=== PATIENT | male | born 1965 | race American Indian/Alaskan Native ===

== ENCOUNTER 2018-11-09 23:18 | Inpatient (IN) | payer MEDICARE, OTHER ==
[2018-11-09] MEDS ORDERED: ASPIRIN PO ONE (23:45)
[2018-11-10 00:06] LABS: Basophils # (Auto) 0.1 K/mm3 (0.0-0.1); Basophils % (Auto) 0.9 % (0.0-1.8); Eosinophils # (Auto) 0.3 K/mm3 (0.0-0.4); Eosinophils % (Auto) 3.8 % (0.0-4.3); Hematocrit 48.6 % (35.5-45.6); Hemoglobin 15.8 gm/dl (11.8-15.2); Lymphocytes % (Auto) 21.1 % (13.4-35.0); Mean Corpuscular HGB Conc 32 % (32-34); Mean Corpuscular Volume 95 fl (84-94); Monocytes % (Auto) 10.6 % (0.0-7.3); Platelet Count 214 K/mm3 (140-440); Red Blood Count 5.14 M/mm3 (3.65-5.03); Red Cell Distribution Width 16.6 % (13.2-15.2)
[2018-11-10 00:23] LABS: Calcium 8.8 mg/dL (8.4-10.2)
--- NOTE | 2018-11-10 02:02 | XRay Report ---
FINAL REPORT PROCEDURE: XR CHEST ROUTINE 2V TECHNIQUE: A portable AP chest radiograph was obtained at 11/10/2018 01:25 (EST) . CPT 47428 HISTORY: chest pain, cough COMPARISON: No prior studies are available for comparison. FINDINGS: Heart: Heart is enlarged. Mediastinum/Vessels: Normal. Lungs/Pleural space: There is pulmonary vascular congestion and pulmonary edema. Lungs are well-expan ded. There are no effusions or pneumothoraces.. Bony thorax: No acute osseous abnormality. Life support devices: None. IMPRESSION: Heart is enlarged. There is pulmonary vascular congestion and pulmonary edema. Lungs are well-expanded. There are no eff usions or pneumothoraces.. .
[2018-11-10] MEDS ORDERED: SOLU-Medrol IV ONE (02:12)
[2018-11-10] MEDS ORDERED: DUONEB *Not for PRN Use IH ONE (02:12)
--- NOTE | 2018-11-10 02:47 | Emergency Department Report ---
HPI - General Chief Complaint: Chest Pain Time Seen by Provider: 11/10/18 01:38 - HPI HPI: 53-year-old -[place]aj[place] male presents to the emergency department from home with a complaint of some chest pain, shortness of breath and a mixed dry and productive cough that started about 3 PM this afternoon. The patient wears 2 L oxygen by nasal cannula at home but did not have any for travel and presented to triage with a room air oxygen of 84%. The patient has a past medical history of sarcoidosis and kidney stones. The patient was recently at [facility] for some type of respiratory distress/failure in which she was intubated, had a feeding tube, and says that he also had a heart cath at that time that did not show any need for a cardiac stent. His primary care is usually through the [facility]. He does not have a restorative aide. No recent travel or sick contacts at home. ED Past Medical Hx - Past Medical History Previous Medical History?: Yes Hx Congestive Heart Failure: Yes Hx Renal Disease: Yes (no dialysis) Additional medical history: sarcoidosis, kidney stones - Surgical History Past Surgical History?: No - Social History Smoking Status: Never Smoker Substance Use Type: None - Medications Home Medications: Home Medications Medication Instructions Recorded Confirmed Last Taken Type Docusate Sodium [Colace CAP] 100 mg PO BID #60 capsule 07/07/15 Unknown Rx oxyCODONE /ACETAMINOPHEN [Percocet 1 - 2 tab PO Q6H PRN #30 tablet 07/07/15 Unknown Rx 5/325 mg] predniSONE [Deltasone] 20 mg PO QDAY #50 tab 07/07/15 Unknown Rx ED Review of Systems ROS: Stated complaint: JOSUÉ/CHEST PAIN Other details as noted in HPI Comment: All other systems reviewed and negative Constitutional: denies: chills, fever Eyes: denies: eye pain, eye discharge ENT: denies: ear pain, throat pain Respiratory: cough, shortness of breath Cardiovascular: chest pain. denies: syncope Gastrointestinal: denies: abdominal pain, vomiting Genitourinary: denies: dysuria, discharge Musculoskeletal: denies: joint swelling, arthralgia Skin: denies: rash, lesions Neurological: denies: headache, weakness Physical Exam - Physical Exam Vital Signs: Vital Signs 11/09/18 11/10/18 23:28 01:46 Temperature 98.3 F Pulse Rate 84 Respiratory 30 H Rate O2 Sat by Pulse 92 94 Oximetry Physical Exam: GENERAL: The patient is well-developed well-nourished. HEENT: Normocephalic. Atraumatic. Patient has moist mucous membranes. EYES: Extraocular motions are intact. Pupils are equal and reactive to light bilaterally. NECK: Supple. Trachea is midline. CHEST/LUNGS: Coarse breath sound. Mild wheezing. There is tachypnea but no accessory muscle use. A dry cough heard during examination. There is no respiratory distress noted. HEART/CARDIOVASCULAR: Regular. There is no tachycardia. There is no obvious m urmur. ABDOMEN: Abdomen is soft, nontender. Patient has normal bowel sounds. There is no abdominal distention. SKIN: Skin is warm and dry. Mild pitting edema to the bilateral lower extremity. NEURO: The patient is awake, alert, and oriented. The patient is cooperative. The patient has no focal neurologic deficits. The patient has normal speech. MUSCULOSKELETAL: There is no tenderness or deformity. There is no limitation range of motion. There is no evidence of acute injury. ED Course Vital Signs 11/09/18 11/10/18 23:28 01:46 Temperature 98.3 F Pulse Rate 84 Respiratory 30 H Rate O2 Sat by Pulse 92 94 Oximetry ED Medical Decision Making - Lab Data Result diagrams: 11/09/18 23:58 11/09/18 23:58 - EKG Data -: EKG Interpreted by Me EKG shows normal: sinus rhythm, axis, intervals, QRS complexes (right bundle branch block and left anterior fascicular block, LVH), ST-T waves Rate: normal - EKG Data When compared to previous EKG there are: changes noted (previous EKG was normal and did not have the right bundle branch block or left anterior fascicular block) Interpretation: other (sinus rhythm, left axis deviation, right bundle branch block, left anterior fascicular block, LVH) - Radiology Data Radiology results: image reviewed interpreted by me: Chest x-ray shows some pulmonary vascular congestion and mild pulmonary edema. No obvious pneumonia. No pneumothorax. - Medical Decision Making Patient presents with some acute shortness of breath and chest pain. First troponin is slightly elevated at 0.031 and we will continue to trend this. D- dimer is negative. Patient appears to have some CHF with a BNP greater than 5000 and a chest x-ray that shows some pulmonary vascular congestion and pulmonary edema. The patient was given some Solu-Medrol and a breathing treatment for mild bronchospasm. He was given some Lasix to start diuresis. Patient will be admitted to the hospital for further evaluation and treatment and was accepted for admission by the hospitalist, Dr. Hoover. - Differential Diagnosis CHF, WI, PE, pneumonia Critical Care Time: No Critical care attestation.: If time is entered above; I have spent that time in minutes in the direct care of this critically ill patient, excluding procedure time. 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
[2018-11-10] MEDS ORDERED: LASIX IV ONE ×3 (03:13→05:00)
[2018-11-10 03:42] LABS: Chol/HDL Ratio 2.91 %
[2018-11-10] MEDS ORDERED: MORPHINE IV ONE (03:43)
[2018-11-10] MEDS ORDERED: ZOFRAN ONE (04:05)
[2018-11-10] MEDS ORDERED: MORPHINE IV PRN (04:17)
[2018-11-10] MEDS ORDERED: PERCOCET 5/325 PO PRN (04:17)
[2018-11-10] MEDS ORDERED: ZOFRAN IV PRN (04:17)
[2018-11-10] MEDS ORDERED: PROVENTIL IH PRN (04:17)
[2018-11-10] MEDS ORDERED: SODIUM CHLORIDE FLUSH SYRINGE 10 ML IV PRN (04:17)
--- NOTE | 2018-11-10 04:21 | History and Physical Report ---
<NATY MACKEY - Last Filed: 11/10/18 04:49> History of Present Illness Date of examination: 11/10/18 Date of admission: 11/10/2018 Chief complaint: chest pain, SOB History of present illness: Pt is a 53 y/o BM with PMHx of Sarcoidosis home O2 dependant, CHF, HTN, recent pneumonia who presents to the ER from home with c/o chest pain and SOB x 3 days. Pt states that for the past 3 days he had been having a non-productive cough, but today he had a sharp chest pain associated with SOB, which prompt him to come to the ER for evaluation. Pt states that the chest pain is mostly associated with cough and SOB, had a heart cath 3 months ago when he was admited at [place], Pt denies diaphroresis, reports some palpitation, denies radiation of the pain. Pt states that he was more concerns for the SOB because of his recent admission for pneumonia at [facility], he was intubated at that time, he denies h/o heart disease and chest pain, he denies family history. Pt' SOB got worse, his O2 sat decreased to 64 and remained at 71 only while he was talking and provided medical history, his blood pressure was stable 139/89, Solumedrol 125mg was already giving and will be continue q6hr, Lasix 40mg ordered, ABG and BiPAP was ordered to keep his O2 sat >92%, pt is admitted for further evaluation and treatment. Past History Past Medical History: heart failure, hypertension, sarcoidosis Past Surgical History: No surgical history Social history: Lives alone Family history: no significant family history Medications and Allergies Allergies Allergy/AdvReac Type Severity Reaction Status Date / Time No Known Allergies Allergy Unverified 07/05/15 10:00 Home Medications Medication Instructions Recorded Confirmed Last Taken Type RX: ALBUTEROL NEB's [Proventil 2.5 mg IH Q3HRT PRN #15 nebu 11/15/18 Unknown Rx 0.083% NEBS] RX: Acetaminophen [Acetaminophen 650 mg PO Q4H PRN #15 tablet 11/15/18 Unknown Rx TAB] RX: Aspirin [Aspirin BABY CHEW TAB] 81 mg PO QDAY #30 tab.chew 11/15/18 Unknown Rx RX: Ipratropium/Albuterol Sulfate 1 ampul IH TIDRT #30 ampul.neb 11/15/18 Unknown Rx [DUONEB *Not for PRN Use*] RX: oxyCODONE /ACETAMINOPHEN 1 tab PO Q6H PRN #15 tablet 11/15/18 Unknown Rx [Percocet 5/325 mg] RX: predniSONE [Deltasone] 20 mg PO QDAY #30 tab 11/28/18 Unknown Rx Review of Systems Cardiovascular: chest pain Respiratory: cough, sleep apnea Gastrointestinal: abdominal pain Exam - Constitutional Vitals: Temp Pulse Resp BP Pulse Ox 98.3 F 81 18 94 11/09/18 23:28 11/10/18 03:39 11/10/18 03:39 11/10/18 01:46 General appearance: Present: severe distress - EENT Eyes: Present: EOM intact ENT: hearing intact - Neck Neck: Present: supple - Respiratory Respiratory effort: normal Respiratory: bilateral: rales, rhonchi - Cardiovascular Rhythm: regular Heart Sounds: Present: S1 & S2 - Extremities Extremities: no ischemia, No edema Peripheral Pulses: within normal limits - Abdominal General gastrointestinal: Present: soft, non-tender Male genitourinary: Present: deferred - Rectal Rectal Exam: deferred - Integumentary Integumentary: Present: warm, dry - Musculoskeletal Musculoskeletal: strength equal bilaterally - Psychiatric Psychiatric: cooperative - Neurologic Neurologic: moves all extremities Results - Labs CBC & Chem 7: 11/09/18 23:58 11/09/18 23:58 Labs: Laboratory Last Values WBC 9.3 K/mm3 (4.5-11.0) 11/09/18 23:58 RBC 5.14 M/mm3 (3.65-5.03) H 11/09/18 23:58 Hgb 15.8 gm/dl (11.8-15.2) H 11/09/18 23:58 Hct 48.6 % (35.5-45.6) H 11/09/18 23:58 MCV 95 fl (84-94) H 11/09/18 23:58 MCH 31 pg (28-32) 11/09/18 23:58 MCHC 32 % (32-34) 11/09/18 23:58 RDW 16.6 % (13.2-15.2) H 11/09/18 23:58 Plt Count 214 K/mm3 (140-440) 11/09/18 23:58 Lymph % (Auto) 21.1 % (13.4-35.0) 11/09/18 23:58 [place] % (Auto) 10.6 % (0.0-7.3) H 11/09/18 23:58 Eos % (Auto) 3.8 % (0.0-4.3) 11/09/18 23:58 Baso % (Auto) 0.9 % (0.0-1.8) 11/09/18 23:58 Lymph # 2.0 K/mm3 (1.2-5.4) 11/09/18 23:58 [place] # 1.0 K/mm3 (0.0-0.8) H 11/09/18 23:58 Eos # 0.3 K/mm3 (0.0-0.4) 11/09/18 23:58 Baso # 0.1 K/mm3 (0.0-0.1) 11/09/18 23:58 Seg Neutrophils % 63.6 % (40.0-70.0) 11/09/18 23:58 Seg Neutrophils # 5.9 K/mm3 (1.8-7.7) 11/09/18 23:58 D-Dimer < 135.00 ng/mlDDU (0-234) 11/10/18 02:24 Sodium 145 mmol/L (137-145) 11/09/18 23:58 Potassium 4.2 mmol/L (3.6-5.0) 11/09/18 23:58 Chloride 104.9 mmol/L (98-107) 11/09/18 23:58 Carbon Dioxide 29 mmol/L (22-30) 11/09/18 23:58 Anion Gap 15 mmol/L 11/09/18 23:58 BUN 13 mg/dL (9-20) 11/09/18 23:58 Creatinine 1.6 mg/dL (0.8-1.5) H 11/09/18 23:58 Estimated GFR 55 ml/min 11/09/18 23:58 BUN/Creatinine Ratio 8 % 11/09/18 23:58 Glucose 103 mg/dL (75-100) H 11/09/18 23:58 Calcium 8.8 mg/dL (8.4-10.2) 11/09/18 23:58 Troponin T 0.031 ng/mL (0.00-0.029) H 11/09/18 23:58 NT-Pro-B Natriuret Pep 5420 pg/mL (0-900) H 11/10/18 02:24 Triglycerides 86 mg/dL (2-149) 11/09/18 23:58 Cholesterol 166 mg/dL (50-199) 11/09/18 23:58 LDL Cholesterol Direct 100 mg/dL (50-130) 11/09/18 23:58 HDL Cholesterol 57 mg/dL (40-59) 11/09/18 23:58 Cholesterol/HDL Ratio 2.91 % 11/09/18 23:58 Assessment and Plan Assessment and plan: 1. Restrictive long disease with acute exacerbation 2. Sarcoidosis (on home O2) 3. Hypoxia due to above #1 &2 4. Acute dyspnea 5. NOY (on CPAP at night) 6. Recent pneumonia 7. CAD/CHF (stable) 8. HTN (BP stable) 9. Obesity 10. Immunocompromised (on daily steroid) Plan: Admit to [facility] for hypoxia/dyspnea Continue nebulizer treatment PRN for SOB Pulmocort daily O2 to keep sat > 92% Start BiPAP for hypoxia Solumedrol 60mg Q6hr Cough suppressant with Tessalon perle Resume home meds VTE prophylaxis with heparin SubQ q8hr Further plan per hospital course Plan of care was d/w pt, voiced understanding Pt's condition and plan of care was d/w Dr Hoover Advance Directives: Yes VTE prophylaxis?: Chemical Plan of care discussed with patient/family: Yes <HUGO HOOVER - Last Filed: 11/29/18 01:23> History of Present Illness Date of admission: 11/10/18 04:17 Medications and Allergies Active Meds: Active Medications Acetaminophen (Tylenol) 650 mg PO Q4H PRN PRN Reason: Pain MILD(1-3)/Fever >100.5/BURNS Albuterol (Proventil) 2.5 mg IH Q3HRT PRN PRN Reason: Shortness Of Breath Albuterol/Ipratropium (Duoneb *Not For Prn Use*) 1 ampul IH Q6HRT [facility]BDIAS Aspirin (Baby Aspirin) 81 mg PO QDAY ABDI[facility] Benzonatate (Tessalon Perles) 200 mg PO Q8HR [facility]BDI[facility] Famotidine (Pepcid) 20 mg PO BID ABDI[facility] Furosemide (Lasix) 40 mg IV 0600,1800 [facility] Heparin Sodium (Porcine) (Heparin) 5,000 unit SUB-Q Q8HR [facility] Hydrophilic Ointment (Vaseline Lip Therapy) 1 applic TP Q2HR PRN PRN Reason: Dry Lips Sodium Chloride (Nacl 0.9% 1000 Ml) 1,000 mls @ 75 mls/hr IV DIRECT ABDIAS Midazolam HCl 100 mg/ Sodium (Chloride) 100 mls @ 2 mls/hr IV TITR ABDIAS; Protocol Methylprednisolone Sodium Succinate (Solu-Medrol) 125 mg IV Q6HR ABDIAS Midazolam HCl (Versed) 2 mg IV Q10MIN PRN PRN Reason: Sedation Morphine Sulfate (Morphine) 2 mg IV Q4H PRN PRN Reason: Pain, Moderate (4-6) Multi-Ingred Cream/Lotion/Oil/Oint (Artificial Tears Ophth Oint) 1 applic OU Q4HR PRN PRN Reason: Dry Eye(s) Ondansetron HCl (Zofran) 4 mg IV Q8H PRN PRN Reason: Nausea And Vomiting Oxycodone/Acetaminophen (Percocet 5/325) 1 tab PO Q6H PRN PRN Reason: Pain, Moderate (4-6) Sodium Chloride (Sodium Chloride Flush Syringe 10 Ml) 10 ml IV BID ABDIAS Sodium Chloride (Sodium Chloride Flush Syringe 10 Ml) 10 ml IV PRN PRN PRN Reason: LINE FLUSH Exam - Constitutional Vitals: Temp Pulse Resp BP Pulse Ox 98.3 F 89 18 139/89 95 11/09/18 23:28 11/10/18 04:42 11/10/18 04:42 11/10/18 04:42 11/10/18 04:42 Results - Labs CBC & Chem 7: 11/28/18 05:25 11/28/18 05:25 Labs: Laboratory Last Values WBC 9.3 K/mm3 (4.5-11.0) 11/09/18 23:58 RBC 5.14 M/mm3 (3.65-5.03) H 11/09/18 23:58 Hgb 15.8 gm/dl (11.8-15.2) H 11/09/18 23:58 Hct 48.6 % (35.5-45.6) H 11/09/18 23:58 MCV 95 fl (84-94) H 11/09/18 23:58 MCH 31 pg (28-32) 11/09/18 23:58 MCHC 32 % (32-34) 11/09/18 23:58 RDW 16.6 % (13.2-15.2) H 11/09/18 23:58 Plt Count 214 K/mm3 (140-440) 11/09/18 23:58 Lymph % (Auto) 21.1 % (13.4-35.0) 11/09/18 23:58 [place] % (Auto) 10.6 % (0.0-7.3) H 11/09/18 23:58 Eos % (Auto) 3.8 % (0.0-4.3) 11/09/18 23:58 Baso % (Auto) 0.9 % (0.0-1.8) 11/09/18 23:58 Lymph # 2.0 K/mm3 (1.2-5.4) 11/09/18 23:58 [place] # 1.0 K/mm3 (0.0-0.8) H 11/09/18 23:58 Eos # 0.3 K/mm3 (0.0-0.4) 11/09/18 23:58 Baso # 0.1 K/mm3 (0.0-0.1) 11/09/18 23:58 Seg Neutrophils % 63.6 % (40.0-70.0) 11/09/18 23:58 Seg Neutrophils # 5.9 K/mm3 (1.8-7.7) 11/09/18 23:58 D-Dimer < 135.00 ng/mlDDU (0-234) 11/10/18 02:24 Sodium 145 mmol/L (137-145) 11/09/18 23:58 Potassium 4.2 mmol/L (3.6-5.0) 11/09/18 23:58 Chloride 104.9 mmol/L (98-107) 11/09/18 23:58 Carbon Dioxide 29 mmol/L (22-30) 11/09/18 23:58 Anion Gap 15 mmol/L 11/09/18 23:58 BUN 13 mg/dL (9-20) 11/09/18 23:58 Creatinine 1.6 mg/dL (0.8-1.5) H 11/09/18 23:58 Estimated GFR 55 ml/min 11/09/18 23:58 BUN/Creatinine Ratio 8 % 11/09/18 23:58 Glucose 103 mg/dL (75-100) H 11/09/18 23:58 Calcium 8.8 mg/dL (8.4-10.2) 11/09/18 23:58 Troponin T 0.031 ng/mL (0.00-0.029) H 11/09/18 23:58 NT-Pro-B Natriuret Pep 5420 pg/mL (0-900) H 11/10/18 02:24 Triglycerides 86 mg/dL (2-149) 11/09/18 23:58 Cholesterol 166 mg/dL (50-199) 11/09/18 23:58 LDL Cholesterol Direct 100 mg/dL (50-130) 11/09/18 23:58 HDL Cholesterol 57 mg/dL (40-59) 11/09/18 23:58 Cholesterol/HDL Ratio 2.91 % 11/09/18 23:58 Assessment and Plan Assessment and plan: 53-year-old male with a history of sarcoidosis on 2 L oxygen at home, sleep apnea, see emergency room with complaints of shortness of breath and a nonproductive cough. Also admits to PND, orthopnea, no lower extremity edema. He also complained of chest pain, he had a recent cath at [facility] which was showed no blockage. His physical exam is significant for decreased heart sound, crackles. Agree with the plan as discussed above. In addition, discontinue IV fluids, start Solu-Medrol at 125 for sarcoidosis exacerbation. New-onset CHF, start IV Lasix, first dose now, aspirin, hold beta sarah secondary to acute exacerbation of sarcoidosis, no MERCEDES inhibitor secondary to renal insufficiency, unclear if this is new. Check cardiac enzymes, echo, consult cardiology. Review of systems Constitutional: no weight loss, chills, fever Ears, eyes, nose, mouth and throat: no nasal congestion, no nasal discharge, no sinus pressure, no vision change, no red eye. Neck: No neck pain or rigidity. Cardiovascular: no palpitations, +chest pain Respiratory: + cough, shortness of breath Gastrointestinal: no hematochezia, abdominal pain Genitourinary : no frequency , no hematuria Musculoskeletal: no joint swelling or muscle ache Integumentary: no rash, no pruritis Neurological: no parathesias, no focal weakness Endocrine: no cold or heat intolerance, no polyuria or polydipsia Hematologic/Lymphatic: no easy bruising, no easy bleeding, no gland swelling Allergic/Immunologic: no urticaria, no angioedema. Addendum Patient had to be intubated, he had hypercapnia, became confused and oxygen level dropped. Upgrade to ICU, consult critical care, start Versed drip
[2018-11-10] MEDS ORDERED: LASIX 80 MG in NACL 0.9% 50 ML IV ONE (04:41)
[2018-11-10] MEDS ORDERED: NACL 0.9% 1000 ML 1,000 ML IV SCH (05:00)
[2018-11-10] MEDS ORDERED: ATIVAN ONE (05:22)
[2018-11-10] MEDS ORDERED: VASELINE LIP THERAPY TP PRN ×2 (05:52→16:02)
[2018-11-10] MEDS ORDERED: ARTIFICIAL TEARS OPHTH OINT OU PRN ×2 (05:52→16:02)
[2018-11-10] MEDS ORDERED: SOLU-Medrol IV SCH ×2 (06:00→06:04)
[2018-11-10] MEDS ORDERED: TESSALON PERLES PO SCH (06:00)
[2018-11-10] MEDS ORDERED: MIDAZOLAM 100 MG in NACL 0.9% 80 ML IV SCH (06:00)
[2018-11-10] MEDS ORDERED: VERSED IV ONE ×2 (06:05→07:10)
[2018-11-10] MEDS: VERSED IV PRN ×2 (06:10→06:25)
[2018-11-10] MEDS ORDERED: KETALAR IV ONE (06:52)
[2018-11-10] MEDS ORDERED: KETAMINE HCL IV ONE ×2 (06:55→08:00)
[2018-11-10] MEDS ORDERED: LEVOPHED DRIP 4 MG/NS 250 ML 4 MG/250 ML BAG IV ONE ×3 (07:00→16:24)
--- NOTE | 2018-11-10 07:02 | XRay Report ---
FINAL REPORT PROCEDURE: XR CHEST 1V AP TECHNIQUE: Chest radiograph anteroposterior view. CPT 68251 HISTORY: ETT placement COMPARISON: 11/10/2018 FINDINGS: Heart: The heart is enlarged Mediastinum/Vessels: Normal. Lungs/Pleural space: Lungs are clear. There are no infiltrates, effusions or pneumothoraces.. Bony thorax: No acute osseous abnormality. Life support devices: Endotracheal tube is in the distal trachea and should be pulled back 1-1.5 cent imeters.. IMPRESSION: The heart is enlarged Lungs are clear. There are no infiltrates, effusions or pneumothoraces.. Endotracheal tube is in the distal trachea and should be pulled back 1-1.5 centimeters. .
[2018-11-10] MEDS: LEVOPHED DRIP 4 MG/NS 250 ML 4 MG/250 ML BAG IV ONE ×2 (07:15→12:10)
[2018-11-10 07:20] LABS: Creatine Kinase MB 7.8 ng/mL (0.0-4.0)
[2018-11-10] MEDS ORDERED: HEPARIN ONE ×2 (07:42→16:42)
[2018-11-10] MEDS: HEPARIN SUB-Q SCH ×3 (07:52→22:26)
[2018-11-10] MEDS ORDERED: LEVOPHED DRIP 4 MG/NS 250 ML 4 MG/250 ML BAG IV SCH (08:00)
--- NOTE | 2018-11-10 08:49 | Consultation ---
History of Present Illness Consult date: 11/10/18 Consult reason: chest pain, shortness of breath History of present illness: Patient presented with chest pain and SOB,subsequently developed respiratory failure ,intubated,on Lvevophed.Presently patient is comfortable,sedated,on ventilator. Pt is a 53 y/o BM with PMHx of Sarcoidosis home O2 dependant, CHF, HTN, recent pneumonia who presents to the ER from home with c/o chest pain and SOB x 3 days. Pt states that for the past 3 days he had been having a non-productive cough, but today he had a sharp chest pain associated with SOB, which prompt him to come to the ER for evaluation. Pt states that the chest pain is mostly associated with cough and SOB, had a heart cath 3 months ago when he was admited at [place], Pt denies diaphroresis, reports some palpitation, denies radiation of the pain. Pt states that he was more concerns for the SOB because of his recent admission for pneumonia at [facility], he was intubated at that time, he denies h/o heart disease and chest pain, he denies family history. Pt' SOB got worse, his O2 sat decreased to 64 and remained at 71 only while he was talking and provided medical history,was subsequently intubated. Past History Past Medical History: heart failure, hypertension, sarcoidosis Past Surgical History: No surgical history Social history: Lives alone Family history: no significant family history Medications and Allergies Allergies Allergy/AdvReac Type Severity Reaction Status Date / Time No Known Allergies Allergy Unverified 07/05/15 10:00 Home Medications Medication Instructions Recorded Confirmed Last Taken Type Docusate Sodium [Colace CAP] 100 mg PO BID #60 capsule 07/07/15 Unknown Rx oxyCODONE /ACETAMINOPHEN [Percocet 1 - 2 tab PO Q6H PRN #30 tablet 07/07/15 Unknown Rx 5/325 mg] predniSONE [Deltasone] 20 mg PO QDAY #50 tab 07/07/15 Unknown Rx Active Meds: Active Medications Acetaminophen (Tylenol) 650 mg PO Q4H PRN PRN Reason: Pain MILD(1-3)/Fever >100.5/BURNS Albuterol (Proventil) 2.5 mg IH Q3HRT PRN PRN Reason: Shortness Of Breath Albuterol/Ipratropium (Duoneb *Not For Prn Use*) 1 ampul IH Q6HRT [facility] Aspirin (Baby Aspirin) 81 mg PO QDAY [facility] Benzonatate (Tessalon Perles) 200 mg PO Q8HR [facility] Last Admin: 11/10/18 07:37 Dose: Not Given Documented by: Famotidine (Pepcid) 20 mg PO BID [facility] Furosemide (Lasix) 40 mg IV 0600,1800 [facility] Heparin Sodium (Porcine) (Heparin) 5,000 unit SUB-Q Q8HR [facility] Last Admin: 11/10/18 07:52 Dose: 5,000 unit Documented by: Hydrophilic Ointment (Vaseline Lip Therapy) 1 applic TP Q2HR PRN PRN Reason: Dry Lips Midazolam HCl 100 mg/ Sodium (Chloride) 100 mls @ 2 mls/hr IV TITR ABDIAS; Protocol Last Titration: 11/10/18 08:03 Dose: 4 mg/hr, 4 mls/hr Documented by: Norepinephrine (Levophed Drip 4 Mg/Ns 250 Ml) 4 mg in 250 mls @ 7.5 mls/hr IV TITR ABDIAS; Protocol Norepinephrine (Levophed Drip 4 Mg/Ns 250 Ml) 4 mg in 250 mls @ 7.5 mls/hr IV TITR ONE; Protocol Stop: 11/11/18 16:43 Last Titration: 11/10/18 08:26 Dose: 17 mcg/min, 63.75 mls/hr Documented by: Methylprednisolone Sodium Succinate (Solu-Medrol) 125 mg IV Q6HR [facility] Midazolam HCl (Versed) 2 mg IV Q10MIN PRN PRN Reason: Sedation Last Admin: 11/10/18 06:25 Dose: 2 mg Documented by: Midazolam HCl (Versed) 5 mg IV ONCE NR Multi-Ingred Cream/Lotion/Oil/Oint (Artificial Tears Ophth Oint) 1 applic OU Q4HR PRN PRN Reason: Dry Eye(s) Ondansetron HCl (Zofran) 4 mg IV Q8H PRN PRN Reason: Nausea And Vomiting Sodium Chloride (Sodium Chloride Flush Syringe 10 Ml) 10 ml IV BID [facility] Sodium Chloride (Sodium Chloride Flush Syringe 10 Ml) 10 ml IV PRN PRN PRN Reason: LINE FLUSH Review of Systems ROS unobtainable: due to endotracheal tube Physical Examination Vital Signs Temp Pulse Pulse Ox 98.3 F 84 92 11/09/18 23:28 01/12/19 23:28 11/09/18 23:28 Narrative exam: Intubated,on ventilator in ER. General appearance: no acute distress HEENT: Positive: PERRL Neck: Positive: neck supple, trachea midline Cardiac: Positive: Reg Rate and Rhythm Lungs: Positive: Normal Breath Sounds (intubated,sedated.) Abdomen: Positive: Unremarkable Male genitourinary: Positive: deferred Skin: Positive: Clear Extremities: Present: edema, +1 Edema Results 11/09/18 23:58 11/09/18 23:58 Cardiac Enzymes 11/10/18 Range/Units 06:37 CK-MB (CK-2) 7.8 H (0.0-4.0) ng/mL Lipids 11/09/18 Range/Units 23:58 Triglycerides 86 (2-149) mg/dL Cholesterol 166 (50-199) mg/dL HDL Cholesterol 57 (40-59) mg/dL Cholesterol/HDL Ratio 2.91 % CBC 11/09/18 Range/Units 23:58 WBC 9.3 (4.5-11.0) K/mm3 RBC 5.14 H (3.65-5.03) M/mm3 Hgb 15.8 H (11.8-15.2) gm/dl Hct 48.6 H (35.5-45.6) % Plt Count 214 (140-440) K/mm3 Lymph # 2.0 (1.2-5.4) K/mm3 [place] # 1.0 H (0.0-0.8) K/mm3 Eos # 0.3 (0.0-0.4) K/mm3 Baso # 0.1 (0.0-0.1) K/mm3 Comprehensive Metabolic Panel 11/09/18 Range/Units 23:58 Sodium 145 (137-145) mmol/L Potassium 4.2 (3.6-5.0) mmol/L Chloride 104.9 (98-107) mmol/L Carbon Dioxide 29 (22-30) mmol/L BUN 13 (9-20) mg/dL Creatinine 1.6 H (0.8-1.5) mg/dL Glucose 103 H (75-100) mg/dL Calcium 8.8 (8.4-10.2) mg/dL EKG interpretations - Telemetry EKG Rhythm: Sinus Rhythm (90/mt(11/10/2018,05:53 AM).RBBB,LVH with repolarization abnormalities.) Assessment and Plan Acute respiratory failure,intubated sedated.Comfortable now. Had transient hypotension initially, started on Levophed,now B.P is normal,Levophed being weaned off. Cardiac aguilar stable. Continue supportive rx. serial enzymes. check echo when done. Will get records from [place].
[2018-11-10] MEDS: DUONEB *Not for PRN Use IH SCH ×4 (08:51→19:18)
[2018-11-10] MEDS ORDERED: AMIDATE IV ONE (10:10)
[2018-11-10] MEDS ORDERED: QUELICIN ONE (10:10)
[2018-11-10] MEDS: SODIUM CHLORIDE FLUSH SYRINGE 10 ML IV SCH ×2 (10:29→22:32)
[2018-11-10] MEDS: PEPCID PO SCH ×2 (10:30→22:32)
[2018-11-10] MEDS: BABY ASPIRIN PO SCH (10:30)
--- NOTE | 2018-11-10 11:43 | XRay Report ---
FINAL REPORT EXAM: XR CHEST 1V AP HISTORY: ET tube placement, TECHNIQUE: Chest, AP semi upright PRIORS: 11/10/2018 FINDINGS: The endotracheal tube tip is at the shyla and should be pulled back slightly. There is unchanged mild cardiomegaly. Pulmonary vasculature is not congested. There are no acute infiltrates. There are no pleural effusion seen. There is no evidence of pneumothorax. IMPRESSION: The endotracheal tube tip is at the shyla. Suggest pulling back about 2 cm. Unchanged mild cardiomegaly.
--- NOTE | 2018-11-10 12:46 | Event Note ---
Date: 11/10/18 Patient reassessed Acute respiratory failure Patient intubated Continue vent support Continue antibiotics ICU admission Patient in the emergency room waiting for ICU bed
[2018-11-10 12:59] LABS: Creatine Kinase MB 6.4 ng/mL (0.0-4.0)
[2018-11-10] MEDS ORDERED: SOLU-Medrol ONE (13:54)
--- NOTE | 2018-11-10 14:27 | Consultation ---
History of Present Illness Consult date: 11/10/18 Requesting physician: ZEYAD BARNETT History of present illness: HISTORY PER MEDICAL RECORDS AND DISCUSSION WITH ED STAFF. At the time of my evaluation in the ED, patient was orally intubated. Awake but unable to give me a history Pt is a 53 y/o BM with PMHx of Sarcoidosis home O2 dependant, CHF, HTN, recent pneumonia who presents to the ER from home with c/o chest pain and SOB x 3 days. Pt states that for the past 3 days he had been having a non-productive cough, but today he had a sharp chest pain associated with SOB, which prompt him to come to the ER for evaluation. Pt states that the chest pain is mostly assoc iated with cough and SOB, had a heart cath 3 months ago when he was admited at [place], Pt denies diaphroresis, reports some palpitation, denies radiation of the pain. Pt states that he was more concerns for the SOB because of his recent admission for pneumonia at [facility], he was intubated at that time, he denies h/o heart disease and chest pain, he denies family history. Pt' SOB got worse, his O2 sat decreased to 64 and remained at 71 only while he was talking and provided medical history, his blood pressure was stable 139/89, Solumedrol 125mg was already giving and will be continue q6hr, Lasix 40mg ordered, ABG and BiPAP was ordered to keep his O2 sat >92%, pt is admitted for further evaluation and treatment. While in the ED patient failed BIPAP and required endotracheal intubation and mechanical ventilatory support. I have been consulted for critical care management and ventilator care Past History Past Medical History: heart failure, hypertension, sarcoidosis Past Surgical History: No surgical history Social history: Lives alone, full code Family history: no significant family history Medications and Allergies Allergies Allergy/AdvReac Type Severity Reaction Status Date / Time No Known Allergies Allergy Unverified 07/05/15 10:00 Home Medications Medication Instructions Recorded Confirmed Last Taken Type Docusate Sodium [Colace CAP] 100 mg PO BID #60 capsule 07/07/15 Unknown Rx oxyCODONE /ACETAMINOPHEN [Percocet 1 - 2 tab PO Q6H PRN #30 tablet 07/07/15 Unknown Rx 5/325 mg] predniSONE [Deltasone] 20 mg PO QDAY #50 tab 07/07/15 Unknown Rx Active Meds: Active Medications Acetaminophen (Tylenol) 650 mg PO Q4H PRN PRN Reason: Pain MILD(1-3)/Fever >100.5/BURNS Albuterol (Proventil) 2.5 mg IH Q3HRT PRN PRN Reason: Shortness Of Breath Albuterol/Ipratropium (Duoneb *Not For Prn Use*) 1 ampul IH Q6HRT [facility] Last Admin: 11/10/18 08:51 Dose: Not Given Documented by: Aspirin (Baby Aspirin) 81 mg PO QDAY [facility] Last Admin: 11/10/18 10:30 Dose: Not Given Documented by: Benzonatate (Tessalon Perles) 200 mg PO Q8HR [facility] Last Admin: 11/10/18 07:37 Dose: Not Given Documented by: Famotidine (Pepcid) 20 mg PO BID [facility] Last Admin: 11/10/18 10:30 Dose: Not Given Documented by: Furosemide (Lasix) 40 mg IV 0600,1800 [facility] Heparin Sodium (Porcine) (Heparin) 5,000 unit SUB-Q Q8HR [facility] Last Admin: 11/10/18 07:52 Dose: 5,000 unit Documented by: Hydrophilic Ointment (Vaseline Lip Therapy) 1 applic TP Q2HR PRN PRN Reason: Dry Lips Midazolam HCl 100 mg/ Sodium (Chloride) 100 mls @ 2 mls/hr IV TITR ABDIAS; Protoc ol Last Titration: 11/10/18 11:09 Dose: 5 mg/hr, 5 mls/hr Documented by: Norepinephrine (Levophed Drip 4 Mg/Ns 250 Ml) 4 mg in 250 mls @ 7.5 mls/hr IV TITR ABDIAS; Protocol Norepinephrine (Levophed Drip 4 Mg/Ns 250 Ml) 4 mg in 250 mls @ 7.5 mls/hr IV TITR ONE; Protocol Stop: 11/11/18 16:43 Last Admin: 11/10/18 12:10 Dose: 13 mcg/min, 48.75 mls/hr Documented by: Methylprednisolone Sodium Succinate (Solu-Medrol) 125 mg IV Q6HR [facility] Last Admin: 11/10/18 13:55 Dose: 125 mg Documented by: Midazolam HCl (Versed) 2 mg IV Q10MIN PRN PRN Reason: Sedation Last Admin: 11/10/18 06:25 Dose: 2 mg Documented by: Multi-Ingred Cream/Lotion/Oil/Oint (Artificial Tears Ophth Oint) 1 applic OU Q4HR PRN PRN Reason: Dry Eye(s) Ondansetron HCl (Zofran) 4 mg IV Q8H PRN PRN Reason: Nausea And Vomiting Sodium Chloride (Sodium Chloride Flush Syringe 10 Ml) 10 ml IV BID ABDIAS Last Admin: 11/10/18 10:29 Dose: 10 ml Documented by: Sodium Chloride (Sodium Chloride Flush Syringe 10 Ml) 10 ml IV PRN PRN PRN Reason: LINE FLUSH Review of Systems ROS unobtainable: due to endotracheal tube, due to mental status Physical Examination Vital signs: Vital Signs Temp Pulse Pulse Ox 98.3 F 84 92 11/09/18 23:28 11/09/18 23:28 11/09/18 23:28 General appearance: agitated, appears uncomfortable, other (atraumatic, normocephalic, obese) Eyes: non-icteric ENT: oropharynx moist, other (ET at 23cm at the lip) Neck: supple, no lymphadenopathy, no JVD Effort: very labored Ascultation: Bilateral: diminished breath sounds, rhonchi Cardiovascular: regular rate and rhythm, other (S1,S2, no murmurs, galoops or rubs) Gastrointestinal: normoactive bowel sounds, soft, non-tender, non-distended, other (No hepato-splenomegaly) Extremities: no cyanosis, no edema, pulses normal, no ischemia or petechiae, cool pupils equal and round, unable to assess Results - Laboratory Findings CBC and BMP: 11/09/18 23:58 11/12/18 10:13 ABG POC ABG pH 7.318 (7.35-7.45) L 11/10/18 09:24 POC ABG pCO2 57.7 (35-45) H 11/10/18 09:24 POC ABG pO2 152 (80-105) H 11/10/18 09:24 POC ABG HCO3 29.6 11/10/18 09:24 POC ABG Total CO2 31 11/10/18 09:24 POC ABG O2 Sat 99 11/10/18 09:24 PT/INR, D-dimer D-Dimer < 135.00 ng/mlDDU (0-234) 11/10/18 02:24 Abnormal lab findings: Abnormal Labs 11/09/18 11/09/18 11/10/18 23:58 23:58 02:24 RBC 5.14 H Hgb 15.8 H Hct 48.6 H MCV 95 H RDW 16.6 H [place] % (Auto) 10.6 H [place] # 1.0 H POC ABG pH POC ABG pCO2 POC ABG pO2 Creatinine 1.6 H Glucose 103 H Total Creatine Kinase CK-MB (CK-2) CK-MB (CK-2) Rel Index Troponin T 0.031 H NT-Pro-B Natriuret Pep 5420 H 11/10/18 11/10/18 11/10/18 05:43 06:37 09:24 RBC Hgb Hct MCV RDW [place] % (Auto) [place] # POC ABG pH 7.168 L 7.318 L POC ABG pCO2 87.7 H 57.7 H POC ABG pO2 193 H 152 H Creatinine Glucose Total Creatine Kinase 8 L CK-MB (CK-2) 7.8 H CK-MB (CK-2) Rel Index 97.5 H Troponin T NT-Pro-B Natriuret Pep 11/10/18 12:15 RBC Hgb Hct MCV RDW [place] % (Auto) [place] # POC ABG pH POC ABG pCO2 POC ABG pO2 Creatinine Glucose Total Creatine Kinase 269 H CK-MB (CK-2) 6.4 H CK-MB (CK-2) Rel Index Troponin T NT-Pro-B Natriuret Pep - Diagnostic Findings Chest x-ray: image reviewed (Bilateral interstitial infiltrates, radiographic evidence for pulm HTN, ETT 1cm above shyla) Additional studies: -D Echocardiogram EF 40-45%, dilated right ventricle with essentially normal RVSP Assessment and Plan Acute on chronic hypoxemic respiratory failure requiring MVS Sarcoidosis with acute exacerbation Acute CHF exacerbation HFrEF ( BNP 5420, EF 40-45%) JESI NOY (on CPAP at night) Recent pneumonia, admitted at [place] CAD/CHF (stable) Morbid Obesity Chronic steroid therapy -Admit ICU -Wean vasopressor support for MAP>65 -VAP bundle addressed, lung protective strategies -discussed with RT to pull out ETT by 2cm -Bronchodilator therapy -Adjust minute ventilation for better gas exchange -Continue with PEEP at 8, wean FIO2 for O2 saturations >90% -Initiate daily SAT and SBT trials once FIO2 is 50% or less, PEEP is down to 6 and set RR is <18 -VTE prophylaxis, Stress ulcer prophylaxis -Continue with steroids and slow taper. Patient is on chronic steroids and is at risk for hypotension related to adrenal insufficiency -De-escalate antibiotic therapy based on MEGHAN and cultures reports -Rondon catheter for accurate intake and output monitoring in this critically ill patient on vasopressor support with acute kidney injury -PT/OT to evaluate -Nutritional consult for tube feeding -Aspiration precautions -Accuchecks with glycemic control. Target glucose 140-180 mg/dL -VTE prophylaxis -Heart failure measures -Gentle diuresis while monitoring hemodynamics, renal function and electrolyte profile -Mobility program for pressure ulcer prevention -NPO for now, if he is not liberated from mechanical ventilatory support in the next 48 hours, will place feeding tube for nutritional support - Get records from [place] FULL CODE CONDITION: CRITICAL PROGNOSIS: GUARDED The high probability of a clinically significant, sudden or life-threatening deterioration of the [respiratory, cardiovascular,] system(s) required my full and direct attention, intervention and personal management. The aggregate critical care time was [65] minutes without overlap. Time includes spent on; [x] Data Review and interpretation [x] Patient assessment and monitoring of vital signs [x] Documentation [x] Medication orders and management
--- NOTE | 2018-11-10 16:44 | XRay Report ---
FINAL REPORT EXAM: XR CHEST 1V AP HISTORY: ETT placement TECHNIQUE: Frontal chest radiograph. PRIORS: 11/10/2018. FINDINGS: The endotracheal tube tip projects in the lower thoracic trachea, 2.5 centimeters above the shyla. U nchanged cardiomegaly. The addie are enlarged. There is mild bilateral pulmonary edema. No focal consolidation. No pleural effusion. No pneumothorax. No acute osseous abnormality. IMPRESSION: 1. Endotracheal tube tip projecting in the lower thoracic trachea, 2.5 centimeters above the shyla. 2. Cardiomegaly with bilateral pulmonary edema. 3. Prominent addie may represent enlarged pulmonary arteries of pulmonary arterial hypertension. Hilar lymphadenopathy is not excluded.
[2018-11-10] MEDS ORDERED: fentaNYL DRIP Premix 2,000 MCG/100 ML BAG IV SCH (17:00)
[2018-11-10] MEDS ORDERED: DIPRIVAN 10 MG/ML 1,000 MG/100 ML BOTTLE IV SCH (17:00)
[2018-11-10] MEDS: LASIX IV SCH (18:46)
[2018-11-10] MEDS: SOLU-Medrol IV SCH (22:25)
[2018-11-11] MEDS: DUONEB *Not for PRN Use IH SCH ×4 (02:18→19:59)
--- NOTE | 2018-11-11 02:50 | XRay Report ---
FINAL REPORT PROCEDURE: XR CHEST 1V AP TECHNIQUE: Chest radiograph anteroposterior view. CPT 29475 HISTORY: follow up respiratory failure COMPARISON: 11/10/2018 FINDINGS: Heart: The heart is enlarged. Mediastinum/Vessels: Normal. Lungs/Pleural space: There is suboptimal inspiration. There right perihilar infiltrates. There is no pleural effusion or pneumothorax.. Bony thorax: No acute osseous abnormality. Life support devices: Endotracheal tube is in the mid trachea.. IMPRESSION: The heart is enlarged. There is suboptimal inspiration. There right perihilar infiltrates. There is no pleural effusion or p neumothorax.. Endotracheal tube is in the mid trachea.. .
[2018-11-11] MEDS: SUBLIMAZE IV PRN (05:43)
[2018-11-11] MEDS: SOLU-Medrol IV SCH ×3 (05:44→22:26)
[2018-11-11] MEDS: HEPARIN SUB-Q SCH ×3 (05:44→22:27)
[2018-11-11] MEDS: LASIX IV SCH ×2 (05:44→17:48)
[2018-11-11] MEDS: PEPCID IV SCH ×2 (09:46→22:26)
[2018-11-11] MEDS: BABY ASPIRIN PO SCH (09:46)
[2018-11-11] MEDS: SODIUM CHLORIDE FLUSH SYRINGE 10 ML IV SCH ×2 (09:47→22:26)
--- NOTE | 2018-11-11 10:09 | Progress Note ---
Addendum entered and electronically signed by DONALDO SPEAR MD 11/11/18 11:13: Hypoxic respiratory failure/sarcoidosis/recent PNA/NOY History of CHF ECHO pending Will obtain LHC from [place] Stable cardiac status Original Note: Assessment and Plan Acute on chronic respiratory failure Intubated. Vent weaning per pulmonary. Chest pain Pt reports that he underwent LHC 3 months ago at [place]. Attempt to obtain medical records from [place]. Troponins minimally elevated, negative for AMI, ECG with no acute ischemic changes. Await echo. Recent pneumonia Sarcoidosis RBBB NOY H/o HTN Pt presented with hypotension, currently weaned off vasopressors. Obesity The patient has been seen in conjunction with Dr. Spear who agrees with the assessment and plan of care. Subjective Date of service: 11/11/18 Principal diagnosis: chest pain; respiratory failure Interval history: pt remains intubated, off sedation, alert and following commands. in SR on telemetry. currently off levophed gtt. Objective Last Vital Signs Temp 100.3 F H 11/11/18 03:52 Pulse 64 11/11/18 09:18 Resp 20 11/11/18 09:18 BP 125/76 11/11/18 08:54 Pulse Ox 93 11/11/18 08:54 - Physical Examination General: No Apparent Distress HEENT: Positive: PERRL Neck: Positive: neck supple, trachea midline Cardiac: Positive: Reg Rate and Rhythm, S1/S2 Lungs: Positive: Decreased Breath Sounds, Ventilated Respirations Neuro: Positive: Grossly Intact Abdomen: Positive: Unremarkable Skin: Positive: Clear Extremities: Present: edema, +1 Edema - Labs and Meds Cardiac Enzymes 11/10/18 Range/Units 12:15 CK-MB (CK-2) 6.4 H (0.0-4.0) ng/mL - Imaging and Cardiology EKG: report reviewed, image reviewed Echo: pending - Telemetry EKG Rhythm: Sinus Rhythm
--- NOTE | 2018-11-11 11:34 | Progress Note ---
Assessment and Plan Acute on chronic hypoxemic respiratory failure requiring MVS Sarcoidosis with acute exacerbation Acute CHF exacerbation HFrEF (BNP 5420, EF 40-45%) JESI NOY (on CPAP at night) Recent pneumonia, admitted at [place] CAD/CHF (stable) Morbid Obesity Chronic steroid therapy -Continue ICU care -Continue to monitor hemodynamics off vasopressor support -VAP bundle addressed, lung protective strategies -Bronchodilators therapy -Decrease PEEP to 6, wean FIO2 for O2 saturations >90%, decrease set rate to 12. Get ABG 2 hours after the changes. If acceptable gas-exchange and oxygenation initiate SAT/SBT -VTE prophylaxis, Stress ulcer prophylaxis -Continue with steroids and slow taper. Patient is on chronic steroids and is at risk for hypotension related to adrenal insufficiency -De-escalate antibiotic therapy based on MEGHAN and cultures reports -Discontinue sharma catheter -PT/OT -Aspiration precautions -Accuchecks with glycemic control. Target glucose 140-180 mg/dL -Heart failure measures -Gentle diuresis while monitoring hemodynamics, renal function and electrolyte profile -Mobility program for pressure ulcer prevention -NPO for now, if he is not liberated from mechanical ventilatory support in the next 24 hours, will place feeding tube for nutritional support - Get records from [place] FULL CODE CONDITION: CRITICAL PROGNOSIS: GUARDED The high probability of a clinically significant, sudden or life-threatening deterioration of the [respiratory, cardiovascular,] system(s) required my full and direct attention, intervention and personal management. The aggregate critical care time was [35] minutes without overlap. Time includes spent on; [x] Data Review and interpretation [x] Patient assessment and monitoring of vital signs [x] Documentation [x] Medication orders and management Subjective Date of service: 11/11/18 Principal diagnosis: chest pain; respiratory failure Interval history: Follow up for: Acute on Chronic Hypoxemic Respiratory failure; Restrictive lung disease with acute exacerbation; Sarcoidosis (on home O2 and chronic steroids); Acute dyspnea; Decompensated HF, JESI Seen and examined at bedside; 24hour events reviewed; nursing and respiratory care staff consulted; no adverse overnight events reported to me; More awake and alert. Still on PEEP 8 and FIO2 60%, set RR at 20. Able to make needs known by writing on a notepad. Denies any chest pain. No documented fevers overnight, off vasopressor support. Objective - Exam Narrative Exam: General appearance: agitated, appears uncomfortable, other (atraumatic, normocephalic, obese) Eyes: non-icteric ENT: oropharynx moist, other (ET at 23cm at the lip) Neck: supple, no lymphadenopathy, no JVD Effort: not labored Ascultation: Bilateral: diminished breath sounds, rhonchi Cardiovascular: regular rate and rhythm, other (S1,S2, no murmurs, galoops or rubs) Gastrointestinal: normoactive bowel sounds, soft, non-tender, non-distended, other (No hepato-splenomegaly) Extremities: no cyanosis, no edema, pulses normal, no ischemia or petechiae, cool pupils equal and round, no focal neurology Vital Signs - 12hr 11/10/18 11/11/18 11/11/18 23:59 00:00 02:19 Temperature 100.6 F H Pulse Rate Pulse Rate [ 68 Anterior Bilateral Throughout] Respiratory 84 H Rate Respiratory 20 Rate [Anterior Bilateral Throughout] Blood Pressure O2 Sat by Pulse 93 Oximetry 11/11/18 11/11/18 11/11/18 02:34 03:23 03:52 Temperature 100.3 F H Pulse Rate 65 Pulse Rate [ 78 Anterior Bilateral Throughout] Respiratory Rate Respiratory 20 Rate [Anterior Bilateral Throughout] Blood Pressure O2 Sat by Pulse 94 Oximetry 11/11/18 11/11/18 11/11/18 04:00 08:00 08:54 Temperature Pulse Rate 54 L 77 Pulse Rate [ Anterior Bilateral Throughout] Respiratory 56 H 67 H Rate Respiratory Rate [Anterior Bilateral Throughout] Blood Pressure 125/76 O2 Sat by Pulse 93 93 93 Oximetry 11/11/18 11/11/18 08:58 09:18 Temperature Pulse Rate Pulse Rate [ 77 64 Anterior Bilateral Throughout] Respiratory Rate Respiratory 20 20 Rate [Anterior Bilateral Throughout] Blood Pressure O2 Sat by Pulse Oximetry CBC and BMP: 11/09/18 23:58 11/12/18 10:13 ABG, PT/INR, D-dimer: ABG POC ABG pH 7.518 (7.35-7.45) H 11/11/18 04:23 POC ABG pCO2 35.7 (35-45) 11/11/18 04:23 POC ABG pO2 122 (80-105) H 11/11/18 04:23 POC ABG HCO3 29.0 11/11/18 04:23 POC ABG Total CO2 30 11/11/18 04:23 POC ABG O2 Sat 99 11/11/18 04:23 PT/INR, D-dimer D-Dimer < 135.00 ng/mlDDU (0-234) 11/10/18 02:24 Abnormal lab findings: Abnormal Labs 11/09/18 11/09/18 11/10/18 23:58 23:58 02:24 RBC 5.14 H Hgb 15.8 H Hct 48.6 H MCV 95 H RDW 16.6 H [place] % (Auto) 10.6 H [place] # 1.0 H POC ABG pH POC ABG pCO2 POC ABG pO2 Creatinine 1.6 H Glucose 103 H POC Glucose Total Creatine Kinase CK-MB (CK-2) CK-MB (CK-2) Rel Index Troponin T 0.031 H NT-Pro-B Natriuret Pep 5420 H 11/10/18 11/10/18 11/10/18 05:43 06:37 09:24 RBC Hgb Hct MCV RDW [place] % (Auto) [place] # POC ABG pH 7.168 L 7.318 L POC ABG pCO2 87.7 H 57.7 H POC ABG pO2 193 H 152 H Creatinine Glucose POC Glucose Total Creatine Kinase 8 L CK-MB (CK-2) 7.8 H CK-MB (CK-2) Rel Index 97.5 H Troponin T NT-Pro-B Natriuret Pep 11/10/18 11/10/18 11/11/18 12:15 23:34 04:23 RBC Hgb Hct MCV RDW [place] % (Auto) [place] # POC ABG pH 7.518 H POC ABG pCO2 POC ABG pO2 122 H Creatinine Glucose POC Glucose 130 H Total Creatine Kinase 269 H CK-MB (CK-2) 6.4 H CK-MB (CK-2) Rel Index Troponin T NT-Pro-B Natriuret Pep 11/11/18 05:18 RBC Hgb Hct MCV RDW [place] % (Auto) [place] # POC ABG pH POC ABG pCO2 POC ABG pO2 Creatinine Glucose POC Glucose 129 H Total Creatine Kinase CK-MB (CK-2) CK-MB (CK-2) Rel Index Troponin T NT-Pro-B Natriuret Pep
--- NOTE | 2018-11-11 23:58 | Progress Note ---
Assessment and Plan - Patient Problems (1) Acute respiratory failure with hypoxia Current Visit: Yes Status: Acute Plan to address problem: Patient improved .Maybe possible to extubate tomorrow. IV diuretics Neb treatments (2) Acute exacerbation of CHF (congestive heart failure) Current Visit: Yes Status: Acute Qualifiers: Heart failure type: combined systolic and diastolic Qualified Code(s): I50.43 - Acute on chronic combined systolic (congestive) and diastolic (congestive) heart failure Plan to address problem: IV Lasix q12h Cardilology consult appreciated ECHO was Done--EF 40 to 45 percent (3) HTN (hypertension) Current Visit: Yes Status: Chronic Qualifiers: Hypertension type: essential hypertension Qualified Code(s): I10 - Essential (primary) hypertension Plan to address problem: Cont antihypertensives when as necessary Patient was Hypotensive yesterday (4) Sarcoidosis Current Visit: No Status: Chronic Plan to address problem: COnt Prednisone (5) COPD (chronic obstructive pulmonary disease) Current Visit: Yes Status: Chronic Qualifiers: COPD type: unspecified COPD Qualified Code(s): J44.9 - Chronic obstructive pulmonary disease, unspecified Plan to address problem: COnt Duoneb tx and IV solumedrol which to be tapered off (6) DVT prophylaxis Current Visit: No Status: Acute Plan to address problem: On Heparin and GI prophylaxis Subjective Date of service: 11/11/18 Principal diagnosis: chest pain; respiratory failure Interval history: Patient came in for severe SOB and was in resp failure--hence intubated in ED.On Vent but alert today and communicating by writing on a pad.No fever Objective - Constitutional Vitals: Vital Signs - 12hr 11/11/18 11/11/18 11/11/18 12:00 12:37 13:20 Temperature 99.7 F H Pulse Rate 60 63 Pulse Rate [ Anterior Bilateral Throughout] Respiratory 18 17 Rate Respiratory Rate [Anterior Bilateral Throughout] Blood Pressure 136/77 136/75 O2 Sat by Pulse 93 94 90 Oximetry 11/11/18 11/11/18 11/11/18 13:30 13:40 13:50 Temperature Pulse Rate 68 66 82 Pulse Rate [ Anterior Bilateral Throughout] Respiratory 18 16 20 Rate Respiratory Rate [Anterior Bilateral Throughout] Blood Pressure 137/79 137/79 137/79 O2 Sat by Pulse 90 91 91 Oximetry 11/11/18 11/11/18 11/11/18 14:00 14:10 14:20 Temperature Pulse Rate 77 60 68 Pulse Rate [ Anterior Bilateral Throughout] Respiratory 21 16 18 Rate Respiratory Rate [Anterior Bilateral Throughout] Blood Pressure 137/79 140/80 137/79 O2 Sat by Pulse 92 94 94 Oximetry 11/11/18 11/11/18 11/11/18 14:30 14:40 14:50 Temperature Pulse Rate 61 57 L 62 Pulse Rate [ Anterior Bilateral Throughout] Respiratory 16 18 17 Rate Respiratory Rate [Anterior Bilateral Throughout] Blood Pressure 137/79 140/72 140/72 O2 Sat by Pulse 92 94 94 Oximetry 11/11/18 11/11/18 11/11/18 14:51 14:54 15:00 Temperature Pulse Rate 68 69 Pulse Rate [ 80 Anterior Bilateral Throughout] Respiratory 13 Rate Respiratory 20 Rate [Anterior Bilateral Throughout] Blood Pressure 140/72 140/72 O2 Sat by Pulse 94 93 Oximetry 11/11/18 11/11/18 11/11/18 15:10 15:13 15:20 Temperature Pulse Rate 64 76 Pulse Rate [ 62 Anterior Bilateral Throughout] Respiratory 16 20 Rate Respiratory 18 Rate [Anterior Bilateral Throughout] Blood Pressure 149/81 149/81 O2 Sat by Pulse 94 89 Oximetry 11/11/18 11/11/18 11/11/18 15:30 15:40 15:50 Temperature Pulse Rate 61 68 64 Pulse Rate [ Anterior Bilateral Throughout] Respiratory 16 16 17 Rate Respiratory Rate [Anterior Bilateral Throughout] Blood Pressure 149/81 149/81 149/81 O2 Sat by Pulse 91 92 92 Oximetry 11/11/18 11/11/18 11/11/18 16:00 16:10 16:20 Temperature Pulse Rate 79 80 82 Pulse Rate [ Anterior Bilateral Throughout] Respiratory 17 10 L 18 Rate Respiratory Rate [Anterior Bilateral Throughout] Blood Pressure 149/81 154/81 154/81 O2 Sat by Pulse 91 88 94 Oximetry 11/11/18 11/11/18 11/11/18 16:21 16:30 16:40 Temperature Pulse Rate 87 80 75 Pulse Rate [ Anterior Bilateral Throughout] Respiratory 18 19 Rate Respiratory Rate [Anterior Bilateral Throughout] Blood Pressure 154/81 154/81 247/148 O2 Sat by Pulse 94 89 90 Oximetry 11/11/18 11/11/18 11/11/18 16:50 17:00 17:10 Temperature Pulse Rate 70 68 Pulse Rate [ Anterior Bilateral Throughout] Respiratory 16 17 Rate Respiratory Rate [Anterior Bilateral Throughout] Blood Pressure 118/71 130/73 130/73 O2 Sat by Pulse 90 90 92 Oximetry 11/11/18 11/11/18 11/11/18 17:20 17:30 17:40 Temperature Pulse Rate 80 79 78 Pulse Rate [ Anterior Bilateral Throughout] Respiratory 16 18 20 Rate Respiratory Rate [Anterior Bilateral Throughout] Blood Pressure 130/73 147/82 147/82 O2 Sat by Pulse 91 91 89 Oximetry 11/11/18 11/11/18 11/11/18 17:49 17:50 17:59 Temperature 100.0 F H Pulse Rate 73 57 L Pulse Rate [ Anterior Bilateral Throughout] Respiratory 21 Rate Respiratory Rate [Anterior Bilateral Throughout] Blood Pressure 147/82 147/82 O2 Sat by Pulse 91 92 Oximetry 11/11/18 11/11/18 11/11/18 18:00 18:10 18:20 Temperature Pulse Rate 56 L 71 66 Pulse Rate [ Anterior Bilateral Throughout] Respiratory 16 16 18 Rate Respiratory Rate [Anterior Bilateral Throughout] Blood Pressure 130/73 128/67 128/67 O2 Sat by Pulse 93 90 90 Oximetry 11/11/18 11/11/18 11/11/18 18:30 18:40 18:50 Temperature Pulse Rate 63 66 64 Pulse Rate [ Anterior Bilateral Throughout] Respiratory 17 17 17 Rate Respiratory Rate [Anterior Bilateral Throughout] Blood Pressure 134/73 134/73 134/73 O2 Sat by Pulse 88 90 90 Oximetry 11/11/18 11/11/18 11/11/18 19:00 19:10 19:20 Temperature Pulse Rate 62 68 66 Pulse Rate [ Anterior Bilateral Throughout] Respiratory 17 19 16 Rate Respiratory Rate [Anterior Bilateral Throughout] Blood Pressure 134/73 129/72 129/72 O2 Sat by Pulse 89 89 89 Oximetry 11/11/18 11/11/18 11/11/18 19:30 19:40 19:45 Temperature 99.8 F H Pulse Rate 64 65 Pulse Rate [ Anterior Bilateral Throughout] Respiratory 15 16 Rate Respiratory Rate [Anterior Bilateral Throughout] Blood Pressure 129/72 127/82 O2 Sat by Pulse 90 90 Oximetry 11/11/18 11/11/18 11/11/18 19:50 19:59 20:00 Temperature Pulse Rate 67 65 67 Pulse Rate [ 65 Anterior Bilateral Throughout] Respiratory 16 12 Rate Respiratory 18 Rate [Anterior Bilateral Throughout] Blood Pressure 127/82 139/83 139/83 O2 Sat by Pulse 90 90 89 Oximetry 11/11/18 11/11/18 11/11/18 20:10 20:20 20:30 Temperature Pulse Rate 70 90 88 Pulse Rate [ 68 Anterior Bilateral Throughout] Respiratory 13 15 14 Rate Respiratory 22 Rate [Anterior Bilateral Throughout] Blood Pressure 139/83 139/83 139/83 O2 Sat by Pulse 94 94 93 Oximetry 11/11/18 11/11/18 11/11/18 20:40 20:50 21:00 Temperature Pulse Rate 86 82 74 Pulse Rate [ Anterior Bilateral Throughout] Respiratory 15 14 18 Rate Respiratory Rate [Anterior Bilateral Throughout] Blood Pressure 149/82 149/82 149/82 O2 Sat by Pulse 93 91 89 Oximetry 11/11/18 11/11/18 11/11/18 21:10 21:20 21:30 Temperature Pulse Rate 65 86 83 Pulse Rate [ Anterior Bilateral Throughout] Respiratory 15 17 21 Rate Respiratory Rate [Anterior Bilateral Throughout] Blood Pressure 154/79 154/79 154/79 O2 Sat by Pulse 89 90 90 Oximetry 11/11/18 11/11/18 11/11/18 21:46 22:00 22:16 Temperature Pulse Rate 62 64 66 Pulse Rate [ Anterior Bilateral Throughout] Respiratory 15 16 16 Rate Respiratory Rate [Anterior Bilateral Throughout] Blood Pressure 136/76 136/76 136/76 O2 Sat by Pulse 89 89 89 Oximetry 11/11/18 11/11/18 22:30 23:05 Temperature 99.9 F H Pulse Rate 72 Pulse Rate [ Anterior Bilateral Throughout] Respiratory 19 Rate Respiratory Rate [Anterior Bilateral Throughout] Blood Pressure 136/76 O2 Sat by Pulse 89 Oximetry General appearance: Present: no acute distress, mild distress, well-nourished - EENT Eyes: PERRL, EOM intact ENT: hearing intact, clear oral mucosa Ears: bilateral: normal - Neck Neck: supple, normal ROM - Respiratory Respiratory effort: normal Respiratory: bilateral: CTA - Breasts Breasts: normal - Cardiovascular Heart rate: 88 Rhythm: regular Heart Sounds: Present: S1 & S2. Absent: gallop, rub Extremities: no ischemia, pulses intact, No edema, normal color, Full ROM - Gastrointestinal General gastrointestinal: Present: soft, non-tender, non-distended, normal bowel sounds - Genitourinary Male genitourinary: normal - Integumentary Integumentary: clear, warm, dry - Musculoskeletal Musculoskeletal: 1, strength equal bilaterally - Neurologic Neurologic: moves all extremities - Psychiatric Psychiatric: appropriate mood/affect, intact judgment & insight, memory intact, cooperative, other (Trying to talk with ET tube in place) - Labs CBC & Chem 7: 11/09/18 23:58 11/09/18 23:58 Labs: Abnormal lab results 11/10/18 11/11/18 11/11/18 Range/Units 23:34 04:23 05:18 POC ABG pH 7.518 H (7.35-7.45) POC ABG pCO2 (35-45) POC ABG pO2 122 H (80-105) POC Glucose 130 H 129 H (70-105) 11/11/18 Range/Units 16:21 POC ABG pH (7.35-7.45) POC ABG pCO2 49.5 H (35-45) POC ABG pO2 60 L (80-105) POC Glucose (70-105)
[2018-11-12] MEDS: SUBLIMAZE IV PRN ×2 (00:51→10:36)
[2018-11-12] MEDS: DUONEB *Not for PRN Use IH SCH ×4 (01:56→20:07)
--- NOTE | 2018-11-12 02:33 | XRay Report ---
FINAL REPORT PROCEDURE: XR CHEST 1V AP TECHNIQUE: Chest radiograph anteroposterior view. CPT 89123 HISTORY: follow up respiratory failure COMPARISON: 11/11/2018 FINDINGS: Heart: The heart is prominent. Mediastinum/Vessels: Normal. Lungs/Pleural space: There is suboptimal inspiration. There is mild pulmonary edema. There are no inf iltrates, effusions or pneumothoraces.. Bony thorax: No acute osseous abnormality. Life support devices: Endotracheal tube is in the mid trachea.. IMPRESSION: The heart is prominent. There is suboptimal inspiration. There is mild pulmonary edema. There are no infiltrates, effusions o r pneumothoraces.. Endotracheal tube is in the mid trachea.. .
[2018-11-12] MEDS: SOLU-Medrol IV SCH (06:24)
[2018-11-12] MEDS: HEPARIN SUB-Q SCH ×3 (06:24→22:11)
[2018-11-12] MEDS: LASIX IV SCH (06:29)
--- NOTE | 2018-11-12 09:14 | Progress Note ---
Addendum entered and electronically signed by DONALDO SPEAR MD 11/12/18 10:12: Fever 100.9 11/10 & 100.1 11/11 monitor closely on solumedrol 60 IV TID CXR: no infiltrates, no effusions, mild CHF Dilated Cardiomyopathy EF 40-45%/Acute on Chronic HFrEF - 3175cc fluid yesterday Strict I/O Continue IV lasix 40 BID obtain LHC result once clinically stable consider MERCEDES/Beta Mikayla Hypertension elevated this morning Original Note: Assessment and Plan Acute on chronic hypoxic respiratory failure/sarcoidosis/recent PNA/NOY Intubated. Vent weaning per pulmonary. Pt denies history of heart failure or cardiomyopathy. Chest pain Pt reports that he underwent LHC 3 months ago at [facility] - he was told he had N O BLOCKAGES, NO PCI was required. Attempt to obtain medical records from [facility]. Troponins minimally elevated, negative for AMI, ECG with no acute ischemic changes. Echo reviewed - TDS, EF 40-45%, mild to mod LVH, RV mildly dilated. RBBB H/o HTN Pt presented with hypotension, currently weaned off vasopressors. Obesity The patient has been seen in conjunction with Dr. Spear who agrees with the assessment and plan of care. Subjective Date of service: 11/12/18 Principal diagnosis: chest pain; respiratory failure Interval history: pt remains intubated, off sedation, alert and following commands. in SR on telemetry Objective Last Vital Signs Temp 98.8 F 11/12/18 03:34 Pulse 91 H 11/12/18 09:00 Resp 22 11/12/18 09:00 BP 158/89 11/12/18 09:00 Pulse Ox 91 11/12/18 09:00 - Physical Examination General: No Apparent Distress (intubated) HEENT: Positive: PERRL Neck: Positive: neck supple, trachea midline Cardiac: Positive: Reg Rate and Rhythm, S1/S2 Lungs: Positive: Decreased Breath Sounds, Ventilated Respirations Neuro: Positive: Grossly Intact Abdomen: Positive: Unremarkable Skin: Positive: Clear Extremities: Present: edema, +1 Edema - Imaging and Cardiology EKG: report reviewed, image reviewed Echo: report reviewed - Telemetry EKG Rhythm: Sinus Rhythm
[2018-11-12] MEDS ORDERED: DELTASONE PO SCH (10:00)
[2018-11-12] MEDS: PEPCID IV SCH ×2 (10:35→22:11)
[2018-11-12] MEDS: SODIUM CHLORIDE FLUSH SYRINGE 10 ML IV SCH ×2 (10:36→22:12)
[2018-11-12 11:03] LABS: Calcium 9.4 mg/dL (8.4-10.2)
--- NOTE | 2018-11-12 11:32 | Progress Note ---
Assessment and Plan Acute on Chronic Hypoxemic Respiratory failure Sarcoidosis with acute exacerbation Restrictive lung disease JESI NOY (on CPAP at night) Recent pneumonia CAD/CHF (stable) HTN (BP stable) Morbid Obesity Immunocompromised state (Chronic steroid therapy) - get ABG after 2 hour SBT - extubate if acceptable - hold diuretics re: worsening serum creatinine - nephrology consultation - continue vasopressor support for target MAP >/= 65 mmHg - VAP bundle addressed - continue lung protective strategies - ETT adjusted and well positioned now - continue Bronchodilator therapy with pulmonary hygiene per RT - continue daily SAT's - continue VTE prophylaxis & Stress ulcer prophylaxis - continue systemic steroids therapy with slow taper (Patient is on chronic steroids and is at risk for hypotension related to adrenal insufficiency) - De-escalate antibiotic therapy based on MEGHAN and culture reports - discontinue Rondon catheter - PT/OT to evaluate & treat post extubation - hold tube feeds for tentative extubation - Aspiration precautions - continue Accuchecks with glycemic control. Target glucose 140-180 mg/dL - Heart failure measures +/- cardiology consultations - Mobility program for pressure ulcer prevention - continue other care per attending / other consultants .... re-evaluate in am & prn FULL CODE CONDITION: CRITICAL PROGNOSIS: GUARDED The high probability of a clinically significant, sudden or life-threatening deterioration of the [respiratory, cardiovascular,] system(s) required my full and direct attention, intervention and personal management. The aggregate critical care time was [35] minutes without overlap. Time includes spent on; [x] Data Review and interpretation [x] Patient assessment and monitoring of vital signs [x] Documentation [x] Medication orders and management Subjective Date of service: 11/12/18 Principal diagnosis: Ac on Ch Hypoxemic Resp failure; Sarcoidosis with Acexacerbation;Chest Pain Interval history: Patient is seen today for: Acute on Chronic Hypoxemic Respiratory failure; Restrictive lung disease with acute exacerbation; Sarcoidosis (on home O2); Acute dyspnea; Chest pain Seen and examined at bedside; 24hour events reviewed; nursing and respiratory care staff consulted; no adverse overnight events reported to me; resting peacefully in bed; on SBT and tolerating well; feels better; good diuresis but serum creatinine creeping up; no N/V/F/C; denies acute chest pains or palpitations Objective Vital Signs - 12hr 11/11/18 11/12/18 11/12/18 23:46 00:00 00:16 Temperature Pulse Rate 59 L 60 59 L Pulse Rate [ Anterior Bilateral Throughout] Respiratory 15 15 15 Rate Respiratory Rate [Anterior Bilateral Throughout] Blood Pressure 135/77 135/77 129/74 O2 Sat by Pulse 89 88 90 Oximetry 11/12/18 11/12/18 11/12/18 00:30 00:45 00:46 Temperature Pulse Rate 68 79 81 Pulse Rate [ Anterior Bilateral Throughout] Respiratory 15 14 Rate Respiratory Rate [Anterior Bilateral Throughout] Blood Pressure 129/74 144/83 144/83 O2 Sat by Pulse 89 93 92 Oximetry 11/12/18 11/12/18 11/12/18 01:00 01:16 01:30 Temperature Pulse Rate 60 63 76 Pulse Rate [ Anterior Bilateral Throughout] Respiratory 12 16 14 Rate Respiratory Rate [Anterior Bilateral Throughout] Blood Pressure 144/83 142/74 142/74 O2 Sat by Pulse 89 90 90 Oximetry 11/12/18 11/12/18 11/12/18 01:46 01:56 02:00 Temperature Pulse Rate 94 H 91 H Pulse Rate [ 87 68 Anterior Bilateral Throughout] Respiratory 22 16 Rate Respiratory 17 22 Rate [Anterior Bilateral Throughout] Blood Pressure 142/74 130/80 O2 Sat by Pulse 91 92 Oximetry 11/12/18 11/12/18 11/12/18 02:16 02:30 02:46 Temperature Pulse Rate 90 80 74 Pulse Rate [ Anterior Bilateral Throughout] Respiratory 18 15 16 Rate Respiratory Rate [Anterior Bilateral Throughout] Blood Pressure 155/91 155/91 172/104 O2 Sat by Pulse 90 89 93 Oximetry 11/12/18 11/12/18 11/12/18 03:00 03:16 03:30 Temperature Pulse Rate 75 80 78 Pulse Rate [ Anterior Bilateral Throughout] Respiratory 15 17 15 Rate Respiratory Rate [Anterior Bilateral Throughout] Blood Pressure 172/104 153/78 153/78 O2 Sat by Pulse 90 89 90 Oximetry 11/12/18 11/12/18 11/12/18 03:34 03:46 04:00 Temperature 98.8 F Pulse Rate 58 L 61 Pulse Rate [ Anterior Bilateral Throughout] Respiratory 15 15 Rate Respiratory Rate [Anterior Bilateral Throughout] Blood Pressure 153/78 169/91 O2 Sat by Pulse 90 93 Oximetry 11/12/18 11/12/18 11/12/18 04:16 04:30 04:46 Temperature Pulse Rate 65 63 61 Pulse Rate [ Anterior Bilateral Throughout] Respiratory 16 17 15 Rate Respiratory Rate [Anterior Bilateral Throughout] Blood Pressure 169/91 169/91 158/90 O2 Sat by Pulse 91 90 92 Oximetry 11/12/18 11/12/18 11/12/18 05:00 05:08 05:16 Temperature Pulse Rate 61 64 59 L Pulse Rate [ Anterior Bilateral Throughout] Respiratory 14 15 Rate Respiratory Rate [Anterior Bilateral Throughout] Blood Pressure 161/87 161/87 145/83 O2 Sat by Pulse 92 92 93 Oximetry 11/12/18 11/12/18 11/12/18 05:30 05:46 06:00 Temperature Pulse Rate 76 73 81 Pulse Rate [ Anterior Bilateral Throughout] Respiratory 17 19 19 Rate Respiratory Rate [Anterior Bilateral Throughout] Blood Pressure 145/83 161/87 161/87 O2 Sat by Pulse 92 91 94 Oximetry 11/12/18 11/12/18 11/12/18 06:16 06:30 06:46 Temperature Pulse Rate 78 79 69 Pulse Rate [ Anterior Bilateral Throughout] Respiratory 19 17 14 Rate Respiratory Rate [Anterior Bilateral Throughout] Blood Pressure 167/93 162/88 167/93 O2 Sat by Pulse 90 89 90 Oximetry 11/12/18 11/12/18 11/12/18 07:00 07:16 07:30 Temperature Pulse Rate 79 70 99 H Pulse Rate [ Anterior Bilateral Throughout] Respiratory 18 17 21 Rate Respiratory Rate [Anterior Bilateral Throughout] Blood Pressure 157/87 157/87 172/120 O2 Sat by Pulse 90 91 92 Oximetry 11/12/18 11/12/18 11/12/18 07:33 07:36 07:40 Temperature Pulse Rate 86 85 Pulse Rate [ 88 Anterior Bilateral Throughout] Respiratory 22 Rate Respiratory 20 Rate [Anterior Bilateral Throughout] Blood Pressure 187/99 186/100 O2 Sat by Pulse 92 93 Oximetry 11/12/18 11/12/18 11/12/18 07:46 07:56 08:00 Temperature Pulse Rate 84 96 H Pulse Rate [ 83 Anterior Bilateral Throughout] Respiratory 21 22 Rate Respiratory 20 Rate [Anterior Bilateral Throughout] Blood Pressure 186/100 171/91 O2 Sat by Pulse 93 92 Oximetry 11/12/18 11/12/18 11/12/18 08:16 08:30 08:46 Temperature Pulse Rate 93 H 92 H 89 Pulse Rate [ Anterior Bilateral Throughout] Respiratory 24 21 21 Rate Respiratory Rate [Anterior Bilateral Throughout] Blood Pressure 158/89 158/89 151/87 O2 Sat by Pulse 91 90 90 Oximetry 11/12/18 11/12/18 11/12/18 09:00 09:16 09:30 Temperature Pulse Rate 91 H 92 H 103 H Pulse Rate [ Anterior Bilateral Throughout] Respiratory 22 26 H 22 Rate Respiratory Rate [Anterior Bilateral Throughout] Blood Pressure 158/89 139/85 156/93 O2 Sat by Pulse 91 90 89 Oximetry 11/12/18 11/12/18 09:46 10:00 Temperature Pulse Rate 95 H 94 H Pulse Rate [ Anterior Bilateral Throughout] Respiratory 24 22 Rate Respiratory Rate [Anterior Bilateral Throughout] Blood Pressure 156/93 156/93 O2 Sat by Pulse 90 89 Oximetry Constitutional: no acute distress, alert, other (Middle aged obeses AAM, normocephalic and atraumati) Eyes: non-icteric ENT: oropharynx moist, other (ETT 23 cm JESSICA) Neck: supple, no lymphadenopathy, no JVD, other (large neck circumference) Effort: mildly labored Ascultation: Bilateral: diminished breath sounds, rales (inspiratory in bases) Percussion: Bilateral: not dull Cardiovascular: regular rate and rhythm, other (No R/M) Gastrointestinal: normoactive bowel sounds, soft, non-tender, non-distended, other (No HSM) Integumentary: normal Extremities: no cyanosis, pulses normal, no ischemia or petechiae Neurologic: normal mental status, non-focal exam, pupils equal and round, motor strength normal and Psychiatric: mood appropriate, affect normal CBC and BMP: 11/09/18 23:58 11/13/18 10:08 ABG, PT/INR, D-dimer: ABG POC ABG pH 7.411 (7.35-7.45) 11/11/18 16:21 POC ABG pCO2 49.5 (35-45) H 11/11/18 16:21 POC ABG pO2 60 (80-105) L 11/11/18 16:21 POC ABG HCO3 31.4 11/11/18 16:21 POC ABG Total CO2 33 11/11/18 16:21 POC ABG O2 Sat 90 11/11/18 16:21 PT/INR, D-dimer D-Dimer < 135.00 ng/mlDDU (0-234) 11/10/18 02:24 Abnormal lab findings: Abnormal Labs 11/09/18 11/09/18 11/10/18 23:58 23:58 02:24 RBC 5.14 H Hgb 15.8 H Hct 48.6 H MCV 95 H RDW 16.6 H Crockett % (Auto) 10.6 H [place] # 1.0 H POC ABG pH POC ABG pCO2 POC ABG pO2 Sodium Carbon Dioxide BUN Creatinine 1.6 H Glucose 103 H POC Glucose Total Creatine Kinase CK-MB (CK-2) CK-MB (CK-2) Rel Index Troponin T 0.031 H NT-Pro-B Natriuret Pep 5420 H 11/10/18 11/10/18 11/10/18 05:43 06:37 09:24 RBC Hgb Hct MCV RDW [place] % (Auto) [place] # POC ABG pH 7.168 L 7.318 L POC ABG pCO2 87.7 H 57.7 H POC ABG pO2 193 H 152 H Sodium Carbon Dioxide BUN Creatinine Glucose POC Glucose Total Creatine Kinase 8 L CK-MB (CK-2) 7.8 H CK-MB (CK-2) Rel Index 97.5 H Troponin T NT-Pro-B Natriuret Pep 11/10/18 11/10/18 11/11/18 12:15 23:34 04:23 RBC Hgb Hct MCV RDW [place] % (Auto) [place] # POC ABG pH 7.518 H POC ABG pCO2 POC ABG pO2 122 H Sodium Carbon Dioxide BUN Creatinine Glucose POC Glucose 130 H Total Creatine Kinase 269 H CK-MB (CK-2) 6.4 H CK-MB (CK-2) Rel Index Troponin T NT-Pro-B Natriuret Pep 11/11/18 11/11/18 11/12/18 05:18 16:21 00:22 RBC Hgb Hct MCV RDW [place] % (Auto) [place] # POC ABG pH POC ABG pCO2 49.5 H POC ABG pO2 60 L Sodium Carbon Dioxide BUN Creatinine Glucose POC Glucose 129 H 122 H Total Creatine Kinase CK-MB (CK-2) CK-MB (CK-2) Rel Index Troponin T NT-Pro-B Natriuret Pep 11/12/18 11/12/18 05:43 10:13 RBC Hgb Hct MCV RDW [place] % (Auto) [place] # POC ABG pH POC ABG pCO2 POC ABG pO2 Sodium 153 H D Carbon Dioxide 34 H BUN 36 H Creatinine 2.2 H Glucose 142 H POC Glucose 130 H Total Creatine Kinase CK-MB (CK-2) CK-MB (CK-2) Rel Index Troponin T NT-Pro-B Natriuret Pep Chest x-ray: image reviewed (ETT in good position; hilar enlargement; cardiomegaly) Allied health notes reviewed: nursing
[2018-11-12] MEDS: BABY ASPIRIN PO SCH (12:27)
[2018-11-12] MEDS: LOPRESSOR PO SCH ×2 (13:59→22:12)
--- NOTE | 2018-11-12 14:40 | Progress Note ---
Assessment and Plan Assessment and plan: Patient is a 53 y/o BM with a history of Sarcoidosis, chronic hypoxic respiratory failure on 2 liters of O2 at home, CHF, HTN and recent pneumonia with Intubation at [facility] who presented to [facility] ED with cough, SOB and chest pains. He was found to have pulse ox of only 64%. He was placed on bipap, which he failed requiring intubation. Acute on Chronic hypoxic respiratory failure s/p Intubation: try to wean off MV today, Pulm/cCM is following Acute on Chronic exacerbation of systolic heart failure: iv lasix, Cardiology is following, ECHO reviewed AE COPD: COnt Duoneb tx and IV solumedrol which to be tapered off HTN (hypertension) with episode of hypotension: monitor bp closely, advance bp medications as tolerated Sarcoidosis: on steroids DVT prophylaxis: On Heparin full code CCT 34 minutes History Interval history: Patient was seen and examined. Follow-up on current diagnosis respiratory f ailure. Overnight uneventful. Imaging, nursing note, chart, labs and old chart reviewed. Discussed with patient. He is awake and talking on MV which he wants removed. Hospitalist Physical - Physical exam Narrative exam: Gen: WDWN, NAD, Awake, Alert, Orientated HEENT: NCAT, EOMI, PERRL, OP ETT/NGT Neck: supple, no adenopathy, no thyromegaly, no JVD CVS/Heart: RRR, normal S1S2, pulses present bilaterally Chest/Lungs: CTA B, Symmetrical chest expansion, good air entry bilaterally GI/Abdomen: soft, NTND, good bowel sounds, no guarding or rebound /Bladder: no suprapubic tenderness, no CVA or paraspinal tenderness Extermity/Skin: no c/c/e, no obvious rash MSK: FROM x 4 Neuro: CN 2-12 grossly intact, no new focal deficits Psych: calm - Constitutional Vitals: Temp Pulse Resp BP Pulse Ox 98.8 F 85 22 147/78 92 11/12/18 03:34 11/12/18 13:59 11/12/18 11:41 11/12/18 13:59 11/12/18 12:25 General appearance: Present: no acute distress, well-nourished Results - Labs CBC & Chem 7: 11/09/18 23:58 11/13/18 10:08 Labs: Laboratory Last Values WBC 9.3 K/mm3 (4.5-11.0) 11/09/18 23:58 RBC 5.14 M/mm3 (3.65-5.03) H 11/09/18 23:58 Hgb 15.8 gm/dl (11.8-15.2) H 11/09/18 23:58 Hct 48.6 % (35.5-45.6) H 11/09/18 23:58 MCV 95 fl (84-94) H 11/09/18 23:58 MCH 31 pg (28-32) 11/09/18 23:58 MCHC 32 % (32-34) 11/09/18 23:58 RDW 16.6 % (13.2-15.2) H 11/09/18 23:58 Plt Count 214 K/mm3 (140-440) 11/09/18 23:58 Lymph % (Auto) 21.1 % (13.4-35.0) 11/09/18 23:58 [place] % (Auto) 10.6 % (0.0-7.3) H 11/09/18 23:58 Eos % (Auto) 3.8 % (0.0-4.3) 11/09/18 23:58 Baso % (Auto) 0.9 % (0.0-1.8) 11/09/18 23:58 Lymph # 2.0 K/mm3 (1.2-5.4) 11/09/18 23:58 [place] # 1.0 K/mm3 (0.0-0.8) H 11/09/18 23:58 Eos # 0.3 K/mm3 (0.0-0.4) 11/09/18 23:58 Baso # 0.1 K/mm3 (0.0-0.1) 11/09/18 23:58 Seg Neutrophils % 63.6 % (40.0-70.0) 11/09/18 23:58 Seg Neutrophils # 5.9 K/mm3 (1.8-7.7) 11/09/18 23:58 D-Dimer < 135.00 ng/mlDDU (0-234) 11/10/18 02:24 POC ABG pH 7.437 (7.35-7.45) 11/12/18 11:42 POC ABG pCO2 53.8 (35-45) H 11/12/18 11:42 POC ABG pO2 72 (80-105) L 11/12/18 11:42 POC ABG HCO3 36.3 11/12/18 11:42 POC ABG Total CO2 38 11/12/18 11:42 POC ABG O2 Sat 94 11/12/18 11:42 POC ABG Base Excess 12 11/12/18 11:42 FiO2 45 % 11/12/18 11:42 Sodium 153 mmol/L (137-145) H D 11/12/18 10:13 Potassium 4.0 mmol/L (3.6-5.0) 11/12/18 10:13 Chloride 104.6 mmol/L (98-107) 11/12/18 10:13 Carbon Dioxide 34 mmol/L (22-30) H 11/12/18 10:13 Anion Gap 18 mmol/L 11/12/18 10:13 BUN 36 mg/dL (9-20) H 11/12/18 10:13 Creatinine 2.2 mg/dL (0.8-1.5) H 11/12/18 10:13 Estimated GFR 38 ml/min 11/12/18 10:13 BUN/Creatinine Ratio 16 % 11/12/18 10:13 Glucose 142 mg/dL (75-100) H 11/12/18 10:13 POC Glucose 121 (70-105) H 11/12/18 12:33 Calcium 9.4 mg/dL (8.4-10.2) 11/12/18 10:13 Total Creatine Kinase 269 units/L (55-170) H 11/10/18 12:15 CK-MB (CK-2) 6.4 ng/mL (0.0-4.0) H 11/10/18 12:15 CK-MB (CK-2) Rel Index 2.3 (0-4) 11/10/18 12:15 Troponin T 0.020 ng/mL (0.00-0.029) 11/10/18 12:15 NT-Pro-B Natriuret Pep 5420 pg/mL (0-900) H 11/10/18 02:24 Triglycerides 86 mg/dL (2-149) 11/09/18 23:58 Cholesterol 166 mg/dL (50-199) 11/09/18 23:58 LDL Cholesterol Direct 100 mg/dL (50-130) 11/09/18 23:58 HDL Cholesterol 57 mg/dL (40-59) 11/09/18 23:58 Cholesterol/HDL Ratio 2.91 % 11/09/18 23:58 Nutrition/Malnutrition Assess - Dietary Evaluation Nutrition/Malnutrition Findings: Nutrition Notes Start: 11/11/18 15:24 Freq: Status: Active Protocol: Document 11/11/18 15:24 SAADIA (Rec: 11/11/18 15:28 SAADIA [email or web address]) Nutrition Notes Need for Assessment generated from: MD Order Initial or Follow up Assessment Current Diagnosis Hypertension Heart Failure Other Pertinent Diagnosis Sarcoidosis Current Diet No diet ordered Labs/Tests Reviewed Pertinent Medications Lasix, Solumedrol, Levophed gtt Height 5 ft 7 in Weight 120.304 kg [place] Body Weight (lbs) 148.0 BMI 41.5 Weight Status Morbidly Obese Subjective/Other Information RD consulted to evaluate nutritional intake. Pt on vent support. No orders for TF received yet, however, pt may be extubated tomorrow. Burn Absent Trauma Absent #1 Nutrition Diagnosis Inadequate oral intake [facility] As Evidenced by Signs and Symptoms pt NPO Is patient on ventilator? Yes Is Patient Ambulatory and/or Out of Bed No REE-([place]-confined to bed) 6918.830 Calculation Used for Recommendations 65-70% energy needs Additional Notes Energy needs: 6276-3328 kcal/ day Pro needs 2.5g/kg IBW: 168g/ day Fluid needs per MD Nutrition Intervention Change Diet Order: Diet advancement when medically feasible Nutrition Support: Start EN support if unable to advance diet Goal #1 Either diet advancement or initiation of EN support to meet nutrient needs Anticipated Discharge Needs: Unable to identify at this time Follow-Up By: 11/12/18 Additional Comments F/U: extubation, need for TF
[2018-11-12] MEDS ORDERED: SOLU-Medrol IV SCH (22:00)
[2018-11-13] MEDS: DUONEB *Not for PRN Use IH SCH ×4 (02:57→20:59)
--- NOTE | 2018-11-13 04:22 | XRay Report ---
FINAL REPORT PROCEDURE: XR CHEST 1V AP TECHNIQUE: Chest radiograph anteroposterior view. CPT 90144 HISTORY: follow up respiratory failure COMPARISON: 11/12/2018 FINDINGS: Heart: Heart size enlarged stable. Mediastinum/Vessels: Normal. Lungs/Pleural space: Slight vascular congestion is developing. No effusion or pneumothorax. Bony thorax: No acute osseous abnormality. Life support devices: None. IMPRESSION: Mild vascular congestion is developing. No acute consolidation effusion. Mild stable cardiomegaly..
[2018-11-13] MEDS: HEPARIN SUB-Q SCH ×2 (05:24→22:02)
[2018-11-13] MEDS: TYLENOL PO PRN (07:39)
--- NOTE | 2018-11-13 09:23 | Progress Note ---
Addendum entered and electronically signed by DONALDO SPEAR MD 11/13/18 11:05: Hypoxemic Respiratory failure/Restrictive lung disease/Sarcoidosis (on home O2)/NOY (on CPAP at night) Dilated CM EF 40-45% strict I/O, continue diuresis consider PO lasix continue Lopressor (currently no signs of bronchospasm)/No MERCEDES/ARB given elevated Cr. Original Note: Assessment and Plan Acute on chronic hypoxic respiratory failure/sarcoidosis/recent PNA/NOY/? COPD Extubated Per pulmonary. Fever 100.9 11/10 & 100.1 11/11 no fever noted overnight. monitor closely on solumedrol 60 IV TID CXR: no infiltrates, no effusions, mild CHF Dilated Nonischemic Cardiomyopathy EF 40-45%/Acute on Chronic HFrEF [facility] records obtained - pt underwent LHC 05/2018 which showed nonobstructive CAD, 50% mid LAD lesion with FFR 0.89, left ventriculogram not performed. Strict I/O Continue IV lasix 40 BID Cont lopressor - pt with ? COPD and restrictive lung disease. Consider initiation of ACEI/ARB if renal indices permit. Nonobstructive CAD JESI on ? CKD F/u BMP. Chest pain Currently resolved. Pt underwent C 05/2018 which showed nonobstructive CAD, 50% mid LAD lesion with FFR 0.89 Troponins minimally elevated, negative for AMI, ECG with no acute ischemic changes. RBBB HTN Cont lopressor and titrate as tolerated. Obesity Encourage increased activity/ambulation - physical therapy is following. Pt may tx out of CCU to telemetry from cardiology standpoint. The patient has been seen in conjunction with Dr. Spear who agrees with the assessment and plan of care. Subjective Date of service: 11/13/18 Principal diagnosis: chest pain; respiratory failure Interval history: pt extubated, A&O, states SOB improving. has not been OOB yet. Objective Last Vital Signs Temp 98.8 F 11/13/18 08:00 Pulse 88 11/13/18 09:01 Resp 28 H 11/13/18 09:01 BP 143/81 11/13/18 09:01 Pulse Ox 86 11/13/18 09:01 - Physical Examination General: No Apparent Distress HEENT: Positive: PERRL Neck: Positive: neck supple, trachea midline Cardiac: Positive: Reg Rate and Rhythm, S1/S2 Lungs: Positive: Decreased Breath Sounds Neuro: Positive: Grossly Intact, Cranial Nerve 2-12 Intact Abdomen: Positive: Unremarkable Skin: Positive: Clear Extremities: Absent: edema - Labs and Meds Comprehensive Metabolic Panel 11/12/18 Range/Units 10:13 Sodium 153 H D (137-145) mmol/L Potassium 4.0 (3.6-5.0) mmol/L Chloride 104.6 (98-107) mmol/L Carbon Dioxide 34 H (22-30) mmol/L BUN 36 H (9-20) mg/dL Creatinine 2.2 H (0.8-1.5) mg/dL Glucose 142 H (75-100) mg/dL Calcium 9.4 (8.4-10.2) mg/dL - Imaging and Cardiology EKG: report reviewed, image reviewed Echo: report reviewed (TDS, EF 40-45%, mild to mod LVH, RV mildly dilated. ) Cardiac cath: report reviewed ([facility] records obtained - pt underwent LHC 05/2018 which showed nonobstructive CAD, 50% mid LAD lesion with FFR 0.89, left ventriculogram not ) - Telemetry EKG Rhythm: Sinus Rhythm
[2018-11-13] MEDS ORDERED: COREG PO SCH (10:00)
[2018-11-13 10:45] LABS: Calcium 8.6 mg/dL (8.4-10.2)
--- NOTE | 2018-11-13 11:14 | Progress Note ---
Assessment and Plan Assessment and plan: Patient is a 53 y/o BM with a history of Sarcoidosis, chronic hypoxic respiratory failure on 2 liters of O2 at home, CHF, HTN and recent pneumonia with Intubation at [facility] who presented to [facility] ED with cough, SOB and chest pains. He was found to have pulse ox of only 64%. He was placed on bipap, which he failed requiring intubation. Acute on Chronic hypoxic respiratory failure s/p Intubation and extubated 11/12/18: currently on 3 liters o2 trying to wean down Acute on Chronic exacerbation of systolic heart failure: iv lasix on hold due to worsening renal function, Cardiology is following, ECHO reviewed AE COPD: continue Duoneb tx and IV solumedrol weaned to oral steroids. ARF, vasomotor nephrology +ATN: Nephrology evaluation pending. I called Dr. Ann, Dr. Fitch is covering HTN (hypertension) with episode of hypotension: monitor bp closely, advance bp medications as tolerated Sarcoidosis: on steroids DVT prophylaxis: On Heparin full code Transfer to telemetry CCT 31 minutes History Interval history: Patient was seen and examined. Follow-up on current diagnosis respiratory failure. Overnight uneventful. Imaging, nursing note, chart, labs and old chart reviewed. Discussed with patient. s/p extubation 11/12/18. Doing well, no sob, no cp, no n/v Hospitalist Physical - Physical exam Narrative exam: Gen: WDWN, NAD, Awake, Alert, Orientated HEENT: NCAT, EOMI, PERRL, OP clear Neck: supple, no adenopathy, no thyromegaly, no JVD CVS/Heart: RRR, normal S1S2, pulses present bilaterally Chest/Lungs: CTA B, Symmetrical chest expansion, good air entry bilaterally GI/Abdomen: soft, NTND, good bowel sounds, no guarding or rebound /Bladder: no suprapubic tenderness, no CVA or paraspinal tenderness Extermity/Skin: no c/c/e, no obvious rash MSK: FROM x 4 Neuro: CN 2-12 grossly intact, no new focal deficits Psych: calm - Constitutional Vitals: Temp Pulse Resp BP Pulse Ox 98.8 F 77 16 135/68 87 11/13/18 08:00 11/13/18 10:00 11/13/18 10:00 11/13/18 10:00 11/13/18 10:00 General appearance: Present: no acute distress, well-nourished Results - Labs CBC & Chem 7: 11/09/18 23:58 11/13/18 10:08 Labs: Laboratory Last Values WBC 9.3 K/mm3 (4.5-11.0) 11/09/18 23:58 RBC 5.14 M/mm3 (3.65-5.03) H 11/09/18 23:58 Hgb 15.8 gm/dl (11.8-15.2) H 11/09/18 23:58 Hct 48.6 % (35.5-45.6) H 11/09/18 23:58 MCV 95 fl (84-94) H 11/09/18 23:58 MCH 31 pg (28-32) 11/09/18 23:58 MCHC 32 % (32-34) 11/09/18 23:58 RDW 16.6 % (13.2-15.2) H 11/09/18 23:58 Plt Count 214 K/mm3 (140-440) 11/09/18 23:58 Lymph % (Auto) 21.1 % (13.4-35.0) 11/09/18 23:58 [place] % (Auto) 10.6 % (0.0-7.3) H 11/09/18 23:58 Eos % (Auto) 3.8 % (0.0-4.3) 11/09/18 23:58 Baso % (Auto) 0.9 % (0.0-1.8) 11/09/18 23:58 Lymph # 2.0 K/mm3 (1.2-5.4) 11/09/18 23:58 [place] # 1.0 K/mm3 (0.0-0.8) H 11/09/18 23:58 Eos # 0.3 K/mm3 (0.0-0.4) 11/09/18 23:58 Baso # 0.1 K/mm3 (0.0-0.1) 11/09/18 23:58 Seg Neutrophils % 63.6 % (40.0-70.0) 11/09/18 23:58 Seg Neutrophils # 5.9 K/mm3 (1.8-7.7) 11/09/18 23:58 D-Dimer < 135.00 ng/mlDDU (0-234) 11/10/18 02:24 POC ABG pH 7.437 (7.35-7.45) 11/12/18 11:42 POC ABG pCO2 53.8 (35-45) H 11/12/18 11:42 POC ABG pO2 72 (80-105) L 11/12/18 11:42 POC ABG HCO3 36.3 11/12/18 11:42 POC ABG Total CO2 38 11/12/18 11:42 POC ABG O2 Sat 94 11/12/18 11:42 POC ABG Base Excess 12 11/12/18 11:42 FiO2 45 % 11/12/18 11:42 Sodium 143 mmol/L (137-145) D 11/13/18 10:08 Potassium 4.2 mmol/L (3.6-5.0) 11/13/18 10:08 Chloride 98.2 mmol/L (98-107) 11/13/18 10:08 Carbon Dioxide 33 mmol/L (22-30) H 11/13/18 10:08 Anion Gap 16 mmol/L 11/13/18 10:08 BUN 40 mg/dL (9-20) H 11/13/18 10:08 Creatinine 2.1 mg/dL (0.8-1.5) H 11/13/18 10:08 Estimated GFR 40 ml/min 11/13/18 10:08 BUN/Creatinine Ratio 19 % 11/13/18 10:08 Glucose 209 mg/dL (75-100) H 11/13/18 10:08 POC Glucose 134 (70-105) H 11/13/18 05:16 Calcium 8.6 mg/dL (8.4-10.2) 11/13/18 10:08 Total Creatine Kinase 269 units/L (55-170) H 11/10/18 12:15 CK-MB (CK-2) 6.4 ng/mL (0.0-4.0) H 11/10/18 12:15 CK-MB (CK-2) Rel Index 2.3 (0-4) 11/10/18 12:15 Troponin T 0.020 ng/mL (0.00-0.029) 11/10/18 12:15 NT-Pro-B Natriuret Pep 5420 pg/mL (0-900) H 11/10/18 02:24 Triglycerides 86 mg/dL (2-149) 11/09/18 23:58 Cholesterol 166 mg/dL (50-199) 11/09/18 23:58 LDL Cholesterol Direct 100 mg/dL (50-130) 11/09/18 23:58 HDL Cholesterol 57 mg/dL (40-59) 11/09/18 23:58 Cholesterol/HDL Ratio 2.91 % 11/09/18 23:58 Nutrition/Malnutrition Assess - Dietary Evaluation Nutrition/Malnutrition Findings: Nutrition Notes Start: 11/11/18 15:24 Freq: Status: Active Protocol: Document 11/12/18 15:34 NOREEN (Rec: 11/12/18 15:53 NOREEN [email or web address]) Co-Sign 11/12/18 15:34 NHALL Nutrition Notes Initial or Follow up Reassessment Current Diagnosis Hypertension Heart Failure Respiratory Failure Other Pertinent Diagnosis Sarcoidosis, PNA Current Diet No diet ordered Labs/Tests Reviewed Pertinent Medications Solu-medrol Norepinephrine Height 5 ft 7 in Weight 120.304 kg [place] Body Weight (lbs) 148.0 BMI 41.5 Weight Status Morbidly Obese Subjective/Other Information F/u for extubation and need for TF. Pt. to be extubated today. [employer] evaluation needed to determine diet advancement. Burn Absent Trauma Absent #1 Nutrition Diagnosis Inadequate oral intake Diagnosis Progress(for reassessment Continues documentation) Is patient on ventilator? Yes Is Patient Ambulatory and/or Out of Bed No REE-([place]confined to bed) 9819.832 Additional Notes Energy needs: 3657-6336 kcal/ day Pro needs 2.5g/kg IBW: 168g/ day Fluid needs per MD Nutrition Intervention Change Diet Order: Diet advancement when medically feasible Nutrition Support: Start EN support if unable to advance diet Goal #1 Either diet advancement or initiation of EN support to meet nutrient needs Follow-Up By: 11/14/18 Additional Comments F/u: [employer] evaluation, need for TF
[2018-11-13] MEDS: BABY ASPIRIN PO SCH (11:23)
[2018-11-13] MEDS: DELTASONE PO SCH (11:24)
[2018-11-13] MEDS: LOPRESSOR PO SCH ×2 (11:24→22:02)
[2018-11-13] MEDS: PEPCID PO SCH (11:25)
[2018-11-13] MEDS: SODIUM CHLORIDE FLUSH SYRINGE 10 ML IV SCH ×2 (11:26→22:54)
--- NOTE | 2018-11-13 11:48 | Consultation ---
History of Present Illness - Reason for Consult Consult date: 11/13/18 - History of Present Illness This is a 53 year old male with a past medical history of CHF, Hypertension, Sarcoidosis, Chronic Hypoxic respiratory Failure on portable oxygen at home who presented to [facility] chief complaint of shortness of breath and chest pain. On evaluation his pulse ox was 64% and was in respiratory distress requiring intubation and was subsequently extubated on 11/12/18. On admission his serum creatinine was 1.6 which has sylvia to 2.1. Prior records showed serum creatinine 1.7-2.0 in 2015. We are being consulted for management of this patient Acute and likely Chronic kidney disease. Past History Past Medical History: heart failure, hypertension, sarcoidosis Past Surgical History: No surgical history Social history: Lives alone, full code Family history: no significant family history Medications and Allergies Allergies Allergy/AdvReac Type Severity Reaction Status Date / Time No Known Allergies Allergy Unverified 07/05/15 10:00 Home Medications Medication Instructions Recorded Confirmed Last Taken Type Docusate Sodium [Colace CAP] 100 mg PO BID #60 capsule 07/07/15 Unknown Rx oxyCODONE /ACETAMINOPHEN [Percocet 1 - 2 tab PO Q6H PRN #30 tablet 07/07/15 Unknown Rx 5/325 mg] predniSONE [Deltasone] 20 mg PO QDAY #50 tab 07/07/15 Unknown Rx Active Meds: Active Medications Acetaminophen (Tylenol) 650 mg PO Q4H PRN PRN Reason: Pain MILD(1-3)/Fever >100.5/BURNS Last Admin: 11/13/18 07:39 Dose: 650 mg Documented by: Albuterol (Proventil) 2.5 mg IH Q3HRT PRN PRN Reason: Shortness Of Breath Albuterol/Ipratropium (Duoneb *Not For Prn Use*) 1 ampul IH Q6HRT [facility] Last Admin: 11/13/18 07:56 Dose: 1 ampul Documented by: Aspirin (Baby Aspirin) 81 mg PO QDAY [facility] Last Admin: 11/13/18 11:23 Dose: 81 mg Documented by: Famotidine (Pepcid) 20 mg PO DAILY [facility] Last Admin: 11/13/18 11:25 Dose: 20 mg Documented by: Heparin Sodium (Porcine) (Heparin) 5,000 unit SUB-Q Q12H [facility] Metoprolol Tartrate (Lopressor) 25 mg PO BID [facility] Last Admin: 11/13/18 11:24 Dose: 25 mg Documented by: Multi-Ingred Cream/Lotion/Oil/Oint (Artificial Tears Ophth Oint) 1 applic OU Q4HR PRN PRN Reason: Dry Eye(s) Ondansetron HCl (Zofran) 4 mg IV Q8H PRN PRN Reason: Nausea And Vomiting Prednisone (Deltasone) 40 mg PO QDAY [facility] Last Admin: 11/13/18 11:24 Dose: 40 mg Documented by: Sodium Chloride (Sodium Chloride Flush Syringe 10 Ml) 10 ml IV BID [facility] Last Admin: 11/13/18 11:26 Dose: 10 ml Documented by: Sodium Chloride (Sodium Chloride Flush Syringe 10 Ml) 10 ml IV PRN PRN PRN Reason: LINE FLUSH Review of Systems Constitutional: fatigue, no weight loss, no weight gain, no fever, no chills Ears, nose, mouth and throat: no ear pain, no ear discharge, no tinnitis, no decreased hearing, no nose pain, no nasal congestion Cardiovascular: shortness of breath, dyspnea on exertion, no chest pain, no orthopnea, no palpitations, no rapid/irregular heart beat, no edema, no syncope Respiratory: cough, shortness of breath, dyspnea on exertion, congestion Gastrointestinal: no nausea, no vomiting, no diarrhea, no constipation, no change in bowel habits Genitourinary Male: no hematuria, no flank pain, no discharge, no urinary frequency, no urinary hesitancy Rectal: no pain, no incontinence, no bleeding, no itching Musculoskeletal: no neck stiffness, no neck pain, no shooting arm pain, no arm numbness/tingling, no low back pain, no shooting leg pain Integumentary: no rash, no pruritis, no redness, no sores, no wounds, no jaundice Neurological: no paralysis, no weakness, no parathesias, no numbness Psychiatric: no anxiety, no memory loss, no change in sleep habits, no sleep disturbances, no insomnia, no hypersomnia, no change in appetite Endocrine: no cold intolerance, no heat intolerance, no polyphagia, no excessive thirst, no polydipsia Hematologic/Lymphatic: no easy bruising, no easy bleeding, no lymphadenopathy Exam - Vital Signs Vital signs: Vital Signs Temp Pulse Pulse Ox 98.3 F 84 92 11/09/18 23:28 11/09/18 23:28 11/09/18 23:28 - General Appearance General appearance: well-developed, appears stated age, fatigue EENT: ATNC, PERRL, hearing intact Neck: Present: neck supple, trachea midline Respiratory: Decreased Breath Sounds Heart: S1S2 Gastrointestinal: Present: normoactive bowel sounds Integumentary: warm and dry Neurologic: alert and oriented x3 Musculoskeletal: Present: joint swelling, other (1+ edema) Results - Lab Results 11/09/18 23:58 11/13/18 10:08 Most recent lab results Calcium 8.6 mg/dL (8.4-10.2) 11/13/18 10:08 Assessment and Plan Acute renal Failure on likely Chronic Kidney Disease: -Renal function reviewed. Serum creatinine 1.9 today, yesterday's serum creatinine was 2.1 -Prior labs in June 2015 showed serum creatinine 1.7-2.0 -Was on Lasix, currently being held due to renal failure but CXR shows congestion -Resume Lasix at 40 mg IV daily -Obtain renal ultrasound -Will obtain GN work-up -CXR-mild congestion -Obtain urine lytes and eosinophils -Avoid Nephrotoxic agents -Monitor I/O's -Monitor renal function closely -Plan of care reviewed with Dr. Fitch Acute on Chronic hypoxic respiratory failure - Extubated on 11/12/18 Acute on Chronic exacerbation of systolic heart failure: -Echo:EF 40-45% -Was on Lasix, can resume Lasix at 40 mg IV daily -Cardiology onboard COPD: -On Nebulizers and steroids Hypertension: -Monitor blood pressures Sarcoidosis: -On steroid
--- NOTE | 2018-11-13 13:19 | Progress Note ---
Assessment and Plan Acute on Chronic Hypoxemic Respiratory failure Sarcoidosis with acute exacerbation Restrictive lung disease JESI NOY (on CPAP at night) Recent pneumonia CAD/CHF (stable) HTN (BP stable) Morbid Obesity Immunocompromised state (Chronic steroid therapy) - continue supplemental oxygen and wean to keep O2 Sat's > 90% - continue BIPAP scheduled qhs - nephrology evaluation noted - weaned off levophed - continue Bronchodilator therapy with pulmonary hygiene per RT - continue VTE prophylaxis & Stress ulcer prophylaxis - continue systemic steroids therapy with slow taper (Patient is on chronic steroids and is at risk for hypotension related to adrenal insufficiency) - De-escalate antibiotic therapy based on MEGHAN and culture reports - discontinued Rondon catheter - PT/OT to evaluate & treat - aspiration precautions - continue Accuchecks with glycemic control. Target glucose 140-180 mg/dL - Heart failure measures +/- cardiology consultations - Mobility program for pressure ulcer prevention - continue other care per attending / other consultants .... improved ....... re-evaluate in am & prn FULL CODE Subjective Date of service: 11/13/18 Principal diagnosis: Ac on Ch Hypoxemic Resp failure; Sarcoidosis with exacerbation;Chest Pain Interval history: Patient is seen today for: Acute on Chronic Hypoxemic Respiratory failure; Restrictive lung disease with acute exacerbation; Sarcoidosis (on home O2); Acute dyspnea; Chest pain Seen and examined at bedside; 24hour events reviewed; nursing and respiratory care staff consulted; no adverse overnight events reported to me; resting peacefully in bed; denies acute chest pains or palpitations; tolerated BIPAP overnight; remains on supplemental oxygen; No N/V/F/C Objective Vital Signs - 12hr 11/13/18 11/13/18 11/13/18 02:00 03:00 03:15 Temperature Pulse Rate 68 59 L 59 L Pulse Rate [ 59 L Anterior Bilateral Throughout] Pulse Rate [ From Monitor] Respiratory 23 18 Rate Respiratory 18 Rate [Anterior Bilateral Throughout] Respiratory Rate [Knee Joint] Blood Pressure 138/76 140/87 O2 Sat by Pulse 89 90 Oximetry 11/13/18 11/13/18 11/13/18 03:52 04:00 05:00 Temperature 98.8 F Pulse Rate 62 59 L Pulse Rate [ Anterior Bilateral Throughout] Pulse Rate [ From Monitor] Respiratory 17 19 Rate Respiratory Rate [Anterior Bilateral Throughout] Respiratory Rate [Knee Joint] Blood Pressure 143/82 148/81 O2 Sat by Pulse 90 92 Oximetry 11/13/18 11/13/18 11/13/18 06:00 07:00 07:39 Temperature Pulse Rate 61 60 Pulse Rate [ Anterior Bilateral Throughout] Pulse Rate [ From Monitor] Respiratory 22 20 19 Rate Respiratory Rate [Anterior Bilateral Throughout] Respiratory Rate [Knee Joint] Blood Pressure 143/88 145/90 O2 Sat by Pulse 90 90 Oximetry 11/13/18 11/13/18 11/13/18 07:56 07:57 08:00 Temperature 98.8 F Pulse Rate 67 Pulse Rate [ 56 L Anterior Bilateral Throughout] Pulse Rate [ 83 From Monitor] Respiratory 14 Rate Respiratory 13 Rate [Anterior Bilateral Throughout] Respiratory Rate [Knee Joint] Blood Pressure 146/93 O2 Sat by Pulse 94 98 Oximetry 11/13/18 11/13/18 11/13/18 08:39 09:01 10:00 Temperature Pulse Rate 88 77 Pulse Rate [ Anterior Bilateral Throughout] Pulse Rate [ From Monitor] Respiratory 17 28 H 19 Rate Respiratory Rate [Anterior Bilateral Throughout] Respiratory 16 Rate [Knee Joint] Blood Pressure 143/81 135/68 O2 Sat by Pulse 86 87 Oximetry 11/13/18 11/13/18 11:00 11:24 Temperature Pulse Rate 82 93 H Pulse Rate [ Anterior Bilateral Throughout] Pulse Rate [ From Monitor] Respiratory 28 H Rate Respiratory Rate [Anterior Bilateral Throughout] Respiratory Rate [Knee Joint] Blood Pressure 135/72 135/72 O2 Sat by Pulse 87 Oximetry Constitutional: no acute distress, alert, other (Middle aged obeses AAM, normocephalic and atraumati) Eyes: non-icteric ENT: oropharynx moist, other (extubated) Neck: supple, no lymphadenopathy, no JVD, other (large neck circumference) Effort: mildly labored Ascultation: Bilateral: diminished breath sounds, rales (inspiratory in bases) Percussion: Bilateral: not dull Cardiovascular: regular rate and rhythm, other (No R/M) Gastrointestinal: normoactive bowel sounds, soft, non-tender, non-distended, other (No HSM) Integumentary: normal Extremities: no cyanosis, pulses normal, no ischemia or petechiae Neurologic: normal mental status, non-focal exam, pupils equal and round, motor strength normal and Psychiatric: mood appropriate, affect normal CBC and BMP: 11/19/18 09:00 11/20/18 04:38 ABG, PT/INR, D-dimer: ABG POC ABG pH 7.437 (7.35-7.45) 11/12/18 11:42 POC ABG pCO2 53.8 (35-45) H 11/12/18 11:42 POC ABG pO2 72 (80-105) L 11/12/18 11:42 POC ABG HCO3 36.3 11/12/18 11:42 POC ABG Total CO2 38 11/12/18 11:42 POC ABG O2 Sat 94 11/12/18 11:42 PT/INR, D-dimer D-Dimer < 135.00 ng/mlDDU (0-234) 11/10/18 02:24 Abnormal lab findings: Abnormal Labs 11/09/18 11/09/18 11/10/18 23:58 23:58 02:24 RBC 5.14 H Hgb 15.8 H Hct 48.6 H MCV 95 H RDW 16.6 H [place] % (Auto) 10.6 H [place] # 1.0 H POC ABG pH POC ABG pCO2 POC ABG pO2 Sodium Carbon Dioxide BUN Creatinine 1.6 H Glucose 103 H POC Glucose Total Creatine Kinase CK-MB (CK-2) CK-MB (CK-2) Rel Index Troponin T 0.031 H NT-Pro-B Natriuret Pep 5420 H 11/10/18 11/10/18 11/10/18 05:43 06:37 09:24 RBC Hgb Hct MCV RDW [place] % (Auto) [place] # POC ABG pH 7.168 L 7.318 L POC ABG pCO2 87.7 H 57.7 H POC ABG pO2 193 H 152 H Sodium Carbon Dioxide BUN Creatinine Glucose POC Glucose Total Creatine Kinase 8 L CK-MB (CK-2) 7.8 H CK-MB (CK-2) Rel Index 97.5 H Troponin T NT-Pro-B Natriuret Pep 11/10/18 11/10/18 11/11/18 12:15 23:34 04:23 RBC Hgb Hct MCV RDW [place] % (Auto) [place] # POC ABG pH 7.518 H POC ABG pCO2 POC ABG pO2 122 H Sodium Carbon Dioxide BUN Creatinine Glucose POC Glucose 130 H Total Creatine Kinase 269 H CK-MB (CK-2) 6.4 H CK-MB (CK-2) Rel Index Troponin T NT-Pro-B Natriuret Pep 11/11/18 11/11/18 11/12/18 05:18 16:21 00:22 RBC Hgb Hct MCV RDW [place] % (Auto) [place] # POC ABG pH POC ABG pCO2 49.5 H POC ABG pO2 60 L Sodium Carbon Dioxide BUN Creatinine Glucose POC Glucose 129 H 122 H Total Creatine Kinase CK-MB (CK-2) CK-MB (CK-2) Rel Index Troponin T NT-Pro-B Natriuret Pep 11/12/18 11/12/18 11/12/18 05:43 10:13 11:42 RBC Hgb Hct MCV RDW [place] % (Auto) [place] # POC ABG pH POC ABG pCO2 53.8 H POC ABG pO2 72 L Sodium 153 H D Carbon Dioxide 34 H BUN 36 H Creatinine 2.2 H Glucose 142 H POC Glucose 130 H Total Creatine Kinase CK-MB (CK-2) CK-MB (CK-2) Rel Index Troponin T NT-Pro-B Natriuret Pep 11/12/18 11/12/18 11/12/18 12:33 17:29 23:53 RBC Hgb Hct MCV RDW [place] % (Auto) [place] # POC ABG pH POC ABG pCO2 POC ABG pO2 Sodium Carbon Dioxide BUN Creatinine Glucose POC Glucose 121 H 150 H 138 H Total Creatine Kinase CK-MB (CK-2) CK-MB (CK-2) Rel Index Troponin T NT-Pro-B Natriuret Pep 11/13/18 11/13/18 05:16 10:08 RBC Hgb Hct MCV RDW [place] % (Auto) [place] # POC ABG pH POC ABG pCO2 POC ABG pO2 Sodium Carbon Dioxide 33 H BUN 40 H Creatinine 2.1 H Glucose 209 H POC Glucose 134 H Total Creatine Kinase CK-MB (CK-2) CK-MB (CK-2) Rel Index Troponin T NT-Pro-B Natriuret Pep Chest x-ray: image reviewed Allied health notes reviewed: nursing
[2018-11-13 14:54] LABS: Creatinine,Urine 121.2 mg/dL (0.1-20.0)
--- NOTE | 2018-11-13 22:26 | Ultrasound Report ---
FINAL REPORT PROCEDURE: US RENAL BILAT TECHNIQUE: Real-time sonography in multiple planes of the kidneys, ureters and urinary bladder was p erformed with image documentation. CPT 77464 HISTORY: Renal failure COMPARISON: No prior studies are available for comparison. FINDINGS: RIGHT kidney: There is moderate degree hydronephrosis of the upper portion of the right kidney associ ated with the parenchymal thinning. Diffusely increased parenchymal echotexture is noted. There are n o calculi identified.. Length: 12.6 x 7.7 x 6.7 cm. LEFT kidney: Diffusely increased parenchymal echotexture is noted. There are no calculi or hydronephr osis.. Length: 6.1 x 4.3 x 3.6cm. Bladder: Moderately distended with normal outlines. IMPRESSION: Increased renal parenchymal echotexture is consistent with medical renal disease. Hydronephrosis involving upper portion right kidney most likely representing obstructed upper moiety of a duplex system. CT is recommended for further evaluation..
[2018-11-14] MEDS: DUONEB *Not for PRN Use IH SCH ×4 (01:02→20:41)
[2018-11-14] MEDS: DELTASONE PO SCH (09:09)
[2018-11-14] MEDS: BABY ASPIRIN PO SCH (09:09)
[2018-11-14] MEDS: SODIUM CHLORIDE FLUSH SYRINGE 10 ML IV SCH ×2 (09:10→21:54)
[2018-11-14] MEDS: PEPCID PO SCH (09:10)
[2018-11-14] MEDS: LOPRESSOR PO SCH ×2 (09:10→21:52)
[2018-11-14] MEDS: HEPARIN SUB-Q SCH ×2 (09:10→21:53)
--- NOTE | 2018-11-14 09:45 | Progress Note ---
Assessment and Plan Acute on chronic hypoxemic respiratory failure s/p MVS Sarcoidosis with acute exacerbation Acute CHF exacerbation HFrEF (BNP 5420, EF 40-45%) JESI NOY (on CPAP at night) Recent pneumonia, admitted at [place] CAD/CHF (stable) Morbid Obesity Chronic steroid therapy -Supplemental oxygen to keep O2 sats.90% -Bronchodilators therapy -Continue with steroids and slow taper. Patient is on chronic steroids -De-escalate antibiotic therapy based on MEGHAN and cultures reports -PT/OT -Aspiration precautions -Accuchecks with glycemic control. Target glucose 140-180 mg/dL -Heart failure measures -Mobility program for pressure ulcer prevention -Awaiting final urology recommendations -Conitnue all supportive care Subjective Date of service: 11/14/18 Principal diagnosis: Ac on Ch Hypoxemic Resp failure; Sarcoidosis with Acexacerbation;Chest Pain Interval history: Follow up for: Acute on Chronic Hypoxemic Respiratory failure; Restrictive lung disease with acute exacerbation; Sarcoidosis (on home O2 and chronic steroids); Acute dyspnea; Decompensated HF, JESI Seen and examined at bedside; 24hour events reviewed; nursing and respiratory care staff consulted; no adverse overnight events reported to me; More awake and alert. Extubated 11/12/17. Continues to do well from a respiratory standpoint.. Denies any chest pain. Objective Vital Signs - 12hr 11/13/18 11/13/18 11/13/18 21:51 22:00 22:02 Temperature Pulse Rate 82 Pulse Rate [ Anterior Bilateral Throughout] Respiratory Rate Respiratory Rate [Anterior Bilateral Throughout] Blood Pressure 118/76 129/73 129/73 O2 Sat by Pulse 91 Oximetry 11/13/18 11/14/18 11/14/18 23:50 00:00 04:00 Temperature 98.0 F Pulse Rate 69 79 69 Pulse Rate [ Anterior Bilateral Throughout] Respiratory 18 Rate Respiratory Rate [Anterior Bilateral Throughout] Blood Pressure 135/81 O2 Sat by Pulse 90 Oximetry 11/14/18 11/14/18 11/14/18 04:42 08:00 09:01 Temperature 98.0 F Pulse Rate 67 Pulse Rate [ 73 75 Anterior Bilateral Throughout] Respiratory 18 Rate Respiratory 18 18 Rate [Anterior Bilateral Throughout] Blood Pressure 118/67 O2 Sat by Pulse 92 Oximetry 11/14/18 11/14/18 11/14/18 09:02 09:18 09:19 Temperature 97.6 F Pulse Rate 81 Pulse Rate [ Anterior Bilateral Throughout] Respiratory 20 Rate Respiratory Rate [Anterior Bilateral Throughout] Blood Pressure 130/69 O2 Sat by Pulse 90 89 Oximetry Constitutional: no acute distress, alert, other (Middle aged obeses AAM, normocephalic and atraumatic) Eyes: non-icteric ENT: oropharynx moist Neck: supple, no lymphadenopathy, no JVD, other (large neck circumference) Effort: mildly labored Ascultation: Bilateral: diminished breath sounds, rales (inspiratory in bases), rhonchi Percussion: Bilateral: not dull Cardiovascular: regular rate and rhythm, other (No R/M) Gastrointestinal: normoactive bowel sounds, soft, non-tender, non-distended, other (No HSM) Integumentary: normal Extremities: no cyanosis, pulses normal, no ischemia or petechiae Neurologic: normal mental status, non-focal exam, pupils equal and round, motor strength normal and Psychiatric: mood appropriate, affect normal CBC and BMP: 11/16/18 11:55 11/16/18 11:55 ABG, PT/INR, D-dimer: ABG POC ABG pH 7.437 (7.35-7.45) 11/12/18 11:42 POC ABG pCO2 53.8 (35-45) H 11/12/18 11:42 POC ABG pO2 72 (80-105) L 11/12/18 11:42 POC ABG HCO3 36.3 11/12/18 11:42 POC ABG Total CO2 38 11/12/18 11:42 POC ABG O2 Sat 94 11/12/18 11:42 PT/INR, D-dimer D-Dimer < 135.00 ng/mlDDU (0-234) 11/10/18 02:24 Abnormal lab findings: Abnormal Labs 11/09/18 11/09/18 11/10/18 23:58 23:58 02:24 RBC 5.14 H Hgb 15.8 H Hct 48.6 H MCV 95 H RDW 16.6 H [place] % (Auto) 10.6 H [place] # 1.0 H POC ABG pH POC ABG pCO2 POC ABG pO2 Sodium Carbon Dioxide BUN Creatinine 1.6 H Glucose 103 H POC Glucose Calcium Total Creatine Kinase CK-MB (CK-2) CK-MB (CK-2) Rel Index Troponin T 0.031 H NT-Pro-B Natriuret Pep 5420 H Urine Creatinine Urine Total Protein 11/10/18 11/10/18 11/10/18 05:43 06:37 09:24 RBC Hgb Hct MCV RDW [place] % (Auto) [place] # POC ABG pH 7.168 L 7.318 L POC ABG pCO2 87.7 H 57.7 H POC ABG pO2 193 H 152 H Sodium Carbon Dioxide BUN Creatinine Glucose POC Glucose Calcium Total Creatine Kinase 8 L CK-MB (CK-2) 7.8 H CK-MB (CK-2) Rel Index 97.5 H Troponin T NT-Pro-B Natriuret Pep Urine Creatinine Urine Total Protein 11/10/18 11/10/18 11/11/18 12:15 23:34 04:23 RBC Hgb Hct MCV RDW [place] % (Auto) [place] # POC ABG pH 7.518 H POC ABG pCO2 POC ABG pO2 122 H Sodium Carbon Dioxide BUN Creatinine Glucose POC Glucose 130 H Calcium Total Creatine Kinase 269 H CK-MB (CK-2) 6.4 H CK-MB (CK-2) Rel Index Troponin T NT-Pro-B Natriuret Pep Urine Creatinine Urine Total Protein 11/11/18 11/11/18 11/12/18 05:18 16:21 00:22 RBC Hgb Hct MCV RDW [place] % (Auto) [place] # POC ABG pH POC ABG pCO2 49.5 H POC ABG pO2 60 L Sodium Carbon Dioxide BUN Creatinine Glucose POC Glucose 129 H 122 H Calcium Total Creatine Kinase CK-MB (CK-2) CK-MB (CK-2) Rel Index Troponin T NT-Pro-B Natriuret Pep Urine Creatinine Urine Total Protein 11/12/18 11/12/18 11/12/18 05:43 10:13 11:42 RBC Hgb Hct MCV RDW [place] % (Auto) [place] # POC ABG pH POC ABG pCO2 53.8 H POC ABG pO2 72 L Sodium 153 H D Carbon Dioxide 34 H BUN 36 H Creatinine 2.2 H Glucose 142 H POC Glucose 130 H Calcium Total Creatine Kinase CK-MB (CK-2) CK-MB (CK-2) Rel Index Troponin T NT-Pro-B Natriuret Pep Urine Creatinine Urine Total Protein 11/12/18 11/12/18 11/12/18 12:33 17:29 23:53 RBC Hgb Hct MCV RDW [place] % (Auto) [place] # POC ABG pH POC ABG pCO2 POC ABG pO2 Sodium Carbon Dioxide BUN Creatinine Glucose POC Glucose 121 H 150 H 138 H Calcium Total Creatine Kinase CK-MB (CK-2) CK-MB (CK-2) Rel Index Troponin T NT-Pro-B Natriuret Pep Urine Creatinine Urine Total Protein 11/13/18 11/13/18 11/13/18 05:16 10:08 12:20 RBC Hgb Hct MCV RDW [place] % (Auto) [place] # POC ABG pH POC ABG pCO2 POC ABG pO2 Sodium Carbon Dioxide 33 H BUN 40 H Creatinine 2.1 H Glucose 209 H POC Glucose 134 H Calcium Total Creatine Kinase CK-MB (CK-2) CK-MB (CK-2) Rel Index Troponin T NT-Pro-B Natriuret Pep Urine Creatinine 121.2 H Urine Total Protein 16 H 11/14/18 04:58 RBC Hgb Hct MCV RDW [place] % (Auto) [place] # POC ABG pH POC ABG pCO2 POC ABG pO2 Sodium Carbon Dioxide 34 H BUN 40 H Creatinine 1.8 H Glucose 113 H POC Glucose Calcium 8.0 L Total Creatine Kinase CK-MB (CK-2) CK-MB (CK-2) Rel Index Troponin T NT-Pro-B Natriuret Pep Urine Creatinine Urine Total Protein Allied health notes reviewed: nursing
[2018-11-14] MEDS ORDERED: LASIX IV SCH (10:00)
--- NOTE | 2018-11-14 10:28 | Progress Note ---
Assessment and Plan Acute renal Failure on likely Chronic Kidney Disease: -Cr is slowly trending down -Prior labs in June 2015 showed serum creatinine 1.7-2.0 -Resume Lasix at 40 mg IV daily due to congestion on CXR -renal US showing possible hydronephrosis, CT ordered by primary team, may need urology eval -Avoid Nephrotoxic agents -Monitor I/O's -Monitor renal function closely Acute on Chronic hypoxic respiratory failure - Extubated on 11/12/18 Acute on Chronic exacerbation of systolic heart failure: -Echo:EF 40-45% -Was on Lasix, can resume Lasix at 40 mg IV daily -Cardiology onboard COPD: -On Nebulizers and steroids Hypertension: -Monitor blood pressures Sarcoidosis: -On steroid Subjective Date of service: 11/14/18 Principal diagnosis: Ac on Ch Hypoxemic Resp failure; Sarcoidosis with Acexacerbation;Chest Pain Interval history: feels better overall Objective - Vital Signs Vital signs: Vital Signs - 12hr 11/13/18 11/14/18 11/14/18 23:50 00:00 04:00 Temperature 98.0 F Pulse Rate 69 79 69 Pulse Rate [ Anterior Bilateral Throughout] Respiratory 18 Rate Respiratory Rate [Anterior Bilateral Throughout] Blood Pressure 135/81 O2 Sat by Pulse 90 Oximetry 11/14/18 11/14/18 11/14/18 04:42 08:00 09:01 Temperature 98.0 F Pulse Rate 67 Pulse Rate [ 73 75 Anterior Bilateral Throughout] Respiratory 18 Rate Respiratory 18 18 Rate [Anterior Bilateral Throughout] Blood Pressure 118/67 O2 Sat by Pulse 92 Oximetry 11/14/18 11/14/18 11/14/18 09:02 09:18 09:19 Temperature 97.6 F Pulse Rate 81 Pulse Rate [ Anterior Bilateral Throughout] Respiratory 20 Rate Respiratory Rate [Anterior Bilateral Throughout] Blood Pressure 130/69 O2 Sat by Pulse 90 89 Oximetry - General Appearance General appearance: well-developed, well-nourished EENT: ATNC, PERRL, mucous membranes moist Neck: no JVD, no carotid bruit Respiratory: Present: Clear to Ascultation. Absent: Rales, Ronchi, Wheezes Cardiology: regular, S1S2 Gastrointestinal: normoactive bowel sounds, no tenderness, no distended Integumentary: no rash, warm and dry Neurologic: no focal deficit, no asterixis, alert and oriented x3 Musculoskeletal: other (no edema in BLE) Psychiatric: mood/affect appropriate, cooperative - Lab 11/09/18 23:58 11/14/18 04:58 Most recent lab results Calcium 8.0 mg/dL (8.4-10.2) L 11/14/18 04:58 Urine Creatinine 121.2 mg/dL (0.1-20.0) H 11/13/18 12:20 Urine Sodium 33 mmol/L 11/13/18 12:20 Urine Total Protein 16 mg/dL (5-11.8) H 11/13/18 12:20 Medications & Allergies - Medications Allergies/Adverse Reactions: Allergies No Known Allergies Allergy (Unverified 07/05/15 10:00) Home Medications: Home Medications Medication Instructions Recorded Confirmed Last Taken Type Docusate Sodium [Colace CAP] 100 mg PO BID #60 capsule 07/07/15 Unknown Rx oxyCODONE /ACETAMINOPHEN [Percocet 1 - 2 tab PO Q6H PRN #30 tablet 07/07/15 Unknown Rx 5/325 mg] predniSONE [Deltasone] 20 mg PO QDAY #50 tab 07/07/15 Unknown Rx Active Medications: Generic Name Dose Route Start Last Admin Trade Name Freq PRN Reason Stop Dose Admin Acetaminophen 650 mg 11/10/18 04:17 11/13/18 07:39 Tylenol PO 650 mg Q4H PRN Administration Pain MILD(1-3)/Fever >100.5/BURNS Albuterol 2.5 mg 11/10/18 04:17 Proventil IH Q3HRT PRN Shortness Of Breath Albuterol/Ipratropium 1 ampul 11/10/18 08:00 11/14/18 08:55 Duoneb *Not For Prn Use* IH 1 ampul Q6HRT ABDIAS Administration Aspirin 81 mg 11/10/18 10:00 11/14/18 09:09 Baby Aspirin PO 81 mg QDAY ABDIAS Administration Famotidine 20 mg 11/13/18 10:00 11/14/18 09:10 Pepcid PO 20 mg DAILY ABDIAS Administration Furosemide 40 mg 11/14/18 10:00 11/14/18 09:09 Lasix IV 40 mg DAILY ABDIAS Administration Heparin Sodium (Porcine) 5,000 unit 11/13/18 22:00 11/14/18 09:10 Heparin SUB-Q 5,000 unit Q12HR ABDIAS Administration Metoprolol Tartrate 25 mg 11/12/18 12:00 11/14/18 09:10 Lopressor PO 25 mg BID ABDIAS Administration Multi-Ingred Cream/Lotion/Oil/Oint 1 applic 11/10/18 05:52 Artificial Tears Ophth Oint OU Q4HR PRN Dry Eye(s) Ondansetron HCl 4 mg 11/10/18 04:17 Zofran IV Q8H PRN Nausea And Vomiting Prednisone 40 mg 11/13/18 10:00 11/14/18 09:09 Deltasone PO 40 mg QDAY ABDIAS Administration Sodium Chloride 10 ml 11/10/18 10:00 11/14/18 09:10 Sodium Chloride Flush Syringe 10 Ml IV 10 ml BID ABDIAS Administration Sodium Chloride 10 ml 11/10/18 04:17 Sodium Chloride Flush Syringe 10 Ml IV PRN PRN LINE FLUSH
--- NOTE | 2018-11-14 11:15 | Progress Note ---
Assessment and Plan Acute on chronic hypoxic respiratory failure/sarcoidosis/recent PNA/NOY/? COPD Extubated. Per pulmonary. 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 Convert IV lasix to PO 40mg daily. [facility] records obtained - pt underwent [facility] 05/2018 which showed nonobstructive CAD, 50% mid LAD lesion with FFR 0.89, left ventriculogram not performed. Cont lopressor - pt with ? COPD and restrictive lung disease. Consider initiation of ACEI/ARB if renal indices permit. Nonobstructive CAD JESI on ? CKD Nephrology following. Renal U/S showed right hydronephrosis, CT pending. Chest pain Currently resolved. Pt underwent [facility] 05/2018 which showed nonobstructive CAD, 50% mid LAD lesion with FFR 0.89 Troponins minimally elevated, negative for AMI, ECG with no acute ischemic changes. RBBB HTN Cont lopressor and titrate as tolerated. Obesity Currently stable cardiac status. Convert IV lasix to PO 40mg daily. Cont lopressor, consider ACEI/ARB if renal indices permit. Nothing further to add from cardiac perspective at this time. Will sign off. Recommend pt follow up in our office with Dr. Whipple within 3-5 days of hospital discharge ([phone]). The patient has been seen in conjunction with Dr. Spear who agrees with the assessment and plan of care. Subjective Date of service: 11/14/18 Principal diagnosis: Ac on Ch Hypoxemic Resp failure; Sarcoidosis with Acexacerbation;Chest Pain Interval history: pt lying flat comfortably in bed, no current cardiac complaints. has been ambulating around room without difficulty. Objective Last Vital Signs Temp 97.6 F 11/14/18 09:19 Pulse 81 11/14/18 09:18 Resp 20 11/14/18 09:18 BP 130/69 11/14/18 09:18 Pulse Ox 89 11/14/18 09:18 - Physical Examination General: No Apparent Distress HEENT: Positive: PERRL Neck: Positive: neck supple, trachea midline Cardiac: Positive: Reg Rate and Rhythm, S1/S2 Lungs: Positive: clear to auscultation Neuro: Positive: Grossly Intact, Cranial Nerve 2-12 Intact Abdomen: Positive: Unremarkable Skin: Positive: Clear Extremities: Absent: edema - Labs and Meds Comprehensive Metabolic Panel 11/14/18 Range/Units 04:58 Sodium 144 (137-145) mmol/L Potassium 3.7 (3.6-5.0) mmol/L Chloride 98.5 (98-107) mmol/L Carbon Dioxide 34 H (22-30) mmol/L BUN 40 H (9-20) mg/dL Creatinine 1.8 H (0.8-1.5) mg/dL Glucose 113 H (75-100) mg/dL Calcium 8.0 L (8.4-10.2) mg/dL - Imaging and Cardiology EKG: report reviewed, image reviewed Echo: report reviewed (TDS, EF 40-45%, mild to mod LVH, RV mildly dilated. ) Cardiac cath: report reviewed ([facility] records obtained - pt underwent [facility] 05/2018 which showed nonobstructive CAD, 50% mid LAD lesion with FFR 0.89, left ventriculogram not ) - Allied health notes Allied health notes reviewed: nursing
[2018-11-14] MEDS ORDERED: AFLURIA QUAD 2018-2019 SYRINGE IM ONE (12:00)
--- NOTE | 2018-11-14 13:21 | Progress Note ---
Assessment and Plan bilat stones chronic dilatation calices large stones get nuc scan f/u as out pt Subjective Date of service: 11/14/18 Principal diagnosis: Ac on Ch Hypoxemic Resp failure; Sarcoidosis with Acexacerbation;Chest Pain Objective - Constitutional Vitals: Vital Signs - 12hr 11/14/18 11/14/18 11/14/18 04:00 04:42 08:00 Temperature 98.0 F Pulse Rate 69 67 Pulse Rate [ 73 Anterior Bilateral Throughout] Respiratory 18 Rate Respiratory 18 Rate [Anterior Bilateral Throughout] Blood Pressure 118/67 O2 Sat by Pulse 92 Oximetry 11/14/18 11/14/18 11/14/18 09:01 09:02 09:18 Temperature Pulse Rate 81 Pulse Rate [ 75 Anterior Bilateral Throughout] Respiratory 20 Rate Respiratory 18 Rate [Anterior Bilateral Throughout] Blood Pressure 130/69 O2 Sat by Pulse 90 89 Oximetry 11/14/18 09:19 Temperature 97.6 F Pulse Rate Pulse Rate [ Anterior Bilateral Throughout] Respiratory Rate Respiratory Rate [Anterior Bilateral Throughout] Blood Pressure O2 Sat by Pulse Oximetry General appearance: Present: no acute distress - Neck Neck: supple - Respiratory Respiratory effort: normal - Gastrointestinal General gastrointestinal: Present: soft, non-tender - Labs CBC & Chem 7: 11/09/18 23:58 11/14/18 04:58 Labs: Abnormal lab results 11/13/18 11/14/18 Range/Units 12:20 04:58 Carbon Dioxide 34 H (22-30) mmol/L BUN 40 H (9-20) mg/dL Creatinine 1.8 H (0.8-1.5) mg/dL Glucose 113 H (75-100) mg/dL Calcium 8.0 L (8.4-10.2) mg/dL Urine Creatinine 121.2 H (0.1-20.0) mg/dL Urine Total Protein 16 H (5-11.8) mg/dL Medications & Allergies - Medications Allergies/Adverse Reactions: Allergies No Known Allergies Allergy (Unverified 07/05/15 10:00) Home Medications: Home Medications Medication Instructions Recorded Confirmed Last Taken Type Docusate Sodium [Colace CAP] 100 mg PO BID #60 capsule 07/07/15 Unknown Rx oxyCODONE /ACETAMINOPHEN [Percocet 1 - 2 tab PO Q6H PRN #30 tablet 07/07/15 Unknown Rx 5/325 mg] predniSONE [Deltasone] 20 mg PO QDAY #50 tab 07/07/15 Unknown Rx Active Medications: Generic Name Dose Route Start Last Admin Trade Name Freq PRN Reason Stop Dose Admin Acetaminophen 650 mg 11/10/18 04:17 11/13/18 07:39 Tylenol PO 650 mg Q4H PRN Administration Pain MILD(1-3)/Fever >100.5/BURNS Albuterol 2.5 mg 11/10/18 04:17 Proventil IH Q3HRT PRN Shortness Of Breath Albuterol/Ipratropium 1 ampul 11/10/18 08:00 11/14/18 08:55 Duoneb *Not For Prn Use* IH 1 ampul Q6HRT ABDIAS Administration Aspirin 81 mg 11/10/18 10:00 11/14/18 09:09 Baby Aspirin PO 81 mg QDAY ABDIAS Administration Famotidine 20 mg 11/13/18 10:00 11/14/18 09:10 Pepcid PO 20 mg DAILY ABDIAS Administration Furosemide 40 mg 11/15/18 10:00 Lasix PO QDAY ABDIAS Heparin Sodium (Porcine) 5,000 unit 11/13/18 22:00 11/14/18 09:10 Heparin SUB-Q 5,000 unit Q12HR ABDIAS Administration Metoprolol Tartrate 25 mg 11/12/18 12:00 11/14/18 09:10 Lopressor PO 25 mg BID ABDIAS Administration Multi-Ingred Cream/Lotion/Oil/Oint 1 applic 11/10/18 05:52 Artificial Tears Ophth Oint OU Q4HR PRN Dry Eye(s) Ondansetron HCl 4 mg 11/10/18 04:17 Zofran IV Q8H PRN Nausea And Vomiting Prednisone 40 mg 11/13/18 10:00 11/14/18 09:09 Deltasone PO 40 mg QDAY ABDIAS Administration Sodium Chloride 10 ml 11/10/18 10:00 11/14/18 09:10 Sodium Chloride Flush Syringe 10 Ml IV 10 ml BID ABDIAS Administration Sodium Chloride 10 ml 11/10/18 04:17 Sodium Chloride Flush Syringe 10 Ml IV PRN PRN LINE FLUSH
--- NOTE | 2018-11-14 14:53 | Cat Scan Report ---
CT ABDOMEN PELVIS WITHOUT CONTRAST: HISTORY: Right hydronephrosis. COMPARISON: Ultrasound renal dated 11/13/18. TECHNIQUE: Helical CT in 1.25mm intervals without IV contrast. Sagittal and coronal reconstructions. FINDINGS: Lung bases: Normal. Liver: Unremarkable. The most superior right hepatic lobe is cut off the film. Biliary system: Normal. Pancreas: Normal. Spleen: Normal. Kidneys/ureters/bladder: Bilateral nephrolithiasis is identified. A large stone is identified in the superior right kidney measuring 1.7 x 1.6 x 1.0 cm. Multiple calyces in the superior right kidney are mildly dilated. 3 or 4 additional smaller stones are identified in the inferior right kidney. Approximately 4 calyceal stones are identified in the inferior left kidney measuring up to 5 mm. Cortical thinning and scarring is suspected in both kidneys, particularly on the left side. The ureters and bladder are unremarkable. Adrenal glands: Normal. Aorta: Normal. Intestines: Normal. Appendix: Normal. Ascites: None. Adenopathy: None. Musculoskeletal: Normal. IMPRESSION: Bilateral nephrolithiasis as described.
--- NOTE | 2018-11-14 14:57 | Progress Note ---
Assessment and Plan Assessment and plan: Patient is a 53 y/o BM with a history of Sarcoidosis, chronic hypoxic respiratory failure on 2 liters of O2 at home, CHF, HTN and recent pneumonia with Intubation at [facility] who presented to [facility] ED with cough, SOB and chest pains. He was found to have pulse ox of only 64%. He was placed on bipap, which he failed requiring intubation. Acute on Chronic hypoxic respiratory failure s/p Intubation on admission and extubated 11/12/18: currently on 3 liters o2 trying to wean down Acute on Chronic exacerbation of systolic heart failure: iv lasix on hold due to worsening renal function, Cardiology is following, ECHO reviewed AE COPD: continue Duoneb tx and IV solumedrol weaned to oral steroids. ARF, vasomotor nephrology +ATN: Nephrology is following HTN (hypertension) with episode of hypotension: monitor bp closely, advance bp medications as tolerated Sarcoidosis: on steroids DVT prophylaxis: On Heparin full code Transfer to telemetry yesterday new issue is right hydronephrosis on abd u/s, I called and spoke with urology, Dr. Bonner==>he recommended ctab wo contrast which i ordered. he followed up the ct abd/pelvis, and ordered NM renal scan. History Interval history: Patient was seen and examined. Follow-up on current diagnosis respiratory failure. Overnight uneventful. Imaging, nursing note, chart, labs and old chart reviewed. Discussed with patient. s/p extubation 11/12/18. Doing well, no sob, no cp, no n/v Hospitalist Physical - Physical exam Narrative exam: Gen: WDWN, NAD, Awake, Alert, Orientated HEENT: NCAT, EOMI, PERRL, OP clear Neck: supple, no adenopathy, no thyromegaly, no JVD CVS/Heart: RRR, normal S1S2, pulses present bilaterally Chest/Lungs: CTA B, Symmetrical chest expansion, good air entry bilaterally GI/Abdomen: soft, NTND, good bowel sounds, no guarding or rebound /Bladder: no suprapubic tenderness, no CVA or paraspinal tenderness Extermity/Skin: no c/c/e, no obvious rash MSK: FROM x 4 Neuro: CN 2-12 grossly intact, no new focal deficits Psych: calm - Constitutional Vitals: Temp Pulse Resp BP Pulse Ox 97.6 F 76 19 130/69 89 11/14/18 09:19 11/14/18 14:00 11/14/18 14:00 11/14/18 09:18 11/14/18 09:18 General appearance: Present: no acute distress Results - Labs CBC & Chem 7: 11/09/18 23:58 11/14/18 04:58 Labs: Laboratory Last Values WBC 9.3 K/mm3 (4.5-11.0) 11/09/18 23:58 RBC 5.14 M/mm3 (3.65-5.03) H 11/09/18 23:58 Hgb 15.8 gm/dl (11.8-15.2) H 11/09/18 23:58 Hct 48.6 % (35.5-45.6) H 11/09/18 23:58 MCV 95 fl (84-94) H 11/09/18 23:58 MCH 31 pg (28-32) 11/09/18 23:58 MCHC 32 % (32-34) 11/09/18 23:58 RDW 16.6 % (13.2-15.2) H 11/09/18 23:58 Plt Count 214 K/mm3 (140-440) 11/09/18 23:58 Lymph % (Auto) 21.1 % (13.4-35.0) 11/09/18 23:58 [place] % (Auto) 10.6 % (0.0-7.3) H 11/09/18 23:58 Eos % (Auto) 3.8 % (0.0-4.3) 11/09/18 23:58 Baso % (Auto) 0.9 % (0.0-1.8) 11/09/18 23:58 Lymph # 2.0 K/mm3 (1.2-5.4) 11/09/18 23:58 [place] # 1.0 K/mm3 (0.0-0.8) H 11/09/18 23:58 Eos # 0.3 K/mm3 (0.0-0.4) 11/09/18 23:58 Baso # 0.1 K/mm3 (0.0-0.1) 11/09/18 23:58 Seg Neutrophils % 63.6 % (40.0-70.0) 11/09/18 23:58 Seg Neutrophils # 5.9 K/mm3 (1.8-7.7) 11/09/18 23:58 D-Dimer < 135.00 ng/mlDDU (0-234) 11/10/18 02:24 POC ABG pH 7.437 (7.35-7.45) 11/12/18 11:42 POC ABG pCO2 53.8 (35-45) H 11/12/18 11:42 POC ABG pO2 72 (80-105) L 11/12/18 11:42 POC ABG HCO3 36.3 11/12/18 11:42 POC ABG Total CO2 38 11/12/18 11:42 POC ABG O2 Sat 94 11/12/18 11:42 POC ABG Base Excess 12 11/12/18 11:42 FiO2 45 % 11/12/18 11:42 Sodium 144 mmol/L (137-145) 11/14/18 04:58 Potassium 3.7 mmol/L (3.6-5.0) 11/14/18 04:58 Chloride 98.5 mmol/L (98-107) 11/14/18 04:58 Carbon Dioxide 34 mmol/L (22-30) H 11/14/18 04:58 Anion Gap 15 mmol/L 11/14/18 04:58 BUN 40 mg/dL (9-20) H 11/14/18 04:58 Creatinine 1.8 mg/dL (0.8-1.5) H 11/14/18 04:58 Estimated GFR 48 ml/min 11/14/18 04:58 BUN/Creatinine Ratio 22 % 11/14/18 04:58 Glucose 113 mg/dL (75-100) H 11/14/18 04:58 POC Glucose 134 (70-105) H 11/13/18 05:16 Calcium 8.0 mg/dL (8.4-10.2) L 11/14/18 04:58 Total Creatine Kinase 269 units/L (55-170) H 11/10/18 12:15 CK-MB (CK-2) 6.4 ng/mL (0.0-4.0) H 11/10/18 12:15 CK-MB (CK-2) Rel Index 2.3 (0-4) 11/10/18 12:15 Troponin T 0.020 ng/mL (0.00-0.029) 11/10/18 12:15 NT-Pro-B Natriuret Pep 5420 pg/mL (0-900) H 11/10/18 02:24 Triglycerides 86 mg/dL (2-149) 11/09/18 23:58 Cholesterol 166 mg/dL (50-199) 11/09/18 23:58 LDL Cholesterol Direct 100 mg/dL (50-130) 11/09/18 23:58 HDL Cholesterol 57 mg/dL (40-59) 11/09/18 23:58 Cholesterol/HDL Ratio 2.91 % 11/09/18 23:58 Urine Creatinine 121.2 mg/dL (0.1-20.0) H 11/13/18 12:20 Urine Sodium 33 mmol/L 11/13/18 12:20 Urine Total Protein 16 mg/dL (5-11.8) H 11/13/18 12:20 Hep Bs Antigen Non-reactive (Negative) 11/13/18 13:39 Hepatitis C Antibody Non-reactive (NonReactive) 11/13/18 13:39 HIV 1&2 Antibody Rapid Non react (Non React) 11/13/18 13:39 HIV P24 Antigen Non react (Non React) 11/13/18 13:39 Nutrition/Malnutrition Assess - Dietary Evaluation Nutrition/Malnutrition Findings: Nutrition Notes Start: 11/11/18 15:24 Freq: Status: Active Protocol: Document 11/12/18 15:34 (Rec: 11/12/18 15:53 [email or web address]) Co-Sign 11/12/18 15:34 NHALL Nutrition Notes Initial or Follow up Reassessment Current Diagnosis Hypertension Heart Failure Respiratory Failure Other Pertinent Diagnosis Sarcoidosis, PNA Current Diet No diet ordered Labs/Tests Reviewed Pertinent Medications Solu-medrol Norepinephrine Height 5 ft 7 in Weight 120.304 kg [place] Body Weight (lbs) 148.0 BMI 41.5 Weight Status Morbidly Obese Subjective/Other Information F/u for extubation and need for TF. Pt. to be extubated today. FACILITIES OPERATIONS TECHNICIAN evaluation needed to determine diet advancement. Burn Absent Trauma Absent #1 Nutrition Diagnosis Inadequate oral intake Diagnosis Progress(for reassessment Continues documentation) Is patient on ventilator? Yes Is Patient Ambulatory and/or Out of Bed No REE-([place]-confined to bed) 5032.832 Additional Notes Energy needs: 9773-6935 kcal/ day Pro needs 2.5g/kg IBW: 168g/ day Fluid needs per MD Nutrition Intervention Change Diet Order: Diet advancement when medically feasible Nutrition Support: Start EN support if unable to advance diet Goal #1 Either diet advancement or initiation of EN support to meet nutrient needs Follow-Up By: 11/14/18 Additional Comments F/u: FACILITIES OPERATIONS TECHNICIAN evaluation, need for TF
--- NOTE | 2018-11-14 18:44 | Consultation ---
HISTORY OF PRESENT ILLNESS: The patient is a 53-year-old gentleman with a long history of kidney stones. These were never treated. He has known about this for a long time. He was admitted to the hospital for respiratory failure, sarcoidosis, and is now upon the floor. He has severe CHF, hypertension, severe medical problems. He has renal insufficiency as well. An ultrasound showed hydronephrosis. I read the CT with the radiologist. There is some chronic caliceal dilatation on the right. No renal pelvic dilatation. No ureteral stone, but bilateral calculi. He has lobulation also on the left side. He has multiple severe medical issues. PAST MEDICAL HISTORY: As mentioned above. PAST SURGICAL HISTORY: Denies any treatment for the stone. SOCIAL HISTORY: Negative. FAMILY HISTORY: Noncontributory. REVIEW OF SYSTEMS: Severe shortness of breath. PHYSICAL EXAMINATION: GENERAL: He is awake. He is obese. He is in no distress. ABDOMEN: Soft, nondistended. GENITALIA: Testes descended bilaterally, circumcised. DIGITAL RECTAL EXAMINATION: Smooth, symmetrical gland. IMPRESSION: A gentleman with severe comorbidities with large stones. I recommend follow up as an outpatient. He needs a PSA as well. All options discussed. The patient needs close followup and if he wants treatment of the stones, we will have to get a lot of medical clearance. He will get a nuclear scan before discharge. JOB# [id number] JONY/JENIFER
[2018-11-15 06:10] LABS: Mean Corpuscular HGB Conc 31 % (32-34); Mean Corpuscular Volume 95 fl (84-94); Platelet Count 183 K/mm3 (140-440); Red Blood Count 4.93 M/mm3 (3.65-5.03)
[2018-11-15 06:11] LABS: Hematocrit 46.9 % (35.5-45.6); Hemoglobin 14.6 gm/dl (11.8-15.2)
[2018-11-15 06:41] LABS: Calcium 8.1 mg/dL (8.4-10.2)
[2018-11-15] MEDS: DUONEB *Not for PRN Use IH SCH ×4 (08:29→20:58)
--- NOTE | 2018-11-15 10:53 | Progress Note ---
Assessment and Plan Acute renal Failure on likely Chronic Kidney Disease: -stable kidney function -Prior labs in June 2015 showed serum creatinine 1.7-2.0 -CT negative for obstruction but positive for bilateral nephrlithiasis, may need to be evaluated by urology at some point as an outpatient - Ok to be discharged from renal standpojnt -Avoid Nephrotoxic agents -Monitor I/O's -Monitor renal function closely Acute on Chronic hypoxic respiratory failure - Extubated on 11/12/18 Acute on Chronic exacerbation of systolic heart failure: -Echo:EF 40-45% -Was on Lasix, can resume Lasix at 40 mg IV daily -Cardiology onboard COPD: -On Nebulizers -off steroids Hypertension: -Monitor blood pressures Subjective Date of service: 11/15/18 Principal diagnosis: Ac on Ch Hypoxemic Resp failure; Sarcoidosis with Acexacerbation;Chest Pain Interval history: comfortable,ready to go home Objective - Vital Signs Vital signs: Vital Signs - 12hr 11/15/18 11/15/18 11/15/18 00:37 02:21 04:00 Temperature 98.2 F Pulse Rate 79 73 Respiratory 18 Rate Blood Pressure 141/81 O2 Sat by Pulse 80 L 93 Oximetry 11/15/18 04:51 Temperature 98.4 F Pulse Rate 79 Respiratory 18 Rate Blood Pressure 118/72 O2 Sat by Pulse 96 Oximetry - General Appearance General appearance: well-developed, well-nourished, appears stated age EENT: ATNC, PERRL, mucous membranes moist Neck: no JVD, no carotid bruit Respiratory: Present: Clear to Ascultation. Absent: Rales, Ronchi Cardiology: regular, S1S2 Gastrointestinal: normoactive bowel sounds, no tenderness, no distended Integumentary: no rash, warm and dry Neurologic: no focal deficit, no asterixis, alert and oriented x3 Musculoskeletal: other (no edema in BLE) Psychiatric: mood/affect appropriate, cooperative - Lab 11/15/18 05:10 11/15/18 05:10 Most recent lab results Calcium 8.1 mg/dL (8.4-10.2) L 11/15/18 05:10 Urine Creatinine 121.2 mg/dL (0.1-20.0) H 11/13/18 12:20 Urine Sodium 33 mmol/L 11/13/18 12:20 Urine Total Protein 16 mg/dL (5-11.8) H 11/13/18 12:20 Medications & Allergies - Medications Allergies/Adverse Reactions: Allergies No Known Allergies Allergy (Unverified 07/05/15 10:00) Home Medications: Home Medications Medication Instructions Recorded Confirmed Last Taken Type Docusate Sodium [Colace CAP] 100 mg PO BID #60 capsule 07/07/15 Unknown Rx oxyCODONE /ACETAMINOPHEN [Percocet 1 - 2 tab PO Q6H PRN #30 tablet 07/07/15 Unknown Rx 5/325 mg] predniSONE [Deltasone] 20 mg PO QDAY #50 tab 07/07/15 Unknown Rx Active Medications: Generic Name Dose Route Start Last Admin Trade Name Freq PRN Reason Stop Dose Admin Acetaminophen 650 mg 11/10/18 04:17 11/13/18 07:39 Tylenol PO 650 mg Q4H PRN Administration Pain MILD(1-3)/Fever >100.5/BURNS Albuterol 2.5 mg 11/10/18 04:17 Proventil IH Q3HRT PRN Shortness Of Breath Albuterol/Ipratropium 1 ampul 11/15/18 08:00 11/15/18 09:30 Duoneb *Not For Prn Use* IH 1 ampul TIDRT ABDIAS Administration Aspirin 81 mg 11/10/18 10:00 11/14/18 09:09 Baby Aspirin PO 81 mg QDAY ABDIAS Administration Famotidine 20 mg 11/13/18 10:00 11/14/18 09:10 Pepcid PO 20 mg DAILY ABDIAS Administration Furosemide 40 mg 11/15/18 10:00 Lasix PO QDAY ABDIAS Heparin Sodium (Porcine) 5,000 unit 11/13/18 22:00 11/14/18 21:53 Heparin SUB-Q 5,000 unit Q12HR ABDIAS Administration Metoprolol Tartrate 25 mg 11/12/18 12:00 11/14/18 21:52 Lopressor PO 25 mg BID ABDIAS Administration Multi-Ingred Cream/Lotion/Oil/Oint 1 applic 11/10/18 05:52 Artificial Tears Ophth Oint OU Q4HR PRN Dry Eye(s) Ondansetron HCl 4 mg 11/10/18 04:17 Zofran IV Q8H PRN Nausea And Vomiting Prednisone 40 mg 11/13/18 10:00 11/14/18 09:09 Deltasone PO 40 mg QDAY ABDIAS Administration Sodium Chloride 10 ml 11/10/18 10:00 11/14/18 21:54 Sodium Chloride Flush Syringe 10 Ml IV 10 ml BID ABDIAS Administration Sodium Chloride 10 ml 11/10/18 04:17 Sodium Chloride Flush Syringe 10 Ml IV PRN PRN LINE FLUSH
[2018-11-15] MEDS: DELTASONE PO SCH (11:05)
[2018-11-15] MEDS: LOPRESSOR PO SCH ×2 (11:05→21:43)
[2018-11-15] MEDS: LASIX PO SCH (11:05)
[2018-11-15] MEDS: BABY ASPIRIN PO SCH (11:06)
[2018-11-15] MEDS: SODIUM CHLORIDE FLUSH SYRINGE 10 ML IV SCH ×2 (11:07→21:44)
[2018-11-15] MEDS: HEPARIN SUB-Q SCH ×2 (11:07→21:44)
[2018-11-15] MEDS: PEPCID PO SCH (11:07)
--- NOTE | 2018-11-15 12:22 | Progress Note ---
Assessment and Plan Acute on chronic hypoxemic respiratory failure s/p MVS Sarcoidosis with acute exacerbation Acute CHF exacerbation HFrEF (BNP 5420, EF 40-45%) JESI NOY (on CPAP at night) Recent pneumonia, admitted at [place] CAD/CHF (stable) Morbid Obesity Chronic steroid therapy -Bronchodilators therapy -Supplemental oxygen to keep o2 sats >90% -Continue with steroids and slow taper -PT/OT -Accuchecks with glycemic control. Target glucose 140-180 mg/dL -Heart failure measures -Continue all supportive care Stable from pulmonary standpoint for discharge planning with out patient pulmonary follow up. Discussed with Dr. Juarez Subjective Date of service: 11/15/18 Principal diagnosis: Ac on Ch Hypoxemic Resp failure; Sarcoidosis with Acexacerbation;Chest Pain Interval history: Follow up for: Acute on Chronic Hypoxemic Respiratory failure; Restrictive lung disease with acute exacerbation; Sarcoidosis (on home O2 and chronic steroids); Acute dyspnea; Decompensated HF, JESI Seen and examined at bedside; 24hour events reviewed; nursing and respiratory ca re staff consulted; no adverse overnight events reported to me; Extubated and has been doing well. No chest pain, baseline shortness of breath, no fevers or chills. Objective - Exam Narrative Exam: Gen: WDWN, NAD, Awake, Alert, Orientated HEENT: NCAT, EOMI, PERRL, OP clear Neck: supple, no adenopathy, no thyromegaly, no JVD CVS/Heart: RRR, normal S1S2, pulses present bilaterally Chest/Lungs: CTA B, Symmetrical chest expansion, good air entry bilaterally GI/Abdomen: soft, NTND, good bowel sounds, no guarding or rebound /Bladder: no suprapubic tenderness, no CVA or paraspinal tenderness Extermity/Skin: no c/c/e, no obvious rash MSK: FROM x 4 Neuro: CN 2-12 grossly intact, no new focal deficits Psych: calm Vital Signs - 12hr 11/15/18 11/15/18 11/15/18 00:37 02:21 04:00 Temperature 98.2 F Pulse Rate 79 73 Respiratory 18 Rate Blood Pressure 141/81 O2 Sat by Pulse 80 L 93 Oximetry 11/15/18 04:51 Temperature 98.4 F Pulse Rate 79 Respiratory 18 Rate Blood Pressure 118/72 O2 Sat by Pulse 96 Oximetry Constitutional: no acute distress, alert, other (Middle aged obeses AAM, normocephalic and atraumatic) Eyes: non-icteric ENT: oropharynx moist Neck: supple, no lymphadenopathy, no JVD, other (large neck circumference) Effort: mildly labored Ascultation: Bilateral: diminished breath sounds, rales (inspiratory in bases), rhonchi Percussion: Bilateral: not dull Cardiovascular: regular rate and rhythm, other (No R/M) Gastrointestinal: normoactive bowel sounds, soft, non-tender, non-distended, other (No HSM) Integumentary: normal Extremities: no cyanosis, pulses normal, no ischemia or petechiae Neurologic: normal mental status, non-focal exam, pupils equal and round, motor strength normal and Psychiatric: mood appropriate, affect normal CBC and BMP: 11/15/18 05:10 11/15/18 05:10 ABG, PT/INR, D-dimer: ABG POC ABG pH 7.437 (7.35-7.45) 11/12/18 11:42 POC ABG pCO2 53.8 (35-45) H 11/12/18 11:42 POC ABG pO2 72 (80-105) L 11/12/18 11:42 POC ABG HCO3 36.3 11/12/18 11:42 POC ABG Total CO2 38 11/12/18 11:42 POC ABG O2 Sat 94 11/12/18 11:42 PT/INR, D-dimer D-Dimer < 135.00 ng/mlDDU (0-234) 11/10/18 02:24 Abnormal lab findings: Abnormal Labs 11/09/18 11/09/18 11/10/18 23:58 23:58 02:24 WBC RBC 5.14 H Hgb 15.8 H Hct 48.6 H MCV 95 H MCHC RDW 16.6 H [place] % (Auto) 10.6 H [place] # 1.0 H POC ABG pH POC ABG pCO2 POC ABG pO2 Sodium Carbon Dioxide BUN Creatinine 1.6 H Glucose 103 H POC Glucose Calcium Total Creatine Kinase CK-MB (CK-2) CK-MB (CK-2) Rel Index Troponin T 0.031 H NT-Pro-B Natriuret Pep 5420 H Urine Creatinine Urine Total Protein 11/10/18 11/10/18 11/10/18 05:43 06:37 09:24 WBC RBC Hgb Hct MCV MCHC RDW [place] % (Auto) [place] # POC ABG pH 7.168 L 7.318 L POC ABG pCO2 87.7 H 57.7 H POC ABG pO2 193 H 152 H Sodium Carbon Dioxide BUN Creatinine Glucose POC Glucose Calcium Total Creatine Kinase 8 L CK-MB (CK-2) 7.8 H CK-MB (CK-2) Rel Index 97.5 H Troponin T NT-Pro-B Natriuret Pep Urine Creatinine Urine Total Protein 11/10/18 11/10/18 11/11/18 12:15 23:34 04:23 WBC RBC Hgb Hct MCV MCHC RDW [place] % (Auto) [place] # POC ABG pH 7.518 H POC ABG pCO2 POC ABG pO2 122 H Sodium Carbon Dioxide BUN Creatinine Glucose POC Glucose 130 H Calcium Total Creatine Kinase 269 H CK-MB (CK-2) 6.4 H CK-MB (CK-2) Rel Index Troponin T NT-Pro-B Natriuret Pep Urine Creatinine Urine Total Protein 11/11/18 11/11/18 11/12/18 05:18 16:21 00:22 WBC RBC Hgb Hct MCV MCHC RDW [place] % (Auto) [place] # POC ABG pH POC ABG pCO2 49.5 H POC ABG pO2 60 L Sodium Carbon Dioxide BUN Creatinine Glucose POC Glucose 129 H 122 H Calcium Total Creatine Kinase CK-MB (CK-2) CK-MB (CK-2) Rel Index Troponin T NT-Pro-B Natriuret Pep Urine Creatinine Urine Total Protein 11/12/18 11/12/18 11/12/18 05:43 10:13 11:42 WBC RBC Hgb Hct MCV MCHC RDW [place] % (Auto) [place] # POC ABG pH POC ABG pCO2 53.8 H POC ABG pO2 72 L Sodium 153 H D Carbon Dioxide 34 H BUN 36 H Creatinine 2.2 H Glucose 142 H POC Glucose 130 H Calcium Total Creatine Kinase CK-MB (CK-2) CK-MB (CK-2) Rel Index Troponin T NT-Pro-B Natriuret Pep Urine Creatinine Urine Total Protein 11/12/18 11/12/18 11/12/18 12:33 17:29 23:53 WBC RBC Hgb Hct MCV MCHC RDW [place] % (Auto) [place] # POC ABG pH POC ABG pCO2 POC ABG pO2 Sodium Carbon Dioxide BUN Creatinine Glucose POC Glucose 121 H 150 H 138 H Calcium Total Creatine Kinase CK-MB (CK-2) CK-MB (CK-2) Rel Index Troponin T NT-Pro-B Natriuret Pep Urine Creatinine Urine Total Protein 11/13/18 11/13/18 11/13/18 05:16 10:08 12:20 WBC RBC Hgb Hct MCV MCHC RDW [place] % (Auto) [place] # POC ABG pH POC ABG pCO2 POC ABG pO2 Sodium Carbon Dioxide 33 H BUN 40 H Creatinine 2.1 H Glucose 209 H POC Glucose 134 H Calcium Total Creatine Kinase CK-MB (CK-2) CK-MB (CK-2) Rel Index Troponin T NT-Pro-B Natriuret Pep Urine Creatinine 121.2 H Urine Total Protein 16 H 11/14/18 11/15/18 11/15/18 04:58 05:10 05:10 WBC 12.5 H RBC Hgb Hct 46.9 H MCV 95 H MCHC 31 L RDW 16.0 H [place] % (Auto) [place] # POC ABG pH POC ABG pCO2 POC ABG pO2 Sodium Carbon Dioxide 34 H 35 H BUN 40 H 32 H Creatinine 1.8 H 1.7 H Glucose 113 H 73 L POC Glucose Calcium 8.0 L 8.1 L Total Creatine Kinase CK-MB (CK-2) CK-MB (CK-2) Rel Index Troponin T NT-Pro-B Natriuret Pep Urine Creatinine Urine Total Protein Allied health notes reviewed: nursing
--- NOTE | 2018-11-15 14:12 | Nuclear Medicine Report ---
NUCLEAR MEDICINE RENAL SCAN ROUTINE History: Renal stones Findings: The posterior perfusion images suggest poor perfusion to both kidneys. The posterior function images demonstrate asymmetric kidney size. The left kidney appears slightly atrophic compared to the right kidney. Renogram curves demonstrate very little excretion of the radiotracer bilaterally. Lasix was not administered. Split function measures 32% left kidney and 68% right kidney. Impression: Poor perfusion and function of both kidneys as described. Split function measures 32% on the left and 68% on the right.
[2018-11-15] MEDS: TYLENOL PO PRN (16:48)
--- NOTE | 2018-11-15 17:07 | Progress Note ---
Assessment and Plan Assessment and plan: Patient is a 53 y/o BM with a history of Sarcoidosis, chronic hypoxic respiratory failure on 2 liters of O2 at home, CHF, HTN and recent pneumonia with Intubation at [facility] who presented to [facility] ED with cough, SOB and chest pains. He was found to have pulse ox of only 64%. He was placed on bipap, which he failed requiring intubation. Acute on Chronic hypoxic respiratory failure s/p Intubation on admission and extubated 11/12/18: currently on 3 liters o2 trying to wean down Acute on Chronic exacerbation of systolic heart failure: iv lasix on hold due to worsening renal function, Cardiology is following, ECHO reviewed AE COPD: continue Duoneb tx and IV solumedrol weaned to oral steroids. ARF, vasomotor nephrology +ATN: Nephrology is following HTN (hypertension) with episode of hypotension: monitor bp closely, advance bp medications as tolerated Sarcoidosis: on steroids Nephrolithiasis, right hydronephrosis: managed by Dr. Bonner History Interval history: Patient was seen and examined. Follow-up on current diagnosis respiratory failure. Overnight uneventful. Imaging, nursing note, chart, labs and old chart reviewed. Discussed with patient. s/p extubation 11/12/18. Doing well, no sob, no cp, no n/v Hospitalist Physical - Physical exam Narrative exam: Gen: WDWN, NAD, Awake, Alert, Orientated HEENT: NCAT, EOMI, PERRL, OP clear Neck: supple, no adenopathy, no thyromegaly, no JVD CVS/Heart: RRR, normal S1S2, pulses present bilaterally Chest/Lungs: CTA B, Symmetrical chest expansion, good air entry bilaterally GI/Abdomen: soft, NTND, good bowel sounds, no guarding or rebound /Bladder: no suprapubic tenderness, no CVA or paraspinal tenderness Extermity/Skin: no c/c/e, no obvious rash MSK: FROM x 4 Neuro: CN 2-12 grossly intact, no new focal deficits Psych: calm - Constitutional Vitals: Temp Pulse Resp BP Pulse Ox 98.5 F 89 20 110/50 94 11/15/18 13:58 11/15/18 14:03 11/15/18 14:03 11/15/18 14:03 11/15/18 14:03 General appearance: Present: no acute distress Results - Labs CBC & Chem 7: 11/15/18 05:10 11/15/18 05:10 Labs: Laboratory Last Values WBC 12.5 K/mm3 (4.5-11.0) H 11/15/18 05:10 RBC 4.93 M/mm3 (3.65-5.03) 11/15/18 05:10 Hgb 14.6 gm/dl (11.8-15.2) 11/15/18 05:10 Hct 46.9 % (35.5-45.6) H 11/15/18 05:10 MCV 95 fl (84-94) H 11/15/18 05:10 MCH 30 pg (28-32) 11/15/18 05:10 MCHC 31 % (32-34) L 11/15/18 05:10 RDW 16.0 % (13.2-15.2) H 11/15/18 05:10 Plt Count 183 K/mm3 (140-440) 11/15/18 05:10 Lymph % (Auto) 21.1 % (13.4-35.0) 11/09/18 23:58 [place] % (Auto) 10.6 % (0.0-7.3) H 11/09/18 23:58 Eos % (Auto) 3.8 % (0.0-4.3) 11/09/18 23:58 Baso % (Auto) 0.9 % (0.0-1.8) 11/09/18 23:58 Lymph # 2.0 K/mm3 (1.2-5.4) 11/09/18 23:58 [place] # 1.0 K/mm3 (0.0-0.8) H 11/09/18 23:58 Eos # 0.3 K/mm3 (0.0-0.4) 11/09/18 23:58 Baso # 0.1 K/mm3 (0.0-0.1) 11/09/18 23:58 Seg Neutrophils % 63.6 % (40.0-70.0) 11/09/18 23:58 Seg Neutrophils # 5.9 K/mm3 (1.8-7.7) 11/09/18 23:58 D-Dimer < 135.00 ng/mlDDU (0-234) 11/10/18 02:24 POC ABG pH 7.437 (7.35-7.45) 11/12/18 11:42 POC ABG pCO2 53.8 (35-45) H 11/12/18 11:42 POC ABG pO2 72 (80-105) L 11/12/18 11:42 POC ABG HCO3 36.3 11/12/18 11:42 POC ABG Total CO2 38 11/12/18 11:42 POC ABG O2 Sat 94 11/12/18 11:42 POC ABG Base Excess 12 11/12/18 11:42 FiO2 45 % 11/12/18 11:42 Sodium 144 mmol/L (137-145) 11/15/18 05:10 Potassium 3.7 mmol/L (3.6-5.0) 11/15/18 05:10 Chloride 98.5 mmol/L (98-107) 11/15/18 05:10 Carbon Dioxide 35 mmol/L (22-30) H 11/15/18 05:10 Anion Gap 14 mmol/L 11/15/18 05:10 BUN 32 mg/dL (9-20) H 11/15/18 05:10 Creatinine 1.7 mg/dL (0.8-1.5) H 11/15/18 05:10 Estimated GFR 51 ml/min 11/15/18 05:10 BUN/Creatinine Ratio 19 % 11/15/18 05:10 Glucose 73 mg/dL (75-100) L 11/15/18 05:10 POC Glucose 128 (70-105) H 11/15/18 13:59 Calcium 8.1 mg/dL (8.4-10.2) L 11/15/18 05:10 Total Creatine Kinase 269 units/L (55-170) H 11/10/18 12:15 CK-MB (CK-2) 6.4 ng/mL (0.0-4.0) H 11/10/18 12:15 CK-MB (CK-2) Rel Index 2.3 (0-4) 11/10/18 12:15 Troponin T 0.020 ng/mL (0.00-0.029) 11/10/18 12:15 NT-Pro-B Natriuret Pep 5420 pg/mL (0-900) H 11/10/18 02:24 Triglycerides 86 mg/dL (2-149) 11/09/18 23:58 Cholesterol 166 mg/dL (50-199) 11/09/18 23:58 LDL Cholesterol Direct 100 mg/dL (50-130) 11/09/18 23:58 HDL Cholesterol 57 mg/dL (40-59) 11/09/18 23:58 Cholesterol/HDL Ratio 2.91 % 11/09/18 23:58 Urine Creatinine 121.2 mg/dL (0.1-20.0) H 11/13/18 12:20 Urine Sodium 33 mmol/L 11/13/18 12:20 Urine Total Protein 16 mg/dL (5-11.8) H 11/13/18 12:20 Hep Bs Antigen Non-reactive (Negative) 11/13/18 13:39 Hepatitis C Antibody Non-reactive (NonReactive) 11/13/18 13:39 HIV 1&2 Antibody Rapid Non react (Non React) 11/13/18 13:39 HIV P24 Antigen Non react (Non React) 11/13/18 13:39 Nutrition/Malnutrition Assess - Dietary Evaluation Nutrition/Malnutrition Findings: Nutrition Notes Start: 11/11/18 15:24 Freq: Status: Active Protocol: Document 11/14/18 14:52 RM (Rec: 11/14/18 14:55 RM [id number]) Nutrition Notes Initial or Follow up Brief Note Current Diagnosis Acute Kidney Injury COPD Hypertension Heart Failure Other Pertinent Diagnosis Sarcoidosis, PNA Current Diet Cardiac Labs/Tests Reviewed Pertinent Medications Lasix Height 5 ft 7 in Weight 120.304 kg Usual Body Weight 116.36 kg [place] Body Weight (lbs) 148.0 BMI 41.5 Subjective/Other Information Pt stated that his appetite is good and that he eats all of his meals. Noted lunch at bedside w/everything eaten. Stated UBW was 265 lbs 1 month ago. Burn Absent Trauma Absent Nutrition Intervention Revisit per MD consult or patient Sign Off request:
--- NOTE | 2018-11-15 17:12 | Discharge Summary ---
Providers - Providers Date of Admission: 11/10/18 04:17 Date of discharge: 11/15/18 Attending physician: LINDA OSCAR 11/10/18 05:52 Consult to Dietitian/Nutrition [CONS] Routine Physician Instructions: Reason For Exam: Reason for Consult: Evaluate nutritional intake 11/10/18 06:04 Consult to Physician [CONS] Routine Comment: aware at 0710 Consulting Provider: PENELOPE CARMEN Physician Instructions: Reason For Exam: cc 11/10/18 06:05 Consult to Physician [CONS] Routine Comment: dr correia notified 0840 Consulting Provider: DONALDO GREENWOOD Physician Instructions: Reason For Exam: chf 11/11/18 11:34 Occupational Therapy Evaluate and Treat [CONS] Routine Comment: Reason For Exam: help with ADLS Physical Therapy Evaluation and Treat [CONS] Routine Comment: Reason For Exam: deconditioning 11/12/18 19:11 Consult to Physician [CONS] Routine Comment: Consulting Provider: VIVEK FERMIN Physician Instructions: consult Reason For Exam: JESI 11/14/18 09:00 Consult to Physician [CONS] Routine Comment: Consulting Provider: COLLIN EDMONDS Physician Instructions: I notified Reason For Exam: right hydronephrosis Primary care physician: RESIDENTIAL PROGRAM DIRECTOR Hospitalization Condition: Stable Hospital course: Patient is a 53 y/o BM with a history of Sarcoidosis, chronic hypoxic re spiratory failure on 2 liters of O2 at home, CHF, HTN and recent pneumonia with Intubation at [facility] who presented to [facility] ED with cough, SOB and chest pains. He was found to have pulse ox of only 64%. He was placed on bipap, which he failed requiring intubation. Acute on Chronic hypoxic respiratory failure s/p Intubation on admission and extubated 11/12/18: currently on 3 liters o2 trying to wean down Acute on Chronic exacerbation of systolic heart failure: iv lasix on hold due to worsening renal function, Cardiology is following, ECHO reviewed AE COPD: continue Duoneb tx and IV solumedrol weaned to oral steroids. ARF, vasomotor nephrology +ATN: Nephrology is following HTN (hypertension) with episode of hypotension: monitor bp closely, advance bp medications as tolerated Sarcoidosis: on steroids Nephrolithiasis, right hydronephrosis: managed by Dr. Jin Disposition: DC-01 TO HOME OR SELFCARE Time spent for discharge: 35 minutes Exam - Physical Exam Narrative exam: Gen: WDWN, NAD, Awake, Alert, Orientated HEENT: NCAT, EOMI, PERRL, OP clear Neck: supple, no adenopathy, no thyromegaly, no JVD CVS/Heart: RRR, normal S1S2, pulses present bilaterally Chest/Lungs: CTA B, Symmetrical chest expansion, good air entry bilaterally GI/Abdomen: soft, NTND, good bowel sounds, no guarding or rebound /Bladder: no suprapubic tenderness, no CVA or paraspinal tenderness Extermity/Skin: no c/c/e, no obvious rash MSK: FROM x 4 Neuro: CN 2-12 grossly intact, no new focal deficits Psych: calm - Constitutional Vitals: Temp Pulse Resp BP Pulse Ox 98.5 F 89 20 110/50 94 11/15/18 13:58 11/15/18 14:03 11/15/18 14:03 11/15/18 14:03 11/15/18 14:03 Plan Activity: other (no strenous activity ) Diet: low salt Follow up with: PRIMARY CAREMD [Primary Care Provider] - 3-5 Days DONALDO GREENWOOD MD [Staff Physician] - 7 Days VIVEK FERMIN MD [Staff Physician] - 7 Days PENELOPE CARMEN MD [Staff Physician] - 7 Days VENITA JIN MD [Staff Physician] - 7 Days Prescriptions: Furosemide [Lasix TAB] 40 mg PO QDAY #30 tablet oxyCODONE /ACETAMINOPHEN [Percocet 5/325 mg] 1 tab PO Q6H PRN #15 tablet PRN Reason: Pain, Moderate (4-6) predniSONE [Deltasone] 20 mg PO QDAY #50 tab Ipratropium/Albuterol Sulfate [DUONEB *Not for PRN Use*] 1 ampul IH TIDRT #30 ampul.neb
--- NOTE | 2018-11-16 05:59 | Progress Note ---
Assessment and Plan Acute on chronic hypoxemic respiratory failure s/p MVS Sarcoidosis with acute exacerbation Acute CHF exacerbation HFrEF (BNP 5420, EF 40-45%) JESI NOY (on CPAP at night) Recent pneumonia, admitted at [place] CAD/CHF (stable) Morbid Obesity Chronic steroid therapy -Bronchodilators therapy -Supplemental oxygen to keep o2 sats >90% -Continue with steroids and slow taper -PT/OT -Accuchecks with glycemic control. Target glucose 140-180 mg/dL -Heart failure measures -Continue all supportive care Stable from pulmonary standpoint for discharge planning with out patient pulmonary follow up. Subjective Date of service: 11/16/18 Principal diagnosis: Ac on Ch Hypoxemic Resp failure; Sarcoidosis with Acexacerbation;Chest Pain Interval history: Follow up for: Acute on Chronic Hypoxemic Respiratory failure; Restrictive lung disease with acute exacerbation; Sarcoidosis (on home O2 and chronic steroids); Acute dyspnea; Decompensated HF, JESI Seen and examined at bedside; 24hour events reviewed; nursing and respiratory care staff consulted; no adverse overnight events reported to me; Extubated and has been doing well. No chest pain, baseline shortness of breath, no fevers or chills. Scheduled for discharge today Objective Vital Signs - 12hr 11/15/18 11/15/18 11/15/18 19:00 19:33 20:47 Temperature 97.8 F 98.6 F Pulse Rate 96 H 96 H Pulse Rate [ 92 H Anterior Bilateral Throughout] Respiratory 16 16 Rate Respiratory 20 Rate [Anterior Bilateral Throughout] Blood Pressure 119/82 Blood Pressure 119/82 [Right] O2 Sat by Pulse 92 92 Oximetry 11/15/18 11/15/18 11/15/18 20:48 20:56 21:43 Temperature Pulse Rate Pulse Rate [ 95 H Anterior Bilateral Throughout] Respiratory Rate Respiratory 20 Rate [Anterior Bilateral Throughout] Blood Pressure 119/82 Blood Pressure [Right] O2 Sat by Pulse 90 Oximetry 11/15/18 11/16/18 22:00 04:23 Temperature 99.1 F 99.5 F Pulse Rate 89 95 H Pulse Rate [ Anterior Bilateral Throughout] Respiratory 20 18 Rate Respiratory Rate [Anterior Bilateral Throughout] Blood Pressure 110/59 Blood Pressure 123/64 [Right] O2 Sat by Pulse 93 88 Oximetry Constitutional: no acute distress, alert, other (Middle aged obeses AAM, normocephalic and atraumatic) Eyes: non-icteric ENT: oropharynx moist Neck: supple, no lymphadenopathy, no JVD, other (large neck circumference) Effort: mildly labored Ascultation: Bilateral: diminished breath sounds, rales (inspiratory in bases), rhonchi Percussion: Bilateral: not dull Cardiovascular: regular rate and rhythm, other (No R/M) Gastrointestinal: normoactive bowel sounds, soft, non-tender, non-distended, other (No HSM) Integumentary: normal Extremities: no cyanosis, pulses normal, no ischemia or petechiae Neurologic: normal mental status, non-focal exam, pupils equal and round, motor strength normal and Psychiatric: mood appropriate, affect normal CBC and BMP: 11/16/18 11:55 11/16/18 11:55 ABG, PT/INR, D-dimer: ABG POC ABG pH 7.437 (7.35-7.45) 11/12/18 11:42 POC ABG pCO2 53.8 (35-45) H 11/12/18 11:42 POC ABG pO2 72 (80-105) L 11/12/18 11:42 POC ABG HCO3 36.3 11/12/18 11:42 POC ABG Total CO2 38 11/12/18 11:42 POC ABG O2 Sat 94 11/12/18 11:42 PT/INR, D-dimer D-Dimer < 135.00 ng/mlDDU (0-234) 11/10/18 02:24 Abnormal lab findings: Abnormal Labs 11/09/18 11/09/18 11/10/18 23:58 23:58 02:24 WBC RBC 5.14 H Hgb 15.8 H Hct 48.6 H MCV 95 H MCHC RDW 16.6 H [place] % (Auto) 10.6 H [place] # 1.0 H POC ABG pH POC ABG pCO2 POC ABG pO2 Sodium Carbon Dioxide BUN Creatinine 1.6 H Glucose 103 H POC Glucose Calcium Total Creatine Kinase CK-MB (CK-2) CK-MB (CK-2) Rel Index Troponin T 0.031 H NT-Pro-B Natriuret Pep 5420 H Urine Creatinine Urine Total Protein 11/10/18 11/10/18 11/10/18 05:43 06:37 09:24 WBC RBC Hgb Hct MCV MCHC RDW [place] % (Auto) [place] # POC ABG pH 7.168 L 7.318 L POC ABG pCO2 87.7 H 57.7 H POC ABG pO2 193 H 152 H Sodium Carbon Dioxide BUN Creatinine Glucose POC Glucose Calcium Total Creatine Kinase 8 L CK-MB (CK-2) 7.8 H CK-MB (CK-2) Rel Index 97.5 H Troponin T NT-Pro-B Natriuret Pep Urine Creatinine Urine Total Protein 11/10/18 11/10/18 11/11/18 12:15 23:34 04:23 WBC RBC Hgb Hct MCV MCHC RDW [place] % (Auto) [place] # POC ABG pH 7.518 H POC ABG pCO2 POC ABG pO2 122 H Sodium Carbon Dioxide BUN Creatinine Glucose POC Glucose 130 H Calcium Total Creatine Kinase 269 H CK-MB (CK-2) 6.4 H CK-MB (CK-2) Rel Index Troponin T NT-Pro-B Natriuret Pep Urine Creatinine Urine Total Protein 11/11/18 11/11/18 11/12/18 05:18 16:21 00:22 WBC RBC Hgb Hct MCV MCHC RDW [place] % (Auto) [place] # POC ABG pH POC ABG pCO2 49.5 H POC ABG pO2 60 L Sodium Carbon Dioxide BUN Creatinine Glucose POC Glucose 129 H 122 H Calcium Total Creatine Kinase CK-MB (CK-2) CK-MB (CK-2) Rel Index Troponin T NT-Pro-B Natriuret Pep Urine Creatinine Urine Total Protein 11/12/18 11/12/18 11/12/18 05:43 10:13 11:42 WBC RBC Hgb Hct MCV MCHC RDW [place] % (Auto) [place] # POC ABG pH POC ABG pCO2 53.8 H POC ABG pO2 72 L Sodium 153 H D Carbon Dioxide 34 H BUN 36 H Creatinine 2.2 H Glucose 142 H POC Glucose 130 H Calcium Total Creatine Kinase CK-MB (CK-2) CK-MB (CK-2) Rel Index Troponin T NT-Pro-B Natriuret Pep Urine Creatinine Urine Total Protein 11/12/18 11/12/18 11/12/18 12:33 17:29 23:53 WBC RBC Hgb Hct MCV MCHC RDW [place] % (Auto) [place] # POC ABG pH POC ABG pCO2 POC ABG pO2 Sodium Carbon Dioxide BUN Creatinine Glucose POC Glucose 121 H 150 H 138 H Calcium Total Creatine Kinase CK-MB (CK-2) CK-MB (CK-2) Rel Index Troponin T NT-Pro-B Natriuret Pep Urine Creatinine Urine Total Protein 11/13/18 11/13/18 11/13/18 05:16 10:08 12:20 WBC RBC Hgb Hct MCV MCHC RDW [place] % (Auto) [place] # POC ABG pH POC ABG pCO2 POC ABG pO2 Sodium Carbon Dioxide 33 H BUN 40 H Creatinine 2.1 H Glucose 209 H POC Glucose 134 H Calcium Total Creatine Kinase CK-MB (CK-2) CK-MB (CK-2) Rel Index Troponin T NT-Pro-B Natriuret Pep Urine Creatinine 121.2 H Urine Total Protein 16 H 11/14/18 11/15/18 11/15/18 04:58 05:10 05:10 WBC 12.5 H RBC Hgb Hct 46.9 H MCV 95 H MCHC 31 L RDW 16.0 H [place] % (Auto) [place] # POC ABG pH POC ABG pCO2 POC ABG pO2 Sodium Carbon Dioxide 34 H 35 H BUN 40 H 32 H Creatinine 1.8 H 1.7 H Glucose 113 H 73 L POC Glucose Calcium 8.0 L 8.1 L Total Creatine Kinase CK-MB (CK-2) CK-MB (CK-2) Rel Index Troponin T NT-Pro-B Natriuret Pep Urine Creatinine Urine Total Protein 11/15/18 11/15/18 13:59 17:06 WBC RBC Hgb Hct MCV MCHC RDW [place] % (Auto) [place] # POC ABG pH POC ABG pCO2 POC ABG pO2 Sodium Carbon Dioxide BUN Creatinine Glucose POC Glucose 128 H 156 H Calcium Total Creatine Kinase CK-MB (CK-2) CK-MB (CK-2) Rel Index Troponin T NT-Pro-B Natriuret Pep Urine Creatinine Urine Total Protein Allied health notes reviewed: nursing
[2018-11-16] MEDS: DUONEB *Not for PRN Use IH SCH ×3 (08:19→20:37)
[2018-11-16] MEDS: LOPRESSOR PO SCH ×2 (09:20→21:08)
[2018-11-16] MEDS: PEPCID PO SCH (09:20)
[2018-11-16] MEDS: BABY ASPIRIN PO SCH (09:20)
[2018-11-16] MEDS: HEPARIN SUB-Q SCH ×2 (09:21→21:09)
[2018-11-16] MEDS: SODIUM CHLORIDE FLUSH SYRINGE 10 ML IV SCH ×2 (09:21→21:08)
[2018-11-16] MEDS: DELTASONE PO SCH (09:21)
[2018-11-16] MEDS: LASIX PO SCH (09:21)
--- NOTE | 2018-11-16 09:52 | Progress Note ---
Assessment and Plan Acute renal Failure on likely Chronic Kidney Disease: -Prior labs in June 2015 showed serum creatinine 1.7-2.0, no labs this AM -CT negative for obstruction but positive for bilateral nephrlithiasis, may need to be evaluated by urology at some point as an outpatient - Ok to be discharged from renal standpojnt -Avoid Nephrotoxic agents -Monitor I/O's -Monitor renal function closely Acute on Chronic hypoxic respiratory failure - Extubated on 11/12/18 Acute on Chronic exacerbation of systolic heart failure: -Echo:EF 40-45% -Was on Lasix, can resume Lasix at 40 mg IV daily -Cardiology onboard COPD: -On Nebulizers -off steroids Hypertension: -Monitor blood pressures Subjective Date of service: 11/16/18 Principal diagnosis: Ac on Ch Hypoxemic Resp failure; Sarcoidosis with Acexacerbation;Chest Pain Interval history: did not go home yesterday due to worsening back and L flank pain Objective - Vital Signs Vital signs: Vital Signs - 12hr 11/15/18 11/16/18 11/16/18 22:00 04:23 06:23 Temperature 99.1 F 99.5 F 101.0 F H Pulse Rate 89 95 H Pulse Rate [ Anterior Bilateral Throughout] Respiratory 20 18 Rate Respiratory Rate [Anterior Bilateral Throughout] Blood Pressure 110/59 Blood Pressure 123/64 [Right] O2 Sat by Pulse 93 88 Oximetry 11/16/18 11/16/18 11/16/18 08:20 08:23 08:31 Temperature Pulse Rate Pulse Rate [ 105 H 107 H Anterior Bilateral Throughout] Respiratory Rate Respiratory 20 20 Rate [Anterior Bilateral Throughout] Blood Pressure Blood Pressure [Right] O2 Sat by Pulse 91 Oximetry 11/16/18 08:34 Temperature 98.6 F Pulse Rate 106 H Pulse Rate [ Anterior Bilateral Throughout] Respiratory 20 Rate Respiratory Rate [Anterior Bilateral Throughout] Blood Pressure 103/79 Blood Pressure [Right] O2 Sat by Pulse 85 Oximetry - General Appearance General appearance: well-developed, well-nourished, appears stated age, obese EENT: ATNC, PERRL, mucous membranes moist Neck: no JVD, no carotid bruit Respiratory: Present: Clear to Ascultation Cardiology: regular, S1S2 Gastrointestinal: normoactive bowel sounds, no tenderness, no distended, obese Integumentary: no rash, warm and dry Neurologic: no focal deficit, no asterixis, alert and oriented x3 Musculoskeletal: other (no edema in BLE) Psychiatric: mood/affect appropriate, cooperative - Lab 11/15/18 05:10 11/15/18 05:10 Most recent lab results Calcium 8.1 mg/dL (8.4-10.2) L 11/15/18 05:10 Urine Creatinine 121.2 mg/dL (0.1-20.0) H 11/13/18 12:20 Urine Sodium 33 mmol/L 11/13/18 12:20 Urine Total Protein 16 mg/dL (5-11.8) H 11/13/18 12:20 Medications & Allergies - Medications Allergies/Adverse Reactions: Allergies No Known Allergies Allergy (Unverified 07/05/15 10:00) Home Medications: Home Medications Medication Instructions Recorded Confirmed Last Taken Type Docusate Sodium [Colace CAP] 100 mg PO BID #60 capsule 07/07/15 Unknown Rx ALBUTEROL NEB's [Proventil 0.083% 2.5 mg IH Q3HRT PRN #15 nebu 11/15/18 Unknown Rx NEBS] Acetaminophen [Acetaminophen TAB] 650 mg PO Q4H PRN #15 tablet 11/15/18 Unknown Rx Aspirin [Aspirin BABY CHEW TAB] 81 mg PO QDAY #30 tab.chew 11/15/18 Unknown Rx Famotidine [Pepcid] 20 mg PO DAILY #30 tablet 11/15/18 Unknown Rx Furosemide [Lasix TAB] 40 mg PO QDAY #30 tablet 11/15/18 Unknown Rx Ipratropium/Albuterol Sulfate 1 ampul IH TIDRT #30 ampul.neb 11/15/18 Unknown Rx [DUONEB *Not for PRN Use*] Metoprolol [Lopressor TAB] 25 mg PO BID #60 tablet 11/15/18 Unknown Rx oxyCODONE /ACETAMINOPHEN [Percocet 1 tab PO Q6H PRN #15 tablet 11/15/18 Unknown Rx 5/325 mg] predniSONE [Deltasone] 20 mg PO QDAY #50 tab 11/15/18 Unknown Rx Active Medications: Generic Name Dose Route Start Last Admin Trade Name Freq PRN Reason Stop Dose Admin Acetaminophen 650 mg 11/10/18 04:17 11/15/18 16:48 Tylenol PO 650 mg Q4H PRN Administration Pain MILD(1-3)/Fever >100.5/BURNS Albuterol 2.5 mg 11/10/18 04:17 Proventil IH Q3HRT PRN Shortness Of Breath Albuterol/Ipratropium 1 ampul 11/15/18 08:00 11/16/18 08:19 Duoneb *Not For Prn Use* IH 1 ampul TIDRT ABDIAS Administration Aspirin 81 mg 11/10/18 10:00 11/16/18 09:20 Baby Aspirin PO 81 mg QDAY ABDIAS Administration Famotidine 20 mg 11/13/18 10:00 11/16/18 09:20 Pepcid PO 20 mg DAILY ABDIAS Administration Furosemide 40 mg 11/15/18 10:00 11/16/18 09:21 Lasix PO Not Given QDAY ABDIAS Heparin Sodium (Porcine) 5,000 unit 11/13/18 22:00 11/16/18 09:21 Heparin SUB-Q 5,000 unit Q12HR ABDIAS Administration Metoprolol Tartrate 25 mg 11/12/18 12:00 11/16/18 09:20 Lopressor PO 25 mg BID ABDIAS Administration Multi-Ingred Cream/Lotion/Oil/Oint 1 applic 11/10/18 05:52 Artificial Tears Ophth Oint OU Q4HR PRN Dry Eye(s) Ondansetron HCl 4 mg 11/10/18 04:17 Zofran IV Q8H PRN Nausea And Vomiting Prednisone 40 mg 11/13/18 10:00 11/16/18 09:21 Deltasone PO 40 mg QDAY ABDIAS Administration Sodium Chloride 10 ml 11/10/18 10:00 11/16/18 09:21 Sodium Chloride Flush Syringe 10 Ml IV Not Given BID ABDIAS Sodium Chloride 10 ml 11/10/18 04:17 Sodium Chloride Flush Syringe 10 Ml IV PRN PRN LINE FLUSH
--- NOTE | 2018-11-16 10:01 | Progress Note ---
Assessment and Plan Assessment and plan: Patient is a 53 y/o BM with a history of Sarcoidosis, kidney stones, chronic hypoxic respiratory failure on 2 liters of O2 at home, CHF, HTN and recent pneumonia with Intubation at [facility] who [facility] with cough, SOB and chest pains. He was found to have pulse ox of only 64%. He was placed on bipap, which he failed requiring intubation. He was extubated on 11/12/18. He did not want to go home yesterday due to issues at home (he told me that he was having issues with girlfriend at home), so he appealed his discharge at the last minute after (he received discharge instructions) his peripheral IV line and tele were removed. Then he spiked a fever and refused Tylenol, refused receiving another peripheral IV and refused telemetry. Acute on Chronic hypoxic respiratory failure s/p Intubation on admission and extubated 11/12/18: currently on 3 liters o2 trying to wean down to 2 liters Acute on Chronic exacerbation of systolic heart failure: iv lasix was held due to worsening renal function, Cardiology is following, ECHO reviewed AE COPD: continue Duoneb tx and IV solumedrol weaned to oral steroids. ARF, vasomotor nephrology +ATN, he did develop hypotension post intubation, see ED physician addendum: Nephrology is following HTN (hypertension) with episode of hypotension: monitor bp closely, advance bp medications as tolerated Sarcoidosis: on steroids Nephrolithiasis, right hydronephrosis: managed by Dr. Bonner Obesity BMI 41.5 New onset of fevers: ordered UA, pCXR, cbc, bmp and blood cultures ordered overnight, I have asked RN to re-establish peripheral line. 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 History Interval history: Patient was seen and examined. Follow-up on current diagnosis respiratory failure. Overnight eventful with fevers. Imaging, nursing note, chart, labs and old chart reviewed. Discussed with patient. s/p extubation 11/12/18. Doing well, no sob, no cp, no n/v. He did not want to go home yesterday due to issues at [place], so he appealed his discharge at the last minute after his peripheral IV line and tele were removed. Then he spiked a fever and refused Tylenol. Hospitalist Physical - Physical exam Narrative exam: Gen: WDWN, NAD, Awake, Alert, Orientated HEENT: NCAT, EOMI, PERRL, OP clear Neck: supple, no adenopathy, no thyromegaly, no JVD CVS/Heart: RRR, normal S1S2, pulses present bilaterally Chest/Lungs: CTA B, Symmetrical chest expansion, good air entry bilaterally GI/Abdomen: soft, NTND, good bowel sounds, no guarding or rebound /Bladder: no suprapubic tenderness, no CVA or paraspinal tenderness Extermity/Skin: no c/c/e, no obvious rash MSK: FROM x 4 Neuro: CN 2-12 grossly intact, no new focal deficits Psych: calm - Constitutional Vitals: Temp Pulse Resp BP Pulse Ox 98.6 F 106 H 20 103/79 85 11/16/18 08:34 11/16/18 08:34 11/16/18 08:34 11/16/18 08:34 11/16/18 08:34 General appearance: Present: no acute distress Results - Labs CBC & Chem 7: 11/15/18 05:10 11/15/18 05:10 Labs: Laboratory Last Values WBC 12.5 K/mm3 (4.5-11.0) H 11/15/18 05:10 RBC 4.93 M/mm3 (3.65-5.03) 11/15/18 05:10 Hgb 14.6 gm/dl (11.8-15.2) 11/15/18 05:10 Hct 46.9 % (35.5-45.6) H 11/15/18 05:10 MCV 95 fl (84-94) H 11/15/18 05:10 MCH 30 pg (28-32) 11/15/18 05:10 MCHC 31 % (32-34) L 11/15/18 05:10 RDW 16.0 % (13.2-15.2) H 11/15/18 05:10 Plt Count 183 K/mm3 (140-440) 11/15/18 05:10 Lymph % (Auto) 21.1 % (13.4-35.0) 11/09/18 23:58 Tama % (Auto) 10.6 % (0.0-7.3) H 11/09/18 23:58 Eos % (Auto) 3.8 % (0.0-4.3) 11/09/18 23:58 Baso % (Auto) 0.9 % (0.0-1.8) 11/09/18 23:58 Lymph # 2.0 K/mm3 (1.2-5.4) 11/09/18 23:58 Tama # 1.0 K/mm3 (0.0-0.8) H 11/09/18 23:58 Eos # 0.3 K/mm3 (0.0-0.4) 11/09/18 23:58 Baso # 0.1 K/mm3 (0.0-0.1) 11/09/18 23:58 Seg Neutrophils % 63.6 % (40.0-70.0) 11/09/18 23:58 Seg Neutrophils # 5.9 K/mm3 (1.8-7.7) 11/09/18 23:58 D-Dimer < 135.00 ng/mlDDU (0-234) 11/10/18 02:24 POC ABG pH 7.437 (7.35-7.45) 11/12/18 11:42 POC ABG pCO2 53.8 (35-45) H 11/12/18 11:42 POC ABG pO2 72 (80-105) L 11/12/18 11:42 POC ABG HCO3 36.3 11/12/18 11:42 POC ABG Total CO2 38 11/12/18 11:42 POC ABG O2 Sat 94 11/12/18 11:42 POC ABG Base Excess 12 11/12/18 11:42 FiO2 45 % 11/12/18 11:42 Sodium 144 mmol/L (137-145) 11/15/18 05:10 Potassium 3.7 mmol/L (3.6-5.0) 11/15/18 05:10 Chloride 98.5 mmol/L (98-107) 11/15/18 05:10 Carbon Dioxide 35 mmol/L (22-30) H 11/15/18 05:10 Anion Gap 14 mmol/L 11/15/18 05:10 BUN 32 mg/dL (9-20) H 11/15/18 05:10 Creatinine 1.7 mg/dL (0.8-1.5) H 11/15/18 05:10 Estimated GFR 51 ml/min 11/15/18 05:10 BUN/Creatinine Ratio 19 % 11/15/18 05:10 Glucose 73 mg/dL (75-100) L 11/15/18 05:10 POC Glucose 156 (70-105) H 11/15/18 17:06 Calcium 8.1 mg/dL (8.4-10.2) L 11/15/18 05:10 Total Creatine Kinase 269 units/L (55-170) H 11/10/18 12:15 CK-MB (CK-2) 6.4 ng/mL (0.0-4.0) H 11/10/18 12:15 CK-MB (CK-2) Rel Index 2.3 (0-4) 11/10/18 12:15 Troponin T 0.020 ng/mL (0.00-0.029) 11/10/18 12:15 NT-Pro-B Natriuret Pep 5420 pg/mL (0-900) H 11/10/18 02:24 Triglycerides 86 mg/dL (2-149) 11/09/18 23:58 Cholesterol 166 mg/dL (50-199) 11/09/18 23:58 LDL Cholesterol Direct 100 mg/dL (50-130) 11/09/18 23:58 HDL Cholesterol 57 mg/dL (40-59) 11/09/18 23:58 Cholesterol/HDL Ratio 2.91 % 11/09/18 23:58 Urine Creatinine 121.2 mg/dL (0.1-20.0) H 11/13/18 12:20 Urine Sodium 33 mmol/L 11/13/18 12:20 Urine Total Protein 16 mg/dL (5-11.8) H 11/13/18 12:20 Hep Bs Antigen Non-reactive (Negative) 11/13/18 13:39 Hepatitis C Antibody Non-reactive (NonReactive) 11/13/18 13:39 HIV 1&2 Antibody Rapid Non react (Non React) 11/13/18 13:39 HIV P24 Antigen Non react (Non React) 11/13/18 13:39 Nutrition/Malnutrition Assess - Dietary Evaluation Nutrition/Malnutrition Findings: Nutrition Notes Start: 11/11/18 15:24 Freq: Status: Active Protocol: Document 11/14/18 14:52 RM (Rec: 11/14/18 14:55 RM [id number]) Nutrition Notes Initial or Follow up Brief Note Current Diagnosis Acute Kidney Injury COPD Hypertension Heart Failure Other Pertinent Diagnosis Sarcoidosis, PNA Current Diet Cardiac Labs/Tests Reviewed Pertinent Medications Lasix Height 5 ft 7 in Weight 120.304 kg Usual Body Weight 116.36 kg [place] Body Weight (lbs) 148.0 BMI 41.5 Subjective/Other Information Pt stated that his appetite is good and that he eats all of his meals. Noted lunch at bedside w/everything eaten. Stated UBW was 265 lbs 1 month ago. Burn Absent Trauma Absent Nutrition Intervention Revisit per MD consult or patient Sign Off request:
--- NOTE | 2018-11-16 11:20 | XRay Report ---
FINAL REPORT EXAM: XR CHEST 1V AP HISTORY: fever, pna COMPARISON: Chest radiograph performed on 11/12/2018 TECHNIQUE: Single frontal view of the chest FINDINGS: Stable mild cardiomegaly. Subtle opacity in the right upper lobe. No pleural effusion or pneumothorax. No acute bony or soft tissue abnormality. IMPRESSION: Subtle opacity in the right upper that may represent developing pneumonia.
[2018-11-16 12:14] LABS: Hemoglobin 15.4 gm/dl (11.8-15.2); Mean Corpuscular HGB Conc 32 % (32-34); Mean Corpuscular Volume 93 fl (84-94); Platelet Count 175 K/mm3 (140-440); Red Blood Count 5.14 M/mm3 (3.65-5.03)
[2018-11-16 12:37] LABS: Calcium 8.4 mg/dL (8.4-10.2)
[2018-11-16] MEDS: ROCEPHIN/NS 1 GM/50 ML 1 GM/50 ML BAG IV SCH (13:23)
[2018-11-16 14:03] LABS: Bacteria,Urine 4+ /HPF (Negative); Bilirubin,Urine NEG (Negative); Blood,Urine LG (Negative); Mucus,Urine FEW /HPF; Urobilinogen,Urine < 2.0 mg/dL (<2.0)
[2018-11-16 14:06] LABS: Color,Urine Amber (Yellow); RBC,Urine > 182.0 /HPF (0.0-6.0); WBC,Urine > 182.0 /HPF (0.0-6.0)
[2018-11-16 22:30] LABS: Albumin 3.5 g/dL (3.8-4.8); Gamma Globulin 1.1 g/dL (0.8-1.7)
[2018-11-17] MEDS: DUONEB *Not for PRN Use IH SCH ×3 (07:44→20:26)
--- NOTE | 2018-11-17 09:08 | Progress Note ---
Assessment and Plan Acute renal Failure on likely Chronic Kidney Disease: -labs pending this AM -Avoid Nephrotoxic agents -Monitor I/O's -Monitor renal function closely Acute on Chronic hypoxic respiratory failure - Extubated on 11/12/18 Acute on Chronic exacerbation of systolic heart failure: -Echo:EF 40-45% -Was on Lasix, can resume Lasix at 40 mg daily -Cardiology onboard COPD: -On Nebulizers -off steroids Hypertension: -Monitor blood pressures Subjective Date of service: 11/17/18 Principal diagnosis: Ac on Ch Hypoxemic Resp failure; Sarcoidosis with Acexacerbation;Chest Pain Interval history: cont to have flank pain Objective - Vital Signs Vital signs: Vital Signs - 12hr 11/16/18 11/17/18 11/17/18 21:08 00:00 04:32 Temperature 100 F H 98.4 F Pulse Rate 85 80 80 Pulse Rate [ Anterior Bilateral Throughout] Respiratory 18 18 Rate Respiratory Rate [Anterior Bilateral Throughout] Blood Pressure 112/65 119/64 Blood Pressure 106/62 [Right] O2 Sat by Pulse 92 92 Oximetry 11/17/18 11/17/18 11/17/18 07:30 07:40 08:10 Temperature Pulse Rate Pulse Rate [ 80 81 Anterior Bilateral Throughout] Respiratory Rate Respiratory 18 18 Rate [Anterior Bilateral Throughout] Blood Pressure Blood Pressure [Right] O2 Sat by Pulse 92 Oximetry - General Appearance General appearance: well-developed, well-nourished, obese EENT: ATNC, PERRL, mucous membranes moist Neck: no JVD, no carotid bruit Respiratory: Present: Clear to Ascultation. Absent: Rales, Ronchi Cardiology: regular, S1S2 Gastrointestinal: normoactive bowel sounds, no tenderness, no distended Integumentary: no rash, warm and dry Neurologic: no focal deficit, no asterixis, alert and oriented x3 Musculoskeletal: other (no edema in BLE) Psychiatric: cooperative - Lab 11/16/18 11:55 11/16/18 11:55 Most recent lab results Calcium 8.4 mg/dL (8.4-10.2) 11/16/18 11:55 Urine Creatinine 121.2 mg/dL (0.1-20.0) H 11/13/18 12:20 Urine Sodium 33 mmol/L 11/13/18 12:20 Urine Total Protein 16 mg/dL (5-11.8) H 11/13/18 12:20 Medications & Allergies - Medications Allergies/Adverse Reactions: Allergies No Known Allergies Allergy (Unverified 07/05/15 10:00) Home Medications: Home Medications Medication Instructions Recorded Confirmed Last Taken Type Docusate Sodium [Colace CAP] 100 mg PO BID #60 capsule 07/07/15 Unknown Rx ALBUTEROL NEB's [Proventil 0.083% 2.5 mg IH Q3HRT PRN #15 nebu 11/15/18 Unknown Rx NEBS] Acetaminophen [Acetaminophen TAB] 650 mg PO Q4H PRN #15 tablet 11/15/18 Unknown Rx Aspirin [Aspirin BABY CHEW TAB] 81 mg PO QDAY #30 tab.chew 11/15/18 Unknown Rx Famotidine [Pepcid] 20 mg PO DAILY #30 tablet 11/15/18 Unknown Rx Furosemide [Lasix TAB] 40 mg PO QDAY #30 tablet 11/15/18 Unknown Rx Ipratropium/Albuterol Sulfate 1 ampul IH TIDRT #30 ampul.neb 11/15/18 Unknown Rx [DUONEB *Not for PRN Use*] Metoprolol [Lopressor TAB] 25 mg PO BID #60 tablet 11/15/18 Unknown Rx oxyCODONE /ACETAMINOPHEN [Percocet 1 tab PO Q6H PRN #15 tablet 11/15/18 Unknown Rx 5/325 mg] predniSONE [Deltasone] 20 mg PO QDAY #50 tab 11/15/18 Unknown Rx Active Medications: Generic Name Dose Route Start Last Admin Trade Name Freq PRN Reason Stop Dose Admin Acetaminophen 650 mg 11/10/18 04:17 11/15/18 16:48 Tylenol PO 650 mg Q4H PRN Administration Pain MILD(1-3)/Fever >100.5/BURNS Albuterol 2.5 mg 11/10/18 04:17 Proventil IH Q3HRT PRN Shortness Of Breath Albuterol/Ipratropium 1 ampul 11/15/18 08:00 11/17/18 07:44 Duoneb *Not For Prn Use* IH 1 ampul TIDRT ABDIAS Administration Aspirin 81 mg 11/10/18 10:00 11/16/18 09:20 Baby Aspirin PO 81 mg QDAY ABDIAS Administration Famotidine 20 mg 11/13/18 10:00 11/16/18 09:20 Pepcid PO 20 mg DAILY ABDIAS Administration Furosemide 40 mg 11/15/18 10:00 11/16/18 09:21 Lasix PO Not Given QDAY ABDIAS Heparin Sodium (Porcine) 5,000 unit 11/13/18 22:00 11/16/18 21:09 Heparin SUB-Q 5,000 unit Q12HR ABDIAS Administration Ceftriaxone Sodium 1 gm in 50 mls @ 100 mls/hr 11/16/18 11:00 11/16/18 13:23 Rocephin/Ns 1 Gm/50 Ml IV 100 mls/hr Q24HR ABDIAS Administration Protocol Metoprolol Tartrate 25 mg 11/12/18 12:00 11/16/18 21:08 Lopressor PO 25 mg BID ABDIAS Administration Multi-Ingred Cream/Lotion/Oil/Oint 1 applic 11/10/18 05:52 Artificial Tears Ophth Oint OU Q4HR PRN Dry Eye(s) Ondansetron HCl 4 mg 11/10/18 04:17 Zofran IV Q8H PRN Nausea And Vomiting Prednisone 40 mg 11/13/18 10:00 11/16/18 09:21 Deltasone PO 40 mg QDAY ABDIAS Administration Sodium Chloride 10 ml 11/10/18 10:00 11/16/18 21:08 Sodium Chloride Flush Syringe 10 Ml IV 10 ml BID ABDIAS Administration Sodium Chloride 10 ml 11/10/18 04:17 Sodium Chloride Flush Syringe 10 Ml IV PRN PRN LINE FLUSH
--- NOTE | 2018-11-17 10:28 | Consultation ---
History of Present Illness - Reason for Consult Consult date: 11/17/18 new fever Requesting physician: LINDA OSCAR - History of Present Illness 53 y/o male with history of Sarcoidosis home O2 dependant, CHF, HTN, bilateral stones, recent pneumonia treated at [place], admitted on 11/09/2018 due to 3 day history of dry cough, progressive SOB and sharp chest pain. Denies sick contact. In the ED, temp 98.3, HR 84, BP 129/74, R 16, O2 92, WBC 9.3. Hg 15.8. Plat 214. Creat 1.6. CXR 11/10 negative. Patient failed BIPAP in the ED and was intubated. Noted fever on 11/10/2018. Initially treated as CHF exacerbation. Patient then extubated on 11/13 and transferred to the floor. Renal US 11/14 showed right obstructive hydronephrosis and bilateral stones. Noted again fever 101 on 11/16/2018. HIV neg. C3/C4 normal. Repeat CXR 11/16 showed possible RUL pneumonia. UA 11/16 c/u UTI. Currently c/o severe lower back pain and hematuria. Review of Systems: General: no fever, +chills,no unintentional weight change, or change in appetite Cutaneous: no rash, pruritus Head: no headaches or injury Eyes: no changes in vision, eye pain, double vision Ears: no ear pain, ear discharge, ringing or hearing loss Nose: no nose bleeding, stuffiness Mouth & throat: no bleeding gums, no horseness, no dental problems, or swollen glands Neck: no pain, node enlargement/lumps, tyroid enlargement or tenderness Respiratory: + cough, wheezing, sputum, hemoptysis, + pleuritic chest pain, +SOB Cardiovascular: no chest pain, leg edema, cyanosis, MUIR, orthopnea Musculoskeletal: no decreased joint motion, right foot pain Integumentary: no rash Gastrointestinal: no nausea, vomiting, hematemesis, diarrhea, constipation Genitourinary/Reproductive:no frequent urination, no dysuria, + hematuria, incontinence, +gertrudis lower back pain Neurogical: no seizures, no headaches Psychiatric: stable mood; no excessive anxiety, sadness or moodiness Past History Past Medical History: heart failure, hypertension, sarcoidosis Past Surgical History: No surgical history Social history: Lives alone, full code Family history: no significant family history Medications and Allergies Allergies Allergy/AdvReac Type Severity Reaction Status Date / Time No Known Allergies Allergy Unverified 07/05/15 10:00 Home Medications Medication Instructions Recorded Confirmed Last Taken Type Docusate Sodium [Colace CAP] 100 mg PO BID #60 capsule 07/07/15 Unknown Rx ALBUTEROL NEB's [Proventil 0.083% 2.5 mg IH Q3HRT PRN #15 nebu 11/15/18 Unknown Rx NEBS] Acetaminophen [Acetaminophen TAB] 650 mg PO Q4H PRN #15 tablet 11/15/18 Unknown Rx Aspirin [Aspirin BABY CHEW TAB] 81 mg PO QDAY #30 tab.chew 11/15/18 Unknown Rx Famotidine [Pepcid] 20 mg PO DAILY #30 tablet 11/15/18 Unknown Rx Furosemide [Lasix TAB] 40 mg PO QDAY #30 tablet 11/15/18 Unknown Rx Ipratropium/Albuterol Sulfate 1 ampul IH TIDRT #30 ampul.neb 11/15/18 Unknown Rx [DUONEB *Not for PRN Use*] Metoprolol [Lopressor TAB] 25 mg PO BID #60 tablet 11/15/18 Unknown Rx oxyCODONE /ACETAMINOPHEN [Percocet 1 tab PO Q6H PRN #15 tablet 11/15/18 Unknown Rx 5/325 mg] predniSONE [Deltasone] 20 mg PO QDAY #50 tab 11/15/18 Unknown Rx Active Meds: Active Medications Acetaminophen (Tylenol) 650 mg PO Q4H PRN PRN Reason: Pain MILD(1-3)/Fever >100.5/BURNS Last Admin: 11/15/18 16:48 Dose: 650 mg Documented by: Albuterol (Proventil) 2.5 mg IH Q3HRT PRN PRN Reason: Shortness Of Breath Albuterol/Ipratropium (Duoneb *Not For Prn Use*) 1 ampul IH TIDRT [facility] Last Admin: 11/17/18 07:44 Dose: 1 ampul Documented by: Aspirin (Baby Aspirin) 81 mg PO QDAY [facility] Last Admin: 11/16/18 09:20 Dose: 81 mg Documented by: Famotidine (Pepcid) 20 mg PO DAILY [facility] Last Admin: 11/16/18 09:20 Dose: 20 mg Documented by: Furosemide (Lasix) 40 mg PO QDAY [facility] Last Admin: 11/16/18 09:21 Dose: Not Given Documented by: Heparin Sodium (Porcine) (Heparin) 5,000 unit SUB-Q Q12HR [facility] Last Admin: 11/16/18 21:09 Dose: 5,000 unit Documented by: Ceftriaxone Sodium (Rocephin/Ns 1 Gm/50 Ml) 1 gm in 50 mls @ 100 mls/hr IV Q24HR [facility]; Protocol Last Admin: 11/16/18 13:23 Dose: 100 mls/hr Documented by: Metoprolol Tartrate (Lopressor) 25 mg PO BID [facility] Last Admin: 11/16/18 21:08 Dose: 25 mg Documented by: Multi-Ingred Cream/Lotion/Oil/Oint (Artificial Tears Ophth Oint) 1 applic OU Q4HR PRN PRN Reason: Dry Eye(s) Ondansetron HCl (Zofran) 4 mg IV Q8H PRN PRN Reason: Nausea And Vomiting Prednisone (Deltasone) 40 mg PO QDAY [facility] Last Admin: 11/16/18 09:21 Dose: 40 mg Documented by: Sodium Chloride (Sodium Chloride Flush Syringe 10 Ml) 10 ml IV BID [facility] Last Admin: 11/16/18 21:08 Dose: 10 ml Documented by: Sodium Chloride (Sodium Chloride Flush Syringe 10 Ml) 10 ml IV PRN PRN PRN Reason: LINE FLUSH Physical Examination - Physical Exam Narrative exam: Constitutional: alert in mild resp distress, anxious Head, Ears, Nose: Normocephalic, atraumatic. External ears, nose normal Eyes: Conjunctivae/corneas clear. No icterus. No ptosis. Neck: Supple, no meningeal signs Oral: unable to examine Cardiovascular:RRR Respiratory: + right basilar crackles GI: Soft, non-tender; bowel sounds normal. No peritoneal signs +gertrudis CVT Musculoskeletal: + mild pedal edema, no cyanosis. Skin: No rash or abscess Hem/Lymphatic: No palpable cervical or supraclavicular nodes. No lymphangitis Psych: alert anxious Neurological: Awake, alert, moving all extremities - Constitutional Vitals: Vital Signs Temp Pulse Resp BP Pulse Ox 98.4 F 81 18 119/64 92 11/17/18 04:32 11/17/18 07:40 11/17/18 07:40 11/17/18 04:32 11/17/18 08:10 Temperature -Last 24 Hours Temperature 98.4 F Temperature 100 F Temperature 98.7 F Temperature 98.6 F Temperature 98.2 F Results - Labs CBC & Chem 7: 11/16/18 11:55 11/16/18 11:55 Labs: Abnormal lab results 11/13/18 11/16/18 11/16/18 Range/Units 13:39 11:55 11:55 WBC 21.6 H (4.5-11.0) K/mm3 RBC 5.14 H (3.65-5.03) M/mm3 Hgb 15.4 H (11.8-15.2) gm/dl Hct 48.0 H (35.5-45.6) % RDW 16.0 H (13.2-15.2) % Carbon Dioxide 33 H (22-30) mmol/L BUN 32 H (9-20) mg/dL Creatinine 2.0 H (0.8-1.5) mg/dL Glucose 110 H (75-100) mg/dL POC Glucose (70-105) Albumin 3.5 L (3.8-4.8) g/dL Syzqm-0-Bholgbiij 0.4 H (0.2-0.3) g/dL Lhufs-8-Elxbvobsg 1.1 H (0.5-0.9) g/dL PEP Interpretation see below H Urine WBC (Auto) (0.0-6.0) /HPF 11/16/18 11/16/18 11/16/18 Range/Units 13:20 16:34 20:47 WBC (4.5-11.0) K/mm3 RBC (3.65-5.03) M/mm3 Hgb (11.8-15.2) gm/dl Hct (35.5-45.6) % RDW (13.2-15.2) % Carbon Dioxide (22-30) mmol/L BUN (9-20) mg/dL Creatinine (0.8-1.5) mg/dL Glucose (75-100) mg/dL POC Glucose 236 H 171 H (70-105) Albumin (3.8-4.8) g/dL Zeogs-7-Jdkqwtmhj (0.2-0.3) g/dL Cnqmx-2-Laumxscgj (0.5-0.9) g/dL PEP Interpretation Urine WBC (Auto) > 182.0 H (0.0-6.0) /HPF Assessment and Plan Cultures: 11/10/2018 tracheal culture no growth to date 11/12/2018 tracheal culture upper resp gabo 11/16/2018 blood culture no growth so far A/P: 53 y/o male with history of Sarcoidosis home O2 dependant, CHF, HTN, bilateral stones, recent pneumonia treated at [place], admitted on 11/09/2018 due to 3 day history of dry cough, progressive SOB and sharp chest pain: Sepsis: not present on admission, now with fever, leukocytosis; etio. likely complicated UTI +/- pneumonia Complicated UTI with known bilateral stones causing hydronephrosis. +gross hematuria and back pain. UA 11/16 c/u UTI. Renal US 11/14 showed right obstructive hydronephrosis and bilateral stones. Presumed RUL pneumonia: HAP, recent pneumonia treated at [place]. HIV neg. Repeat CXR 11/16 showed possible RUL pneumonia. Recent Respiratory failure: better - likely from CHF exacerbation JESI Recs: f/u blood culture send urine culture on board Stop ceftriaxone Add cefepime renally-dosed and doxycycline po to cover complicated UTI and presumed HAP Fanny Larson MD [facility] C: [phone] O: [phone] F: [phone]
[2018-11-17] MEDS: ROCEPHIN/NS 1 GM/50 ML 1 GM/50 ML BAG IV SCH (10:46)
[2018-11-17] MEDS: DELTASONE PO SCH (10:47)
[2018-11-17] MEDS: LOPRESSOR PO SCH ×2 (10:47→21:10)
[2018-11-17] MEDS: LASIX PO SCH (10:47)
[2018-11-17] MEDS: PEPCID PO SCH (10:47)
[2018-11-17] MEDS: BABY ASPIRIN PO SCH (10:47)
[2018-11-17] MEDS: HEPARIN SUB-Q SCH ×2 (10:53→21:10)
--- NOTE | 2018-11-17 14:42 | Progress Note ---
Assessment and Plan Acute on chronic hypoxemic respiratory failure s/p MVS Sarcoidosis with acute exacerbation Acute CHF exacerbation HFrEF (BNP 5420, EF 40-45%) JESI NOY (on CPAP at night) Recent pneumonia, admitted at [place] CAD/CHF (stable) Morbid Obesity Chronic steroid therapy Right obstructive hydronephrosis and bilateral stones. Pyrexia -He clinically does not have any new respiratory symptoms. Appears to have infiltrates more suggestive of heart failure. Dose of furosemide, follow CXR in 24 hours to re-evaluate pulmonary infiltrates Incentive spirometry -Bronchodilators therapy -Supplemental oxygen to keep o2 sats >90% -Continue with steroids and slow taper -PT/OT -Nocturnal NIPPV and prn during the day, discussed with RT -Accuchecks with glycemic control. Target glucose 140-180 mg/dL -Heart failure measures -Continue all supportive care Subjective Date of service: 11/17/18 Principal diagnosis: Ac on Ch Hypoxemic Resp failure; Sarcoidosis with Acexacerbation;Chest Pain Interval history: Follow up for: Acute on Chronic Hypoxemic Respiratory failure; Restrictive lung disease with acute exacerbation; Sarcoidosis (on home O2 and chronic steroids); Acute dyspnea; Decompensated HF, JESI Seen and examined at bedside; 24hour events reviewed; nursing and respiratory care staff consulted; no adverse overnight events reported to me; Extubated and has been doing well. No chest pain, baseline shortness of breath, no fevers or chills. Scheduled for discharge yesterday but spike a temperature, ID was consulted. Currently on antibiotics for possible UTI Objective Vital Signs - 12hr 11/17/18 11/17/18 11/17/18 04:32 07:27 07:30 Temperature 98.4 F 100.1 F H Pulse Rate 80 98 H Pulse Rate [ 80 Anterior Bilateral Throughout] Respiratory 18 20 Rate Respiratory 18 Rate [Anterior Bilateral Throughout] Blood Pressure 119/64 109/69 O2 Sat by Pulse 92 90 Oximetry 11/17/18 11/17/18 11/17/18 07:40 08:10 13:53 Temperature Pulse Rate Pulse Rate [ 81 77 Anterior Bilateral Throughout] Respiratory Rate Respiratory 18 20 Rate [Anterior Bilateral Throughout] Blood Pressure O2 Sat by Pulse 92 Oximetry Constitutional: no acute distress, alert, other (Middle aged obeses AAM, normocephalic and atraumatic) Eyes: non-icteric ENT: oropharynx moist Neck: supple, no lymphadenopathy, no JVD, other (large neck circumference) Effort: mildly labored Ascultation: Bilateral: diminished breath sounds, rales (inspiratory in bases), rhonchi Percussion: Bilateral: not dull Cardiovascular: regular rate and rhythm, other (No R/M) Gastrointestinal: normoactive bowel sounds, soft, non-tender, non-distended, other (No HSM) Integumentary: normal Extremities: no cyanosis, pulses normal, no ischemia or petechiae Neurologic: normal mental status, non-focal exam, pupils equal and round, motor strength normal and Psychiatric: mood appropriate, affect normal CBC and BMP: 11/16/18 11:55 11/16/18 11:55 ABG, PT/INR, D-dimer: ABG POC ABG pH 7.437 (7.35-7.45) 11/12/18 11:42 POC ABG pCO2 53.8 (35-45) H 11/12/18 11:42 POC ABG pO2 72 (80-105) L 11/12/18 11:42 POC ABG HCO3 36.3 11/12/18 11:42 POC ABG Total CO2 38 11/12/18 11:42 POC ABG O2 Sat 94 11/12/18 11:42 PT/INR, D-dimer D-Dimer < 135.00 ng/mlDDU (0-234) 11/10/18 02:24 Abnormal lab findings: Abnormal Labs 11/09/18 11/09/18 11/10/18 23:58 23:58 02:24 WBC RBC 5.14 H Hgb 15.8 H Hct 48.6 H MCV 95 H MCHC RDW 16.6 H [place] % (Auto) 10.6 H [place] # 1.0 H POC ABG pH POC ABG pCO2 POC ABG pO2 Sodium Carbon Dioxide BUN Creatinine 1.6 H Glucose 103 H POC Glucose Calcium Total Creatine Kinase CK-MB (CK-2) CK-MB (CK-2) Rel Index Troponin T 0.031 H NT-Pro-B Natriuret Pep 5420 H Albumin Jhsxr-8-Pjvvbfwvw Griwo-1-Fhxkxzosy PEP Interpretation Urine WBC (Auto) Urine Creatinine Urine Total Protein 11/10/18 11/10/18 11/10/18 05:43 06:37 09:24 WBC RBC Hgb Hct MCV MCHC RDW [place] % (Auto) [place] # POC ABG pH 7.168 L 7.318 L POC ABG pCO2 87.7 H 57.7 H POC ABG pO2 193 H 152 H Sodium Carbon Dioxide BUN Creatinine Glucose POC Glucose Calcium Total Creatine Kinase 8 L CK-MB (CK-2) 7.8 H CK-MB (CK-2) Rel Index 97.5 H Troponin T NT-Pro-B Natriuret Pep Albumin Galzj-9-Qunneemkv Gbnhd-1-Ilgqgjtfa PEP Interpretation Urine WBC (Auto) Urine Creatinine Urine Total Protein 11/10/18 11/10/18 11/11/18 12:15 23:34 04:23 WBC RBC Hgb Hct MCV MCHC RDW [place] % (Auto) [place] # POC ABG pH 7.518 H POC ABG pCO2 POC ABG pO2 122 H Sodium Carbon Dioxide BUN Creatinine Glucose POC Glucose 130 H Calcium Total Creatine Kinase 269 H CK-MB (CK-2) 6.4 H CK-MB (CK-2) Rel Index Troponin T NT-Pro-B Natriuret Pep Albumin Uhmba-3-Mwjnkxlrz Qnqjz-6-Zorjrlvee PEP Interpretation Urine WBC (Auto) Urine Creatinine Urine Total Protein 11/11/18 11/11/18 11/12/18 05:18 16:21 00:22 WBC RBC Hgb Hct MCV MCHC RDW [place] % (Auto) [place] # POC ABG pH POC ABG pCO2 49.5 H POC ABG pO2 60 L Sodium Carbon Dioxide BUN Creatinine Glucose POC Glucose 129 H 122 H Calcium Total Creatine Kinase CK-MB (CK-2) CK-MB (CK-2) Rel Index Troponin T NT-Pro-B Natriuret Pep Albumin Ktmej-0-Aclyrkfoi Uvvmf-5-Tqyhgezgp PEP Interpretation Urine WBC (Auto) Urine Creatinine Urine Total Protein 11/12/18 11/12/18 11/12/18 05:43 10:13 11:42 WBC RBC Hgb Hct MCV MCHC RDW [place] % (Auto) [place] # POC ABG pH POC ABG pCO2 53.8 H POC ABG pO2 72 L Sodium 153 H D Carbon Dioxide 34 H BUN 36 H Creatinine 2.2 H Glucose 142 H POC Glucose 130 H Calcium Total Creatine Kinase CK-MB (CK-2) CK-MB (CK-2) Rel Index Troponin T NT-Pro-B Natriuret Pep Albumin Zrzhg-9-Vqpenfexl Xxvwx-0-Cxraqypma PEP Interpretation Urine WBC (Auto) Urine Creatinine Urine Total Protein 11/12/18 11/12/18 11/12/18 12:33 17:29 23:53 WBC RBC Hgb Hct MCV MCHC RDW [place] % (Auto) [place] # POC ABG pH POC ABG pCO2 POC ABG pO2 Sodium Carbon Dioxide BUN Creatinine Glucose POC Glucose 121 H 150 H 138 H Calcium Total Creatine Kinase CK-MB (CK-2) CK-MB (CK-2) Rel Index Troponin T NT-Pro-B Natriuret Pep Albumin Ynjrh-4-Gaksibvga Qshln-8-Tzhxxulfv PEP Interpretation Urine WBC (Auto) Urine Creatinine Urine Total Protein 11/13/18 11/13/18 11/13/18 05:16 10:08 12:20 WBC RBC Hgb Hct MCV MCHC RDW [place] % (Auto) [place] # POC ABG pH POC ABG pCO2 POC ABG pO2 Sodium Carbon Dioxide 33 H BUN 40 H Creatinine 2.1 H Glucose 209 H POC Glucose 134 H Calcium Total Creatine Kinase CK-MB (CK-2) CK-MB (CK-2) Rel Index Troponin T NT-Pro-B Natriuret Pep Albumin Tcuzj-1-Iauedtphp Gxnua-7-Iqlrcherj PEP Interpretation Urine WBC (Auto) Urine Creatinine 121.2 H Urine Total Protein 16 H 11/13/18 11/14/18 11/15/18 13:39 04:58 05:10 WBC RBC Hgb Hct MCV MCHC RDW [place] % (Auto) [place] # POC ABG pH POC ABG pCO2 POC ABG pO2 Sodium Carbon Dioxide 34 H 35 H BUN 40 H 32 H Creatinine 1.8 H 1.7 H Glucose 113 H 73 L POC Glucose Calcium 8.0 L 8.1 L Total Creatine Kinase CK-MB (CK-2) CK-MB (CK-2) Rel Index Troponin T NT-Pro-B Natriuret Pep Albumin 3.5 L Abucq-5-Uikrywflk 0.4 H Tbjal-1-Aweeactco 1.1 H PEP Interpretation see below H Urine WBC (Auto) Urine Creatinine Urine Total Protein 11/15/18 11/15/18 11/15/18 05:10 13:59 17:06 WBC 12.5 H RBC Hgb Hct 46.9 H MCV 95 H MCHC 31 L RDW 16.0 H [place] % (Auto) [place] # POC ABG pH POC ABG pCO2 POC ABG pO2 Sodium Carbon Dioxide BUN Creatinine Glucose POC Glucose 128 H 156 H Calcium Total Creatine Kinase CK-MB (CK-2) CK-MB (CK-2) Rel Index Troponin T NT-Pro-B Natriuret Pep Albumin Urqev-6-Aqxryqqzy Ghtii-3-Wireobsip PEP Interpretation Urine WBC (Auto) Urine Creatinine Urine Total Protein 11/16/18 11/16/18 11/16/18 11:55 11:55 13:20 WBC 21.6 H RBC 5.14 H Hgb 15.4 H Hct 48.0 H MCV MCHC RDW 16.0 H [place] % (Auto) [place] # POC ABG pH POC ABG pCO2 POC ABG pO2 Sodium Carbon Dioxide 33 H BUN 32 H Creatinine 2.0 H Glucose 110 H POC Glucose Calcium Total Creatine Kinase CK-MB (CK-2) CK-MB (CK-2) Rel Index Troponin T NT-Pro-B Natriuret Pep Albumin Wbdjs-0-Pdpaddfnd Flgvy-7-Wexiuyigh PEP Interpretation Urine WBC (Auto) > 182.0 H Urine Creatinine Urine Total Protein 11/16/18 11/16/18 11/17/18 16:34 20:47 11:17 WBC RBC Hgb Hct MCV MCHC RDW [place] % (Auto) [place] # POC ABG pH POC ABG pCO2 POC ABG pO2 Sodium Carbon Dioxide BUN Creatinine Glucose POC Glucose 236 H 171 H 114 H Calcium Total Creatine Kinase CK-MB (CK-2) CK-MB (CK-2) Rel Index Troponin T NT-Pro-B Natriuret Pep Albumin Evmca-2-Ziyswwqoe Oskxq-7-Wtixtaijw PEP Interpretation Urine WBC (Auto) Urine Creatinine Urine Total Protein Chest x-ray: image reviewed (Increase alveolar marking in the RUL) Allied health notes reviewed: nursing
[2018-11-17] MEDS: MAXIPIME/NS 2 GM/100 ML 2 GM/100 ML BAG IV SCH ×2 (14:47→21:19)
[2018-11-17] MEDS: VIBRAMYCIN PO SCH ×2 (14:47→21:10)
[2018-11-17] MEDS: SODIUM CHLORIDE FLUSH SYRINGE 10 ML IV SCH (14:47)
[2018-11-17] MEDS ORDERED: LASIX IV ONE (15:00)
--- NOTE | 2018-11-17 15:24 | Progress Note ---
Assessment and Plan Assessment and plan: Patient is a 53 y/o BM with a history of Sarcoidosis, kidney stones, chronic hypoxic respiratory failure on 2 liters of O2 at home, CHF, HTN and recent pneumonia with Intubation at [facility] who presented to [facility] ED with cough, SOB and chest pains. He was found to have pulse ox of only 64%. He was placed on bipap, which he failed requiring intubation. He was extubated on 11/12/18. He did not want to go home on 11/15/18 due to issues at home (he told me that he was having issues with girlfriend at home), so he appealed his discharge at the last minute after (he received discharge instructions) his peripheral IV line and tele were removed. Then he spiked a fever overnight, refused Tylenol, refused receiving another peripheral IV and refused telemetry. Counseling done. He agreed to cooperate. * pCXR Impression: Subtle opacity in the right upper that may represent developing pneumonia New onset of fevers, complicated UTI with sepsis and developing RUL aspiration pneumonia: ID is now following and adjusted ABx Acute on Chronic hypoxic respiratory failure s/p Intubation on admission and extubated 11/12/18: currently on 3 liters o2 trying to wean down to 2 liters Acute on Chronic exacerbation of systolic heart failure: iv lasix was held due to worsening renal function, Cardiology is following, ECHO reviewed AE COPD: continue Duoneb tx and IV solumedrol weaned to oral steroids. ARF, vasomotor nephrology +ATN, he did develop hypotension post intubation, see ED physician addendum: Nephrology is following HTN (hypertension) with episode of hypotension: monitor bp closely, advance bp medications as tolerated Sarcoidosis: on steroids Nephrolithiasis, right hydronephrosis: managed by Dr. Bonner Obesity BMI 41.5 History Interval history: Patient was seen and examined. Follow-up on current diagnosis respiratory fa ilure. Still febrile,. Imaging, nursing note, chart, labs and old chart reviewed. Discussed with patient. s/p extubation 11/12/18. Hospitalist Physical - Physical exam Narrative exam: Gen: WDWN, NAD, Awake, Alert, Orientated HEENT: NCAT, EOMI, PERRL, OP clear Neck: supple, no adenopathy, no thyromegaly, no JVD CVS/Heart: RRR, normal S1S2, pulses present bilaterally Chest/Lungs: diminished bs bilateral, Symmetrical chest expansion, good air entry bilaterally GI/Abdomen: soft, NTND, good bowel sounds, no guarding or rebound /Bladder: no suprapubic tenderness, +bilateral CVA tenderness but no paraspinal tenderness Extermity/Skin: no c/c/e, no obvious rash MSK: FROM x 4 Neuro: CN 2-12 grossly intact, no new focal deficits Psych: calm - Constitutional Vitals: Temp Pulse Resp BP Pulse Ox 100.1 F H 77 20 109/69 92 11/17/18 07:27 11/17/18 13:53 11/17/18 13:53 11/17/18 07:27 11/17/18 08:10 General appearance: Present: no acute distress Results - Labs CBC & Chem 7: 11/16/18 11:55 11/16/18 11:55 Labs: Laboratory Last Values WBC 21.6 K/mm3 (4.5-11.0) H 11/16/18 11:55 RBC 5.14 M/mm3 (3.65-5.03) H 11/16/18 11:55 Hgb 15.4 gm/dl (11.8-15.2) H 11/16/18 11:55 Hct 48.0 % (35.5-45.6) H 11/16/18 11:55 MCV 93 fl (84-94) 11/16/18 11:55 MCH 30 pg (28-32) 11/16/18 11:55 MCHC 32 % (32-34) 11/16/18 11:55 RDW 16.0 % (13.2-15.2) H 11/16/18 11:55 Plt Count 175 K/mm3 (140-440) 11/16/18 11:55 Lymph % (Auto) 21.1 % (13.4-35.0) 11/09/18 23:58 [place] % (Auto) 10.6 % (0.0-7.3) H 11/09/18 23:58 Eos % (Auto) 3.8 % (0.0-4.3) 11/09/18 23:58 Baso % (Auto) 0.9 % (0.0-1.8) 11/09/18 23:58 Lymph # 2.0 K/mm3 (1.2-5.4) 11/09/18 23:58 [place] # 1.0 K/mm3 (0.0-0.8) H 11/09/18 23:58 Eos # 0.3 K/mm3 (0.0-0.4) 11/09/18 23:58 Baso # 0.1 K/mm3 (0.0-0.1) 11/09/18 23:58 Seg Neutrophils % 63.6 % (40.0-70.0) 11/09/18 23:58 Seg Neutrophils # 5.9 K/mm3 (1.8-7.7) 11/09/18 23:58 D-Dimer < 135.00 ng/mlDDU (0-234) 11/10/18 02:24 POC ABG pH 7.437 (7.35-7.45) 11/12/18 11:42 POC ABG pCO2 53.8 (35-45) H 11/12/18 11:42 POC ABG pO2 72 (80-105) L 11/12/18 11:42 POC ABG HCO3 36.3 11/12/18 11:42 POC ABG Total CO2 38 11/12/18 11:42 POC ABG O2 Sat 94 11/12/18 11:42 POC ABG Base Excess 12 11/12/18 11:42 FiO2 45 % 11/12/18 11:42 Sodium 142 mmol/L (137-145) 11/16/18 11:55 Potassium 4.1 mmol/L (3.6-5.0) 11/16/18 11:55 Chloride 98.0 mmol/L (98-107) 11/16/18 11:55 Carbon Dioxide 33 mmol/L (22-30) H 11/16/18 11:55 Anion Gap 15 mmol/L 11/16/18 11:55 BUN 32 mg/dL (9-20) H 11/16/18 11:55 Creatinine 2.0 mg/dL (0.8-1.5) H 11/16/18 11:55 Estimated GFR 42 ml/min 11/16/18 11:55 BUN/Creatinine Ratio 16 % 11/16/18 11:55 Glucose 110 mg/dL (75-100) H 11/16/18 11:55 POC Glucose 114 (70-105) H 11/17/18 11:17 Calcium 8.4 mg/dL (8.4-10.2) 11/16/18 11:55 Total Creatine Kinase 269 units/L (55-170) H 11/10/18 12:15 CK-MB (CK-2) 6.4 ng/mL (0.0-4.0) H 11/10/18 12:15 CK-MB (CK-2) Rel Index 2.3 (0-4) 11/10/18 12:15 Troponin T 0.020 ng/mL (0.00-0.029) 11/10/18 12:15 NT-Pro-B Natriuret Pep 5420 pg/mL (0-900) H 11/10/18 02:24 Serum Total Protein 7.0 g/dL (6.1-8.1) 11/13/18 13:39 Albumin 3.5 g/dL (3.8-4.8) L 11/13/18 13:39 Qjyug-8-Ujcrwgixw 0.4 g/dL (0.2-0.3) H 11/13/18 13:39 Hazts-9-Cqdwjjqst 1.1 g/dL (0.5-0.9) H 11/13/18 13:39 Beta Globulins 0.5 g/dL (0.2-0.5) 11/13/18 13:39 Gamma Globulins 1.1 g/dL (0.8-1.7) 11/13/18 13:39 Abnorm Protein Band 1 see below 11/13/18 13:39 PEP Interpretation see below H 11/13/18 13:39 Triglycerides 86 mg/dL (2-149) 11/09/18 23:58 Cholesterol 166 mg/dL (50-199) 11/09/18 23:58 LDL Cholesterol Direct 100 mg/dL (50-130) 11/09/18 23:58 HDL Cholesterol 57 mg/dL (40-59) 11/09/18 23:58 Cholesterol/HDL Ratio 2.91 % 11/09/18 23:58 Urine Color [place] (Yellow) 11/16/18 13:20 Urine Turbidity Turbid (Clear) 11/16/18 13:20 Urine pH 6.0 (5.0-7.0) 11/16/18 13:20 Ur Specific [place] 1.009 (1.003-1.030) 11/16/18 13:20 Urine Protein 100 mg/dl mg/dL (Negative) 11/16/18 13:20 Urine Glucose (UA) 50 mg/dL (Negative) 11/16/18 13:20 Urine Ketones Neg mg/dL (Negative) 11/16/18 13:20 Urine Blood Lg (Negative) 11/16/18 13:20 Urine Nitrite Pos (Negative) 11/16/18 13:20 Urine Bilirubin Neg (Negative) 11/16/18 13:20 Urine Urobilinogen < 2.0 mg/dL (<2.0) 11/16/18 13:20 Ur Leukocyte Esterase Lg (Negative) 11/16/18 13:20 Urine WBC (Auto) > 182.0 /HPF (0.0-6.0) H 11/16/18 13:20 Urine RBC (Auto) > 182.0 /HPF (0.0-6.0) 11/16/18 13:20 Urine Bacteria (Auto) 4+ /HPF (Negative) 11/16/18 13:20 Urine WBC Clumps 3+ /HPF 11/16/18 13:20 Ur Transition Epith Cell 5 /HPF 11/16/18 13:20 Urine Mucus Few /HPF 11/16/18 13:20 Urine Creatinine 121.2 mg/dL (0.1-20.0) H 11/13/18 12:20 Urine Sodium 33 mmol/L 11/13/18 12:20 Urine Total Protein 16 mg/dL (5-11.8) H 11/13/18 12:20 Complement C3 158 mg/dL (82-185) 11/13/18 13:39 Complement C4 35 mg/dL (15-53) 11/13/18 13:39 Hep Bs Antigen Non-reactive (Negative) 11/13/18 13:39 Hepatitis C Antibody Non-reactive (NonReactive) 11/13/18 13:39 HIV 1&2 Antibody Rapid Non react (Non React) 11/13/18 13:39 HIV P24 Antigen Non react (Non React) 11/13/18 13:39 Nutrition/Malnutrition Assess - Dietary Evaluation Nutrition/Malnutrition Findings: Nutrition Notes Start: 11/11/18 15:24 Freq: Status: Active Protocol: Document 11/14/18 14:52 RM (Rec: 11/14/18 14:55 RM [id number]) Nutrition Notes Initial or Follow up Brief Note Current Diagnosis Acute Kidney Injury COPD Hypertension Heart Failure Other Pertinent Diagnosis Sarcoidosis, PNA Current Diet Cardiac Labs/Tests Reviewed Pertinent Medications Lasix Height 5 ft 7 in Weight 120.304 kg Usual Body Weight 116.36 kg [place] Body Weight (lbs) 148.0 BMI 41.5 Subjective/Other Information Pt stated that his appetite is good and that he eats all of his meals. Noted lunch at bedside w/everything eaten. Stated UBW was 265 lbs 1 month ago. Burn Absent Trauma Absent Nutrition Intervention Revisit per MD consult or patient Sign Off request:
[2018-11-18 07:04] LABS: Calcium 8.5 mg/dL (8.4-10.2)
--- NOTE | 2018-11-18 08:07 | Progress Note ---
Assessment and Plan Assessment and plan: Patient is a 53 y/o BM with a history of Sarcoidosis, kidney stones, chronic hypoxic respiratory failure on 2 liters of O2 at home, CHF, HTN and recent pneumonia with Intubation at [facility] who presented to [facility] ED with cough, SOB and chest pains. He was found to have pulse ox of only 64%. He was placed on bipap, which he failed requiring intubation. He was extubated on 11/12/18. He did not want to go home on 11/15/18 due to issues at home (he told me that he was having issues with girlfriend at home), so he appealed his discharge at the last minute after (he received discharge instructions) his peripheral IV line and tele were removed. Then he spiked a fever overnight, refused Tylenol, refused receiving another peripheral IV and refused telemetry. Counseling done. He agreed to cooperate. * pCXR Impression: Subtle opacity in the right upper that may represent developing pneumonia New onset of fevers, complicated UTI with sepsis and developing RUL aspiration pneumonia: ID is now following and adjusted ABx Acute on Chronic hypoxic respiratory failure s/p Intubation on admission and extubated 11/12/18: trying to wean down to 2 liters Acute on Chronic exacerbation of systolic heart failure: on oral lasix, n, Cardiology is following, ECHO reviewed AE COPD: continue Duoneb tx and IV solumedrol weaned to oral steroids. ARF, vasomotor nephrology +ATN, he did develop hypotension post intubation, see ED physician addendum: Nephrology is following HTN (hypertension) with episode of hypotension: monitor bp closely, advance bp medications as tolerated Sarcoidosis: on steroids Nephrolithiasis, right hydronephrosis: managed by Dr. Bonner Obesity BMI 41.5 History Interval history: Patient was seen and examined. Follow-up on current diagnosis respiratory failure. Still febrile,. Imaging, nursing note, chart, labs and old chart reviewed. Discussed with patient. s/p extubation 11/12/18. Hospitalist Physical - Physical exam Narrative exam: Gen: WDWN, NAD, Awake, Alert, Orientated HEENT: NCAT, EOMI, PERRL, OP clear Neck: supple, no adenopathy, no thyromegaly, no JVD CVS/Heart: RRR, normal S1S2, pulses present bilaterally Chest/Lungs: diminished bs bilateral, Symmetrical chest expansion, good air entry bilaterally GI/Abdomen: soft, NTND, good bowel sounds, no guarding or rebound /Bladder: no suprapubic tenderness, +bilateral CVA tenderness but no paraspin al tenderness Extermity/Skin: no c/c/e, no obvious rash MSK: FROM x 4 Neuro: CN 2-12 grossly intact, no new focal deficits Psych: calm - Constitutional Vitals: Temp Pulse Resp BP Pulse Ox 97.9 F 67 20 127/80 93 11/18/18 06:06 11/18/18 06:06 11/18/18 06:06 11/18/18 06:06 11/18/18 06:06 General appearance: Present: no acute distress Results - Labs CBC & Chem 7: 11/16/18 11:55 11/18/18 05:45 Labs: Laboratory Last Values WBC 21.6 K/mm3 (4.5-11.0) H 11/16/18 11:55 RBC 5.14 M/mm3 (3.65-5.03) H 11/16/18 11:55 Hgb 15.4 gm/dl (11.8-15.2) H 11/16/18 11:55 Hct 48.0 % (35.5-45.6) H 11/16/18 11:55 MCV 93 fl (84-94) 11/16/18 11:55 MCH 30 pg (28-32) 11/16/18 11:55 MCHC 32 % (32-34) 11/16/18 11:55 RDW 16.0 % (13.2-15.2) H 11/16/18 11:55 Plt Count 175 K/mm3 (140-440) 11/16/18 11:55 Lymph % (Auto) 21.1 % (13.4-35.0) 11/09/18 23:58 [place] % (Auto) 10.6 % (0.0-7.3) H 11/09/18 23:58 Eos % (Auto) 3.8 % (0.0-4.3) 11/09/18 23:58 Baso % (Auto) 0.9 % (0.0-1.8) 11/09/18 23:58 Lymph # 2.0 K/mm3 (1.2-5.4) 11/09/18 23:58 [place] # 1.0 K/mm3 (0.0-0.8) H 11/09/18 23:58 Eos # 0.3 K/mm3 (0.0-0.4) 11/09/18 23:58 Baso # 0.1 K/mm3 (0.0-0.1) 11/09/18 23:58 Seg Neutrophils % 63.6 % (40.0-70.0) 11/09/18 23:58 Seg Neutrophils # 5.9 K/mm3 (1.8-7.7) 11/09/18 23:58 D-Dimer < 135.00 ng/mlDDU (0-234) 11/10/18 02:24 POC ABG pH 7.437 (7.35-7.45) 11/12/18 11:42 POC ABG pCO2 53.8 (35-45) H 11/12/18 11:42 POC ABG pO2 72 (80-105) L 11/12/18 11:42 POC ABG HCO3 36.3 11/12/18 11:42 POC ABG Total CO2 38 11/12/18 11:42 POC ABG O2 Sat 94 11/12/18 11:42 POC ABG Base Excess 12 11/12/18 11:42 FiO2 45 % 11/12/18 11:42 Sodium 142 mmol/L (137-145) 11/18/18 05:45 Potassium 4.2 mmol/L (3.6-5.0) 11/18/18 05:45 Chloride 97.9 mmol/L (98-107) L 11/18/18 05:45 Carbon Dioxide 30 mmol/L (22-30) 11/18/18 05:45 Anion Gap 18 mmol/L 11/18/18 05:45 BUN 35 mg/dL (9-20) H 11/18/18 05:45 Creatinine 2.0 mg/dL (0.8-1.5) H 11/18/18 05:45 Estimated GFR 42 ml/min 11/18/18 05:45 BUN/Creatinine Ratio 18 % 11/18/18 05:45 Glucose 91 mg/dL (75-100) 11/18/18 05:45 POC Glucose 81 (70-105) 11/18/18 06:44 Calcium 8.5 mg/dL (8.4-10.2) 11/18/18 05:45 Total Creatine Kinase 269 units/L (55-170) H 11/10/18 12:15 CK-MB (CK-2) 6.4 ng/mL (0.0-4.0) H 11/10/18 12:15 CK-MB (CK-2) Rel Index 2.3 (0-4) 11/10/18 12:15 Troponin T 0.020 ng/mL (0.00-0.029) 11/10/18 12:15 NT-Pro-B Natriuret Pep 5420 pg/mL (0-900) H 11/10/18 02:24 Serum Total Protein 7.0 g/dL (6.1-8.1) 11/13/18 13:39 Albumin 3.5 g/dL (3.8-4.8) L 11/13/18 13:39 Jdlpi-1-Vrdjitbcu 0.4 g/dL (0.2-0.3) H 11/13/18 13:39 Frmzi-9-Hhfgemsyt 1.1 g/dL (0.5-0.9) H 11/13/18 13:39 Beta Globulins 0.5 g/dL (0.2-0.5) 11/13/18 13:39 Gamma Globulins 1.1 g/dL (0.8-1.7) 11/13/18 13:39 Abnorm Protein Band 1 see below 11/13/18 13:39 PEP Interpretation see below H 11/13/18 13:39 Triglycerides 86 mg/dL (2-149) 11/09/18 23:58 Cholesterol 166 mg/dL (50-199) 11/09/18 23:58 LDL Cholesterol Direct 100 mg/dL (50-130) 11/09/18 23:58 HDL Cholesterol 57 mg/dL (40-59) 11/09/18 23:58 Cholesterol/HDL Ratio 2.91 % 11/09/18 23:58 Urine Color [place] (Yellow) 11/16/18 13:20 Urine Turbidity Turbid (Clear) 11/16/18 13:20 Urine pH 6.0 (5.0-7.0) 11/16/18 13:20 Ur Specific [place] 1.009 (1.003-1.030) 11/16/18 13:20 Urine Protein 100 mg/dl mg/dL (Negative) 11/16/18 13:20 Urine Glucose (UA) 50 mg/dL (Negative) 11/16/18 13:20 Urine Ketones Neg mg/dL (Negative) 11/16/18 13:20 Urine Blood Lg (Negative) 11/16/18 13:20 Urine Nitrite Pos (Negative) 11/16/18 13:20 Urine Bilirubin Neg (Negative) 11/16/18 13:20 Urine Urobilinogen < 2.0 mg/dL (<2.0) 11/16/18 13:20 Ur Leukocyte Esterase Lg (Negative) 11/16/18 13:20 Urine WBC (Auto) > 182.0 /HPF (0.0-6.0) H 11/16/18 13:20 Urine RBC (Auto) > 182.0 /HPF (0.0-6.0) 11/16/18 13:20 Urine Bacteria (Auto) 4+ /HPF (Negative) 11/16/18 13:20 Urine WBC Clumps 3+ /HPF 11/16/18 13:20 Ur Transition Epith Cell 5 /HPF 11/16/18 13:20 Urine Mucus Few /HPF 11/16/18 13:20 Urine Creatinine 121.2 mg/dL (0.1-20.0) H 11/13/18 12:20 Urine Sodium 33 mmol/L 11/13/18 12:20 Urine Total Protein 16 mg/dL (5-11.8) H 11/13/18 12:20 Complement C3 158 mg/dL (82-185) 11/13/18 13:39 Complement C4 35 mg/dL (15-53) 11/13/18 13:39 Hep Bs Antigen Non-reactive (Negative) 11/13/18 13:39 Hepatitis C Antibody Non-reactive (NonReactive) 11/13/18 13:39 HIV 1&2 Antibody Rapid Non react (Non React) 11/13/18 13:39 HIV P24 Antigen Non react (Non React) 11/13/18 13:39 Nutrition/Malnutrition Assess - Dietary Evaluation Nutrition/Malnutrition Findings: Nutrition Notes Start: 11/11/18 15:24 Freq: Status: Active Protocol: Document 11/14/18 14:52 RM (Rec: 11/14/18 14:55 RM [id number]) Nutrition Notes Initial or Follow up Brief Note Current Diagnosis Acute Kidney Injury COPD Hypertension Heart Failure Other Pertinent Diagnosis Sarcoidosis, PNA Current Diet Cardiac Labs/Tests Reviewed Pertinent Medications Lasix Height 5 ft 7 in Weight 120.304 kg Usual Body Weight 116.36 kg [place] Body Weight (lbs) 148.0 BMI 41.5 Subjective/Other Information Pt stated that his appetite is good and that he eats all of his meals. Noted lunch at bedside w/everything eaten. Stated UBW was 265 lbs 1 month ago. Burn Absent Trauma Absent Nutrition Intervention Revisit per MD consult or patient Sign Off request:
[2018-11-18] MEDS: DUONEB *Not for PRN Use IH SCH ×3 (08:32→19:08)
--- NOTE | 2018-11-18 09:14 | Progress Note ---
Assessment and Plan Acute renal Failure on likely Chronic Kidney Disease: -Cr is stable around baseline -Avoid Nephrotoxic agents -Monitor I/O's -Monitor renal function closely Acute on Chronic hypoxic respiratory failure - Extubated on 11/12/18 Acute on Chronic exacerbation of systolic heart failure: -Echo:EF 40-45% -Was on Lasix, can resume Lasix at 40 mg daily -Cardiology onboard COPD: -On Nebulizers -off steroids Hypertension: -Monitor blood pressures will sign off please re consult if needed Subjective Date of service: 11/18/18 Principal diagnosis: Ac on Ch Hypoxemic Resp failure; Sarcoidosis with Acexacerbation;Chest Pain Interval history: flank pain is improving but cont to have blood in the urine Objective - Vital Signs Vital signs: Vital Signs - 12hr 11/17/18 11/17/18 11/17/18 21:18 22:00 23:00 Temperature 98.5 F Pulse Rate 92 H 81 Pulse Rate [ Anterior Bilateral Throughout] Respiratory 22 22 Rate Respiratory Rate [Anterior Bilateral Throughout] Respiratory 22 Rate [Knee Joint] Blood Pressure 117/73 117/73 O2 Sat by Pulse 88 95 98 Oximetry 11/17/18 11/18/18 11/18/18 23:50 00:00 06:06 Temperature 97.6 F 97.9 F Pulse Rate 69 92 H 67 Pulse Rate [ Anterior Bilateral Throughout] Respiratory 20 20 Rate Respiratory Rate [Anterior Bilateral Throughout] Respiratory Rate [Knee Joint] Blood Pressure 116/80 127/80 O2 Sat by Pulse 93 93 Oximetry 11/18/18 11/18/18 11/18/18 08:32 08:36 08:46 Temperature Pulse Rate Pulse Rate [ 72 75 Anterior Bilateral Throughout] Respiratory Rate Respiratory 20 20 Rate [Anterior Bilateral Throughout] Respiratory Rate [Knee Joint] Blood Pressure O2 Sat by Pulse 92 Oximetry 11/18/18 09:09 Temperature Pulse Rate Pulse Rate [ Anterior Bilateral Throughout] Respiratory Rate Respiratory Rate [Anterior Bilateral Throughout] Respiratory Rate [Knee Joint] Blood Pressure O2 Sat by Pulse 92 Oximetry - General Appearance General appearance: well-developed, well-nourished, appears stated age EENT: ATNC, PERRL, mucous membranes moist Neck: no JVD Respiratory: Present: Clear to Ascultation. Absent: Rales, Ronchi Cardiology: regular, S1S2 Gastrointestinal: normoactive bowel sounds, no tenderness, no distended Integumentary: no rash, warm and dry Neurologic: no focal deficit, no asterixis, alert and oriented x3 Musculoskeletal: other (no edema in BLE) Psychiatric: mood/affect appropriate, cooperative - Lab 11/16/18 11:55 11/18/18 05:45 Most recent lab results Calcium 8.5 mg/dL (8.4-10.2) 11/18/18 05:45 Urine Creatinine 121.2 mg/dL (0.1-20.0) H 11/13/18 12:20 Urine Sodium 33 mmol/L 11/13/18 12:20 Urine Total Protein 16 mg/dL (5-11.8) H 11/13/18 12:20 Medications & Allergies - Medications Allergies/Adverse Reactions: Allergies No Known Allergies Allergy (Unverified 07/05/15 10:00) Home Medications: Home Medications Medication Instructions Recorded Confirmed Last Taken Type Docusate Sodium [Colace CAP] 100 mg PO BID #60 capsule 07/07/15 Unknown Rx ALBUTEROL NEB's [Proventil 0.083% 2.5 mg IH Q3HRT PRN #15 nebu 11/15/18 Unknown Rx NEBS] Acetaminophen [Acetaminophen TAB] 650 mg PO Q4H PRN #15 tablet 11/15/18 Unknown Rx Aspirin [Aspirin BABY CHEW TAB] 81 mg PO QDAY #30 tab.chew 11/15/18 Unknown Rx Famotidine [Pepcid] 20 mg PO DAILY #30 tablet 11/15/18 Unknown Rx Furosemide [Lasix TAB] 40 mg PO QDAY #30 tablet 11/15/18 Unknown Rx Ipratropium/Albuterol Sulfate 1 ampul IH TIDRT #30 ampul.neb 11/15/18 Unknown Rx [DUONEB *Not for PRN Use*] Metoprolol [Lopressor TAB] 25 mg PO BID #60 tablet 11/15/18 Unknown Rx oxyCODONE /ACETAMINOPHEN [Percocet 1 tab PO Q6H PRN #15 tablet 11/15/18 Unknown Rx 5/325 mg] predniSONE [Deltasone] 20 mg PO QDAY #50 tab 11/15/18 Unknown Rx Active Medications: Generic Name Dose Route Start Last Admin Trade Name Freq PRN Reason Stop Dose Admin Acetaminophen 650 mg 11/10/18 04:17 11/15/18 16:48 Tylenol PO 650 mg Q4H PRN Administration Pain MILD(1-3)/Fever >100.5/BURNS Albuterol 2.5 mg 11/10/18 04:17 Proventil IH Q3HRT PRN Shortness Of Breath Albuterol/Ipratropium 1 ampul 11/15/18 08:00 11/18/18 08:32 Duoneb *Not For Prn Use* IH 1 ampul TIDRT ABDIAS Administration Aspirin 81 mg 11/10/18 10:00 11/17/18 10:47 Baby Aspirin PO 81 mg QDAY ABDIAS Administration Doxycycline Hyclate 100 mg 11/17/18 12:00 11/17/18 21:10 Vibramycin PO 100 mg BID ABDIAS Administration Famotidine 20 mg 11/13/18 10:00 11/17/18 10:47 Pepcid PO 20 mg DAILY ABDIAS Administration Furosemide 40 mg 11/15/18 10:00 11/17/18 10:47 Lasix PO 40 mg QDAY ABDIAS Administration Heparin Sodium (Porcine) 5,000 unit 11/13/18 22:00 11/17/18 21:10 Heparin SUB-Q 5,000 unit Q12HR ABDIAS Administration Cefepime HCl 2 gm in 100 mls @ 200 mls/hr 11/17/18 12:00 11/17/18 21:19 Maxipime/Ns 2 Gm/100 Ml IV 200 mls/hr Q12HR ABDIAS Administration Protocol Metoprolol Tartrate 25 mg 11/12/18 12:00 11/17/18 21:10 Lopressor PO 25 mg BID ABDIAS Administration Multi-Ingred Cream/Lotion/Oil/Oint 1 applic 11/10/18 05:52 Artificial Tears Ophth Oint OU Q4HR PRN Dry Eye(s) Ondansetron HCl 4 mg 11/10/18 04:17 Zofran IV Q8H PRN Nausea And Vomiting Prednisone 40 mg 11/13/18 10:00 11/17/18 10:47 Deltasone PO 40 mg QDAY ABDIAS Administration Sodium Chloride 10 ml 11/10/18 10:00 11/17/18 14:47 Sodium Chloride Flush Syringe 10 Ml IV 10 ml BID ABDIAS Administration Sodium Chloride 10 ml 11/10/18 04:17 Sodium Chloride Flush Syringe 10 Ml IV PRN PRN LINE FLUSH
--- NOTE | 2018-11-18 10:21 | XRay Report ---
ROUTINE CHEST, TWO VIEWS: HISTORY: Alveolar infiltrates, pneumonia. Minimal improvement in the right lung airspace opacity is demonstrated since 11/16/18. This could represent improvement in infiltrate or congestive changes. The left lung remains fairly clear. Heart size is borderline and unchanged. IMPRESSION: Mild improvement in the right lung opacities. No new acute process.
[2018-11-18] MEDS: DELTASONE PO SCH (13:08)
[2018-11-18] MEDS: VIBRAMYCIN PO SCH (13:08)
[2018-11-18] MEDS: LOPRESSOR PO SCH ×2 (13:09→22:11)
[2018-11-18] MEDS: LASIX PO SCH (13:10)
[2018-11-18] MEDS: BABY ASPIRIN PO SCH (13:10)
[2018-11-18] MEDS: SODIUM CHLORIDE FLUSH SYRINGE 10 ML IV SCH ×3 (13:11→22:28)
[2018-11-18] MEDS: HEPARIN SUB-Q SCH ×2 (13:11→22:07)
[2018-11-18] MEDS: MAXIPIME/NS 2 GM/100 ML 2 GM/100 ML BAG IV SCH ×2 (13:19→22:06)
--- NOTE | 2018-11-18 14:13 | Progress Note ---
Assessment and Plan Patient alert, awake. Still has mild shortness of breath. On 2 litres O2.O2 saturation 88%. Increase O2 to 3 litres. Patient not keeping his nasal O2 all the time. Stressed the importance of keeping O2 all the time. - Patient Problems (1) Acute respiratory failure with hypoxia Current Visit: Yes Status: Acute Plan to address problem: O2 3 litres via nasal canula BIPAP during night time and Prn for shortness of breath during day time. Albuterol/atrovent aerosol treatments q 6 hours. Continue PO prednisone. Continue S/C Heparin Continue famotidine. Patient is on cefepime. (2) Acute exacerbation of CHF (congestive heart failure) Current Visit: Yes Status: Acute Qualifiers: Heart failure type: combined systolic and diastolic Qualified Code(s): I50.43 - Acute on chronic combined systolic (congestive) and diastolic (congestive) heart failure Plan to address problem: Management as per primary care and cardiology. (3) CKD (chronic kidney disease) Current Visit: Yes Status: Chronic Qualifiers: Chronic kidney disease stage: unspecified stage Qualified Code(s): N18.9 - Chronic kidney disease, unspecified Plan to address problem: Management as per primary care and nephrology. (4) COPD (chronic obstructive pulmonary disease) Current Visit: Yes Status: Chronic Qualifiers: COPD type: unspecified COPD Qualified Code(s): J44.9 - Chronic obstructive pulmonary disease, unspecified Plan to address problem: O2 3 litres via nasal canula BIPAP during night time and Prn for shortness of breath during day time. Albuterol/atrovent aerosol treatments q 6 hours. Continue PO prednisone. Continue S/C Heparin Continue famotidine. Patient is on cefepime. (5) HTN (hypertension) Current Visit: Yes Status: Chronic Qualifiers: Hypertension type: essential hypertension Qualified Code(s): I10 - Essential (primary) hypertension Plan to address problem: Management as per primary care. (6) Sarcoidosis Current Visit: No Status: Chronic Plan to address problem: MERCEDES level. Subjective Date of service: 11/18/18 Principal diagnosis: Ac on Ch Hypoxemic Resp failure; Sarcoidosis with Acexacerbation;Chest Pain Interval history: Patient alert, awake. Still has mild shortness of breath. On 2 litres O2.O2 saturation 88%. Increase O2 to 3 litres. Patient not keeping his nasal O2 all the time. Stressed the importance of keeping O2 all the time. Objective Vital Signs - 12hr 11/18/18 11/18/18 11/18/18 06:06 08:32 08:36 Temperature 97.9 F Pulse Rate 67 Pulse Rate [ 72 Anterior Bilateral Throughout] Respiratory 20 Rate Respiratory 20 Rate [Anterior Bilateral Throughout] Blood Pressure 127/80 O2 Sat by Pulse 93 92 Oximetry 11/18/18 11/18/18 11/18/18 08:46 09:06 09:09 Temperature 98.0 F Pulse Rate 92 H Pulse Rate [ 75 Anterior Bilateral Throughout] Respiratory 20 Rate Respiratory 20 Rate [Anterior Bilateral Throughout] Blood Pressure 120/76 O2 Sat by Pulse 88 92 Oximetry 11/18/18 13:09 Temperature Pulse Rate 97 H Pulse Rate [ Anterior Bilateral Throughout] Respiratory Rate Respiratory Rate [Anterior Bilateral Throughout] Blood Pressure O2 Sat by Pulse Oximetry Constitutional: alert, other (Middle aged obeses AAM, normocephalic and atraumatic. Mild shortness of breath at rest.) Eyes: non-icteric ENT: oropharynx moist Neck: supple, no lymphadenopathy, no JVD, other (large neck circumference) Effort: mildly labored Ascultation: Bilateral: diminished breath sounds, rales (inspiratory in bases), rhonchi Percussion: Bilateral: not dull Cardiovascular: regular rate and rhythm, other (No R/M) Gastrointestinal: normoactive bowel sounds, soft, non-tender, non-distended, other (No HSM) Integumentary: normal Extremities: no cyanosis, pulses normal, no ischemia or petechiae Neurologic: normal mental status, non-focal exam, pupils equal and round, motor strength normal and Psychiatric: mood appropriate, affect normal CBC and BMP: 11/16/18 11:55 11/18/18 05:45 ABG, PT/INR, D-dimer: ABG POC ABG pH 7.437 (7.35-7.45) 11/12/18 11:42 POC ABG pCO2 53.8 (35-45) H 11/12/18 11:42 POC ABG pO2 72 (80-105) L 11/12/18 11:42 POC ABG HCO3 36.3 11/12/18 11:42 POC ABG Total CO2 38 11/12/18 11:42 POC ABG O2 Sat 94 01/15/19 11:42 PT/INR, D-dimer D-Dimer < 135.00 ng/mlDDU (0-234) 11/10/18 02:24 Abnormal lab findings: Abnormal Labs 11/09/18 11/09/18 11/10/18 23:58 23:58 02:24 WBC RBC 5.14 H Hgb 15.8 H Hct 48.6 H MCV 95 H MCHC RDW 16.6 H Republic % (Auto) 10.6 H Republic # 1.0 H POC ABG pH POC ABG pCO2 POC ABG pO2 Sodium Chloride Carbon Dioxide BUN Creatinine 1.6 H Glucose 103 H POC Glucose Calcium Total Creatine Kinase CK-MB (CK-2) CK-MB (CK-2) Rel Index Troponin T 0.031 H NT-Pro-B Natriuret Pep 5420 H Albumin Kqqls-7-Nceoxpsem Pbplo-6-Lldkkogga PEP Interpretation Urine WBC (Auto) Urine Creatinine Urine Total Protein 11/10/18 11/10/18 11/10/18 05:43 06:37 09:24 WBC RBC Hgb Hct MCV MCHC RDW Republic % (Auto) Republic # POC ABG pH 7.168 L 7.318 L POC ABG pCO2 87.7 H 57.7 H POC ABG pO2 193 H 152 H Sodium Chloride Carbon Dioxide BUN Creatinine Glucose POC Glucose Calcium Total Creatine Kinase 8 L CK-MB (CK-2) 7.8 H CK-MB (CK-2) Rel Index 97.5 H Troponin T NT-Pro-B Natriuret Pep Albumin Hnqnb-2-Gdinjacng Fnryv-8-Bxyftboaj PEP Interpretation Urine WBC (Auto) Urine Creatinine Urine Total Protein 11/10/18 11/10/18 11/11/18 12:15 23:34 04:23 WBC RBC Hgb Hct MCV MCHC RDW Republic % (Auto) Republic # POC ABG pH 7.518 H POC ABG pCO2 POC ABG pO2 122 H Sodium Chloride Carbon Dioxide BUN Creatinine Glucose POC Glucose 130 H Calcium Total Creatine Kinase 269 H CK-MB (CK-2) 6.4 H CK-MB (CK-2) Rel Index Troponin T NT-Pro-B Natriuret Pep Albumin Ttjhv-0-Karweqqcf Rjluk-0-Ljbcyqpju PEP Interpretation Urine WBC (Auto) Urine Creatinine Urine Total Protein 0111/11/18 11/12/18 05:18 16:21 00:22 WBC RBC Hgb Hct MCV MCHC RDW Republic % (Auto) Republic # POC ABG pH POC ABG pCO2 49.5 H POC ABG pO2 60 L Sodium Chloride Carbon Dioxide BUN Creatinine Glucose POC Glucose 129 H 122 H Calcium Total Creatine Kinase CK-MB (CK-2) CK-MB (CK-2) Rel Index Troponin T NT-Pro-B Natriuret Pep Albumin Vwvho-8-Ymhytxwyv Hcxeq-9-Kaiptfiwn PEP Interpretation Urine WBC (Auto) Urine Creatinine Urine Total Protein 11/12/18 11/12/18 11/12/18 05:43 10:13 11:42 WBC RBC Hgb Hct MCV MCHC RDW Republic % (Auto) Republic # POC ABG pH POC ABG pCO2 53.8 H POC ABG pO2 72 L Sodium 153 H D Chloride Carbon Dioxide 34 H BUN 36 H Creatinine 2.2 H Glucose 142 H POC Glucose 130 H Calcium Total Creatine Kinase CK-MB (CK-2) CK-MB (CK-2) Rel Index Troponin T NT-Pro-B Natriuret Pep Albumin Uzrna-2-Dbpdczvuk Hwggb-7-Fdfvdbosk PEP Interpretation Urine WBC (Auto) Urine Creatinine Urine Total Protein 11/12/18 11/12/18 11/12/18 12:33 17:29 23:53 WBC RBC Hgb Hct MCV MCHC RDW Republic % (Auto) Republic # POC ABG pH POC ABG pCO2 POC ABG pO2 Sodium Chloride Carbon Dioxide BUN Creatinine Glucose POC Glucose 121 H 150 H 138 H Calcium Total Creatine Kinase CK-MB (CK-2) CK-MB (CK-2) Rel Index Troponin T NT-Pro-B Natriuret Pep Albumin Agfzk-1-Myaqjfkdm Igqlv-7-Lkhicrgct PEP Interpretation Urine WBC (Auto) Urine Creatinine Urine Total Protein 11/13/18 11/13/18 11/13/18 05:16 10:08 12:20 WBC RBC Hgb Hct MCV MCHC RDW Republic % (Auto) Republic # POC ABG pH POC ABG pCO2 POC ABG pO2 Sodium Chloride Carbon Dioxide 33 H BUN 40 H Creatinine 2.1 H Glucose 209 H POC Glucose 134 H Calcium Total Creatine Kinase CK-MB (CK-2) CK-MB (CK-2) Rel Index Troponin T NT-Pro-B Natriuret Pep Albumin Llcfs-5-Mtfefwctc Xbtls-7-Zyjsyaffi PEP Interpretation Urine WBC (Auto) Urine Creatinine 121.2 H Urine Total Protein 16 H 11/13/18 11/14/18 11/15/18 13:39 04:58 05:10 WBC RBC Hgb Hct MCV MCHC RDW Republic % (Auto) Republic # POC ABG pH POC ABG pCO2 POC ABG pO2 Sodium Chloride Carbon Dioxide 34 H 35 H BUN 40 H 32 H Creatinine 1.8 H 1.7 H Glucose 113 H 73 L POC Glucose Calcium 8.0 L 8.1 L Total Creatine Kinase CK-MB (CK-2) CK-MB (CK-2) Rel Index Troponin T NT-Pro-B Natriuret Pep Albumin 3.5 L Qbysu-0-Jpgvaytlc 0.4 H Ahbja-7-Nsnrfcmtg 1.1 H PEP Interpretation see below H Urine WBC (Auto) Urine Creatinine Urine Total Protein 11/15/18 11/15/18 11/15/18 05:10 13:59 17:06 WBC 12.5 H RBC Hgb Hct 46.9 H MCV 95 H MCHC 31 L RDW 16.0 H Republic % (Auto) Republic # POC ABG pH POC ABG pCO2 POC ABG pO2 Sodium Chloride Carbon Dioxide BUN Creatinine Glucose POC Glucose 128 H 156 H Calcium Total Creatine Kinase CK-MB (CK-2) CK-MB (CK-2) Rel Index Troponin T NT-Pro-B Natriuret Pep Albumin Qolbr-4-Mdlsssgak Ncdyx-9-Uxxajgmhd PEP Interpretation Urine WBC (Auto) Urine Creatinine Urine Total Protein 11/16/18 11/16/18 11/16/18 11:55 11:55 13:20 WBC 21.6 H RBC 5.14 H Hgb 15.4 H Hct 48.0 H MCV MCHC RDW 16.0 H Republic % (Auto) Republic # POC ABG pH POC ABG pCO2 POC ABG pO2 Sodium Chloride Carbon Dioxide 33 H BUN 32 H Creatinine 2.0 H Glucose 110 H POC Glucose Calcium Total Creatine Kinase CK-MB (CK-2) CK-MB (CK-2) Rel Index Troponin T NT-Pro-B Natriuret Pep Albumin Jrvou-8-Qpjwatmrs Ifrro-6-Mgqtcxevh PEP Interpretation Urine WBC (Auto) > 182.0 H Urine Creatinine Urine Total Protein 11/16/18 11/16/18 11/17/18 16:34 20:47 11:17 WBC RBC Hgb Hct MCV MCHC RDW Republic % (Auto) Republic # POC ABG pH POC ABG pCO2 POC ABG pO2 Sodium Chloride Carbon Dioxide BUN Creatinine Glucose POC Glucose 236 H 171 H 114 H Calcium Total Creatine Kinase CK-MB (CK-2) CK-MB (CK-2) Rel Index Troponin T NT-Pro-B Natriuret Pep Albumin Qntfb-2-Zyvfmjfsw Aqhrh-5-Pucpbdhjh PEP Interpretation Urine WBC (Auto) Urine Creatinine Urine Total Protein 11/17/18 11/17/18 11/18/18 16:17 21:27 05:45 WBC RBC Hgb Hct MCV MCHC RDW Republic % (Auto) Republic # POC ABG pH POC ABG pCO2 POC ABG pO2 Sodium Chloride 97.9 L Carbon Dioxide BUN 35 H Creatinine 2.0 H Glucose POC Glucose 175 H 159 H Calcium Total Creatine Kinase CK-MB (CK-2) CK-MB (CK-2) Rel Index Troponin T NT-Pro-B Natriuret Pep Albumin Qksof-8-Lcmmgadwu Dcrgz-3-Vngptzohe PEP Interpretation Urine WBC (Auto) Urine Creatinine Urine Total Protein Chest x-ray: report reviewed (Mild improvement in right lung opacities.), image reviewed Allied health notes reviewed: nursing
--- NOTE | 2018-11-18 15:25 | Query- Present on Admission ---
Meagan Juarez___Larry Date:__11/18/2018 Sales Representative [employer]/CDS:___Kyara Phone#:___[phone] Exercise your independent professional judgment when responding to this query. Questions asked do not imply a particular answer is desired or expected. We greatly appreciate your clarification on this issue. Clinical Documentation States: Patient is a 53 y/o BM with cough, SOB and chest pains. He was found to have pulse ox of only 64%. He was placed on bipap, which he failed requiring intubation. He was extubated on 11/12/18. New onset of fevers, complicated UTI with sepsis and developing RUL aspiration pneumonia. Based on the above clinical scenario and your knowledge of the patient's case please clarify if the diagnosis stated below was present on admission: Diagnosis: ___sepsis Present on admission : [ x] Yes (Y) [ ] Clinically undeterminable(W) [ ] No(N) Please also document response in your Progress Notes and/or Discharge Summary and indicate if the condition was present on admission. OMARD
--- NOTE | 2018-11-18 17:08 | Progress Note ---
Assessment and Plan Cultures: 11/10/2018 tracheal culture no growth to date 11/12/2018 tracheal culture upper resp gabo 11/16/2018 blood culture: GNR 11/17/2018 blood culture: No growth at 24 hours A/P: 53 y/o male with history of Sarcoidosis home O2 dependant, CHF, HTN, bilateral stones, recent pneumonia treated at [facility], admitted on 11/09/2018 due to 3 day history of dry cough, progressive SOB and sharp chest pain: 1) Sepsis: not present on admission, now with fever, leukocytosis; etio. likely complicated UTI +/- pneumonia 2) Gram negative bacteremia, source likely complicated UTI with known bilateral stones causing hydronephrosis. +gross hematuria and back pain. UA 11/16 c/u UTI. Renal US 11/14 showed right obstructive hydronephrosis and bilateral stones. Urol ogy on board. 3) Presumed RUL pneumonia: HAP, recent pneumonia treated at [facility]. HIV neg. Repeat CXR 11/16 showed possible RUL pneumonia, doubt pneumonia clinically. 4) Recent Respiratory failure: better - likely from CHF exacerbation JESI Continue IV Cefepime 2 gm q12 hrs hematuria continues, ?consider re-eval by Urology follow up blood cultures, ID and sensitivity to help decide abx choice D/W Dr. Larry Ramírez MD [facility] C: [phone] O: [phone] F: [phone] Subjective Date of service: 11/18/18 Principal diagnosis: Ac on Ch Hypoxemic Resp failure; Sarcoidosis with Acexacerbation;Chest Pain Interval history: No fever. Complains of ongoing hematuria. No vomiting. No rash, no diarrhea. Tolerating Cefepime well. Objective - Exam Narrative Exam: Physical Exam: Constitutional: Alert, cooperative. No acute distress Head, Ears, Nose: Normocephalic, atraumatic. External ears, nose normal Eyes: Conjunctivae/corneas clear. No icterus. No ptosis. Neck: Supple, no meningeal signs Oral: no ulcers, no thrush Cardiovascular: S1, S2 normal. Respiratory: b/l basal crackles GI: Soft, non-tender; bowel sounds normal. No peritoneal signs. bilateral CVA tenderness. Musculoskeletal: No pedal edema, no cyanosis. Skin: No rash or abscess Hem/Lymphatic: No palpable cervical or supraclavicular nodes. No lymphangitis Psych: Mood ok. Affect normal Neurological: Awake, alert, oriented. No gross abnormality - Constitutional Vitals: Vital Signs Temp Pulse Resp BP Pulse Ox 98.5 F 82 24 117/68 87 11/18/18 16:22 11/18/18 16:22 11/18/18 16:22 11/18/18 16:22 11/18/18 16:22 Temperature -Last 24 Hours Temperature 98.5 F Temperature 98.4 F Temperature 98.0 F Temperature 97.9 F Temperature 97.6 F Temperature 98.5 F - Labs CBC & Chem 7: 11/16/18 11:55 11/18/18 05:45 Labs: Abnormal lab results 11/17/18 11/17/18 11/18/18 Range/Units 16:17 21:27 05:45 Chloride 97.9 L (98-107) mmol/L BUN 35 H (9-20) mg/dL Creatinine 2.0 H (0.8-1.5) mg/dL POC Glucose 175 H 159 H (70-105)
[2018-11-18] MEDS: PEPCID PO SCH (18:07)
[2018-11-18 21:40] LABS: ANA Screen, IFA Negative (Negative)
--- NOTE | 2018-11-19 08:24 | Progress Note ---
Subjective Date of service: 11/19/18 Principal diagnosis: Ac on Ch Hypoxemic Resp failure; Sarcoidosis with Acexacerbation;Chest Pain Interval history: Patient is a 53 y/o BM with a history of Sarcoidosis, kidney stones, chronic hypoxic respiratory failure on 2 liters of O2 at home, CHF, HTN and recent pneumonia with Intubation at [facility] who presented to [facility] ED with cough, SOB and chest pains. He was found to have pulse ox of only 64%. He was placed on bipap, which he failed requiring intubation. He was extubated on 11/12/18. He did not want to go home on 11/15/18 due to issues at home (he told me that he was having issues with girlfriend at home), so he appealed his discharge at the last minute after (he received discharge instructions) his peripheral IV line and tele were removed. Then he spiked a fever overnight, refused Tylenol, refused receiving another peripheral IV and refused telemetry. Counseling done. He agreed to cooperate. seen by Dr. Eden in past nuc scan left 32%/rt 68% CT - bilat stones seen - rt----1.7cm pt with gross hematuria yesterday reconsulted A/P bilat stones gross hematuria intermittently is normal until pt is stone free discussed rt ESW[facility] ON SUNDAY IF MEDICALLY CLEARED Objective - Constitutional Vitals: Vital Signs - 12hr 11/18/18 22:11 Pulse Rate 86 Blood Pressure 107/55 - Labs CBC & Chem 7: 11/19/18 09:00 11/19/18 07:06 Labs: Abnormal lab results 11/18/18 11/18/18 Range/Units 16:30 21:08 POC Glucose 190 H 286 H (70-105) Medications & Allergies - Medications Allergies/Adverse Reactions: Allergies No Known Allergies Allergy (Unverified 07/05/15 10:00) Home Medications: Home Medications Medication Instructions Recorded Confirmed Last Taken Type Docusate Sodium [Colace CAP] 100 mg PO BID #60 capsule 07/07/15 Unknown Rx ALBUTEROL NEB's [Proventil 0.083% 2.5 mg IH Q3HRT PRN #15 nebu 11/15/18 Unknown Rx NEBS] Acetaminophen [Acetaminophen TAB] 650 mg PO Q4H PRN #15 tablet 11/15/18 Unknown Rx Aspirin [Aspirin BABY CHEW TAB] 81 mg PO QDAY #30 tab.chew 11/15/18 Unknown Rx Famotidine [Pepcid] 20 mg PO DAILY #30 tablet 11/15/18 Unknown Rx Furosemide [Lasix TAB] 40 mg PO QDAY #30 tablet 11/15/18 Unknown Rx Ipratropium/Albuterol Sulfate 1 ampul IH TIDRT #30 ampul.neb 11/15/18 Unknown Rx [DUONEB *Not for PRN Use*] Metoprolol [Lopressor TAB] 25 mg PO BID #60 tablet 11/15/18 Unknown Rx oxyCODONE /ACETAMINOPHEN [Percocet 1 tab PO Q6H PRN #15 tablet 11/15/18 Unknown Rx 5/325 mg] predniSONE [Deltasone] 20 mg PO QDAY #50 tab 11/15/18 Unknown Rx Active Medications: Generic Name Dose Route Start Last Admin Trade Name Freq PRN Reason Stop Dose Admin Acetaminophen 650 mg 11/10/18 04:17 11/15/18 16:48 Tylenol PO 650 mg Q4H PRN Administration Pain MILD(1-3)/Fever >100.5/BURNS Albuterol 2.5 mg 11/10/18 04:17 Proventil IH Q3HRT PRN Shortness Of Breath Albuterol/Ipratropium 1 ampul 11/15/18 08:00 11/18/18 19:08 Duoneb *Not For Prn Use* IH 1 ampul TIDRT ABDIAS Administration Aspirin 81 mg 11/10/18 10:00 11/18/18 13:10 Baby Aspirin PO 81 mg QDAY ABDIAS Administration Famotidine 20 mg 11/13/18 10:00 11/18/18 18:07 Pepcid PO Not Given DAILY ABDIAS Furosemide 40 mg 11/15/18 10:00 11/18/18 13:10 Lasix PO 40 mg QDAY ABDIAS Administration Heparin Sodium (Porcine) 5,000 unit 11/13/18 22:00 11/18/18 22:07 Heparin SUB-Q 5,000 unit Q12HR ABDIAS Administration Cefepime HCl 2 gm in 100 mls @ 200 mls/hr 11/17/18 12:00 11/18/18 22:06 Maxipime/Ns 2 Gm/100 Ml IV 200 mls/hr Q12HR ABDIAS Administration Protocol Metoprolol Tartrate 25 mg 11/12/18 12:00 11/18/18 22:11 Lopressor PO Not Given BID ABDIAS Multi-Ingred Cream/Lotion/Oil/Oint 1 applic 11/10/18 05:52 Artificial Tears Ophth Oint OU Q4HR PRN Dry Eye(s) Ondansetron HCl 4 mg 11/10/18 04:17 Zofran IV Q8H PRN Nausea And Vomiting Prednisone 40 mg 11/13/18 10:00 11/18/18 13:08 Deltasone PO 40 mg QDAY ABDIAS Administration Sodium Chloride 10 ml 11/10/18 10:00 11/18/18 22:28 Sodium Chloride Flush Syringe 10 Ml IV 10 ml BID ABDIAS Administration Sodium Chloride 10 ml 11/10/18 04:17 Sodium Chloride Flush Syringe 10 Ml IV PRN PRN LINE FLUSH
--- NOTE | 2018-11-19 08:38 | Progress Note ---
Assessment and Plan Cultures: 11/10/2018 tracheal culture no growth to date 11/12/2018 tracheal culture upper resp gabo 11/16/2018 blood culture: E. coli 11/17/2018 blood culture: No growth at 24 hours 11/16/2018 urine: E. coli A/P: 53 y/o male with history of Sarcoidosis home O2 dependant, CHF, HTN, bilateral stones, recent pneumonia treated at [place], admitted on 11/09/2018 due to 3 day history of dry cough, progressive SOB and sharp chest pain: 1) Sepsis: not present on admission, now with fever, leukocytosis; etio. likely complicated UTI +/- pneumonia 2) Gram negative bacteremia, source likely complicated UTI with known bilateral stones causing hydronephrosis. +gross hematuria and back pain. UA 11/16 c/u UTI. Renal US 11/14 showed right obstructive hydronephrosis and bilateral stones- Hematuria is normal until patient is stone free - Right ESWL 11/21/18 -urology following 3) Presumed RUL pneumonia: HAP, recent pneumonia treated at [place]. HIV neg. Repeat CXR 11/16 showed possible RUL pneumonia, doubt pneumonia clinically. 4) Recent Respiratory failure: better - likely from CHF exacerbation JESI Discontinue Cefepime 2 gm q12 hrs Start cefazolin 1 gm q 8 NIGHAT [employer] M: [phone] O:[phone] Subjective Date of service: 11/19/18 Principal diagnosis: Ac on Ch Hypoxemic Resp failure; Sarcoidosis with Acexacerbation;Chest Pain Interval history: Patient seen and examined. Stated that he continues to have right lower back pain. Denies fevers, rashes or SOB. Objective - Exam Narrative Exam: Constitutional: Alert, cooperative. mild distress Head, Ears, Nose: Normocephalic, atraumatic. External ears, nose normal Eyes: Conjunctivae/corneas clear. No icterus. No ptosis. Neck: Supple, no meningeal signs Oral: no ulcers, no thrush Cardiovascular: S1, S2 normal. Respiratory: b/l basal crackles GI: Soft, non-tender; bowel sounds normal. No peritoneal signs. bilateral CVA tenderness. Musculoskeletal: No pedal edema, no cyanosis. Skin: No rash or abscess Hem/Lymphatic: No palpable cervical or supraclavicular nodes. No lymphangitis Psych: Mood ok. Affect normal Neurological: Awake, alert, oriented. No gross abnormality - Constitutional Vitals: Vital Signs Temp Pulse Resp BP Pulse Ox 98.5 F 86 18 107/55 87 11/18/18 16:22 11/18/18 22:11 11/18/18 19:24 11/18/18 22:11 11/18/18 19:15 Temperature -Last 24 Hours Temperature 98.5 F Temperature 98.4 F Temperature 98.0 F - Labs CBC & Chem 7: 11/19/18 09:00 11/19/18 07:06 Labs: Abnormal lab results 11/18/18 11/18/18 Range/Units 16:30 21:08 POC Glucose 190 H 286 H (70-105)
[2018-11-19 08:49] LABS: Calcium 9.3 mg/dL (8.4-10.2)
[2018-11-19 09:11] LABS: Hematocrit 47.5 % (35.5-45.6); Hemoglobin 15.2 gm/dl (11.8-15.2); Mean Corpuscular HGB Conc 32 % (32-34); Mean Corpuscular Volume 92 fl (84-94); Platelet Count 197 K/mm3 (140-440); Red Blood Count 5.15 M/mm3 (3.65-5.03); Red Cell Distribution Width 15.7 % (13.2-15.2)
[2018-11-19] MEDS: DELTASONE PO SCH (09:30)
[2018-11-19] MEDS: MAXIPIME/NS 2 GM/100 ML 2 GM/100 ML BAG IV SCH (09:30)
[2018-11-19] MEDS: LASIX PO SCH (09:31)
[2018-11-19] MEDS: HEPARIN SUB-Q SCH ×2 (09:31→21:47)
[2018-11-19] MEDS: LOPRESSOR PO SCH ×2 (09:32→21:47)
[2018-11-19] MEDS: PEPCID PO SCH (09:35)
[2018-11-19] MEDS: BABY ASPIRIN PO SCH (09:35)
[2018-11-19] MEDS: DUONEB *Not for PRN Use IH SCH ×3 (09:52→19:23)
[2018-11-19 09:55] LABS: Basophils % (Manual) 0 % (0.0-1.8); Eosinophils % (Manual) 0 % (0.0-4.3); Total Cells Counted 100
[2018-11-19 09:56] LABS: Anisocytosis 1+; Ovalocytes Few; Platelet Estimate Consistent w Auto; Poikilocytosis 1+
--- NOTE | 2018-11-19 10:29 | Progress Note ---
Assessment and Plan Assessment and plan: Patient is a 53 y/o BM with a history of Sarcoidosis, kidney stones, chronic hypoxic respiratory failure on 2 liters of O2 at home, CHF, HTN and recent pneumonia with Intubation at [facility] who presented to [facility] ED with cough, SOB and chest pains. He was found to have pulse ox of only 64%. He was placed on bipap, which he failed requiring intubation. He was extubated on 11/12/18. He did not want to go home on 11/15/18 due to issues at home (he told me that he was having issues with girlfriend at home), so he appealed his discharge at the last minute after (he received discharge instructions) his peripheral IV line and tele were removed. Then he spiked a fever overnight, refused Tylenol, refused receiving another peripheral IV and refused telemetry. Counseling done. He agreed to cooperate. * pCXR Impression: Subtle opacity in the right upper that may represent developing pneumonia complicated UTI with sepsis and developing RUL aspiration pneumonia: ID is now following and adjusted ABx Acute on Chronic hypoxic respiratory failure s/p Intubation on admission and extubated 11/12/18: trying to wean down to 2 liters Acute on Chronic exacerbation of systolic heart failure: on oral lasix, n, Cardiology is following, ECHO reviewed AE COPD: continue Duoneb tx and IV solumedrol weaned to oral steroids. ARF, vasomotor nephrology +ATN, he did develop hypotension post intubation, see ED physician addendum: Nephrology is following HTN (hypertension) with episode of hypotension: monitor bp closely, advance bp medications as tolerated Sarcoidosis: on steroids Nephrolithiasis, right hydronephrosis: managed by Dr. Bonner Obesity BMI 41.5 Contact Urology again due to gross hematuria and back pains, Right ESWL on . Reached out to Cardiology for pre-op assessment. History Interval history: Patient was seen and examined. Follow-up on current diagnosis respiratory failure. Still febrile,. Imaging, nursing note, chart, labs and old chart reviewed. Discussed with patient. s/p extubation 11/12/18. Hospitalist Physical - Physical exam Narrative exam: Gen: WDWN, NAD, Awake, Alert, Orientated HEENT: NCAT, EOMI, PERRL, OP clear Neck: supple, no adenopathy, no thyromegaly, no JVD CVS/Heart: RRR, normal S1S2, pulses present bilaterally Chest/Lungs: diminished bs bilateral, Symmetrical chest expansion, good air entry bilaterally GI/Abdomen: soft, NTND, good bowel sounds, no guarding or rebound /Bladder: no suprapubic tenderness, +bilateral CVA tenderness but no paraspinal tenderness Extermity/Skin: no c/c/e, no obvious rash MSK: FROM x 4 Neuro: CN 2-12 grossly intact, no new focal deficits Psych: calm - Constitutional Vitals: Temp Pulse Resp BP Pulse Ox 98.3 F 84 18 130/76 93 11/19/18 05:06 11/19/18 09:43 11/19/18 09:43 11/19/18 09:32 11/19/18 09:40 General appearance: Present: no acute distress Results - Labs CBC & Chem 7: 11/19/18 09:00 11/19/18 07:06 Labs: Laboratory Last Values WBC 16.1 K/mm3 (4.5-11.0) H 11/19/18 09:00 RBC 5.15 M/mm3 (3.65-5.03) H 11/19/18 09:00 Hgb 15.2 gm/dl (11.8-15.2) 11/19/18 09:00 Hct 47.5 % (35.5-45.6) H 11/19/18 09:00 MCV 92 fl (84-94) 11/19/18 09:00 MCH 30 pg (28-32) 11/19/18 09:00 MCHC 32 % (32-34) 11/19/18 09:00 RDW 15.7 % (13.2-15.2) H 11/19/18 09:00 Plt Count 197 K/mm3 (140-440) 11/19/18 09:00 Lymph % (Auto) 21.1 % (13.4-35.0) 11/09/18 23:58 [place] % (Auto) 10.6 % (0.0-7.3) H 11/09/18 23:58 Eos % (Auto) 3.8 % (0.0-4.3) 11/09/18 23:58 Baso % (Auto) 0.9 % (0.0-1.8) 11/09/18 23:58 Lymph # 2.0 K/mm3 (1.2-5.4) 11/09/18 23:58 [place] # 1.0 K/mm3 (0.0-0.8) H 11/09/18 23:58 Eos # 0.3 K/mm3 (0.0-0.4) 11/09/18 23:58 Baso # 0.1 K/mm3 (0.0-0.1) 11/09/18 23:58 Add Manual Diff Complete 11/19/18 09:00 Total Counted 100 11/19/18 09:00 Seg Neutrophils % 63.6 % (40.0-70.0) 11/09/18 23:58 Seg Neuts % (Manual) 91.0 % (40.0-70.0) H 11/19/18 09:00 Band Neutrophils % 0 % 11/19/18 09:00 Lymphocytes % (Manual) 8.0 % (13.4-35.0) L 11/19/18 09:00 Reactive Lymphs % (Man) 0 % 11/19/18 09:00 Monocytes % (Manual) 1.0 % (0.0-7.3) 11/19/18 09:00 Eosinophils % (Manual) 0 % (0.0-4.3) 11/19/18 09:00 Basophils % (Manual) 0 % (0.0-1.8) 11/19/18 09:00 Metamyelocytes % 0 % 11/19/18 09:00 Myelocytes % 0 % 11/19/18 09:00 Promyelocytes % 0 % 11/19/18 09:00 Blast Cells % 0 % 11/19/18 09:00 Nucleated RBC % Not Reportable 11/19/18 09:00 Seg Neutrophils # 5.9 K/mm3 (1.8-7.7) 11/09/18 23:58 Seg Neutrophils # Man 14.7 K/mm3 (1.8-7.7) H 11/19/18 09:00 Band Neutrophils # 0.0 K/mm3 11/19/18 09:00 Lymphocytes # (Manual) 1.3 K/mm3 (1.2-5.4) 11/19/18 09:00 Abs React Lymphs (Man) 0.0 K/mm3 11/19/18 09:00 Monocytes # (Manual) 0.2 K/mm3 (0.0-0.8) 11/19/18 09:00 Eosinophils # (Manual) 0.0 K/mm3 (0.0-0.4) 11/19/18 09:00 Basophils # (Manual) 0.0 K/mm3 (0.0-0.1) 11/19/18 09:00 Metamyelocytes # 0.0 K/mm3 11/19/18 09:00 Myelocytes # 0.0 K/mm3 11/19/18 09:00 Promyelocytes # 0.0 K/mm3 11/19/18 09:00 Blast Cells # 0.0 K/mm3 11/19/18 09:00 WBC Morphology Not Reportable 11/19/18 09:00 Hypersegmented Neuts Not Reportable 11/19/18 09:00 Hyposegmented Neuts Not Reportable 11/19/18 09:00 Hypogranular Neuts Not Reportable 11/19/18 09:00 Smudge Cells Not Reportable 11/19/18 09:00 Toxic Granulation Not Reportable 11/19/18 09:00 Toxic Vacuolation Not Reportable 11/19/18 09:00 Dohle Bodies Not Reportable 11/19/18 09:00 Pelger-Huet Anomaly Not Reportable 11/19/18 09:00 Garry Rods Not Reportable 11/19/18 09:00 Platelet Estimate Consistent w auto 11/19/18 09:00 Clumped Platelets Not Reportable 11/19/18 09:00 Plt Clumps, EDTA Not Reportable 11/19/18 09:00 Large Platelets Not Reportable 11/19/18 09:00 Giant Platelets Not Reportable 11/19/18 09:00 Platelet Satelliting Not Reportable 11/19/18 09:00 Plt Morphology Comment Not Reportable 11/19/18 09:00 RBC Morphology Not Reportable 11/19/18 09:00 Dimorphic RBCs Not Reportable 11/19/18 09:00 Polychromasia Not Reportable 11/19/18 09:00 Hypochromasia Not Reportable 11/19/18 09:00 Poikilocytosis 1+ 11/19/18 09:00 Anisocytosis 1+ 11/19/18 09:00 Microcytosis Not Reportable 11/19/18 09:00 Macrocytosis Not Reportable 11/19/18 09:00 Spherocytes Not Reportable 11/19/18 09:00 Pappenheimer Bodies Not Reportable 11/19/18 09:00 Sickle Cells Not Reportable 11/19/18 09:00 Target Cells Not Reportable 11/19/18 09:00 Tear Drop Cells Not Reportable 11/19/18 09:00 Ovalocytes Few 11/19/18 09:00 Helmet Cells Not Reportable 11/19/18 09:00 [place] Bodies Not Reportable 11/19/18 09:00 Schroeder Rings Not Reportable 11/19/18 09:00 St[place] Cells Not Reportable 11/19/18 09:00 Bite Cells Not Reportable 11/19/18 09:00 Crenated Cell Not Reportable 11/19/18 09:00 Elliptocytes Not Reportable 11/19/18 09:00 Acanthocytes (Spur) Not Reportable 11/19/18 09:00 Rouleaux Not Reportable 11/19/18 09:00 Hemoglobin C Crystals Not Reportable 11/19/18 09:00 Schistocytes Not Reportable 11/19/18 09:00 Malaria parasites Not Reportable 11/19/18 09:00 Francois Bodies Not Reportable 11/19/18 09:00 Hem Pathologist Commnt No 11/19/18 09:00 D-Dimer < 135.00 ng/mlDDU (0-234) 11/10/18 02:24 POC ABG pH 7.437 (7.35-7.45) 11/12/18 11:42 POC ABG pCO2 53.8 (35-45) H 11/12/18 11:42 POC ABG pO2 72 (80-105) L 11/12/18 11:42 POC ABG HCO3 36.3 11/12/18 11:42 POC ABG Total CO2 38 11/12/18 11:42 POC ABG O2 Sat 94 11/12/18 11:42 POC ABG Base Excess 12 11/12/18 11:42 FiO2 45 % 11/12/18 11:42 Sodium 144 mmol/L (137-145) 11/19/18 07:06 Potassium 4.8 mmol/L (3.6-5.0) 11/19/18 07:06 Chloride 98.3 mmol/L (98-107) 11/19/18 07:06 Carbon Dioxide 30 mmol/L (22-30) 11/19/18 07:06 Anion Gap 21 mmol/L 11/19/18 07:06 BUN 35 mg/dL (9-20) H 11/19/18 07:06 Creatinine 1.9 mg/dL (0.8-1.5) H 11/19/18 07:06 Estimated GFR 45 ml/min 11/19/18 07:06 BUN/Creatinine Ratio 18 % 11/19/18 07:06 Glucose 86 mg/dL (75-100) 11/19/18 07:06 POC Glucose 192 (70-105) H 11/19/18 08:16 Calcium 9.3 mg/dL (8.4-10.2) 11/19/18 07:06 Total Creatine Kinase 269 units/L (55-170) H 11/10/18 12:15 CK-MB (CK-2) 6.4 ng/mL (0.0-4.0) H 11/10/18 12:15 CK-MB (CK-2) Rel Index 2.3 (0-4) 11/10/18 12:15 Troponin T 0.020 ng/mL (0.00-0.029) 11/10/18 12:15 NT-Pro-B Natriuret Pep 5420 pg/mL (0-900) H 11/10/18 02:24 Serum Total Protein 7.0 g/dL (6.1-8.1) 11/13/18 13:39 Albumin 3.5 g/dL (3.8-4.8) L 11/13/18 13:39 Ursqf-5-[id number] 0.4 g/dL (0.2-0.3) H 11/13/18 13:39 Ahpzm-2-Btpikuwaf 1.1 g/dL (0.5-0.9) H 11/13/18 13:39 Beta Globulins 0.5 g/dL (0.2-0.5) 11/13/18 13:39 Gamma Globulins 1.1 g/dL (0.8-1.7) 11/13/18 13:39 Abnorm Protein Band 1 see below 11/13/18 13:39 PEP Interpretation see below H 11/13/18 13:39 Triglycerides 86 mg/dL (2-149) 11/09/18 23:58 Cholesterol 166 mg/dL (50-199) 11/09/18 23:58 LDL Cholesterol Direct 100 mg/dL (50-130) 11/09/18 23:58 HDL Cholesterol 57 mg/dL (40-59) 11/09/18 23:58 Cholesterol/HDL Ratio 2.91 % 11/09/18 23:58 Urine Color [place] (Yellow) 11/16/18 13:20 Urine Turbidity Turbid (Clear) 11/16/18 13:20 Urine pH 6.0 (5.0-7.0) 11/16/18 13:20 Ur Specific [place] 1.009 (1.003-1.030) 11/16/18 13:20 Urine Protein 100 mg/dl mg/dL (Negative) 11/16/18 13:20 Urine Glucose (UA) 50 mg/dL (Negative) 11/16/18 13:20 Urine Ketones Neg mg/dL (Negative) 11/16/18 13:20 Urine Blood Lg (Negative) 11/16/18 13:20 Urine Nitrite Pos (Negative) 11/16/18 13:20 Urine Bilirubin Neg (Negative) 11/16/18 13:20 Urine Urobilinogen < 2.0 mg/dL (<2.0) 11/16/18 13:20 Ur Leukocyte Esterase Lg (Negative) 11/16/18 13:20 Urine WBC (Auto) > 182.0 /HPF (0.0-6.0) H 11/16/18 13:20 Urine RBC (Auto) > 182.0 /HPF (0.0-6.0) 11/16/18 13:20 Urine Bacteria (Auto) 4+ /HPF (Negative) 11/16/18 13:20 Urine WBC Clumps 3+ /HPF 11/16/18 13:20 Ur Transition Epith Cell 5 /HPF 11/16/18 13:20 Urine Mucus Few /HPF 11/16/18 13:20 Urine Creatinine 121.2 mg/dL (0.1-20.0) H 11/13/18 12:20 Urine Sodium 33 mmol/L 11/13/18 12:20 Urine Total Protein 16 mg/dL (5-11.8) H 11/13/18 12:20 KIRSTEN Screen Negative (Negative) 11/13/18 13:39 Complement C3 158 mg/dL (82-185) 11/13/18 13:39 Complement C4 35 mg/dL (15-53) 11/13/18 13:39 Hep Bs Antigen Non-reactive (Negative) 11/13/18 13:39 Hepatitis C Antibody Non-reactive (NonReactive) 11/13/18 13:39 HIV 1&2 Antibody Rapid Non react (Non React) 11/13/18 13:39 HIV P24 Antigen Non react (Non React) 11/13/18 13:39 Nutrition/Malnutrition Assess - Dietary Evaluation Nutrition/Malnutrition Findings: Nutrition Notes Start: 11/11/18 15:24 Freq: Status: Active Protocol: Document 11/18/18 14:57 OL (Rec: 11/18/18 14:58 OL [id number]) Nutrition Notes Weight 118.35 kg Subjective/Other Information Wt. error noted in chart. Wt. corrected to reflect approriate value. Nutrition Intervention Revisit per MD consult or patient Sign Off request:
--- NOTE | 2018-11-19 11:19 | Progress Note ---
Assessment and Plan Acute on chronic hypoxic respiratory failure/sarcoidosis/recent PNA/NOY/? COPD Extubated. Per pulmonary. 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 Convert IV lasix to PO 40mg daily. [facility] records obtained - pt underwent C 05/2018 which showed nonobstructive CAD, 50% mid LAD lesion with FFR 0.89, left ventriculogram not performed. Cont lopressor - pt with ? COPD and restrictive lung disease. Consider initiation of ACEI/ARB if renal indices permit. Nonobstructive CAD JESI on ? CKD Nephrology following. Renal U/S showed right hydronephrosis, CT pending. Chest pain Currently resolved. Pt underwent C 05/2018 which showed nonobstructive CAD, 50% mid LAD lesion with FFR 0.89 Troponins minimally elevated, negative for AMI, ECG with no acute ischemic changes. RBBB HTN Cont lopressor and titrate as tolerated. Obesity Nephrolithiasis / right hydronephrosis / gross hematuria For ESWL on per urology. Currently stable cardiac status. Pt is currently at moderate cardiovascular risk for contemplated urological procedure. No current cardiac contraindications. The patient has been seen in conjunction with Dr. MEGHANA Villegas who agrees with the assessment and plan of care. Subjective Date of service: 11/19/18 Principal diagnosis: Ac on Ch Hypoxemic Resp failure; Sarcoidosis with Acexacerbation;Chest Pain Interval history: pt sitting up in bed, no current cardiac complaints. Objective Last Vital Signs Temp 98.3 F 11/19/18 05:06 Pulse 84 11/19/18 09:43 Resp 18 11/19/18 09:43 BP 130/76 11/19/18 09:32 Pulse Ox 93 11/19/18 09:40 - Physical Examination General: No Apparent Distress HEENT: Positive: PERRL Neck: Positive: neck supple, trachea midline Cardiac: Positive: Reg Rate and Rhythm, S1/S2 Lungs: Positive: Decreased Breath Sounds Neuro: Positive: Grossly Intact, Cranial Nerve 2-12 Intact Abdomen: Positive: Unremarkable Skin: Positive: Clear Extremities: Absent: edema - Labs and Meds CBC 11/19/18 Range/Units 09:00 WBC 16.1 H (4.5-11.0) K/mm3 RBC 5.15 H (3.65-5.03) M/mm3 Hgb 15.2 (11.8-15.2) gm/dl Hct 47.5 H (35.5-45.6) % Plt Count 197 (140-440) K/mm3 Comprehensive Metabolic Panel 11/19/18 Range/Units 07:06 Sodium 144 (137-145) mmol/L Potassium 4.8 (3.6-5.0) mmol/L Chloride 98.3 (98-107) mmol/L Carbon Dioxide 30 (22-30) mmol/L BUN 35 H (9-20) mg/dL Creatinine 1.9 H (0.8-1.5) mg/dL Glucose 86 (75-100) mg/dL Calcium 9.3 (8.4-10.2) mg/dL - Imaging and Cardiology EKG: report reviewed, image reviewed Echo: report reviewed (TDS, EF 40-45%, mild to mod LVH, RV mildly dilated. ) Cardiac cath: report reviewed ([facility] records obtained - pt underwent LHC 05/2018 which showed nonobstructive CAD, 50% mid LAD lesion with FFR 0.89, left ventriculogram not ) - Allied health notes Allied health notes reviewed: nursing
[2018-11-19 11:25] LABS: Myeloperoxidase Antibody <1.0 AI (<1.0)
[2018-11-19] MEDS ORDERED: ANCEF/NS 1 GM/50 ML 1 GM/50 ML BAG IV ONE (14:30)
--- NOTE | 2018-11-19 14:48 | Progress Note ---
Assessment and Plan Patient alert, awake. Still has mild shortness of breath. On 2 litres O2.O2 saturation 93%. Patient not keeping his nasal O2 all the time. Stressed the importance of keeping O2 all the time.Patient goes on BIPAP during night time and PRN for shortness of breath during day time. - Patient Problems (1) Acute respiratory failure with hypoxia Current Visit: Yes Status: Acute Plan to address problem: O2 2 litres via nasal canula BIPAP during night time and Prn for shortness of breath during day time. Albuterol/atrovent aerosol treatments q 6 hours. Continue PO prednisone. Continue S/C Heparin Continue famotidine. Patient is on cefepime. (2) Acute exacerbation of CHF (congestive heart failure) Current Visit: Yes Status: Acute Qualifiers: Heart failure type: combined systolic and diastolic Qualified Code(s): I50.43 - Acute on chronic combined systolic (congestive) and diastolic (congestive) heart failure Plan to address problem: Management as per primary care and cardiology. (3) CKD (chronic kidney disease) Current Visit: Yes Status: Chronic Qualifiers: Chronic kidney disease stage: unspecified stage Qualified Code(s): N18.9 - Chronic kidney disease, unspecified Plan to address problem: Management as per primary care and nephrology. (4) COPD (chronic obstructive pulmonary disease) Current Visit: Yes Status: Chronic Qualifiers: COPD type: unspecified COPD Qualified Code(s): J44.9 - Chronic obstructive pulmonary disease, unspecified Plan to address problem: O2 2 litres via nasal canula BIPAP during night time and Prn for shortness of breath during day time. Albuterol/atrovent aerosol treatments q 6 hours. Continue PO prednisone. Continue S/C Heparin Continue famotidine. Patient is on cefepime. (5) HTN (hypertension) Current Visit: Yes Status: Chronic Qualifiers: Hypertension type: essential hypertension Qualified Code(s): I10 - Essential (primary) hypertension Plan to address problem: Management as per primary care. (6) Sarcoidosis Current Visit: No Status: Chronic Plan to address problem: MERCEDES level. Subjective Date of service: 11/19/18 Principal diagnosis: Ac on Ch Hypoxemic Resp failure; Sarcoidosis with Ac exacerbation;Chest Pain Interval history: Patient alert, awake. Still has mild shortness of breath. On 2 litres O2.O2 saturation 93%. Patient not keeping his nasal O2 all the time. Stressed the importance of keeping O2 all the time.Patient goes on BIPAP during night time and PRN for shortness of breath during day time. Objective Vital Signs - 12hr 11/19/18 11/19/18 11/19/18 05:06 09:32 09:40 Temperature 98.3 F Pulse Rate 75 75 Pulse Rate [ Anterior Bilateral Throughout] Pulse Rate [ Bilateral] Respiratory 24 Rate Respiratory Rate [Anterior Bilateral Throughout] Respiratory Rate [Bilateral ] Blood Pressure 130/76 130/76 O2 Sat by Pulse 92 93 Oximetry 11/19/18 11/19/18 11/19/18 09:43 13:19 13:26 Temperature 97.9 F Pulse Rate 80 Pulse Rate [ 84 Anterior Bilateral Throughout] Pulse Rate [ 88 Bilateral] Respiratory 20 Rate Respiratory 18 Rate [Anterior Bilateral Throughout] Respiratory 16 Rate [Bilateral ] Blood Pressure 133/79 O2 Sat by Pulse 89 91 Oximetry Constitutional: alert, other (Middle aged obeses AAM, normocephalic and atraumatic. Mild shortness of breath at rest.) Eyes: non-icteric ENT: oropharynx moist Neck: supple, no lymphadenopathy, no JVD, other (large neck circumference) Effort: mildly labored Ascultation: Bilateral: diminished breath sounds, rales (inspiratory in bases), rhonchi Percussion: Bilateral: not dull Cardiovascular: regular rate and rhythm, other (No R/M) Gastrointestinal: normoactive bowel sounds, soft, non-tender, non-distended, other (No HSM) Integumentary: normal Extremities: no cyanosis, pulses normal, no ischemia or petechiae Neurologic: normal mental status, non-focal exam, pupils equal and round, motor strength normal and Psychiatric: mood appropriate, affect normal CBC and BMP: 11/19/18 09:00 11/19/18 07:06 ABG, PT/INR, D-dimer: ABG POC ABG pH 7.437 (7.35-7.45) 11/12/18 11:42 POC ABG pCO2 53.8 (35-45) H 11/12/18 11:42 POC ABG pO2 72 (80-105) L 11/12/18 11:42 POC ABG HCO3 36.3 11/12/18 11:42 POC ABG Total CO2 38 11/12/18 11:42 POC ABG O2 Sat 94 11/12/18 11:42 PT/INR, D-dimer D-Dimer < 135.00 ng/mlDDU (0-234) 11/10/18 02:24 Abnormal lab findings: Abnormal Labs 11/09/18 11/09/18 11/10/18 23:58 23:58 02:24 WBC RBC 5.14 H Hgb 15.8 H Hct 48.6 H MCV 95 H MCHC RDW 16.6 H [place] % (Auto) 10.6 H [place] # 1.0 H Seg Neuts % (Manual) Lymphocytes % (Manual) Seg Neutrophils # Man POC ABG pH POC ABG pCO2 POC ABG pO2 Sodium Chloride Carbon Dioxide BUN Creatinine 1.6 H Glucose 103 H POC Glucose Calcium Total Creatine Kinase CK-MB (CK-2) CK-MB (CK-2) Rel Index Troponin T 0.031 H NT-Pro-B Natriuret Pep 5420 H Albumin Rawoz-1-Gxfzaympd Zpesz-8-Lajaflebj PEP Interpretation Urine WBC (Auto) Urine Creatinine Urine Total Protein 11/10/18 11/10/18 11/10/18 05:43 06:37 09:24 WBC RBC Hgb Hct MCV MCHC RDW [place] % (Auto) [place] # Seg Neuts % (Manual) Lymphocytes % (Manual) Seg Neutrophils # Man POC ABG pH 7.168 L 7.318 L POC ABG pCO2 87.7 H 57.7 H POC ABG pO2 193 H 152 H Sodium Chloride Carbon Dioxide BUN Creatinine Glucose POC Glucose Calcium Total Creatine Kinase 8 L CK-MB (CK-2) 7.8 H CK-MB (CK-2) Rel Index 97.5 H Troponin T NT-Pro-B Natriuret Pep Albumin Kqhbl-5-Hzwtskync Sruny-2-Ehhokfcey PEP Interpretation Urine WBC (Auto) Urine Creatinine Urine Total Protein 11/10/18 11/10/18 11/11/18 12:15 23:34 04:23 WBC RBC Hgb Hct MCV MCHC RDW [place] % (Auto) [place] # Seg Neuts % (Manual) Lymphocytes % (Manual) Seg Neutrophils # Man POC ABG pH 7.518 H POC ABG pCO2 POC ABG pO2 122 H Sodium Chloride Carbon Dioxide BUN Creatinine Glucose POC Glucose 130 H Calcium Total Creatine Kinase 269 H CK-MB (CK-2) 6.4 H CK-MB (CK-2) Rel Index Troponin T NT-Pro-B Natriuret Pep Albumin Mwagc-1-Flwuacxor Hlwfj-2-Kxpbplstj PEP Interpretation Urine WBC (Auto) Urine Creatinine Urine Total Protein 11/11/18 11/11/18 11/12/18 05:18 16:21 00:22 WBC RBC Hgb Hct MCV MCHC RDW [place] % (Auto) [place] # Seg Neuts % (Manual) Lymphocytes % (Manual) Seg Neutrophils # Man POC ABG pH POC ABG pCO2 49.5 H POC ABG pO2 60 L Sodium Chloride Carbon Dioxide BUN Creatinine Glucose POC Glucose 129 H 122 H Calcium Total Creatine Kinase CK-MB (CK-2) CK-MB (CK-2) Rel Index Troponin T NT-Pro-B Natriuret Pep Albumin Jhxwl-6-Jjvognzem Nwhvo-5-Tfpwwdztn PEP Interpretation Urine WBC (Auto) Urine Creatinine Urine Total Protein 11/12/18 11/12/18 11/12/18 05:43 10:13 11:42 WBC RBC Hgb Hct MCV MCHC RDW [place] % (Auto) [place] # Seg Neuts % (Manual) Lymphocytes % (Manual) Seg Neutrophils # Man POC ABG pH POC ABG pCO2 53.8 H POC ABG pO2 72 L Sodium 153 H D Chloride Carbon Dioxide 34 H BUN 36 H Creatinine 2.2 H Glucose 142 H POC Glucose 130 H Calcium Total Creatine Kinase CK-MB (CK-2) CK-MB (CK-2) Rel Index Troponin T NT-Pro-B Natriuret Pep Albumin Xajvc-9-Gbilcetsz Sskbe-2-Ylxexttlw PEP Interpretation Urine WBC (Auto) Urine Creatinine Urine Total Protein 11/12/18 11/12/18 11/12/18 12:33 17:29 23:53 WBC RBC Hgb Hct MCV MCHC RDW [place] % (Auto) [place] # Seg Neuts % (Manual) Lymphocytes % (Manual) Seg Neutrophils # Man POC ABG pH POC ABG pCO2 POC ABG pO2 Sodium Chloride Carbon Dioxide BUN Creatinine Glucose POC Glucose 121 H 150 H 138 H Calcium Total Creatine Kinase CK-MB (CK-2) CK-MB (CK-2) Rel Index Troponin T NT-Pro-B Natriuret Pep Albumin Ypkfk-4-Uhxjltvti Izfpo-1-Amzlahxha PEP Interpretation Urine WBC (Auto) Urine Creatinine Urine Total Protein 11/13/18 11/13/18 11/13/18 05:16 10:08 12:20 WBC RBC Hgb Hct MCV MCHC RDW [place] % (Auto) [place] # Seg Neuts % (Manual) Lymphocytes % (Manual) Seg Neutrophils # Man POC ABG pH POC ABG pCO2 POC ABG pO2 Sodium Chloride Carbon Dioxide 33 H BUN 40 H Creatinine 2.1 H Glucose 209 H POC Glucose 134 H Calcium Total Creatine Kinase CK-MB (CK-2) CK-MB (CK-2) Rel Index Troponin T NT-Pro-B Natriuret Pep Albumin Dmlzr-6-Qfcsffdpq Zilof-6-Onmoacwrn PEP Interpretation Urine WBC (Auto) Urine Creatinine 121.2 H Urine Total Protein 16 H 11/13/18 11/14/18 11/15/18 13:39 04:58 05:10 WBC RBC Hgb Hct MCV MCHC RDW [place] % (Auto) [place] # Seg Neuts % (Manual) Lymphocytes % (Manual) Seg Neutrophils # Man POC ABG pH POC ABG pCO2 POC ABG pO2 Sodium Chloride Carbon Dioxide 34 H 35 H BUN 40 H 32 H Creatinine 1.8 H 1.7 H Glucose 113 H 73 L POC Glucose Calcium 8.0 L 8.1 L Total Creatine Kinase CK-MB (CK-2) CK-MB (CK-2) Rel Index Troponin T NT-Pro-B Natriuret Pep Albumin 3.5 L Vlexr-8-Laldnxsid 0.4 H Nxfkq-0-Zawqadxva 1.1 H PEP Interpretation see below H Urine WBC (Auto) Urine Creatinine Urine Total Protein 11/15/18 11/15/18 11/15/18 05:10 13:59 17:06 WBC 12.5 H RBC Hgb Hct 46.9 H MCV 95 H MCHC 31 L RDW 16.0 H [place] % (Auto) [place] # Seg Neuts % (Manual) Lymphocytes % (Manual) Seg Neutrophils # Man POC ABG pH POC ABG pCO2 POC ABG pO2 Sodium Chloride Carbon Dioxide BUN Creatinine Glucose POC Glucose 128 H 156 H Calcium Total Creatine Kinase CK-MB (CK-2) CK-MB (CK-2) Rel Index Troponin T NT-Pro-B Natriuret Pep Albumin Xjpjg-0-Udoevtibg Ljkyy-0-Zovkdcmlq PEP Interpretation Urine WBC (Auto) Urine Creatinine Urine Total Protein 11/16/18 11/16/18 11/16/18 11:55 11:55 13:20 WBC 21.6 H RBC 5.14 H Hgb 15.4 H Hct 48.0 H MCV MCHC RDW 16.0 H [place] % (Auto) [place] # Seg Neuts % (Manual) Lymphocytes % (Manual) Seg Neutrophils # Man POC ABG pH POC ABG pCO2 POC ABG pO2 Sodium Chloride Carbon Dioxide 33 H BUN 32 H Creatinine 2.0 H Glucose 110 H POC Glucose Calcium Total Creatine Kinase CK-MB (CK-2) CK-MB (CK-2) Rel Index Troponin T NT-Pro-B Natriuret Pep Albumin Ogdtm-6-Ryjvbirso Zlljm-8-Fdhchgkbw PEP Interpretation Urine WBC (Auto) > 182.0 H Urine Creatinine Urine Total Protein 11/16/18 11/16/18 11/17/18 16:34 20:47 11:17 WBC RBC Hgb Hct MCV MCHC RDW [place] % (Auto) [place] # Seg Neuts % (Manual) Lymphocytes % (Manual) Seg Neutrophils # Man POC ABG pH POC ABG pCO2 POC ABG pO2 Sodium Chloride Carbon Dioxide BUN Creatinine Glucose POC Glucose 236 H 171 H 114 H Calcium Total Creatine Kinase CK-MB (CK-2) CK-MB (CK-2) Rel Index Troponin T NT-Pro-B Natriuret Pep Albumin Jcwrn-1-Xszucvsfv Ygier-2-Tcnjuobhk PEP Interpretation Urine WBC (Auto) Urine Creatinine Urine Total Protein 11/17/18 11/17/18 11/18/18 16:17 21:27 05:45 WBC RBC Hgb Hct MCV MCHC RDW [place] % (Auto) [place] # Seg Neuts % (Manual) Lymphocytes % (Manual) Seg Neutrophils # Man POC ABG pH POC ABG pCO2 POC ABG pO2 Sodium Chloride 97.9 L Carbon Dioxide BUN 35 H Creatinine 2.0 H Glucose POC Glucose 175 H 159 H Calcium Total Creatine Kinase CK-MB (CK-2) CK-MB (CK-2) Rel Index Troponin T NT-Pro-B Natriuret Pep Albumin Rwyzt-0-Enqnushsl Qkxer-0-Jbkisfliv PEP Interpretation Urine WBC (Auto) Urine Creatinine Urine Total Protein 11/18/18 11/18/18 11/19/18 16:30 21:08 07:06 WBC RBC Hgb Hct MCV MCHC RDW [place] % (Auto) [place] # Seg Neuts % (Manual) Lymphocytes % (Manual) Seg Neutrophils # Man POC ABG pH POC ABG pCO2 POC ABG pO2 Sodium Chloride Carbon Dioxide BUN 35 H Creatinine 1.9 H Glucose POC Glucose 190 H 286 H Calcium Total Creatine Kinase CK-MB (CK-2) CK-MB (CK-2) Rel Index Troponin T NT-Pro-B Natriuret Pep Albumin Ndvsd-2-Dwmmlbblf Bpdqk-9-Cuezzjdaa PEP Interpretation Urine WBC (Auto) Urine Creatinine Urine Total Protein 11/19/18 11/19/18 08:16 09:00 WBC 16.1 H RBC 5.15 H Hgb Hct 47.5 H MCV MCHC RDW 15.7 H [place] % (Auto) [place] # Seg Neuts % (Manual) 91.0 H Lymphocytes % (Manual) 8.0 L Seg Neutrophils # Man 14.7 H POC ABG pH POC ABG pCO2 POC ABG pO2 Sodium Chloride Carbon Dioxide BUN Creatinine Glucose POC Glucose 192 H Calcium Total Creatine Kinase CK-MB (CK-2) CK-MB (CK-2) Rel Index Troponin T NT-Pro-B Natriuret Pep Albumin Pjrgh-4-Xkvopkmxy Jbpgi-1-Ryxfnyymy PEP Interpretation Urine WBC (Auto) Urine Creatinine Urine Total Protein Allied health notes reviewed: nursing
[2018-11-19] MEDS ORDERED: ANCEF/NS 1 GM/50 ML 1 GM/50 ML BAG IV SCH (15:30)
[2018-11-19] MEDS: ANCEF/NS 1 GM/50 ML 1 GM/50 ML BAG IV SCH ×2 (16:00→21:47)
[2018-11-19] MEDS: SODIUM CHLORIDE FLUSH SYRINGE 10 ML IV SCH ×2 (17:58→21:48)
[2018-11-20 05:50] LABS: Calcium 8.9 mg/dL (8.4-10.2)
[2018-11-20] MEDS: MAXIPIME/NS 2 GM/100 ML 2 GM/100 ML BAG IV SCH (06:10)
[2018-11-20] MEDS: ANCEF/NS 1 GM/50 ML 1 GM/50 ML BAG IV SCH ×3 (06:17→23:22)
--- NOTE | 2018-11-20 08:05 | XRay Report ---
AP ABDOMEN: HISTORY: Kidney stone. Bilateral nephrolithiasis is demonstrated. There are approximately 5 stones in the right kidney. The largest stone measures 1.8 cm near mid pole. 3 calcifications overlie the inferior left kidney measuring up to 7 mm. No obvious calcifications overlying the course of the ureters. The intestinal gas pattern is within normal limits. There is moderate stool in the proximal colon. IMPRESSION: Bilateral nephrolithiasis as described.
[2018-11-20] MEDS: DUONEB *Not for PRN Use IH SCH ×4 (08:07→20:15)
--- NOTE | 2018-11-20 09:07 | Progress Note ---
Assessment and Plan Cultures: 11/10/2018 tracheal culture no growth to date 11/12/2018 tracheal culture upper resp gabo 11/16/2018 blood culture: E. coli 11/17/2018 blood culture: No growth to date 11/16/2018 urine: E. coli A/P: 53 y/o male with history of Sarcoidosis home O2 dependant, CHF, HTN, bilateral stones, recent pneumonia treated at [facility], admitted on 11/09/2018 due to 3 day history of dry cough, progressive SOB and sharp chest pain: 1) Sepsis: Improved, etio. likely complicated UTI +/- pneumonia 2) Gram negative bacteremia, source likely complicated UTI with known bilateral stones causing hydronephrosis. +gross hematuria and back pain. UA 11/16 c/u UTI. Renal US 11/14 showed right obstructive hydronephrosis and bilateral stones- H ematuria is normal until patient is stone free - Right ESWL 11/21/18 -urology following 3) Presumed RUL pneumonia: HAP, recent pneumonia treated at [facility]. HIV neg. Repeat CXR 11/16 showed possible RUL pneumonia, doubt pneumonia clinically. 4) Recent Respiratory failure: better - likely from CHF exacerbation 5) JESI: Resolved. antibiotics renally dosed Plan: Continue cefazolin 1 gm q 8 CBC ordered for tomorrow [facility] M: [phone] O:[phone] Subjective Date of service: 11/20/18 Principal diagnosis: Ac on Ch Hypoxemic Resp failure; Sarcoidosis with Acexacerbation;Chest Pain Interval history: Patient seen and examined. Stated that he continues to have right lower back pain. Denies fevers, rashes or SOB. Objective - Exam Narrative Exam: Constitutional: Alert, cooperative. mild distress, RLQ Head, Ears, Nose: Normocephalic, atraumatic. External ears, nose normal Eyes: Conjunctivae/corneas clear. No icterus. No ptosis. Neck: Supple, no meningeal signs Oral: no ulcers, no thrush Cardiovascular: S1, S2 normal. Respiratory: b/l basal crackles GI: Soft, non-tender; bowel sounds normal. No peritoneal signs. bilateral CVA tenderness. Musculoskeletal: No pedal edema, no cyanosis. Skin: No rash or abscess Hem/Lymphatic: No palpable cervical or supraclavicular nodes. No lymphangitis Psych: Mood ok. Affect normal Neurological: Awake, alert, oriented. No gross abnormality - Constitutional Vitals: Vital Signs Temp Pulse Resp BP Pulse Ox 97.8 F 82 16 136/78 94 11/20/18 06:31 11/20/18 08:07 11/20/18 08:07 11/20/18 06:31 11/20/18 08:44 Temperature -Last 24 Hours Temperature 97.8 F Temperature 97.7 F Temperature 97.8 F Temperature 97.9 F - Labs CBC & Chem 7: 11/19/18 09:00 11/20/18 04:38 Labs: Abnormal lab results 11/19/18 11/19/18 11/19/18 Range/Units 09:00 16:57 22:42 WBC 16.1 H (4.5-11.0) K/mm3 RBC 5.15 H (3.65-5.03) M/mm3 Hct 47.5 H (35.5-45.6) % RDW 15.7 H (13.2-15.2) % Seg Neuts % (Manual) 91.0 H (40.0-70.0) % Lymphocytes % (Manual) 8.0 L (13.4-35.0) % Seg Neutrophils # Man 14.7 H (1.8-7.7) K/mm3 Chloride (98-107) mmol/L Carbon Dioxide (22-30) mmol/L BUN (9-20) mg/dL POC Glucose 165 H 175 H (70-105) 11/20/18 11/20/18 Range/Units 04:38 08:07 WBC (4.5-11.0) K/mm3 RBC (3.65-5.03) M/mm3 Hct (35.5-45.6) % RDW (13.2-15.2) % Seg Neuts % (Manual) (40.0-70.0) % Lymphocytes % (Manual) (13.4-35.0) % Seg Neutrophils # Man (1.8-7.7) K/mm3 Chloride 97.6 L (98-107) mmol/L Carbon Dioxide 31 H (22-30) mmol/L BUN 34 H (9-20) mg/dL POC Glucose 67 L (70-105)
[2018-11-20] MEDS: PEPCID PO SCH (09:12)
[2018-11-20] MEDS: BABY ASPIRIN PO SCH (09:12)
[2018-11-20] MEDS: DELTASONE PO SCH (09:12)
[2018-11-20] MEDS: LASIX PO SCH (09:12)
[2018-11-20] MEDS: LOPRESSOR PO SCH ×2 (09:13→23:23)
[2018-11-20] MEDS: HEPARIN SUB-Q SCH ×2 (09:13→23:21)
[2018-11-20] MEDS: SODIUM CHLORIDE FLUSH SYRINGE 10 ML IV SCH ×2 (09:14→23:22)
--- NOTE | 2018-11-20 10:23 | Progress Note ---
Assessment and Plan Assessment and plan: Patient is a 53 y/o BM with a history of Sarcoidosis, kidney stones, chronic hypoxic respiratory failure on 2 liters of O2 at home, CHF, HTN and recent pneumonia with Intubation at [facility] who presented to [facility] ED with cough, SOB and chest pains. He was found to have pulse ox of only 64%. He was placed on bipap, which he failed requiring intubation. He was extubated on 11/12/18. He did not want to go home on 11/15/18 due to issues at home (he told me that he was having issues with girlfriend at home), so he appealed his discharge at the last minute after (he received discharge instructions) his peripheral IV line and tele were removed. Then he spiked a fever overnight, refused Tylenol, refused receiving another peripheral IV and refused telemetry. Counseling done. He agreed to cooperate. * pCXR Impression: Subtle opacity in the right upper that may represent developing pneumonia complicated UTI with sepsis and developing RUL aspiration pneumonia: ID is now following and adjusted ABx Acute on Chronic hypoxic respiratory failure s/p Intubation on admission and extubated 11/12/18: trying to wean down to 2 liters Acute on Chronic exacerbation of systolic heart failure: on oral lasix, n, Cardiology is following, ECHO reviewed AE COPD: continue Duoneb tx and IV solumedrol weaned to oral steroids. ARF, vasomotor nephrology +ATN, he did develop hypotension post intubation, see ED physician addendum: Nephrology is following HTN (hypertension) with episode of hypotension: monitor bp closely, advance bp medications as tolerated Sarcoidosis: on steroids Nephrolithiasis, right hydronephrosis: managed by Dr. Bonner Obesity BMI 41.5 Contact Urology again due to gross hematuria and back pains, Right ESWL on . Cardiology did pre-op assessment==>moderate risk with no contraindication to proceed for Cysto tomorrow. History Interval history: Patient was seen and examined. Follow-up on current diagnosis respiratory failure. Still febrile,. Imaging, nursing note, chart, labs and old chart reviewed. Discussed with patient. s/p extubation 11/12/18. Hospitalist Physical - Physical exam Narrative exam: Gen: WDWN, NAD, Awake, Alert, Orientated HEENT: NCAT, EOMI, PERRL, OP clear Neck: supple, no adenopathy, no thyromegaly, no JVD CVS/Heart: RRR, normal S1S2, pulses present bilaterally Chest/Lungs: diminished bs bilateral, Symmetrical chest expansion, good air entry bilaterally GI/Abdomen: soft, NTND, good bowel sounds, no guarding or rebound /Bladder: no suprapubic tenderness, +bilateral CVA tenderness but no paraspinal tenderness Extermity/Skin: no c/c/e, no obvious rash MSK: FROM x 4 Neuro: CN 2-12 grossly intact, no new focal deficits Psych: calm - Constitutional Vitals: Temp Pulse Resp BP Pulse Ox 97.8 F 91 H 16 129/79 94 11/20/18 06:31 11/20/18 09:13 11/20/18 08:07 11/20/18 09:13 11/20/18 08:44 General appearance: Present: no acute distress Results - Labs CBC & Chem 7: 11/19/18 09:00 11/20/18 04:38 Labs: Laboratory Last Values WBC 16.1 K/mm3 (4.5-11.0) H 11/19/18 09:00 RBC 5.15 M/mm3 (3.65-5.03) H 11/19/18 09:00 Hgb 15.2 gm/dl (11.8-15.2) 11/19/18 09:00 Hct 47.5 % (35.5-45.6) H 11/19/18 09:00 MCV 92 fl (84-94) 11/19/18 09:00 MCH 30 pg (28-32) 11/19/18 09:00 MCHC 32 % (32-34) 11/19/18 09:00 RDW 15.7 % (13.2-15.2) H 11/19/18 09:00 Plt Count 197 K/mm3 (140-440) 11/19/18 09:00 Lymph % (Auto) 21.1 % (13.4-35.0) 11/09/18 23:58 [place] % (Auto) 10.6 % (0.0-7.3) H 11/09/18 23:58 Eos % (Auto) 3.8 % (0.0-4.3) 11/09/18 23:58 Baso % (Auto) 0.9 % (0.0-1.8) 11/09/18 23:58 Lymph # 2.0 K/mm3 (1.2-5.4) 11/09/18 23:58 [place] # 1.0 K/mm3 (0.0-0.8) H 11/09/18 23:58 Eos # 0.3 K/mm3 (0.0-0.4) 11/09/18 23:58 Baso # 0.1 K/mm3 (0.0-0.1) 11/09/18 23:58 Add Manual Diff Complete 11/19/18 09:00 Total Counted 100 11/19/18 09:00 Seg Neutrophils % 63.6 % (40.0-70.0) 11/09/18 23:58 Seg Neuts % (Manual) 91.0 % (40.0-70.0) H 11/19/18 09:00 Band Neutrophils % 0 % 11/19/18 09:00 Lymphocytes % (Manual) 8.0 % (13.4-35.0) L 11/19/18 09:00 Reactive Lymphs % (Man) 0 % 11/19/18 09:00 Monocytes % (Manual) 1.0 % (0.0-7.3) 11/19/18 09:00 Eosinophils % (Manual) 0 % (0.0-4.3) 11/19/18 09:00 Basophils % (Manual) 0 % (0.0-1.8) 11/19/18 09:00 Metamyelocytes % 0 % 11/19/18 09:00 Myelocytes % 0 % 11/19/18 09:00 Promyelocytes % 0 % 11/19/18 09:00 Blast Cells % 0 % 11/19/18 09:00 Nucleated RBC % Not Reportable 11/19/18 09:00 Seg Neutrophils # 5.9 K/mm3 (1.8-7.7) 11/09/18 23:58 Seg Neutrophils # Man 14.7 K/mm3 (1.8-7.7) H 11/19/18 09:00 Band Neutrophils # 0.0 K/mm3 11/19/18 09:00 Lymphocytes # (Manual) 1.3 K/mm3 (1.2-5.4) 11/19/18 09:00 Abs React Lymphs (Man) 0.0 K/mm3 11/19/18 09:00 Monocytes # (Manual) 0.2 K/mm3 (0.0-0.8) 11/19/18 09:00 Eosinophils # (Manual) 0.0 K/mm3 (0.0-0.4) 11/19/18 09:00 Basophils # (Manual) 0.0 K/mm3 (0.0-0.1) 11/19/18 09:00 Metamyelocytes # 0.0 K/mm3 11/19/18 09:00 Myelocytes # 0.0 K/mm3 11/19/18 09:00 Promyelocytes # 0.0 K/mm3 11/19/18 09:00 Blast Cells # 0.0 K/mm3 11/19/18 09:00 WBC Morphology Not Reportable 11/19/18 09:00 Hypersegmented Neuts Not Reportable 11/19/18 09:00 Hyposegmented Neuts Not Reportable 11/19/18 09:00 Hypogranular Neuts Not Reportable 11/19/18 09:00 Smudge Cells Not Reportable 11/19/18 09:00 Toxic Granulation Not Reportable 11/19/18 09:00 Toxic Vacuolation Not Reportable 11/19/18 09:00 Dohle Bodies Not Reportable 11/19/18 09:00 Pelger-Huet Anomaly Not Reportable 11/19/18 09:00 Garry Rods Not Reportable 11/19/18 09:00 Platelet Estimate Consistent w auto 11/19/18 09:00 Clumped Platelets Not Reportable 11/19/18 09:00 Plt Clumps, EDTA Not Reportable 11/19/18 09:00 Large Platelets Not Reportable 11/19/18 09:00 Giant Platelets Not Reportable 11/19/18 09:00 Platelet Satelliting Not Reportable 11/19/18 09:00 Plt Morphology Comment Not Reportable 11/19/18 09:00 RBC Morphology Not Reportable 11/19/18 09:00 Dimorphic RBCs Not Reportable 11/19/18 09:00 Polychromasia Not Reportable 11/19/18 09:00 Hypochromasia Not Reportable 11/19/18 09:00 Poikilocytosis 1+ 11/19/18 09:00 Anisocytosis 1+ 11/19/18 09:00 Microcytosis Not Reportable 11/19/18 09:00 Macrocytosis Not Reportable 11/19/18 09:00 Spherocytes Not Reportable 11/19/18 09:00 Pappenheimer Bodies Not Reportable 11/19/18 09:00 Sickle Cells Not Reportable 11/19/18 09:00 Target Cells Not Reportable 11/19/18 09:00 Tear Drop Cells Not Reportable 11/19/18 09:00 Ovalocytes Few 11/19/18 09:00 Helmet Cells Not Reportable 11/19/18 09:00 Espitia-Jarratt Bodies Not Reportable 11/19/18 09:00 [place] Rings Not Reportable 11/19/18 09:00 [place] Cells Not Reportable 11/19/18 09:00 Bite Cells Not Reportable 11/19/18 09:00 Crenated Cell Not Reportable 11/19/18 09:00 Elliptocytes Not Reportable 11/19/18 09:00 Acanthocytes (Spur) Not Reportable 11/19/18 09:00 Rouleaux Not Reportable 11/19/18 09:00 Hemoglobin C Crystals Not Reportable 11/19/18 09:00 Schistocytes Not Reportable 11/19/18 09:00 Malaria parasites Not Reportable 11/19/18 09:00 Francois Bodies Not Reportable 11/19/18 09:00 Hem Pathologist Commnt No 11/19/18 09:00 D-Dimer < 135.00 ng/mlDDU (0-234) 11/10/18 02:24 POC ABG pH 7.437 (7.35-7.45) 11/12/18 11:42 POC ABG pCO2 53.8 (35-45) H 11/12/18 11:42 POC ABG pO2 72 (80-105) L 11/12/18 11:42 POC ABG HCO3 36.3 11/12/18 11:42 POC ABG Total CO2 38 11/12/18 11:42 POC ABG O2 Sat 94 11/12/18 11:42 POC ABG Base Excess 12 11/12/18 11:42 FiO2 45 % 11/12/18 11:42 Sodium 140 mmol/L (137-145) 11/20/18 04:38 Potassium 4.4 mmol/L (3.6-5.0) 11/20/18 04:38 Chloride 97.6 mmol/L (98-107) L 11/20/18 04:38 Carbon Dioxide 31 mmol/L (22-30) H 11/20/18 04:38 Anion Gap 16 mmol/L 11/20/18 04:38 BUN 34 mg/dL (9-20) H 11/20/18 04:38 Creatinine 1.5 mg/dL (0.8-1.5) 11/20/18 04:38 Estimated GFR 59 ml/min 11/20/18 04:38 BUN/Creatinine Ratio 23 % 11/20/18 04:38 Glucose 96 mg/dL (75-100) 11/20/18 04:38 POC Glucose 94 (70-105) 11/20/18 08:30 Calcium 8.9 mg/dL (8.4-10.2) 11/20/18 04:38 Total Creatine Kinase 269 units/L (55-170) H 11/10/18 12:15 CK-MB (CK-2) 6.4 ng/mL (0.0-4.0) H 11/10/18 12:15 CK-MB (CK-2) Rel Index 2.3 (0-4) 11/10/18 12:15 Troponin T 0.020 ng/mL (0.00-0.029) 11/10/18 12:15 NT-Pro-B Natriuret Pep 5420 pg/mL (0-900) H 11/10/18 02:24 Serum Total Protein 7.0 g/dL (6.1-8.1) 11/13/18 13:39 Albumin 3.5 g/dL (3.8-4.8) L 11/13/18 13:39 Gavzf-0-Akexwegxt 0.4 g/dL (0.2-0.3) H 11/13/18 13:39 Onvzl-1-Zzqnekgwh 1.1 g/dL (0.5-0.9) H 11/13/18 13:39 Beta Globulins 0.5 g/dL (0.2-0.5) 11/13/18 13:39 Gamma Globulins 1.1 g/dL (0.8-1.7) 11/13/18 13:39 Abnorm Protein Band 1 see below 11/13/18 13:39 PEP Interpretation see below H 11/13/18 13:39 Triglycerides 86 mg/dL (2-149) 11/09/18 23:58 Cholesterol 166 mg/dL (50-199) 11/09/18 23:58 LDL Cholesterol Direct 100 mg/dL (50-130) 11/09/18 23:58 HDL Cholesterol 57 mg/dL (40-59) 11/09/18 23:58 Cholesterol/HDL Ratio 2.91 % 11/09/18 23:58 Urine Color [place] (Yellow) 11/16/18 13:20 Urine Turbidity Turbid (Clear) 11/16/18 13:20 Urine pH 6.0 (5.0-7.0) 11/16/18 13:20 Ur Specific [place] 1.009 (1.003-1.030) 11/16/18 13:20 Urine Protein 100 mg/dl mg/dL (Negative) 11/16/18 13:20 Urine Glucose (UA) 50 mg/dL (Negative) 11/16/18 13:20 Urine Ketones Neg mg/dL (Negative) 11/16/18 13:20 Urine Blood Lg (Negative) 11/16/18 13:20 Urine Nitrite Pos (Negative) 11/16/18 13:20 Urine Bilirubin Neg (Negative) 11/16/18 13:20 Urine Urobilinogen < 2.0 mg/dL (<2.0) 11/16/18 13:20 Ur Leukocyte Esterase Lg (Negative) 11/16/18 13:20 Urine WBC (Auto) > 182.0 /HPF (0.0-6.0) H 11/16/18 13:20 Urine RBC (Auto) > 182.0 /HPF (0.0-6.0) 11/16/18 13:20 Urine Bacteria (Auto) 4+ /HPF (Negative) 11/16/18 13:20 Urine WBC Clumps 3+ /HPF 11/16/18 13:20 Ur Transition Epith Cell 5 /HPF 11/16/18 13:20 Urine Mucus Few /HPF 11/16/18 13:20 Urine Creatinine 121.2 mg/dL (0.1-20.0) H 11/13/18 12:20 Urine Sodium 33 mmol/L 11/13/18 12:20 Urine Total Protein 16 mg/dL (5-11.8) H 11/13/18 12:20 KIRSTEN Screen Negative (Negative) 11/13/18 13:39 Proteinase 3 (PR3) Ab <1.0 AI (<1.0) 11/13/18 13:39 Myeloperoxidase Ab <1.0 AI (<1.0) 11/13/18 13:39 Complement C3 158 mg/dL (82-185) 11/13/18 13:39 Complement C4 35 mg/dL (15-53) 11/13/18 13:39 Hep Bs Antigen Non-reactive (Negative) 11/13/18 13:39 Hepatitis C Antibody Non-reactive (NonReactive) 11/13/18 13:39 HIV 1&2 Antibody Rapid Non react (Non React) 11/13/18 13:39 HIV P24 Antigen Non react (Non React) 11/13/18 13:39 Nutrition/Malnutrition Assess - Dietary Evaluation Nutrition/Malnutrition Findings: Nutrition Notes Start: 11/11/18 15:24 Freq: Status: Active Protocol: Document 11/18/18 14:57 OL (Rec: 11/18/18 14:58 OL [facility]-[id number]) Nutrition Notes Weight 118.35 kg Subjective/Other Information Wt. error noted in chart. Wt. corrected to reflect approriate value. Nutrition Intervention Revisit per MD consult or patient Sign Off request:
--- NOTE | 2018-11-20 11:03 | Progress Note ---
Assessment and Plan Acute on chronic hypoxic respiratory failure/sarcoidosis/recent PNA/NOY/? COPD Extubated. Per pulmonary. 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 Convert IV lasix to PO 40mg daily. [facility] records obtained - pt underwent C 05/2018 which showed nonobstructive CAD, 50% mid LAD lesion with FFR 0.89, left ventriculogram not performed. Cont lopressor - pt with ? COPD and restrictive lung disease. Consider initiation of ACEI/ARB if renal indices permit. Nonobstructive CAD JESI on ? CKD Nephrology following. Renal U/S showed right hydronephrosis, CT pending. Chest pain Currently resolved. Pt underwent C 05/2018 which showed nonobstructive CAD, 50% mid LAD lesion with FFR 0.89 Troponins minimally elevated, negative for AMI, ECG with no acute ischemic changes. RBBB HTN Cont lopressor and titrate as tolerated. Obesity Nephrolithiasis / right hydronephrosis / gross hematuria For ESWL on per urology. Currently stable cardiac status. Pt is currently at moderate cardiovascular risk for contemplated urological procedure. No current cardiac contraindications. The patient has been seen in conjunction with Dr. MEGHANA Villegas who agrees with the assessment and plan of care. Subjective Date of service: 11/20/18 Principal diagnosis: Ac on Ch Hypoxemic Resp failure; Sarcoidosis with Acexacerbation;Chest Pain Interval history: pt resting in bed, no current cardiac complaints. Objective Last Vital Signs Temp 97.8 F 11/20/18 06:31 Pulse 91 H 11/20/18 09:13 Resp 16 11/20/18 08:07 BP 129/79 11/20/18 09:13 Pulse Ox 94 11/20/18 08:44 - Physical Examination General: No Apparent Distress HEENT: Positive: PERRL Neck: Positive: neck supple, trachea midline Cardiac: Positive: Reg Rate and Rhythm, S1/S2 Lungs: Positive: Decreased Breath Sounds Neuro: Positive: Grossly Intact, Cranial Nerve 2-12 Intact Abdomen: Positive: Unremarkable Skin: Positive: Clear Extremities: Absent: edema - Labs and Meds Comprehensive Metabolic Panel 11/20/18 Range/Units 04:38 Sodium 140 (137-145) mmol/L Potassium 4.4 (3.6-5.0) mmol/L Chloride 97.6 L (98-107) mmol/L Carbon Dioxide 31 H (22-30) mmol/L BUN 34 H (9-20) mg/dL Creatinine 1.5 (0.8-1.5) mg/dL Glucose 96 (75-100) mg/dL Calcium 8.9 (8.4-10.2) mg/dL - Imaging and Cardiology EKG: report reviewed, image reviewed Echo: report reviewed (TDS, EF 40-45%, mild to mod LVH, RV mildly dilated. ) Cardiac cath: report reviewed ([facility] records obtained - pt underwent [facility] 05/2018 which showed nonobstructive CAD, 50% mid LAD lesion with FFR 0.89, left ventriculogram not ) - Telemetry EKG Rhythm: Sinus Rhythm - Allied health notes Allied health notes reviewed: nursing
--- NOTE | 2018-11-20 15:47 | Anesthesia Consultation ---
Anesthesia Consult and Med Hx Date of service: 11/20/18 - Airway Anesthetic Teeth Evaluation: Good, Chipped ROM Head & Neck: Adequate Mental/Hyoid Distance: Adequate Mallampati Class: Class II Intubation Access Assessment: Probably Good - Pre-Operative Health Status ASA Pre-Surgery Classification: ASA4 Proposed Anesthetic Plan: General - Pulmonary Hx Asthma: Yes Hx Respiratory Symptoms: Yes (Sarcoidosis; Pneumonia; SOB; ) COPD: No Home Oxygen Therapy: Yes Hx Pneumonia: Yes - Cardiovascular System Hx Hypertension: Yes Hx Coronary Artery Disease: Yes (LAD 50% lesion; CHF, EF 40-45%, moderate LVH) - Endocrine Hx Renal Disease: Yes (no dialysis) Hx End Stage Renal Disease: No - Additional Comments Anesthesia Medical History Comments: Home O2 2L/min; Recent intubation on 11/10/18 due to acute reaspiratory distress and extubated on 11/12/18, on BiPAP at night and prn during the day per pulmonology. Will wait to clarify with Pulmonology on clearance for surgery tomorrow.
--- NOTE | 2018-11-20 19:02 | Progress Note ---
Assessment and Plan Patient alert, awake. Still has mild shortness of breath. On 2 litres O2.O2 saturation 92%. Patient not keeping his nasal O2 all the time. Stressed the importance of keeping O2 all the time.Patient goes on BIPAP during night time and PRN for shortness of breath during day time. Anesthesia called me Patient scheduled for lithotrypsy tomorrow. Told them Hold it for tomorrow. Obtaining ABGs, Chest xray PA and Lateral, Bed side spirometry, CBC,CMP, PT with INR and PTT. Recommend incentive spirometry. - Patient Problems (1) Acute respiratory failure with hypoxia Current Visit: Yes Status: Acute Plan to address problem: O2 2 litres via nasal canula BIPAP during night time and Prn for shortness of breath during day time. Albuterol/atrovent aerosol treatments q 6 hours. Continue PO prednisone. Continue S/C Heparin Continue famotidine. Patient is on cefepime. (2) Acute exacerbation of CHF (congestive heart failure) Current Visit: Yes Status: Acute Qualifiers: Heart failure type: combined systolic and diastolic Qualified Code(s): I50.43 - Acute on chronic combined systolic (congestive) and diastolic (congestive) heart failure Plan to address problem: Management as per primary care and cardiology. (3) CKD (chronic kidney disease) Current Visit: Yes Status: Chronic Qualifiers: Chronic kidney disease stage: unspecified stage Qualified Code(s): N18.9 - Chronic kidney disease, unspecified Plan to address problem: Management as per primary care and nephrology. (4) COPD (chronic obstructive pulmonary disease) Current Visit: Yes Status: Chronic Qualifiers: COPD type: unspecified COPD Qualified Code(s): J44.9 - Chronic obstructive pulmonary disease, unspecified Plan to address problem: O2 2 litres via nasal canula BIPAP during night time and Prn for shortness of breath during day time. Albuterol/atrovent aerosol treatments q 6 hours. Continue PO prednisone. Continue S/C Heparin Continue famotidine. Patient is on cefepime. (5) HTN (hypertension) Current Visit: Yes Status: Chronic Qualifiers: Hypertension type: essential hypertension Qualified Code(s): I10 - Essential (primary) hypertension Plan to address problem: Management as per primary care. (6) Sarcoidosis Current Visit: No Status: Chronic Plan to address problem: MERCEDES level. Subjective Date of service: 11/20/18 Principal diagnosis: Ac on Ch Hypoxemic Resp failure; Sarcoidosis with exacerbation;Chest Pain Interval history: Patient alert, awake. Still has mild shortness of breath. On 2 litres O2.O2 saturation 92%. Patient not keeping his nasal O2 all the time. Stressed the importance of keeping O2 all the time.Patient goes on BIPAP during night time and PRN for shortness of breath during day time. Anesthesia called me Patient scheduled for lithotrypsy tomorrow. Told them Hold it for tomorrow. Obtaining ABGs, Chest xray PA and Lateral, Bed side spirometry, CBC,CMP, PT with INR and PTT. Recommend incentive spirometry. Objective Vital Signs - 12hr 11/20/18 11/20/18 11/20/18 08:07 08:44 09:10 Temperature Pulse Rate Pulse Rate [ 82 Anterior Bilateral Throughout] Pulse Rate [ 86 Bilateral] Respiratory Rate Respiratory 16 Rate [Anterior Bilateral Throughout] Respiratory 16 Rate [Bilateral ] Blood Pressure 129/79 Blood Pressure [Left] O2 Sat by Pulse 94 Oximetry 11/20/18 11/20/18 11/20/18 09:13 11:56 12:56 Temperature 98.1 F Pulse Rate 91 H 68 Pulse Rate [ 84 Anterior Bilateral Throughout] Pulse Rate [ 88 Bilateral] Respiratory 20 Rate Respiratory 16 Rate [Anterior Bilateral Throughout] Respiratory 16 Rate [Bilateral ] Blood Pressure 129/79 155/89 Blood Pressure [Left] O2 Sat by Pulse 92 Oximetry 11/20/18 11/20/18 17:56 18:02 Temperature 98.5 F Pulse Rate 88 Pulse Rate [ Anterior Bilateral Throughout] Pulse Rate [ Bilateral] Respiratory 18 Rate Respiratory Rate [Anterior Bilateral Throughout] Respiratory Rate [Bilateral ] Blood Pressure 215/124 Blood Pressure 143/91 [Left] O2 Sat by Pulse 92 Oximetry Constitutional: no acute distress, alert, other (Middle aged obeses AAM, normocephalic and atraumati) Eyes: non-icteric ENT: oropharynx moist, other (extubated) Neck: supple, no lymphadenopathy, no JVD, other (large neck circumference) Effort: mildly labored Ascultation: Bilateral: diminished breath sounds, rales (inspiratory in bases), rhonchi Percussion: Bilateral: not dull Cardiovascular: regular rate and rhythm, other (No R/M) Gastrointestinal: normoactive bowel sounds, soft, non-tender, non-distended, other (No HSM) Integumentary: normal Extremities: no cyanosis, pulses normal, no ischemia or petechiae Neurologic: normal mental status, non-focal exam, pupils equal and round, motor strength normal and Psychiatric: mood appropriate, affect normal CBC and BMP: 11/19/18 09:00 11/20/18 04:38 ABG, PT/INR, D-dimer: ABG POC ABG pH 7.437 (7.35-7.45) 11/12/18 11:42 POC ABG pCO2 53.8 (35-45) H 11/12/18 11:42 POC ABG pO2 72 (80-105) L 11/12/18 11:42 POC ABG HCO3 36.3 11/12/18 11:42 POC ABG Total CO2 38 11/12/18 11:42 POC ABG O2 Sat 94 11/12/18 11:42 PT/INR, D-dimer D-Dimer < 135.00 ng/mlDDU (0-234) 11/10/18 02:24 Abnormal lab findings: Abnormal Labs 11/09/18 11/09/18 11/10/18 23:58 23:58 02:24 WBC RBC 5.14 H Hgb 15.8 H Hct 48.6 H MCV 95 H MCHC RDW 16.6 H [place] % (Auto) 10.6 H [place] # 1.0 H Seg Neuts % (Manual) Lymphocytes % (Manual) Seg Neutrophils # Man POC ABG pH POC ABG pCO2 POC ABG pO2 Sodium Chloride Carbon Dioxide BUN Creatinine 1.6 H Glucose 103 H POC Glucose Calcium Total Creatine Kinase CK-MB (CK-2) CK-MB (CK-2) Rel Index Troponin T 0.031 H NT-Pro-B Natriuret Pep 5420 H Albumin Iyzgz-3-Fwiuolhou Ximfr-0-Sznwfrmty PEP Interpretation Urine WBC (Auto) Urine Creatinine Urine Total Protein 11/10/18 11/10/18 11/10/18 05:43 06:37 09:24 WBC RBC Hgb Hct MCV MCHC RDW [place] % (Auto) [place] # Seg Neuts % (Manual) Lymphocytes % (Manual) Seg Neutrophils # Man POC ABG pH 7.168 L 7.318 L POC ABG pCO2 87.7 H 57.7 H POC ABG pO2 193 H 152 H Sodium Chloride Carbon Dioxide BUN Creatinine Glucose POC Glucose Calcium Total Creatine Kinase 8 L CK-MB (CK-2) 7.8 H CK-MB (CK-2) Rel Index 97.5 H Troponin T NT-Pro-B Natriuret Pep Albumin Ndvni-5-Thczvnxip Cnvwg-5-Kxlwfawei PEP Interpretation Urine WBC (Auto) Urine Creatinine Urine Total Protein 11/10/18 11/10/18 11/11/18 12:15 23:34 04:23 WBC RBC Hgb Hct MCV MCHC RDW [place] % (Auto) [place] # Seg Neuts % (Manual) Lymphocytes % (Manual) Seg Neutrophils # Man POC ABG pH 7.518 H POC ABG pCO2 POC ABG pO2 122 H Sodium Chloride Carbon Dioxide BUN Creatinine Glucose POC Glucose 130 H Calcium Total Creatine Kinase 269 H CK-MB (CK-2) 6.4 H CK-MB (CK-2) Rel Index Troponin T NT-Pro-B Natriuret Pep Albumin Zpcoo-8-Lbihhhjfg Kforr-4-Nrauocblo PEP Interpretation Urine WBC (Auto) Urine Creatinine Urine Total Protein 11/11/18 11/11/18 11/12/18 05:18 16:21 00:22 WBC RBC Hgb Hct MCV MCHC RDW [place] % (Auto) [place] # Seg Neuts % (Manual) Lymphocytes % (Manual) Seg Neutrophils # Man POC ABG pH POC ABG pCO2 49.5 H POC ABG pO2 60 L Sodium Chloride Carbon Dioxide BUN Creatinine Glucose POC Glucose 129 H 122 H Calcium Total Creatine Kinase CK-MB (CK-2) CK-MB (CK-2) Rel Index Troponin T NT-Pro-B Natriuret Pep Albumin Uzhom-2-Fvoprqyam Ebtks-3-Dxeemmelu PEP Interpretation Urine WBC (Auto) Urine Creatinine Urine Total Protein 11/12/18 11/12/18 11/12/18 05:43 10:13 11:42 WBC RBC Hgb Hct MCV MCHC RDW [place] % (Auto) [place] # Seg Neuts % (Manual) Lymphocytes % (Manual) Seg Neutrophils # Man POC ABG pH POC ABG pCO2 53.8 H POC ABG pO2 72 L Sodium 153 H D Chloride Carbon Dioxide 34 H BUN 36 H Creatinine 2.2 H Glucose 142 H POC Glucose 130 H Calcium Total Creatine Kinase CK-MB (CK-2) CK-MB (CK-2) Rel Index Troponin T NT-Pro-B Natriuret Pep Albumin Qpmhi-6-Hqpxgjwdc Kkvyh-6-Asytafmqe PEP Interpretation Urine WBC (Auto) Urine Creatinine Urine Total Protein 11/12/18 11/12/18 11/12/18 12:33 17:29 23:53 WBC RBC Hgb Hct MCV MCHC RDW [place] % (Auto) [place] # Seg Neuts % (Manual) Lymphocytes % (Manual) Seg Neutrophils # Man POC ABG pH POC ABG pCO2 POC ABG pO2 Sodium Chloride Carbon Dioxide BUN Creatinine Glucose POC Glucose 121 H 150 H 138 H Calcium Total Creatine Kinase CK-MB (CK-2) CK-MB (CK-2) Rel Index Troponin T NT-Pro-B Natriuret Pep Albumin Fafjs-2-Jdccoyvjz Ugblo-1-Pzppdqqtm PEP Interpretation Urine WBC (Auto) Urine Creatinine Urine Total Protein 11/13/18 11/13/18 11/13/18 05:16 10:08 12:20 WBC RBC Hgb Hct MCV MCHC RDW [place] % (Auto) [place] # Seg Neuts % (Manual) Lymphocytes % (Manual) Seg Neutrophils # Man POC ABG pH POC ABG pCO2 POC ABG pO2 Sodium Chloride Carbon Dioxide 33 H BUN 40 H Creatinine 2.1 H Glucose 209 H POC Glucose 134 H Calcium Total Creatine Kinase CK-MB (CK-2) CK-MB (CK-2) Rel Index Troponin T NT-Pro-B Natriuret Pep Albumin Pcutg-4-Wspccweyx Qzzcd-4-Gedubkpuq PEP Interpretation Urine WBC (Auto) Urine Creatinine 121.2 H Urine Total Protein 16 H 11/13/18 11/14/18 11/15/18 13:39 04:58 05:10 WBC RBC Hgb Hct MCV MCHC RDW [place] % (Auto) [place] # Seg Neuts % (Manual) Lymphocytes % (Manual) Seg Neutrophils # Man POC ABG pH POC ABG pCO2 POC ABG pO2 Sodium Chloride Carbon Dioxide 34 H 35 H BUN 40 H 32 H Creatinine 1.8 H 1.7 H Glucose 113 H 73 L POC Glucose Calcium 8.0 L 8.1 L Total Creatine Kinase CK-MB (CK-2) CK-MB (CK-2) Rel Index Troponin T NT-Pro-B Natriuret Pep Albumin 3.5 L Pfumw-9-Iitpbmmji 0.4 H Gzxql-3-Gdfpoacqy 1.1 H PEP Interpretation see below H Urine WBC (Auto) Urine Creatinine Urine Total Protein 11/15/18 11/15/18 11/15/18 05:10 13:59 17:06 WBC 12.5 H RBC Hgb Hct 46.9 H MCV 95 H MCHC 31 L RDW 16.0 H [place] % (Auto) [place] # Seg Neuts % (Manual) Lymphocytes % (Manual) Seg Neutrophils # Man POC ABG pH POC ABG pCO2 POC ABG pO2 Sodium Chloride Carbon Dioxide BUN Creatinine Glucose POC Glucose 128 H 156 H Calcium Total Creatine Kinase CK-MB (CK-2) CK-MB (CK-2) Rel Index Troponin T NT-Pro-B Natriuret Pep Albumin Qetik-3-Xwvfeejey Zcnun-0-Iirtrennk PEP Interpretation Urine WBC (Auto) Urine Creatinine Urine Total Protein 11/16/18 11/16/18 11/16/18 11:55 11:55 13:20 WBC 21.6 H RBC 5.14 H Hgb 15.4 H Hct 48.0 H MCV MCHC RDW 16.0 H [place] % (Auto) [place] # Seg Neuts % (Manual) Lymphocytes % (Manual) Seg Neutrophils # Man POC ABG pH POC ABG pCO2 POC ABG pO2 Sodium Chloride Carbon Dioxide 33 H BUN 32 H Creatinine 2.0 H Glucose 110 H POC Glucose Calcium Total Creatine Kinase CK-MB (CK-2) CK-MB (CK-2) Rel Index Troponin T NT-Pro-B Natriuret Pep Albumin Wfzfr-5-Tbxacfmol Dcmmu-7-Vhsxqyywa PEP Interpretation Urine WBC (Auto) > 182.0 H Urine Creatinine Urine Total Protein 11/16/18 11/16/18 11/17/18 16:34 20:47 11:17 WBC RBC Hgb Hct MCV MCHC RDW [place] % (Auto) [place] # Seg Neuts % (Manual) Lymphocytes % (Manual) Seg Neutrophils # Man POC ABG pH POC ABG pCO2 POC ABG pO2 Sodium Chloride Carbon Dioxide BUN Creatinine Glucose POC Glucose 236 H 171 H 114 H Calcium Total Creatine Kinase CK-MB (CK-2) CK-MB (CK-2) Rel Index Troponin T NT-Pro-B Natriuret Pep Albumin Bevvy-9-Ytyscbjfg Ldzlf-5-Fbqjlgqil PEP Interpretation Urine WBC (Auto) Urine Creatinine Urine Total Protein 11/17/18 11/17/18 11/18/18 16:17 21:27 05:45 WBC RBC Hgb Hct MCV MCHC RDW [place] % (Auto) [place] # Seg Neuts % (Manual) Lymphocytes % (Manual) Seg Neutrophils # Man POC ABG pH POC ABG pCO2 POC ABG pO2 Sodium Chloride 97.9 L Carbon Dioxide BUN 35 H Creatinine 2.0 H Glucose POC Glucose 175 H 159 H Calcium Total Creatine Kinase CK-MB (CK-2) CK-MB (CK-2) Rel Index Troponin T NT-Pro-B Natriuret Pep Albumin Yqrfe-2-Mubrrykjs Hcips-3-Hfjjvgohl PEP Interpretation Urine WBC (Auto) Urine Creatinine Urine Total Protein 11/18/18 11/18/18 11/19/18 16:30 21:08 07:06 WBC RBC Hgb Hct MCV MCHC RDW [place] % (Auto) [place] # Seg Neuts % (Manual) Lymphocytes % (Manual) Seg Neutrophils # Man POC ABG pH POC ABG pCO2 POC ABG pO2 Sodium Chloride Carbon Dioxide BUN 35 H Creatinine 1.9 H Glucose POC Glucose 190 H 286 H Calcium Total Creatine Kinase CK-MB (CK-2) CK-MB (CK-2) Rel Index Troponin T NT-Pro-B Natriuret Pep Albumin Plvgz-4-Owmjszxff Wgofe-7-Axdkocjtn PEP Interpretation Urine WBC (Auto) Urine Creatinine Urine Total Protein 11/19/18 11/19/18 11/19/18 08:16 09:00 16:57 WBC 16.1 H RBC 5.15 H Hgb Hct 47.5 H MCV MCHC RDW 15.7 H [place] % (Auto) [place] # Seg Neuts % (Manual) 91.0 H Lymphocytes % (Manual) 8.0 L Seg Neutrophils # Man 14.7 H POC ABG pH POC ABG pCO2 POC ABG pO2 Sodium Chloride Carbon Dioxide BUN Creatinine Glucose POC Glucose 192 H 165 H Calcium Total Creatine Kinase CK-MB (CK-2) CK-MB (CK-2) Rel Index Troponin T NT-Pro-B Natriuret Pep Albumin Entdq-5-Vamdtgmkt Cnelu-1-Senawunmw PEP Interpretation Urine WBC (Auto) Urine Creatinine Urine Total Protein 11/19/18 11/20/18 11/20/18 22:42 04:38 08:07 WBC RBC Hgb Hct MCV MCHC RDW [place] % (Auto) [place] # Seg Neuts % (Manual) Lymphocytes % (Manual) Seg Neutrophils # Man POC ABG pH POC ABG pCO2 POC ABG pO2 Sodium Chloride 97.6 L Carbon Dioxide 31 H BUN 34 H Creatinine Glucose POC Glucose 175 H 67 L Calcium Total Creatine Kinase CK-MB (CK-2) CK-MB (CK-2) Rel Index Troponin T NT-Pro-B Natriuret Pep Albumin Zupcl-0-Uzvihpnws Qvgll-7-Gtnrzkjvy PEP Interpretation Urine WBC (Auto) Urine Creatinine Urine Total Protein 11/20/18 11/20/18 11:54 16:46 WBC RBC Hgb Hct MCV MCHC RDW [place] % (Auto) [place] # Seg Neuts % (Manual) Lymphocytes % (Manual) Seg Neutrophils # Man POC ABG pH POC ABG pCO2 POC ABG pO2 Sodium Chloride Carbon Dioxide BUN Creatinine Glucose POC Glucose 114 H 180 H Calcium Total Creatine Kinase CK-MB (CK-2) CK-MB (CK-2) Rel Index Troponin T NT-Pro-B Natriuret Pep Albumin Xmgus-9-Dxdifpjpx Ilqgb-0-Cgnsxqpth PEP Interpretation Urine WBC (Auto) Urine Creatinine Urine Total Protein Allied health notes reviewed: nursing
[2018-11-20 22:17] LABS: Partial Thromboplastin Time 23.8 Sec. (24.2-36.6)
[2018-11-20 22:32] LABS: Albumin 3.4 g/dL (3.9-5); Calcium 9.4 mg/dL (8.4-10.2)
[2018-11-21] MEDS: ANCEF/NS 1 GM/50 ML 1 GM/50 ML BAG IV SCH ×4 (05:22→23:10)
[2018-11-21 06:19] LABS: Hematocrit 46.8 % (35.5-45.6); Hemoglobin 14.9 gm/dl (11.8-15.2); Mean Corpuscular HGB Conc 32 % (32-34); Mean Corpuscular Volume 93 fl (84-94); Platelet Count 207 K/mm3 (140-440); Red Blood Count 5.03 M/mm3 (3.65-5.03); Red Cell Distribution Width 15.7 % (13.2-15.2)
[2018-11-21 06:33] LABS: BUN/Creatinine Ratio 23; Blood Urea Nitrogen 35 mg/dL (9-20); Calcium 9.4 mg/dL (8.4-10.2)
[2018-11-21 07:27] LABS: Band Neutrophils # (Manual) 0.6 K/mm3; Basophils % (Manual) 0 % (0.0-1.8); Eosinophils % (Manual) 0 % (0.0-4.3); Total Cells Counted 100
[2018-11-21 07:28] LABS: Anisocytosis 1+; Hypochromasia Few; Ovalocytes Rare; Platelet Estimate Consistent w Auto
--- NOTE | 2018-11-21 08:16 | XRay Report ---
ROUTINE CHEST, TWO VIEWS: HISTORY: Followup pulmonary infiltrates. Further improvement in the subtle airspace opacities is demonstrated since 11/18/18. No significant infiltrate is appreciated on today's exam. No pleural effusion or pneumothorax. Heart size is stable at the upper limits of normal. IMPRESSION: Essentially normal chest x-ray.
--- NOTE | 2018-11-21 08:43 | Progress Note ---
Assessment and Plan Cultures: 11/10/2018 tracheal culture no growth to date 11/12/2018 tracheal culture upper resp gabo 11/16/2018 blood culture: E. coli 11/17/2018 blood culture: No growth to date 11/16/2018 urine: E. coli A/P: 53 y/o male with history of Sarcoidosis home O2 dependant, CHF, HTN, bilateral stones, recent pneumonia treated at [place], admitted on 11/09/2018 due to 3 day history of dry cough, progressive SOB and sharp chest pain: 1) Sepsis: Leukocytosis trending up , etio. likely complicated UTI +/- pneumonia 2) Gram negative bacteremia, source likely complicated UTI with known bilateral stones causing hydronephrosis. +gross hematuria and back pain. UA 11/16 c/u UTI. Renal US 11/14 showed right obstructive hydronephrosis and bilateral stones- Hematuria is normal until patient is stone free - Lithotrypsy on hold due to respiratory status. 3) Presumed RUL pneumonia: HAP, recent pneumonia treated at [place]. HIV neg. Repeat CXR 11/16 showed possible RUL pneumonia, doubt pneumonia clinically. SOB continuing, BIPAP at night. Repeat chest xray 11/20/18 shows improvement in airspace opacities- Pulmonary following 4) Recent Respiratory failure: better - likely from CHF exacerbation 5) JESI: Resolved. antibiotics renally dosed Plan: Continue Cefazolin at 1gm q 6 [facility] M: [phone] O:[phone] Subjective Date of service: 11/21/18 Principal diagnosis: Ac on Ch Hypoxemic Resp failure; Sarcoidosis with exacerbation;Chest Pain Interval history: Patient seen and examined. Stated that he continues to have right flank pain. Also stated that he was experiencing SOB requiting O2 last night. Objective - Exam Narrative Exam: Constitutional: Alert, cooperative. mild distress, RLQ pain Head, Ears, Nose: Normocephalic, atraumatic. External ears, nose normal Eyes: Conjunctivae/corneas clear. No icterus. No ptosis. Neck: Supple, no meningeal signs Oral: no ulcers, no thrush Cardiovascular: S1, S2 normal. Respiratory: b/l basal crackles GI: Soft, non-tender; bowel sounds normal. No peritoneal signs. bilateral CVA tenderness. Musculoskeletal: No pedal edema, no cyanosis. Skin: No rash or abscess Hem/Lymphatic: No palpable cervical or supraclavicular nodes. No lymphangitis Psych: Mood ok. Affect normal Neurological: Awake, alert, oriented. No gross abnormality - Constitutional Vitals: Vital Signs Temp Pulse Resp BP Pulse Ox 98.2 F 61 18 147/96 92 11/21/18 05:02 11/21/18 05:02 11/21/18 05:02 11/21/18 05:02 11/21/18 05:02 Temperature -Last 24 Hours Temperature 98.2 F Temperature 98.4 F Temperature 98.5 F Temperature 98.1 F - Labs CBC & Chem 7: 11/21/18 05:57 11/21/18 06:00 Labs: Abnormal lab results 11/20/18 11/20/18 11/20/18 Range/Units 11:54 16:46 21:25 WBC (4.5-11.0) K/mm3 Hct (35.5-45.6) % RDW (13.2-15.2) % Seg Neuts % (Manual) (40.0-70.0) % Seg Neutrophils # Man (1.8-7.7) K/mm3 Monocytes # (Manual) (0.0-0.8) K/mm3 APTT (24.2-36.6) Sec. Potassium (3.6-5.0) mmol/L Chloride (98-107) mmol/L Carbon Dioxide (22-30) mmol/L BUN (9-20) mg/dL Creatinine (0.8-1.5) mg/dL Glucose (75-100) mg/dL POC Glucose 114 H 180 H 220 H (70-105) Albumin (3.9-5) g/dL 11/20/18 11/20/18 11/21/18 Range/Units 21:53 21:53 05:57 WBC 20.3 H (4.5-11.0) K/mm3 Hct 46.8 H (35.5-45.6) % RDW 15.7 H (13.2-15.2) % Seg Neuts % (Manual) 75.0 H (40.0-70.0) % Seg Neutrophils # Man 15.2 H (1.8-7.7) K/mm3 Monocytes # (Manual) 1.2 H (0.0-0.8) K/mm3 APTT 23.8 L (24.2-36.6) Sec. Potassium 5.2 H (3.6-5.0) mmol/L Chloride 93.8 L (98-107) mmol/L Carbon Dioxide (22-30) mmol/L BUN 37 H (9-20) mg/dL Creatinine 1.6 H (0.8-1.5) mg/dL Glucose 230 H (75-100) mg/dL POC Glucose (70-105) Albumin 3.4 L (3.9-5) g/dL 11/21/18 Range/Units 06:00 WBC (4.5-11.0) K/mm3 Hct (35.5-45.6) % RDW (13.2-15.2) % Seg Neuts % (Manual) (40.0-70.0) % Seg Neutrophils # Man (1.8-7.7) K/mm3 Monocytes # (Manual) (0.0-0.8) K/mm3 APTT (24.2-36.6) Sec. Potassium (3.6-5.0) mmol/L Chloride 96.4 L (98-107) mmol/L Carbon Dioxide 32 H (22-30) mmol/L BUN 35 H (9-20) mg/dL Creatinine (0.8-1.5) mg/dL Glucose (75-100) mg/dL POC Glucose (70-105) Albumin (3.9-5) g/dL
[2018-11-21] MEDS: DUONEB *Not for PRN Use IH SCH ×3 (08:58→19:44)
[2018-11-21] MEDS: SODIUM CHLORIDE FLUSH SYRINGE 10 ML IV SCH ×2 (10:00→22:19)
[2018-11-21] MEDS: PEPCID PO SCH (10:00)
[2018-11-21] MEDS: DELTASONE PO SCH (10:00)
[2018-11-21] MEDS: BABY ASPIRIN PO SCH (10:00)
[2018-11-21] MEDS: LOPRESSOR PO SCH ×2 (10:00→23:05)
[2018-11-21] MEDS: LASIX PO SCH (10:00)
[2018-11-21] MEDS: HEPARIN SUB-Q SCH ×2 (10:00→22:18)
--- NOTE | 2018-11-21 10:32 | Progress Note ---
Assessment and Plan Acute on Chronic Hypoxemic Respiratory failure Sarcoidosis with acute exacerbation Restrictive lung disease JESI NOY (on CPAP at night) Recent pneumonia CAD/CHF (stable) HTN (BP stable) Morbid Obesity Immunocompromised state (Chronic steroid therapy) (Spirometry indices restrictive with best FEV1 about 55% of predicted) - OK to proceed with surgery; his is a moderate risk for guanaco-operative pulmonary complications [ARISCAT score 26 to 44 points: Intermediate risk: 13.3% pulmonary complication rate] - Routine measures to reduce complications include . avoid general anesthesia if possible . early extubation and ambulation if intubated - continue Bronchodilator therapy with pulmonary hygiene per RT - continue supplemental oxygen and wean to keep O2 sat's > 89% - continue systemic steroids but tapering to 30mg qd (Patient is on chronic steroids and is at risk for hypotension related to adrenal insufficiency) - continue VTE prophylaxis & Stress ulcer prophylaxis - De-escalate antibiotic therapy per ID recommendations - PT/OT as tolerated - Aspiration precautions - continue Accuchecks with glycemic control. Target glucose 140-180 mg/dL - Heart failure measures +/- cardiology consultations - Mobility program for pressure ulcer prevention - continue other care per attending / other consultants .... re-evaluate in am & prn FULL CODE Subjective Date of service: 11/21/18 Principal diagnosis: Ac on Ch Hypoxemic Resp failure; Sarcoidosis with exacerbation;Chest Pain Interval history: Patient is seen today for: Acute on Chronic Hypoxemic Respiratory failure; Rest rictive lung disease with acute exacerbation; Sarcoidosis (on home O2); Acute dyspnea; Chest pain Seen and examined at bedside; 24hour events reviewed; nursing and respiratory care staff consulted; no adverse overnight events reported to me; resting peacefully in bed; denies acute chest pains or palpitations; remains hypoxemic; s/p spirometry; tentatively for lithotripsy today Objective Vital Signs - 12hr 11/20/18 11/20/18 11/21/18 23:23 23:24 05:02 Temperature 98.4 F 98.2 F Pulse Rate 74 107 H 61 Pulse Rate [ Bilateral] Respiratory 18 18 Rate Respiratory Rate [Bilateral ] Blood Pressure 124/70 124/70 147/96 O2 Sat by Pulse 92 92 Oximetry 11/21/18 11/21/18 11/21/18 08:58 08:59 09:08 Temperature Pulse Rate Pulse Rate [ 65 68 Bilateral] Respiratory Rate Respiratory 17 18 Rate [Bilateral ] Blood Pressure O2 Sat by Pulse 96 Oximetry Constitutional: no acute distress, alert, other (Middle aged obeses AAM, normocephalic and atraumati) Eyes: non-icteric ENT: oropharynx moist, other (extubated) Neck: supple, no lymphadenopathy, no JVD, other (large neck circumference) Effort: mildly labored Ascultation: Bilateral: diminished breath sounds, rales (inspiratory in bases) Percussion: Bilateral: not dull Cardiovascular: regular rate and rhythm, other (No R/M) Gastrointestinal: normoactive bowel sounds, soft, non-tender, non-distended, other (No HSM) Integumentary: normal Extremities: no cyanosis, pulses normal, no ischemia or petechiae Neurologic: normal mental status, non-focal exam, pupils equal and round, motor strength normal and Psychiatric: mood appropriate, affect normal CBC and BMP: 11/21/18 05:57 11/21/18 06:00 ABG, PT/INR, D-dimer: ABG POC ABG pH 7.437 (7.35-7.45) 11/12/18 11:42 POC ABG pCO2 53.8 (35-45) H 11/12/18 11:42 POC ABG pO2 72 (80-105) L 11/12/18 11:42 POC ABG HCO3 36.3 11/12/18 11:42 POC ABG Total CO2 38 11/12/18 11:42 POC ABG O2 Sat 94 11/12/18 11:42 PT/INR, D-dimer PT 13.6 Sec. (12.2-14.9) 11/20/18 21:53 INR 1.00 (0.87-1.13) 11/20/18 21:53 D-Dimer < 135.00 ng/mlDDU (0-234) 11/10/18 02:24 Abnormal lab findings: Abnormal Labs 11/09/18 11/09/18 11/10/18 23:58 23:58 02:24 WBC RBC 5.14 H Hgb 15.8 H Hct 48.6 H MCV 95 H MCHC RDW 16.6 H [place] % (Auto) 10.6 H [place] # 1.0 H Seg Neuts % (Manual) Lymphocytes % (Manual) Seg Neutrophils # Man Monocytes # (Manual) APTT POC ABG pH POC ABG pCO2 POC ABG pO2 Sodium Potassium Chloride Carbon Dioxide BUN Creatinine 1.6 H Glucose 103 H POC Glucose Calcium Total Creatine Kinase CK-MB (CK-2) CK-MB (CK-2) Rel Index Troponin T 0.031 H NT-Pro-B Natriuret Pep 5420 H Albumin Mjgyk-3-Dxoiivztz Jmmks-7-Skfvxzxcb PEP Interpretation Urine WBC (Auto) Urine Creatinine Urine Total Protein 11/10/18 11/10/18 11/10/18 05:43 06:37 09:24 WBC RBC Hgb Hct MCV MCHC RDW [place] % (Auto) [place] # Seg Neuts % (Manual) Lymphocytes % (Manual) Seg Neutrophils # Man Monocytes # (Manual) APTT POC ABG pH 7.168 L 7.318 L POC ABG pCO2 87.7 H 57.7 H POC ABG pO2 193 H 152 H Sodium Potassium Chloride Carbon Dioxide BUN Creatinine Glucose POC Glucose Calcium Total Creatine Kinase 8 L CK-MB (CK-2) 7.8 H CK-MB (CK-2) Rel Index 97.5 H Troponin T NT-Pro-B Natriuret Pep Albumin Odkjb-2-Driqwnmpn Rxpvs-5-Fegpfzivs PEP Interpretation Urine WBC (Auto) Urine Creatinine Urine Total Protein 11/10/18 11/10/18 11/11/18 12:15 23:34 04:23 WBC RBC Hgb Hct MCV MCHC RDW [place] % (Auto) [place] # Seg Neuts % (Manual) Lymphocytes % (Manual) Seg Neutrophils # Man Monocytes # (Manual) APTT POC ABG pH 7.518 H POC ABG pCO2 POC ABG pO2 122 H Sodium Potassium Chloride Carbon Dioxide BUN Creatinine Glucose POC Glucose 130 H Calcium Total Creatine Kinase 269 H CK-MB (CK-2) 6.4 H CK-MB (CK-2) Rel Index Troponin T NT-Pro-B Natriuret Pep Albumin Butjb-5-Ieyovefcf Idxmn-4-Ytaknlrug PEP Interpretation Urine WBC (Auto) Urine Creatinine Urine Total Protein 11/11/18 11/11/18 11/12/18 05:18 16:21 00:22 WBC RBC Hgb Hct MCV MCHC RDW [place] % (Auto) [place] # Seg Neuts % (Manual) Lymphocytes % (Manual) Seg Neutrophils # Man Monocytes # (Manual) APTT POC ABG pH POC ABG pCO2 49.5 H POC ABG pO2 60 L Sodium Potassium Chloride Carbon Dioxide BUN Creatinine Glucose POC Glucose 129 H 122 H Calcium Total Creatine Kinase CK-MB (CK-2) CK-MB (CK-2) Rel Index Troponin T NT-Pro-B Natriuret Pep Albumin Okytj-3-Lqbfgfukq Nsenr-1-Wwpfshzoi PEP Interpretation Urine WBC (Auto) Urine Creatinine Urine Total Protein 11/12/18 11/12/18 11/12/18 05:43 10:13 11:42 WBC RBC Hgb Hct MCV MCHC RDW [place] % (Auto) [place] # Seg Neuts % (Manual) Lymphocytes % (Manual) Seg Neutrophils # Man Monocytes # (Manual) APTT POC ABG pH POC ABG pCO2 53.8 H POC ABG pO2 72 L Sodium 153 H D Potassium Chloride Carbon Dioxide 34 H BUN 36 H Creatinine 2.2 H Glucose 142 H POC Glucose 130 H Calcium Total Creatine Kinase CK-MB (CK-2) CK-MB (CK-2) Rel Index Troponin T NT-Pro-B Natriuret Pep Albumin Cwita-0-Uiakjjjzi Tsmyy-9-Misfneein PEP Interpretation Urine WBC (Auto) Urine Creatinine Urine Total Protein 11/12/18 11/12/18 11/12/18 12:33 17:29 23:53 WBC RBC Hgb Hct MCV MCHC RDW [place] % (Auto) [place] # Seg Neuts % (Manual) Lymphocytes % (Manual) Seg Neutrophils # Man Monocytes # (Manual) APTT POC ABG pH POC ABG pCO2 POC ABG pO2 Sodium Potassium Chloride Carbon Dioxide BUN Creatinine Glucose POC Glucose 121 H 150 H 138 H Calcium Total Creatine Kinase CK-MB (CK-2) CK-MB (CK-2) Rel Index Troponin T NT-Pro-B Natriuret Pep Albumin Pnyxo-3-Endwah[place] Nbjcr-6-Gkhraskrd PEP Interpretation Urine WBC (Auto) Urine Creatinine Urine Total Protein 11/13/18 11/13/18 11/13/18 05:16 10:08 12:20 WBC RBC Hgb Hct MCV MCHC RDW [place] % (Auto) [place] # Seg Neuts % (Manual) Lymphocytes % (Manual) Seg Neutrophils # Man Monocytes # (Manual) APTT POC ABG pH POC ABG pCO2 POC ABG pO2 Sodium Potassium Chloride Carbon Dioxide 33 H BUN 40 H Creatinine 2.1 H Glucose 209 H POC Glucose 134 H Calcium Total Creatine Kinase CK-MB (CK-2) CK-MB (CK-2) Rel Index Troponin T NT-Pro-B Natriuret Pep Albumin Ilftf-0-Hfaczeqsp Csxdt-3-Pzanowpvv PEP Interpretation Urine WBC (Auto) Urine Creatinine 121.2 H Urine Total Protein 16 H 11/13/18 11/14/18 11/15/18 13:39 04:58 05:10 WBC RBC Hgb Hct MCV MCHC RDW [place] % (Auto) [place] # Seg Neuts % (Manual) Lymphocytes % (Manual) Seg Neutrophils # Man Monocytes # (Manual) APTT POC ABG pH POC ABG pCO2 POC ABG pO2 Sodium Potassium Chloride Carbon Dioxide 34 H 35 H BUN 40 H 32 H Creatinine 1.8 H 1.7 H Glucose 113 H 73 L POC Glucose Calcium 8.0 L 8.1 L Total Creatine Kinase CK-MB (CK-2) CK-MB (CK-2) Rel Index Troponin T NT-Pro-B Natriuret Pep Albumin 3.5 L Imxpp-0-Hhlugpcab 0.4 H Mjfen-4-Efxvwakpx 1.1 H PEP Interpretation see below H Urine WBC (Auto) Urine Creatinine Urine Total Protein 11/15/18 11/15/18 11/15/18 05:10 13:59 17:06 WBC 12.5 H RBC Hgb Hct 46.9 H MCV 95 H MCHC 31 L RDW 16.0 H [place] % (Auto) [place] # Seg Neuts % (Manual) Lymphocytes % (Manual) Seg Neutrophils # Man Monocytes # (Manual) APTT POC ABG pH POC ABG pCO2 POC ABG pO2 Sodium Potassium Chloride Carbon Dioxide BUN Creatinine Glucose POC Glucose 128 H 156 H Calcium Total Creatine Kinase CK-MB (CK-2) CK-MB (CK-2) Rel Index Troponin T NT-Pro-B Natriuret Pep Albumin Wdaub-4-Xcscrrxqv Imtxi-7-Mplgwbazt PEP Interpretation Urine WBC (Auto) Urine Creatinine Urine Total Protein 11/16/18 11/16/18 11/16/18 11:55 11:55 13:20 WBC 21.6 H RBC 5.14 H Hgb 15.4 H Hct 48.0 H MCV MCHC RDW 16.0 H [place] % (Auto) [place] # Seg Neuts % (Manual) Lymphocytes % (Manual) Seg Neutrophils # Man Monocytes # (Manual) APTT POC ABG pH POC ABG pCO2 POC ABG pO2 Sodium Potassium Chloride Carbon Dioxide 33 H BUN 32 H Creatinine 2.0 H Glucose 110 H POC Glucose Calcium Total Creatine Kinase CK-MB (CK-2) CK-MB (CK-2) Rel Index Troponin T NT-Pro-B Natriuret Pep Albumin Vsbdk-9-Khleyfzde Usiss-2-Ahjvowuit PEP Interpretation Urine WBC (Auto) > 182.0 H Urine Creatinine Urine Total Protein 11/16/18 11/16/18 11/17/18 16:34 20:47 11:17 WBC RBC Hgb Hct MCV MCHC RDW [place] % (Auto) [place] # Seg Neuts % (Manual) Lymphocytes % (Manual) Seg Neutrophils # Man Monocytes # (Manual) APTT POC ABG pH POC ABG pCO2 POC ABG pO2 Sodium Potassium Chloride Carbon Dioxide BUN Creatinine Glucose POC Glucose 236 H 171 H 114 H Calcium Total Creatine Kinase CK-MB (CK-2) CK-MB (CK-2) Rel Index Troponin T NT-Pro-B Natriuret Pep Albumin Yajcf-2-Dwucmlxax Toige-5-Mldixcuhy PEP Interpretation Urine WBC (Auto) Urine Creatinine Urine Total Protein 11/17/18 11/17/18 11/18/18 16:17 21:27 05:45 WBC RBC Hgb Hct MCV MCHC RDW [place] % (Auto) [place] # Seg Neuts % (Manual) Lymphocytes % (Manual) Seg Neutrophils # Man Monocytes # (Manual) APTT POC ABG pH POC ABG pCO2 POC ABG pO2 Sodium Potassium Chloride 97.9 L Carbon Dioxide BUN 35 H Creatinine 2.0 H Glucose POC Glucose 175 H 159 H Calcium Total Creatine Kinase CK-MB (CK-2) CK-MB (CK-2) Rel Index Troponin T NT-Pro-B Natriuret Pep Albumin Vpqst-6-Jrfhobfdd Bviqa-8-Tjeurteyi PEP Interpretation Urine WBC (Auto) Urine Creatinine Urine Total Protein 11/18/18 11/18/18 11/19/18 16:30 21:08 07:06 WBC RBC Hgb Hct MCV MCHC RDW [place] % (Auto) [place] # Seg Neuts % (Manual) Lymphocytes % (Manual) Seg Neutrophils # Man Monocytes # (Manual) APTT POC ABG pH POC ABG pCO2 POC ABG pO2 Sodium Potassium Chloride Carbon Dioxide BUN 35 H Creatinine 1.9 H Glucose POC Glucose 190 H 286 H Calcium Total Creatine Kinase CK-MB (CK-2) CK-MB (CK-2) Rel Index Troponin T NT-Pro-B Natriuret Pep Albumin Vrmpe-6-Coxwamizv Krzfi-7-Scxzwbwtq PEP Interpretation Urine WBC (Auto) Urine Creatinine Urine Total Protein 11/19/18 11/19/18 11/19/18 08:16 09:00 16:57 WBC 16.1 H RBC 5.15 H Hgb Hct 47.5 H MCV MCHC RDW 15.7 H [place] % (Auto) [place] # Seg Neuts % (Manual) 91.0 H Lymphocytes % (Manual) 8.0 L Seg Neutrophils # Man 14.7 H Monocytes # (Manual) APTT POC ABG pH POC ABG pCO2 POC ABG pO2 Sodium Potassium Chloride Carbon Dioxide BUN Creatinine Glucose POC Glucose 192 H 165 H Calcium Total Creatine Kinase CK-MB (CK-2) CK-MB (CK-2) Rel Index Troponin T NT-Pro-B Natriuret Pep Albumin Fsnys-2-Hunbuwhut Nreny-2-Bjlzioybs PEP Interpretation Urine WBC (Auto) Urine Creatinine Urine Total Protein 11/19/18 11/20/18 11/20/18 22:42 04:38 08:07 WBC RBC Hgb Hct MCV MCHC RDW [place] % (Auto) [place] # Seg Neuts % (Manual) Lymphocytes % (Manual) Seg Neutrophils # Man Monocytes # (Manual) APTT POC ABG pH POC ABG pCO2 POC ABG pO2 Sodium Potassium Chloride 97.6 L Carbon Dioxide 31 H BUN 34 H Creatinine Glucose POC Glucose 175 H 67 L Calcium Total Creatine Kinase CK-MB (CK-2) CK-MB (CK-2) Rel Index Troponin T NT-Pro-B Natriuret Pep Albumin Isoqw-1-Bxzwphfrk Wrgtt-9-Cakttefge PEP Interpretation Urine WBC (Auto) Urine Creatinine Urine Total Protein 11/20/18 11/20/18 11/20/18 11:54 16:46 21:25 WBC RBC Hgb Hct MCV MCHC RDW [place] % (Auto) [place] # Seg Neuts % (Manual) Lymphocytes % (Manual) Seg Neutrophils # Man Monocytes # (Manual) APTT POC ABG pH POC ABG pCO2 POC ABG pO2 Sodium Potassium Chloride Carbon Dioxide BUN Creatinine Glucose POC Glucose 114 H 180 H 220 H Calcium Total Creatine Kinase CK-MB (CK-2) CK-MB (CK-2) Rel Index Troponin T NT-Pro-B Natriuret Pep Albumin Iftxg-7-Pqyvnfhws Mhjao-5-Fevrqwott PEP Interpretation Urine WBC (Auto) Urine Creatinine Urine Total Protein 11/20/18 11/20/18 11/21/18 21:53 21:53 05:57 WBC 20.3 H RBC Hgb Hct 46.8 H MCV MCHC RDW 15.7 H [place] % (Auto) [place] # Seg Neuts % (Manual) 75.0 H Lymphocytes % (Manual) Seg Neutrophils # Man 15.2 H Monocytes # (Manual) 1.2 H APTT 23.8 L POC ABG pH POC ABG pCO2 POC ABG pO2 Sodium Potassium 5.2 H Chloride 93.8 L Carbon Dioxide BUN 37 H Creatinine 1.6 H Glucose 230 H POC Glucose Calcium Total Creatine Kinase CK-MB (CK-2) CK-MB (CK-2) Rel Index Troponin T NT-Pro-B Natriuret Pep Albumin 3.4 L Udkho-4-Euxgfddoo Wletz-2-Qhnbveovt PEP Interpretation Urine WBC (Auto) Urine Creatinine Urine Total Protein 11/21/18 06:00 WBC RBC Hgb Hct MCV MCHC RDW [place] % (Auto) [place] # Seg Neuts % (Manual) Lymphocytes % (Manual) Seg Neutrophils # Man Monocytes # (Manual) APTT POC ABG pH POC ABG pCO2 POC ABG pO2 Sodium Potassium Chloride 96.4 L Carbon Dioxide 32 H BUN 35 H Creatinine Glucose POC Glucose Calcium Total Creatine Kinase CK-MB (CK-2) CK-MB (CK-2) Rel Index Troponin T NT-Pro-B Natriuret Pep Albumin Ucadz-3-Dnapgzlfr Rcraq-3-Gdmrqfgdj PEP Interpretation Urine WBC (Auto) Urine Creatinine Urine Total Protein Allied health notes reviewed: nursing
[2018-11-21] MEDS ORDERED: ANCEF/NS 1 GM/50 ML 1 GM/50 ML BAG IV SCH (13:00)
[2018-11-21] MEDS ORDERED: NACL 0.9% 1000 ML 1,000 ML ONE (15:17)
[2018-11-21] MEDS ORDERED: DECADRON ONE (15:22)
[2018-11-21] MEDS ORDERED: DIPRIVAN 10 MG/ML IV ONE (15:22)
[2018-11-21] MEDS ORDERED: SUBLIMAZE ONE (15:22)
[2018-11-21] MEDS ORDERED: ZOFRAN ONE ×2 (15:22→16:14)
--- NOTE | 2018-11-21 15:32 | Progress Note ---
Assessment and Plan - Patient Problems (1) Hematuria Current Visit: Yes Status: Acute Qualifiers: Hematuria type: gross Qualified Code(s): R31.0 - Gross hematuria Plan to address problem: Sec to Renal stone For ESWL on 11/21/18 which is today (2) Acute respiratory failure with hypoxia Current Visit: Yes Status: Acute Plan to address problem: Patient improved (3) Acute exacerbation of CHF (congestive heart failure) Current Visit: Yes Status: Acute Qualifiers: Heart failure type: combined systolic and diastolic Qualified Code(s): I50.43 - Acute on chronic combined systolic (congestive) and diastolic (congestive) heart failure Plan to address problem: IV Lasix q12h Cardilology consult appreciated ECHO was Done--EF 40 to 45 percent (4) HTN (hypertension) Current Visit: Yes Status: Chronic Qualifiers: Hypertension type: essential hypertension Qualified Code(s): I10 - Essential (primary) hypertension Plan to address problem: Cont antihypertensives (5) Sarcoidosis Current Visit: No Status: Chronic Plan to address problem: COnt Prednisone (6) COPD (chronic obstructive pulmonary disease) Current Visit: Yes Status: Chronic Qualifiers: COPD type: unspecified COPD Qualified Code(s): J44.9 - Chronic obstructive pulmonary disease, unspecified Plan to address problem: COnt Duoneb tx and IV solumedrol which to be tapered off (7) DVT prophylaxis Current Visit: No Status: Acute Plan to address problem: On Heparin and GI prophylaxis Subjective Date of service: 11/21/18 Principal diagnosis: Ac on Ch Hypoxemic Resp failure; Sarcoidosis with exacerbation;Chest Pain Interval history: Going to surgery for ESWL Objective - Constitutional Vitals: Vital Signs - 12hr 11/21/18 11/21/18 11/21/18 05:02 08:58 08:59 Temperature 98.2 F Pulse Rate 61 Pulse Rate [ 65 Bilateral] Respiratory 18 Rate Respiratory 17 Rate [Bilateral ] Blood Pressure 147/96 O2 Sat by Pulse 92 96 Oximetry 11/21/18 11/21/18 11/21/18 09:08 12:19 13:44 Temperature 98.4 F Pulse Rate 70 Pulse Rate [ 68 70 Bilateral] Respiratory 18 Rate Respiratory 18 20 Rate [Bilateral ] Blood Pressure 137/84 O2 Sat by Pulse 93 Oximetry 11/21/18 13:54 Temperature Pulse Rate Pulse Rate [ 89 Bilateral] Respiratory Rate Respiratory 18 Rate [Bilateral ] Blood Pressure O2 Sat by Pulse Oximetry General appearance: Present: no acute distress, well-nourished - EENT Eyes: PERRL, EOM intact ENT: hearing intact, clear oral mucosa Ears: bilateral: normal - Neck Neck: supple, normal ROM - Respiratory Respiratory effort: normal Respiratory: bilateral: CTA - Breasts Breasts: normal - Cardiovascular Rhythm: regular Heart Sounds: Present: S1 & S2. Absent: gallop, rub Extremities: pulses intact, No edema, normal color, Full ROM - Gastrointestinal General gastrointestinal: Present: soft, non-tender, non-distended, normal bowel sounds - Genitourinary Male genitourinary: normal - Integumentary Integumentary: clear, warm, dry - Musculoskeletal Musculoskeletal: 1, strength equal bilaterally - Neurologic Neurologic: moves all extremities - Psychiatric Psychiatric: memory intact, appropriate mood/affect, intact judgment & insight - Labs CBC & Chem 7: 11/21/18 05:57 11/21/18 06:00 Labs: Abnormal lab results 11/20/18 11/20/18 11/20/18 Range/Units 16:46 21:25 21:53 WBC (4.5-11.0) K/mm3 Hct (35.5-45.6) % RDW (13.2-15.2) % Seg Neuts % (Manual) (40.0-70.0) % Seg Neutrophils # Man (1.8-7.7) K/mm3 Monocytes # (Manual) (0.0-0.8) K/mm3 APTT 23.8 L (24.2-36.6) Sec. POC ABG pCO2 (35-45) POC ABG pO2 (80-105) Potassium (3.6-5.0) mmol/L Chloride (98-107) mmol/L Carbon Dioxide (22-30) mmol/L BUN (9-20) mg/dL Creatinine (0.8-1.5) mg/dL Glucose (75-100) mg/dL POC Glucose 180 H 220 H (70-105) Albumin (3.9-5) g/dL 11/20/18 11/21/18 11/21/18 Range/Units 21:53 05:57 06:00 WBC 20.3 H (4.5-11.0) K/mm3 Hct 46.8 H (35.5-45.6) % RDW 15.7 H (13.2-15.2) % Seg Neuts % (Manual) 75.0 H (40.0-70.0) % Seg Neutrophils # Man 15.2 H (1.8-7.7) K/mm3 Monocytes # (Manual) 1.2 H (0.0-0.8) K/mm3 APTT (24.2-36.6) Sec. POC ABG pCO2 (35-45) POC ABG pO2 (80-105) Potassium 5.2 H (3.6-5.0) mmol/L Chloride 93.8 L 96.4 L (98-107) mmol/L Carbon Dioxide 32 H (22-30) mmol/L BUN 37 H 35 H (9-20) mg/dL Creatinine 1.6 H (0.8-1.5) mg/dL Glucose 230 H (75-100) mg/dL POC Glucose (70-105) Albumin 3.4 L (3.9-5) g/dL 11/21/18 Range/Units 11:19 WBC (4.5-11.0) K/mm3 Hct (35.5-45.6) % RDW (13.2-15.2) % Seg Neuts % (Manual) (40.0-70.0) % Seg Neutrophils # Man (1.8-7.7) K/mm3 Monocytes # (Manual) (0.0-0.8) K/mm3 APTT (24.2-36.6) Sec. POC ABG pCO2 48.4 H (35-45) POC ABG pO2 52 L (80-105) Potassium (3.6-5.0) mmol/L Chloride (98-107) mmol/L Carbon Dioxide (22-30) mmol/L BUN (9-20) mg/dL Creatinine (0.8-1.5) mg/dL Glucose (75-100) mg/dL POC Glucose (70-105) Albumin (3.9-5) g/dL
--- NOTE | 2018-11-21 16:05 | Anesthesia Day of Surgery ---
Anesthesia Day of Surgery - Day of Surgery Patient Examined: Yes Patient H&P Reviewed: Yes Patient is NPO: Yes Cardiac Clearance: Yes Pulmonary Clearance: Yes
--- NOTE | 2018-11-21 16:06 | Post Operative Note ---
Date of procedure: 11/21/18 Pre-op diagnosis: bilat kidney stones - - rt greater than left Post-op diagnosis: same Procedure: RT ESWL Anesthesia: RUBEN Surgeon: COLLIN EDMONDS Estimated blood loss: none Condition: stable Disposition: PACU (norco on chart/ ok to dc home /f/u in office)
--- NOTE | 2018-11-21 16:59 | Post Anesthesia Evaluation ---
- Post Anesthesia Evaluation Patient Participated: Yes Airway Patent: Yes Stable Respiratory Function: Yes Nausea/Vomiting: No Temp > 96.8F: Yes Pain Manageable: Yes Adequeate Hydration: Yes Anesthesia Complications: No Other Comments: Patient maintained SpO2 >90% on 3L NC (baseline requirement). BiPAP not needed while in PACU.
--- NOTE | 2018-11-21 17:01 | Operative Report ---
PREOPERATIVE DIAGNOSES: Bilateral nephrolithiasis, right greater than left, and gross hematuria. POSTOPERATIVE DIAGNOSES: Bilateral nephrolithiasis, right greater than left, and gross hematuria. PROCEDURE: Right extracorporal shock wave lithotripsy (staged procedure). SURGEON: Ramon Lo M.D. ANESTHESIA: General. ESTIMATED BLOOD LOSS: Minimal. FLUIDS: Crystalloid. COMPLICATIONS: No complications. INDICATIONS: This patient is a 53-year-old gentleman admitted to the hospital with multiple medical problems. CT of abdomen and pelvis revealed a 17 mm right renal stone, also has some small calyceal stones on the right side in addition to several small stones on the left side. Discussed options, have some pulmonary issues, which he was cleared by music arranger and proceed. DESCRIPTION OF PROCEDURE: The patient was taken to the operative suite, placed in a supine position. After adequate general anesthesia, his stone was localized in 2 planes using fluoroscopy. Extracorporal shock wave lithotripsy was administered with maximum KV of 7, 2500 shocks, 5-minute renal pause after 200 shocks. Most of his stone burden was in the upper pole, it appeared to be approximately 10 mm stone. Adequate fragmentation could be appreciated. He had some lower pole stones too. They were about 5 mm that were addressed as well. He tolerated the procedure well, extubated and was taken to recovery room in stable condition. He may require repeat lithotripsy on the other side. JOB# [id number] RYLEY/JENIFER
[2018-11-22] MEDS: ANCEF/NS 1 GM/50 ML 1 GM/50 ML BAG IV SCH ×4 (05:11→23:40)
[2018-11-22 06:08] LABS: Calcium 8.7 mg/dL (8.4-10.2)
--- NOTE | 2018-11-22 08:19 | Progress Note ---
Assessment and Plan Cultures: 11/10/2018 tracheal culture no growth to date 11/12/2018 tracheal culture upper resp gabo 11/16/2018 blood culture: E. coli 11/17/2018 blood culture: No growth to date 11/16/2018 urine: E. coli A/P: 53 y/o male with history of Sarcoidosis home O2 dependant, CHF, HTN, bilateral stones, recent pneumonia treated at [facility], admitted on 11/09/2018 due to 3 day history of dry cough, progressive SOB and sharp chest pain: 1) Sepsis: Leukocytosis trending up , etio. likely complicated UTI +/- pneumonia 2) Gram negative bacteremia, source likely complicated UTI with known bilateral stones causing hydronephrosis. +gross hematuria and back pain. UA 11/16 c/u UTI. Renal US 11/14 showed right obstructive hydronephrosis and bilateral stones- s/p ESWL procedure 11/21/18- urology following 3) Presumed RUL pneumonia: HAP, recent pneumonia treated at [facility]. HIV neg. Repeat CXR 11/16 showed possible RUL pneumonia, doubt pneumonia clinically. SOB continuing, BIPAP at night. Repeat chest xray 11/20/18 shows improvement in airspace opacities- Pulmonary following 4) Recent Respiratory failure: better - likely from CHF exacerbation 5) JESI: antibiotics renally dosed. Creatinine trending up Plan: Continue Cefazolin at 1gm q 6 while inpatient upon discharge can do Ceftin 500 BID until 11/25/17 Dr. Ramírez will be relationship counselor and rounding in the hospital this weekend, . Dodie Moore NP [facility] M: [phone] O:[phone] Subjective Date of service: 11/22/18 Principal diagnosis: Ac on Ch Hypoxemic Resp failure; Sarcoidosis with exacerbation;Chest Pain Interval history: Patient seen and examined. Stated that he was feeling better s/p surgery. He states that he is concerned about the blood in his urine. Nurses notes, labs and reports reviewed, discussed with patient. Objective - Exam Narrative Exam: Constitutional: Alert, cooperative. no acute distress Head, Ears, Nose: Normocephalic, atraumatic. External ears, nose normal Eyes: Conjunctivae/corneas clear. No icterus. No ptosis. Neck: Supple, no meningeal signs Oral: no ulcers, no thrush Cardiovascular: S1, S2 normal. Respiratory: b/l basal crackles GI: Soft, non-tender; bowel sounds normal. No peritoneal signs. bilateral CVA tenderness. : +hematuria Musculoskeletal: No pedal edema, no cyanosis. Skin: No rash or abscess Hem/Lymphatic: No palpable cervical or supraclavicular nodes. No lymphangitis Psych: Mood ok. Affect normal Neurological: Awake, alert, oriented. No gross abnormality - Constitutional Vitals: Vital Signs Temp Pulse Resp BP Pulse Ox 97.8 F 77 16 107/60 95 11/22/18 05:30 11/22/18 05:30 11/22/18 05:30 11/22/18 05:30 11/22/18 05:30 Temperature -Last 24 Hours Temperature 97.8 F Temperature 98.4 F Temperature 97.7 F Temperature 97.9 F Temperature 98.0 F Temperature 97.5 F Temperature 98.2 F Temperature 98.2 F Temperature 98.4 F - Labs CBC & Chem 7: 11/22/18 09:01 11/22/18 05:04 Labs: Abnormal lab results 11/21/18 11/22/18 Range/Units 11:19 05:04 POC ABG pCO2 48.4 H (35-45) POC ABG pO2 52 L (80-105) Potassium 5.1 H (3.6-5.0) mmol/L Chloride 96.5 L (98-107) mmol/L Carbon Dioxide 32 H (22-30) mmol/L BUN 42 H (9-20) mg/dL Creatinine 1.8 H (0.8-1.5) mg/dL
[2018-11-22] MEDS: DUONEB *Not for PRN Use IH SCH ×3 (09:00→19:09)
[2018-11-22] MEDS: LOPRESSOR PO SCH ×2 (09:52→23:39)
[2018-11-22] MEDS: LASIX PO SCH (09:54)
[2018-11-22] MEDS: PEPCID PO SCH (09:54)
[2018-11-22] MEDS: DELTASONE PO SCH (09:55)
[2018-11-22] MEDS: BABY ASPIRIN PO SCH (09:55)
[2018-11-22] MEDS: HEPARIN SUB-Q SCH ×2 (09:55→23:39)
[2018-11-22] MEDS: SODIUM CHLORIDE FLUSH SYRINGE 10 ML IV SCH ×2 (09:56→23:40)
[2018-11-22 10:22] LABS: Hematocrit 47.6 % (35.5-45.6); Hemoglobin 15.2 gm/dl (11.8-15.2); Mean Corpuscular HGB Conc 32 % (32-34); Mean Corpuscular Volume 94 fl (84-94); Platelet Count 224 K/mm3 (140-440); Red Blood Count 5.07 M/mm3 (3.65-5.03); Red Cell Distribution Width 15.7 % (13.2-15.2)
--- NOTE | 2018-11-22 10:43 | Progress Note ---
Assessment and Plan Acute on chronic hypoxic respiratory failure/sarcoidosis/recent PNA/NOY/? COPD Extubated. Per pulmonary. Dilated Nonischemic Cardiomyopathy EF 40-45%/Acute on Chronic HFrEF Cont PO lasix 40mg daily. [facility] records obtained - pt underwent C 05/2018 which showed nonobstructive CAD, 50% mid LAD lesion with FFR 0.89, left ventriculogram not performed. Cont lopressor - pt with ? COPD and restrictive lung disease. Consider initiation of ACEI/ARB if renal indices permit. Nonobstructive CAD JESI on ? CKD Nephrology following. Chest pain Currently resolved. Pt underwent C 05/2018 which showed nonobstructive CAD, 50% mid LAD lesion with FFR 0.89 Troponins minimally elevated, negative for AMI, ECG with no acute ischemic changes. RBBB HTN Stable. Obesity Nephrolithiasis / right hydronephrosis / gross hematuria S/p ESWL yesterday. UTI / bacteremia / sepsis ID following. Currently stable cardiac status. Nothing further to add from cardiac perspective at this time. Will sign off. Recommend pt follow up with [facility] within 3-5 days of hospital discharge. Pt verbalizes understanding. The patient has been seen in conjunction with Dr. Mario Villegas who agrees with the assessment and plan of care. Subjective Date of service: 11/22/18 Principal diagnosis: Ac on Ch Hypoxemic Resp failure; Sarcoidosis with exacerbation;Chest Pain Interval history: pt resting in bed, no current cardiac complaints. Objective Last Vital Signs Temp 97.8 F 11/22/18 05:30 Pulse 77 11/22/18 05:30 Resp 16 11/22/18 05:30 BP 107/60 11/22/18 05:30 Pulse Ox 95 11/22/18 05:30 - Physical Examination General: No Apparent Distress HEENT: Positive: PERRL Neck: Positive: neck supple, trachea midline Cardiac: Positive: Reg Rate and Rhythm, S1/S2 Lungs: Positive: clear to auscultation Neuro: Positive: Grossly Intact, Cranial Nerve 2-12 Intact Abdomen: Positive: Unremarkable Skin: Positive: Clear Extremities: Absent: edema - Labs and Meds CBC 11/22/18 Range/Units 09:01 WBC 22.8 H (4.5-11.0) K/mm3 RBC 5.07 H (3.65-5.03) M/mm3 Hgb 15.2 (11.8-15.2) gm/dl Hct 47.6 H (35.5-45.6) % Plt Count 224 (140-440) K/mm3 Comprehensive Metabolic Panel 11/22/18 Range/Units 05:04 Sodium 140 (137-145) mmol/L Potassium 5.1 H (3.6-5.0) mmol/L Chloride 96.5 L (98-107) mmol/L Carbon Dioxide 32 H (22-30) mmol/L BUN 42 H (9-20) mg/dL Creatinine 1.8 H (0.8-1.5) mg/dL Glucose 83 (75-100) mg/dL Calcium 8.7 (8.4-10.2) mg/dL - Imaging and Cardiology EKG: report reviewed, image reviewed Echo: report reviewed (TDS, EF 40-45%, mild to mod LVH, RV mildly dilated. ) Cardiac cath: report reviewed ([facility] records obtained - pt underwent LHC 05/2018 which showed nonobstructive CAD, 50% mid LAD lesion with FFR 0.89, left ventriculogram not ) - Telemetry EKG Rhythm: Sinus Rhythm - Allied health notes Allied health notes reviewed: nursing
[2018-11-22 11:31] LABS: Basophils % (Manual) 0 % (0.0-1.8); Eosinophils % (Manual) 0 % (0.0-4.3); Myelocytes # (Manual) 0.9 K/mm3; Total Cells Counted 100
[2018-11-22 11:32] LABS: Anisocytosis 1+; Hypochromasia Few; Ovalocytes Rare; Platelet Estimate Consistent w Auto
--- NOTE | 2018-11-22 12:25 | Progress Note ---
Assessment and Plan Acute on Chronic Hypoxemic Respiratory failure Sarcoidosis with acute exacerbation Restrictive lung disease JESI NOY (on CPAP at night) Recent pneumonia CAD/CHF (stable) HTN (BP stable) Morbid Obesity Immunocompromised state (Chronic steroid therapy) (Spirometry indices restrictive with best FEV1 about 55% of predicted) - continue BIPAP scheduled qhs - continue Bronchodilator therapy with pulmonary hygiene per RT - continue supplemental oxygen and wean to keep O2 sat's > 89% - continue systemic steroids but tapering to 30mg qd (Patient is on chronic steroids and is at risk for hypotension related to adrenal insufficiency) - continue VTE prophylaxis & Stress ulcer prophylaxis - De-escalate antibiotic therapy per ID recommendations - PT/OT as tolerated - Aspiration precautions - continue Accuchecks with glycemic control. Target glucose 140-180 mg/dL - Heart failure measures +/- cardiology consultations - Mobility program for pressure ulcer prevention - continue other care per attending / other consultants .... re-evaluate in am & prn FULL CODE Subjective Date of service: 11/22/18 Principal diagnosis: Ac on Ch Hypoxemic Resp failure; Sarcoidosis with exacerbation;Chest Pain Interval history: Patient is seen today for: Acute on Chronic Hypoxemic Respiratory failure; Restrictive lung disease with acute exacerbation; Sarcoidosis (on home O2); Acute dyspnea; Chest pain Seen and examined at bedside; 24hour events reviewed; nursing and respiratory c are staff consulted; no adverse overnight events reported to me; resting peacefully in bed; s/p lithotripsy; denies acute chest pains or palpitations; tolerating qhs BIPAP Objective Vital Signs - 12hr 11/22/18 11/22/18 05:30 09:00 Temperature 97.8 F Pulse Rate 77 Pulse Rate [ 85 Anterior Bilateral Throughout] Respiratory 16 Rate Respiratory 20 Rate [Anterior Bilateral Throughout] Blood Pressure 107/60 O2 Sat by Pulse 95 95 Oximetry Constitutional: no acute distress, alert, other (Middle aged obeses AAM, normocephalic and atraumati) Eyes: non-icteric ENT: oropharynx moist, other (extubated) Neck: supple, no lymphadenopathy, no JVD, other (large neck circumference) Effort: mildly labored Ascultation: Bilateral: diminished breath sounds, rales (inspiratory in bases) Percussion: Bilateral: not dull Cardiovascular: regular rate and rhythm, other (No R/M) Gastrointestinal: normoactive bowel sounds, soft, non-tender, non-distended, other (No HSM) Integumentary: normal Extremities: no cyanosis, pulses normal, no ischemia or petechiae Neurologic: normal mental status, non-focal exam, pupils equal and round, motor strength normal and Psychiatric: mood appropriate, affect normal CBC and BMP: 11/23/18 05:18 11/24/18 05:16 ABG, PT/INR, D-dimer: ABG POC ABG pH 7.447 (7.35-7.45) 11/21/18 11:19 POC ABG pCO2 48.4 (35-45) H 11/21/18 11:19 POC ABG pO2 52 (80-105) L 11/21/18 11:19 POC ABG HCO3 33.4 11/21/18 11:19 POC ABG Total CO2 35 11/21/18 11:19 POC ABG O2 Sat 87 11/21/18 11:19 PT/INR, D-dimer PT 13.6 Sec. (12.2-14.9) 11/20/18 21:53 INR 1.00 (0.87-1.13) 11/20/18 21:53 D-Dimer < 135.00 ng/mlDDU (0-234) 11/10/18 02:24 Abnormal lab findings: Abnormal Labs 11/09/18 11/09/18 11/10/18 23:58 23:58 02:24 WBC RBC 5.14 H Hgb 15.8 H Hct 48.6 H MCV 95 H MCHC RDW 16.6 H [place] % (Auto) 10.6 H [place] # 1.0 H Seg Neuts % (Manual) Lymphocytes % (Manual) Monocytes % (Manual) Seg Neutrophils # Man Monocytes # (Manual) APTT POC ABG pH POC ABG pCO2 POC ABG pO2 Sodium Potassium Chloride Carbon Dioxide BUN Creatinine 1.6 H Glucose 103 H POC Glucose Calcium Total Creatine Kinase CK-MB (CK-2) CK-MB (CK-2) Rel Index Troponin T 0.031 H NT-Pro-B Natriuret Pep 5420 H Albumin Hwmcq-2-Gspgbkfva Bjobh-7-Jwczmjbjg PEP Interpretation Urine WBC (Auto) Urine Creatinine Urine Total Protein 11/10/18 11/10/18 11/10/18 05:43 06:37 09:24 WBC RBC Hgb Hct MCV MCHC RDW [place] % (Auto) [place] # Seg Neuts % (Manual) Lymphocytes % (Manual) Monocytes % (Manual) Seg Neutrophils # Man Monocytes # (Manual) APTT POC ABG pH 7.168 L 7.318 L POC ABG pCO2 87.7 H 57.7 H POC ABG pO2 193 H 152 H Sodium Potassium Chloride Carbon Dioxide BUN Creatinine Glucose POC Glucose Calcium Total Creatine Kinase 8 L CK-MB (CK-2) 7.8 H CK-MB (CK-2) Rel Index 97.5 H Troponin T NT-Pro-B Natriuret Pep Albumin Scebf-7-Iamfxbjln Fpmsl-5-Soxxpxzod PEP Interpretation Urine WBC (Auto) Urine Creatinine Urine Total Protein 11/10/18 11/10/18 11/11/18 12:15 23:34 04:23 WBC RBC Hgb Hct MCV MCHC RDW [place] % (Auto) [place] # Seg Neuts % (Manual) Lymphocytes % (Manual) Monocytes % (Manual) Seg Neutrophils # Man Monocytes # (Manual) APTT POC ABG pH 7.518 H POC ABG pCO2 POC ABG pO2 122 H Sodium Potassium Chloride Carbon Dioxide BUN Creatinine Glucose POC Glucose 130 H Calcium Total Creatine Kinase 269 H CK-MB (CK-2) 6.4 H CK-MB (CK-2) Rel Index Troponin T NT-Pro-B Natriuret Pep Albumin Rrood-2-Fknomgkxn Igwiw-8-Ypvwrfjjo PEP Interpretation Urine WBC (Auto) Urine Creatinine Urine Total Protein 11/11/18 11/11/18 11/12/18 05:18 16:21 00:22 WBC RBC Hgb Hct MCV MCHC RDW [place] % (Auto) [place] # Seg Neuts % (Manual) Lymphocytes % (Manual) Monocytes % (Manual) Seg Neutrophils # Man Monocytes # (Manual) APTT POC ABG pH POC ABG pCO2 49.5 H POC ABG pO2 60 L Sodium Potassium Chloride Carbon Dioxide BUN Creatinine Glucose POC Glucose 129 H 122 H Calcium Total Creatine Kinase CK-MB (CK-2) CK-MB (CK-2) Rel Index Troponin T NT-Pro-B Natriuret Pep Albumin Mwlmj-1-Pyekaimul Ptpnd-0-Sksbkwhux PEP Interpretation Urine WBC (Auto) Urine Creatinine Urine Total Protein 11/12/18 11/12/18 11/12/18 05:43 10:13 11:42 WBC RBC Hgb Hct MCV MCHC RDW [place] % (Auto) [place] # Seg Neuts % (Manual) Lymphocytes % (Manual) Monocytes % (Manual) Seg Neutrophils # Man Monocytes # (Manual) APTT POC ABG pH POC ABG pCO2 53.8 H POC ABG pO2 72 L Sodium 153 H D Potassium Chloride Carbon Dioxide 34 H BUN 36 H Creatinine 2.2 H Glucose 142 H POC Glucose 130 H Calcium Total Creatine Kinase CK-MB (CK-2) CK-MB (CK-2) Rel Index Troponin T NT-Pro-B Natriuret Pep Albumin Zypnb-0-Nmgqhesgc Nxdox-9-Hcuhevppf PEP Interpretation Urine WBC (Auto) Urine Creatinine Urine Total Protein 11/12/18 11/12/18 11/12/18 12:33 17:29 23:53 WBC RBC Hgb Hct MCV MCHC RDW [place] % (Auto) [place] # Seg Neuts % (Manual) Lymphocytes % (Manual) Monocytes % (Manual) Seg Neutrophils # Man Monocytes # (Manual) APTT POC ABG pH POC ABG pCO2 POC ABG pO2 Sodium Potassium Chloride Carbon Dioxide BUN Creatinine Glucose POC Glucose 121 H 150 H 138 H Calcium Total Creatine Kinase CK-MB (CK-2) CK-MB (CK-2) Rel Index Troponin T NT-Pro-B Natriuret Pep Albumin Dlymd-4-Bbcrgohqh Ludhb-3-Yesxriwvt PEP Interpretation Urine WBC (Auto) Urine Creatinine Urine Total Protein 11/13/18 11/13/18 11/13/18 05:16 10:08 12:20 WBC RBC Hgb Hct MCV MCHC RDW [place] % (Auto) [place] # Seg Neuts % (Manual) Lymphocytes % (Manual) Monocytes % (Manual) Seg Neutrophils # Man Monocytes # (Manual) APTT POC ABG pH POC ABG pCO2 POC ABG pO2 Sodium Potassium Chloride Carbon Dioxide 33 H BUN 40 H Creatinine 2.1 H Glucose 209 H POC Glucose 134 H Calcium Total Creatine Kinase CK-MB (CK-2) CK-MB (CK-2) Rel Index Troponin T NT-Pro-B Natriuret Pep Albumin Vuawv-4-Wcwiuykrx Zlijd-6-Wvhsbfhrf PEP Interpretation Urine WBC (Auto) Urine Creatinine 121.2 H Urine Total Protein 16 H 11/13/18 11/14/18 11/15/18 13:39 04:58 05:10 WBC RBC Hgb Hct MCV MCHC RDW [place] % (Auto) [place] # Seg Neuts % (Manual) Lymphocytes % (Manual) Monocytes % (Manual) Seg Neutrophils # Man Monocytes # (Manual) APTT POC ABG pH POC ABG pCO2 POC ABG pO2 Sodium Potassium Chloride Carbon Dioxide 34 H 35 H BUN 40 H 32 H Creatinine 1.8 H 1.7 H Glucose 113 H 73 L POC Glucose Calcium 8.0 L 8.1 L Total Creatine Kinase CK-MB (CK-2) CK-MB (CK-2) Rel Index Troponin T NT-Pro-B Natriuret Pep Albumin 3.5 L Qvshn-8-Vyjnurolr 0.4 H Spqua-2-Jcfhpzzua 1.1 H PEP Interpretation see below H Urine WBC (Auto) Urine Creatinine Urine Total Protein 11/15/18 11/15/18 11/15/18 05:10 13:59 17:06 WBC 12.5 H RBC Hgb Hct 46.9 H MCV 95 H MCHC 31 L RDW 16.0 H [place] % (Auto) [place] # Seg Neuts % (Manual) Lymphocytes % (Manual) Monocytes % (Manual) Seg Neutrophils # Man Monocytes # (Manual) APTT POC ABG pH POC ABG pCO2 POC ABG pO2 Sodium Potassium Chloride Carbon Dioxide BUN Creatinine Glucose POC Glucose 128 H 156 H Calcium Total Creatine Kinase CK-MB (CK-2) CK-MB (CK-2) Rel Index Troponin T NT-Pro-B Natriuret Pep Albumin Pzdnm-4-Pjzbfmaxz Ziwqe-7-Xogkifnvl PEP Interpretation Urine WBC (Auto) Urine Creatinine Urine Total Protein 11/16/18 11/16/18 11/16/18 11:55 11:55 13:20 WBC 21.6 H RBC 5.14 H Hgb 15.4 H Hct 48.0 H MCV MCHC RDW 16.0 H [place] % (Auto) [place] # Seg Neuts % (Manual) Lymphocytes % (Manual) Monocytes % (Manual) Seg Neutrophils # Man Monocytes # (Manual) APTT POC ABG pH POC ABG pCO2 POC ABG pO2 Sodium Potassium Chloride Carbon Dioxide 33 H BUN 32 H Creatinine 2.0 H Glucose 110 H POC Glucose Calcium Total Creatine Kinase CK-MB (CK-2) CK-MB (CK-2) Rel Index Troponin T NT-Pro-B Natriuret Pep Albumin Abbjd-7-Jzamhmemo Otmnz-9-Qqjggpbyb PEP Interpretation Urine WBC (Auto) > 182.0 H Urine Creatinine Urine Total Protein 11/16/18 11/16/18 11/17/18 16:34 20:47 11:17 WBC RBC Hgb Hct MCV MCHC RDW [place] % (Auto) [place] # Seg Neuts % (Manual) Lymphocytes % (Manual) Monocytes % (Manual) Seg Neutrophils # Man Monocytes # (Manual) APTT POC ABG pH POC ABG pCO2 POC ABG pO2 Sodium Potassium Chloride Carbon Dioxide BUN Creatinine Glucose POC Glucose 236 H 171 H 114 H Calcium Total Creatine Kinase CK-MB (CK-2) CK-MB (CK-2) Rel Index Troponin T NT-Pro-B Natriuret Pep Albumin Xvlsj-3-Nxqnfxyyk Hrccg-8-Ddbupugts PEP Interpretation Urine WBC (Auto) Urine Creatinine Urine Total Protein 11/17/18 11/17/18 11/18/18 16:17 21:27 05:45 WBC RBC Hgb Hct MCV MCHC RDW [place] % (Auto) [place] # Seg Neuts % (Manual) Lymphocytes % (Manual) Monocytes % (Manual) Seg Neutrophils # Man Monocytes # (Manual) APTT POC ABG pH POC ABG pCO2 POC ABG pO2 Sodium Potassium Chloride 97.9 L Carbon Dioxide BUN 35 H Creatinine 2.0 H Glucose POC Glucose 175 H 159 H Calcium Total Creatine Kinase CK-MB (CK-2) CK-MB (CK-2) Rel Index Troponin T NT-Pro-B Natriuret Pep Albumin Bytev-6-Spmcrxlbd Hxmfp-7-Oqceouffr PEP Interpretation Urine WBC (Auto) Urine Creatinine Urine Total Protein 11/18/18 11/18/18 11/19/18 16:30 21:08 07:06 WBC RBC Hgb Hct MCV MCHC RDW [place] % (Auto) [place] # Seg Neuts % (Manual) Lymphocytes % (Manual) Monocytes % (Manual) Seg Neutrophils # Man Monocytes # (Manual) APTT POC ABG pH POC ABG pCO2 POC ABG pO2 Sodium Potassium Chloride Carbon Dioxide BUN 35 H Creatinine 1.9 H Glucose POC Glucose 190 H 286 H Calcium Total Creatine Kinase CK-MB (CK-2) CK-MB (CK-2) Rel Index Troponin T NT-Pro-B Natriuret Pep Albumin [place]-8-Ncooblzpe Gtpgk-8-Dwquxztot PEP Interpretation Urine WBC (Auto) Urine Creatinine Urine Total Protein 11/19/18 11/19/18 11/19/18 08:16 09:00 16:57 WBC 16.1 H RBC 5.15 H Hgb Hct 47.5 H MCV MCHC RDW 15.7 H [place] % (Auto) [place] # Seg Neuts % (Manual) 91.0 H Lymphocytes % (Manual) 8.0 L Monocytes % (Manual) Seg Neutrophils # Man 14.7 H Monocytes # (Manual) APTT POC ABG pH POC ABG pCO2 POC ABG pO2 Sodium Potassium Chloride Carbon Dioxide BUN Creatinine Glucose POC Glucose 192 H 165 H Calcium Total Creatine Kinase CK-MB (CK-2) CK-MB (CK-2) Rel Index Troponin T NT-Pro-B Natriuret Pep Albumin Dzurs-7-Tfkypwwqp Ikcwo-3-Nxqdgveur PEP Interpretation Urine WBC (Auto) Urine Creatinine Urine Total Protein 11/19/18 11/20/18 11/20/18 22:42 04:38 08:07 WBC RBC Hgb Hct MCV MCHC RDW [place] % (Auto) [place] # Seg Neuts % (Manual) Lymphocytes % (Manual) Monocytes % (Manual) Seg Neutrophils # Man Monocytes # (Manual) APTT POC ABG pH POC ABG pCO2 POC ABG pO2 Sodium Potassium Chloride 97.6 L Carbon Dioxide 31 H BUN 34 H Creatinine Glucose POC Glucose 175 H 67 L Calcium Total Creatine Kinase CK-MB (CK-2) CK-MB (CK-2) Rel Index Troponin T NT-Pro-B Natriuret Pep Albumin Owtlx-2-Cqzpeumvz Mzrvb-3-Mowrouxna PEP Interpretation Urine WBC (Auto) Urine Creatinine Urine Total Protein 11/20/18 11/20/18 11/20/18 11:54 16:46 21:25 WBC RBC Hgb Hct MCV MCHC RDW [place] % (Auto) [place] # Seg Neuts % (Manual) Lymphocytes % (Manual) Monocytes % (Manual) Seg Neutrophils # Man Monocytes # (Manual) APTT POC ABG pH POC ABG pCO2 POC ABG pO2 Sodium Potassium Chloride Carbon Dioxide BUN Creatinine Glucose POC Glucose 114 H 180 H 220 H Calcium Total Creatine Kinase CK-MB (CK-2) CK-MB (CK-2) Rel Index Troponin T NT-Pro-B Natriuret Pep Albumin Nawhs-0-Buehflqej Yoyeo-7-Pkdlcevmn PEP Interpretation Urine WBC (Auto) Urine Creatinine Urine Total Protein 11/20/18 11/20/18 11/21/18 21:53 21:53 05:57 WBC 20.3 H RBC Hgb Hct 46.8 H MCV MCHC RDW 15.7 H [place] % (Auto) [place] # Seg Neuts % (Manual) 75.0 H Lymphocytes % (Manual) Monocytes % (Manual) Seg Neutrophils # Man 15.2 H Monocytes # (Manual) 1.2 H APTT 23.8 L POC ABG pH POC ABG pCO2 POC ABG pO2 Sodium Potassium 5.2 H Chloride 93.8 L Carbon Dioxide BUN 37 H Creatinine 1.6 H Glucose 230 H POC Glucose Calcium Total Creatine Kinase CK-MB (CK-2) CK-MB (CK-2) Rel Index Troponin T NT-Pro-B Natriuret Pep Albumin 3.4 L Bguoo-7-Puoxnrbyl Rzdfz-3-Jwozjrips PEP Interpretation Urine WBC (Auto) Urine Creatinine Urine Total Protein 11/21/18 11/21/18 11/22/18 06:00 11:19 05:04 WBC RBC Hgb Hct MCV MCHC RDW [place] % (Auto) [place] # Seg Neuts % (Manual) Lymphocytes % (Manual) Monocytes % (Manual) Seg Neutrophils # Man Monocytes # (Manual) APTT POC ABG pH POC ABG pCO2 48.4 H POC ABG pO2 52 L Sodium Potassium 5.1 H Chloride 96.4 L 96.5 L Carbon Dioxide 32 H 32 H BUN 35 H 42 H Creatinine 1.8 H Glucose POC Glucose Calcium Total Creatine Kinase CK-MB (CK-2) CK-MB (CK-2) Rel Index Troponin T NT-Pro-B Natriuret Pep Albumin Cfuwe-9-Bwwltassq Ostno-2-Ucbmygbvh PEP Interpretation Urine WBC (Auto) Urine Creatinine Urine Total Protein 11/22/18 09:01 WBC 22.8 H RBC 5.07 H Hgb Hct 47.6 H MCV MCHC RDW 15.7 H [place] % (Auto) [place] # Seg Neuts % (Manual) 80.0 H Lymphocytes % (Manual) 8.0 L Monocytes % (Manual) 8.0 H Seg Neutrophils # Man 18.2 H Monocytes # (Manual) 1.8 H APTT POC ABG pH POC ABG pCO2 POC ABG pO2 Sodium Potassium Chloride Carbon Dioxide BUN Creatinine Glucose POC Glucose Calcium Total Creatine Kinase CK-MB (CK-2) CK-MB (CK-2) Rel Index Troponin T NT-Pro-B Natriuret Pep Albumin Dzmkz-8-Udlgvuisi Xayue-1-Jmacrgejh PEP Interpretation Urine WBC (Auto) Urine Creatinine Urine Total Protein Allied health notes reviewed: nursing
--- NOTE | 2018-11-22 17:02 | Progress Note ---
Assessment and Plan - Patient Problems (1) Hematuria Current Visit: Yes Status: Acute Qualifiers: Hematuria type: gross Qualified Code(s): R31.0 - Gross hematuria Plan to address problem: Sec to Renal stone Had ESWL on 11/21/18 (2) Acute respiratory failure with hypoxia Current Visit: Yes Status: Acute Plan to address problem: Patient improved Says he is not ready to go home today (3) Acute exacerbation of CHF (congestive heart failure) Current Visit: Yes Status: Acute Qualifiers: Heart failure type: combined systolic and diastolic Qualified Code(s): I50.43 - Acute on chronic combined systolic (congestive) and diastolic (congestive) heart failure Plan to address problem: IV Lasix q12h Cardilology consult appreciated ECHO was Done--EF 40 to 45 percent Improving (4) HTN (hypertension) Current Visit: Yes Status: Chronic Qualifiers: Hypertension type: essential hypertension Qualified Code(s): I10 - Essent ial (primary) hypertension Plan to address problem: Cont antihypertensives (5) Sarcoidosis Current Visit: No Status: Chronic Plan to address problem: Cont Prednisone (6) COPD (chronic obstructive pulmonary disease) Current Visit: Yes Status: Chronic Qualifiers: COPD type: unspecified COPD Qualified Code(s): J44.9 - Chronic obstructive pulmonary disease, unspecified (7) DVT prophylaxis Current Visit: No Status: Acute Plan to address problem: On Heparin and GI prophylaxis Subjective Date of service: 11/22/18 Principal diagnosis: Ac on Ch Hypoxemic Resp failure; Sarcoidosis with e xacerbation;Chest Pain Interval history: S/p Lithotripsy Some SOB present Objective - Constitutional Vitals: Vital Signs - 12hr 11/22/18 11/22/18 11/22/18 05:30 09:00 09:10 Temperature 97.8 F Pulse Rate 77 Pulse Rate [ 85 89 Anterior Bilateral Throughout] Respiratory 16 Rate Respiratory 20 20 Rate [Anterior Bilateral Throughout] Blood Pressure 107/60 O2 Sat by Pulse 95 95 Oximetry 11/22/18 11/22/18 11/22/18 12:26 14:15 14:25 Temperature 98.2 F Pulse Rate 81 Pulse Rate [ 92 H 86 Anterior Bilateral Throughout] Respiratory 18 Rate Respiratory 20 20 Rate [Anterior Bilateral Throughout] Blood Pressure 101/63 O2 Sat by Pulse 94 Oximetry General appearance: Present: mild distress, well-nourished - EENT Eyes: PERRL, EOM intact ENT: hearing intact, clear oral mucosa Ears: bilateral: normal - Neck Neck: supple, normal ROM - Respiratory Respiratory effort: normal Respiratory: bilateral: CTA - Breasts Breasts: normal - Cardiovascular Heart rate: 78 Rhythm: regular Heart Sounds: Present: S1 & S2. Absent: gallop, rub Extremities: pulses intact, No edema, normal color, Full ROM - Gastrointestinal General gastrointestinal: Present: soft, non-tender, non-distended, normal bowel sounds - Genitourinary Male genitourinary: normal - Integumentary Integumentary: clear, warm, dry - Musculoskeletal Musculoskeletal: 1, strength equal bilaterally - Neurologic Neurologic: moves all extremities - Psychiatric Psychiatric: memory intact, appropriate mood/affect, intact judgment & insight - Labs CBC & Chem 7: 11/22/18 09:01 11/22/18 05:04 Labs: Abnormal lab results 11/22/18 11/22/18 Range/Units 05:04 09:01 WBC 22.8 H (4.5-11.0) K/mm3 RBC 5.07 H (3.65-5.03) M/mm3 Hct 47.6 H (35.5-45.6) % RDW 15.7 H (13.2-15.2) % Seg Neuts % (Manual) 80.0 H (40.0-70.0) % Lymphocytes % (Manual) 8.0 L (13.4-35.0) % Monocytes % (Manual) 8.0 H (0.0-7.3) % Seg Neutrophils # Man 18.2 H (1.8-7.7) K/mm3 Monocytes # (Manual) 1.8 H (0.0-0.8) K/mm3 Potassium 5.1 H (3.6-5.0) mmol/L Chloride 96.5 L (98-107) mmol/L Carbon Dioxide 32 H (22-30) mmol/L BUN 42 H (9-20) mg/dL Creatinine 1.8 H (0.8-1.5) mg/dL
[2018-11-23] MEDS: BENADRYL PO PRN (00:13)
[2018-11-23] MEDS: ANCEF/NS 1 GM/50 ML 1 GM/50 ML BAG IV SCH ×3 (05:10→17:54)
[2018-11-23 05:32] LABS: Hematocrit 44.8 % (35.5-45.6); Hemoglobin 14.2 gm/dl (11.8-15.2); Mean Corpuscular HGB Conc 32 % (32-34); Mean Corpuscular Volume 93 fl (84-94); Platelet Count 215 K/mm3 (140-440); Red Blood Count 4.79 M/mm3 (3.65-5.03); Red Cell Distribution Width 15.7 % (13.2-15.2)
[2018-11-23 05:49] LABS: Calcium 8.9 mg/dL (8.4-10.2)
[2018-11-23 07:04] LABS: Total Cells Counted 100
[2018-11-23 07:05] LABS: Band Neutrophils # (Manual) 0.4 K/mm3; Basophils % (Manual) 0 % (0.0-1.8)
[2018-11-23 07:06] LABS: Anisocytosis 1+; Hypochromasia Few
[2018-11-23] MEDS: DUONEB *Not for PRN Use IH SCH ×3 (08:55→19:41)
[2018-11-23] MEDS: HEPARIN SUB-Q SCH ×2 (10:11→21:33)
[2018-11-23] MEDS: PEPCID PO SCH (10:12)
[2018-11-23] MEDS: BABY ASPIRIN PO SCH (10:12)
[2018-11-23] MEDS: DELTASONE PO SCH (10:12)
[2018-11-23] MEDS: LASIX PO SCH (10:12)
[2018-11-23] MEDS: SODIUM CHLORIDE FLUSH SYRINGE 10 ML IV SCH (10:13)
[2018-11-23] MEDS: LOPRESSOR PO SCH ×2 (10:13→21:34)
--- NOTE | 2018-11-23 11:20 | Progress Note ---
Assessment and Plan Acute on Chronic Hypoxemic Respiratory failure Sarcoidosis with acute exacerbation Restrictive lung disease JESI NOY (on CPAP at night) Recent pneumonia CAD/CHF (stable) HTN (BP stable) Morbid Obesity Immunocompromised state (Chronic steroid therapy) - continue BIPAP scheduled qhs - continue Bronchodilator therapy with pulmonary hygiene per RT - continue supplemental oxygen and wean to keep O2 sat's > 89% - continue systemic steroids but tapering to 30mg qd (Patient is on chronic steroids and is at risk for hypotension related to adrenal insufficiency) - continue VTE prophylaxis & Stress ulcer prophylaxis - De-escalate antibiotic therapy per ID recommendations - PT/OT as tolerated - Aspiration precautions - continue Accuchecks with glycemic control. Target glucose 140-180 mg/dL - Heart failure measures +/- cardiology consultations - Mobility program for pressure ulcer prevention - continue other care per attending / other consultants - discharge planning ongoing concurrently .... re-evaluate in am & prn FULL CODE Subjective Date of service: 11/23/18 Principal diagnosis: Ac on Ch Hypoxemic Resp failure; Sarcoidosis with exacerbation;Chest Pain Interval history: Patient is seen today for: Acute on Chronic Hypoxemic Respiratory failure; Restrictive lung disease with acute exacerbation; Sarcoidosis (on home O2); Acute dyspnea; Chest pain Seen and examined at bedside; 24hour events reviewed; nursing and respiratory care staff consulted; no adverse overnight events reported to me; resting peacefully in bed; s/p lithotripsy; denies acute chest pains or palpitations; tolerating qhs BIPAP; no N/V/F/C; states no recurrent hematuria Objective Vital Signs - 12hr 11/22/18 11/23/18 11/23/18 23:27 05:08 08:52 Temperature 98.1 F 98.4 F Pulse Rate 92 H 64 Pulse Rate [ 90 Anterior Bilateral Upper Lobe] Respiratory 18 18 Rate Respiratory 18 Rate [Anterior Bilateral Upper Lobe] Blood Pressure 109/61 112/74 O2 Sat by Pulse 94 95 Oximetry 11/23/18 11/23/18 11/23/18 08:57 08:59 10:13 Temperature Pulse Rate 86 Pulse Rate [ 88 Anterior Bilateral Upper Lobe] Respiratory Rate Respiratory 16 Rate [Anterior Bilateral Upper Lobe] Blood Pressure 105/77 O2 Sat by Pulse 95 Oximetry Constitutional: no acute distress, alert, other (Middle aged obeses AAM, normocephalic and atraumati) Eyes: non-icteric ENT: oropharynx moist, other (extubated) Neck: supple, no lymphadenopathy, no JVD, other (large neck circumference) Effort: mildly labored Ascultation: Bilateral: diminished breath sounds, rales (inspiratory in bases), rhonchi Percussion: Bilateral: not dull Cardiovascular: regular rate and rhythm, other (No R/M) Gastrointestinal: normoactive bowel sounds, soft, non-tender, non-distended, other (No HSM) Integumentary: normal Extremities: no cyanosis, pulses normal, no ischemia or petechiae Neurologic: normal mental status, non-focal exam, pupils equal and round, motor strength normal and Psychiatric: mood appropriate, affect normal CBC and BMP: 11/23/18 05:18 11/24/18 05:16 ABG, PT/INR, D-dimer: ABG POC ABG pH 7.447 (7.35-7.45) 11/21/18 11:19 POC ABG pCO2 48.4 (35-45) H 11/21/18 11:19 POC ABG pO2 52 (80-105) L 11/21/18 11:19 POC ABG HCO3 33.4 11/21/18 11:19 POC ABG Total CO2 35 11/21/18 11:19 POC ABG O2 Sat 87 11/21/18 11:19 PT/INR, D-dimer PT 13.6 Sec. (12.2-14.9) 11/20/18 21:53 INR 1.00 (0.87-1.13) 11/20/18 21:53 D-Dimer < 135.00 ng/mlDDU (0-234) 11/10/18 02:24 Abnormal lab findings: Abnormal Labs 11/09/18 11/09/18 11/10/18 23:58 23:58 02:24 WBC RBC 5.14 H Hgb 15.8 H Hct 48.6 H MCV 95 H MCHC RDW 16.6 H [place] % (Auto) 10.6 H [place] # 1.0 H Seg Neuts % (Manual) Lymphocytes % (Manual) Monocytes % (Manual) Seg Neutrophils # Man Monocytes # (Manual) Eosinophils # (Manual) APTT POC ABG pH POC ABG pCO2 POC ABG pO2 Sodium Potassium Chloride Carbon Dioxide BUN Creatinine 1.6 H Glucose 103 H POC Glucose Calcium Total Creatine Kinase CK-MB (CK-2) CK-MB (CK-2) Rel Index Troponin T 0.031 H NT-Pro-B Natriuret Pep 5420 H Albumin Ecfce-8-Eqgalwkck Fgoqb-8-Nxpcvroju PEP Interpretation Urine WBC (Auto) Urine Creatinine Urine Total Protein 11/10/18 11/10/18 11/10/18 05:43 06:37 09:24 WBC RBC Hgb Hct MCV MCHC RDW [place] % (Auto) [place] # Seg Neuts % (Manual) Lymphocytes % (Manual) Monocytes % (Manual) Seg Neutrophils # Man Monocytes # (Manual) Eosinophils # (Manual) APTT POC ABG pH 7.168 L 7.318 L POC ABG pCO2 87.7 H 57.7 H POC ABG pO2 193 H 152 H Sodium Potassium Chloride Carbon Dioxide BUN Creatinine Glucose POC Glucose Calcium Total Creatine Kinase 8 L CK-MB (CK-2) 7.8 H CK-MB (CK-2) Rel Index 97.5 H Troponin T NT-Pro-B Natriuret Pep Albumin Xmxyf-5-Rnyrldeyy Tfvvg-0-Wqeepeodp PEP Interpretation Urine WBC (Auto) Urine Creatinine Urine Total Protein 11/10/18 11/10/18 11/11/18 12:15 23:34 04:23 WBC RBC Hgb Hct MCV MCHC RDW [place] % (Auto) [place] # Seg Neuts % (Manual) Lymphocytes % (Manual) Monocytes % (Manual) Seg Neutrophils # Man Monocytes # (Manual) Eosinophils # (Manual) APTT POC ABG pH 7.518 H POC ABG pCO2 POC ABG pO2 122 H Sodium Potassium Chloride Carbon Dioxide BUN Creatinine Glucose POC Glucose 130 H Calcium Total Creatine Kinase 269 H CK-MB (CK-2) 6.4 H CK-MB (CK-2) Rel Index Troponin T NT-Pro-B Natriuret Pep Albumin Hdctc-6-Veksmphnw Naglm-0-Dozgggbcu PEP Interpretation Urine WBC (Auto) Urine Creatinine Urine Total Protein 11/11/18 11/11/18 11/12/18 05:18 16:21 00:22 WBC RBC Hgb Hct MCV MCHC RDW [place] % (Auto) [place] # Seg Neuts % (Manual) Lymphocytes % (Manual) Monocytes % (Manual) Seg Neutrophils # Man Monocytes # (Manual) Eosinophils # (Manual) APTT POC ABG pH POC ABG pCO2 49.5 H POC ABG pO2 60 L Sodium Potassium Chloride Carbon Dioxide BUN Creatinine Glucose POC Glucose 129 H 122 H Calcium Total Creatine Kinase CK-MB (CK-2) CK-MB (CK-2) Rel Index Troponin T NT-Pro-B Natriuret Pep Albumin Rwtge-0-Dmgtbrezl Lwlhl-3-Rcrcbajdy PEP Interpretation Urine WBC (Auto) Urine Creatinine Urine Total Protein 11/12/18 11/12/18 11/12/18 05:43 10:13 11:42 WBC RBC Hgb Hct MCV MCHC RDW [place] % (Auto) [place] # Seg Neuts % (Manual) Lymphocytes % (Manual) Monocytes % (Manual) Seg Neutrophils # Man Monocytes # (Manual) Eosinophils # (Manual) APTT POC ABG pH POC ABG pCO2 53.8 H POC ABG pO2 72 L Sodium 153 H D Potassium Chloride Carbon Dioxide 34 H BUN 36 H Creatinine 2.2 H Glucose 142 H POC Glucose 130 H Calcium Total Creatine Kinase CK-MB (CK-2) CK-MB (CK-2) Rel Index Troponin T NT-Pro-B Natriuret Pep Albumin Mdvep-8-Vuqgdrzhy Mkhqu-6-Tnqpwvrew PEP Interpretation Urine WBC (Auto) Urine Creatinine Urine Total Protein 11/12/18 11/12/18 11/12/18 12:33 17:29 23:53 WBC RBC Hgb Hct MCV MCHC RDW [place] % (Auto) [place] # Seg Neuts % (Manual) Lymphocytes % (Manual) Monocytes % (Manual) Seg Neutrophils # Man Monocytes # (Manual) Eosinophils # (Manual) APTT POC ABG pH POC ABG pCO2 POC ABG pO2 Sodium Potassium Chloride Carbon Dioxide BUN Creatinine Glucose POC Glucose 121 H 150 H 138 H Calcium Total Creatine Kinase CK-MB (CK-2) CK-MB (CK-2) Rel Index Troponin T NT-Pro-B Natriuret Pep Albumin Eosmy-3-Zaltlxyyq Mjbrs-5-Vjdbgrccx PEP Interpretation Urine WBC (Auto) Urine Creatinine Urine Total Protein 11/13/18 11/13/18 11/13/18 05:16 10:08 12:20 WBC RBC Hgb Hct MCV MCHC RDW [place] % (Auto) [place] # Seg Neuts % (Manual) Lymphocytes % (Manual) Monocytes % (Manual) Seg Neutrophils # Man Monocytes # (Manual) Eosinophils # (Manual) APTT POC ABG pH POC ABG pCO2 POC ABG pO2 Sodium Potassium Chloride Carbon Dioxide 33 H BUN 40 H Creatinine 2.1 H Glucose 209 H POC Glucose 134 H Calcium Total Creatine Kinase CK-MB (CK-2) CK-MB (CK-2) Rel Index Troponin T NT-Pro-B Natriuret Pep Albumin Cbyhn-0-Qevkysjnr Qlugj-7-Jjwfzhhpe PEP Interpretation Urine WBC (Auto) Urine Creatinine 121.2 H Urine Total Protein 16 H 11/13/18 11/14/18 11/15/18 13:39 04:58 05:10 WBC RBC Hgb Hct MCV MCHC RDW [place] % (Auto) [place] # Seg Neuts % (Manual) Lymphocytes % (Manual) Monocytes % (Manual) Seg Neutrophils # Man Monocytes # (Manual) Eosinophils # (Manual) APTT POC ABG pH POC ABG pCO2 POC ABG pO2 Sodium Potassium Chloride Carbon Dioxide 34 H 35 H BUN 40 H 32 H Creatinine 1.8 H 1.7 H Glucose 113 H 73 L POC Glucose Calcium 8.0 L 8.1 L Total Creatine Kinase CK-MB (CK-2) CK-MB (CK-2) Rel Index Troponin T NT-Pro-B Natriuret Pep Albumin 3.5 L Mqscr-9-Nfhrhpshi 0.4 H Rzxye-2-Xtcwzsmza 1.1 H PEP Interpretation see below H Urine WBC (Auto) Urine Creatinine Urine Total Protein 11/15/18 11/15/18 11/15/18 05:10 13:59 17:06 WBC 12.5 H RBC Hgb Hct 46.9 H MCV 95 H MCHC 31 L RDW 16.0 H [place] % (Auto) [place] # Seg Neuts % (Manual) Lymphocytes % (Manual) Monocytes % (Manual) Seg Neutrophils # Man Monocytes # (Manual) Eosinophils # (Manual) APTT POC ABG pH POC ABG pCO2 POC ABG pO2 Sodium Potassium Chloride Carbon Dioxide BUN Creatinine Glucose POC Glucose 128 H 156 H Calcium Total Creatine Kinase CK-MB (CK-2) CK-MB (CK-2) Rel Index Troponin T NT-Pro-B Natriuret Pep Albumin Wkple-5-Cavkqlmnw Utftj-2-Jtjdxwzab PEP Interpretation Urine WBC (Auto) Urine Creatinine Urine Total Protein 11/16/18 11/16/18 11/16/18 11:55 11:55 13:20 WBC 21.6 H RBC 5.14 H Hgb 15.4 H Hct 48.0 H MCV MCHC RDW 16.0 H [place] % (Auto) [place] # Seg Neuts % (Manual) Lymphocytes % (Manual) Monocytes % (Manual) Seg Neutrophils # Man Monocytes # (Manual) Eosinophils # (Manual) APTT POC ABG pH POC ABG pCO2 POC ABG pO2 Sodium Potassium Chloride Carbon Dioxide 33 H BUN 32 H Creatinine 2.0 H Glucose 110 H POC Glucose Calcium Total Creatine Kinase CK-MB (CK-2) CK-MB (CK-2) Rel Index Troponin T NT-Pro-B Natriuret Pep Albumin Rpoxu-2-Kgqkokxez Ahzfh-9-Kvqcbfglw PEP Interpretation Urine WBC (Auto) > 182.0 H Urine Creatinine Urine Total Protein 11/16/18 11/16/18 11/17/18 16:34 20:47 11:17 WBC RBC Hgb Hct MCV MCHC RDW [place] % (Auto) [place] # Seg Neuts % (Manual) Lymphocytes % (Manual) Monocytes % (Manual) Seg Neutrophils # Man Monocytes # (Manual) Eosinophils # (Manual) APTT POC ABG pH POC ABG pCO2 POC ABG pO2 Sodium Potassium Chloride Carbon Dioxide BUN Creatinine Glucose POC Glucose 236 H 171 H 114 H Calcium Total Creatine Kinase CK-MB (CK-2) CK-MB (CK-2) Rel Index Troponin T NT-Pro-B Natriuret Pep Albumin Icgzg-9-Enmuznbjv Wxitk-2-Ozwinokor PEP Interpretation Urine WBC (Auto) Urine Creatinine Urine Total Protein 11/17/18 11/17/18 11/18/18 16:17 21:27 05:45 WBC RBC Hgb Hct MCV MCHC RDW [place] % (Auto) [place] # Seg Neuts % (Manual) Lymphocytes % (Manual) Monocytes % (Manual) Seg Neutrophils # Man Monocytes # (Manual) Eosinophils # (Manual) APTT POC ABG pH POC ABG pCO2 POC ABG pO2 Sodium Potassium Chloride 97.9 L Carbon Dioxide BUN 35 H Creatinine 2.0 H Glucose POC Glucose 175 H 159 H Calcium Total Creatine Kinase CK-MB (CK-2) CK-MB (CK-2) Rel Index Troponin T NT-Pro-B Natriuret Pep Albumin Ckzkx-8-Fganxdbww Ctpze-0-Wtothxobb PEP Interpretation Urine WBC (Auto) Urine Creatinine Urine Total Protein 11/18/18 11/18/18 11/19/18 16:30 21:08 07:06 WBC RBC Hgb Hct MCV MCHC RDW [place] % (Auto) [place] # Seg Neuts % (Manual) Lymphocytes % (Manual) Monocytes % (Manual) Seg Neutrophils # Man Monocytes # (Manual) Eosinophils # (Manual) APTT POC ABG pH POC ABG pCO2 POC ABG pO2 Sodium Potassium Chloride Carbon Dioxide BUN 35 H Creatinine 1.9 H Glucose POC Glucose 190 H 286 H Calcium Total Creatine Kinase CK-MB (CK-2) CK-MB (CK-2) Rel Index Troponin T NT-Pro-B Natriuret Pep Albumin Qikdm-7-Kucwrgqgs Wieiu-9-Hgxfimdow PEP Interpretation Urine WBC (Auto) Urine Creatinine Urine Total Protein 11/19/18 11/19/18 11/19/18 08:16 09:00 16:57 WBC 16.1 H RBC 5.15 H Hgb Hct 47.5 H MCV MCHC RDW 15.7 H [place] % (Auto) [place] # Seg Neuts % (Manual) 91.0 H Lymphocytes % (Manual) 8.0 L Monocytes % (Manual) Seg Neutrophils # Man 14.7 H Monocytes # (Manual) Eosinophils # (Manual) APTT POC ABG pH POC ABG pCO2 POC ABG pO2 Sodium Potassium Chloride Carbon Dioxide BUN Creatinine Glucose POC Glucose 192 H 165 H Calcium Total Creatine Kinase CK-MB (CK-2) CK-MB (CK-2) Rel Index Troponin T NT-Pro-B Natriuret Pep Albumin Aamhw-3-Wedynyudc Kygev-6-Srcysebnf PEP Interpretation Urine WBC (Auto) Urine Creatinine Urine Total Protein 11/19/18 11/20/18 11/20/18 22:42 04:38 08:07 WBC RBC Hgb Hct MCV MCHC RDW [place] % (Auto) [place] # Seg Neuts % (Manual) Lymphocytes % (Manual) Monocytes % (Manual) Seg Neutrophils # Man Monocytes # (Manual) Eosinophils # (Manual) APTT POC ABG pH POC ABG pCO2 POC ABG pO2 Sodium Potassium Chloride 97.6 L Carbon Dioxide 31 H BUN 34 H Creatinine Glucose POC Glucose 175 H 67 L Calcium Total Creatine Kinase CK-MB (CK-2) CK-MB (CK-2) Rel Index Troponin T NT-Pro-B Natriuret Pep Albumin Kdsqi-6-Uownuljsd Luqss-4-Oleeeysic PEP Interpretation Urine WBC (Auto) Urine Creatinine Urine Total Protein 0111/20/18 11/20/18 11:54 16:46 21:25 WBC RBC Hgb Hct MCV MCHC RDW [place] % (Auto) [place] # Seg Neuts % (Manual) Lymphocytes % (Manual) Monocytes % (Manual) Seg Neutrophils # Man Monocytes # (Manual) Eosinophils # (Manual) APTT POC ABG pH POC ABG pCO2 POC ABG pO2 Sodium Potassium Chloride Carbon Dioxide BUN Creatinine Glucose POC Glucose 114 H 180 H 220 H Calcium Total Creatine Kinase CK-MB (CK-2) CK-MB (CK-2) Rel Index Troponin T NT-Pro-B Natriuret Pep Albumin Riken-9-Ejonzhmxv Lqkye-7-Vdlhnpxdb PEP Interpretation Urine WBC (Auto) Urine Creatinine Urine Total Protein 11/20/18 11/20/18 11/21/18 21:53 21:53 05:57 WBC 20.3 H RBC Hgb Hct 46.8 H MCV MCHC RDW 15.7 H [place] % (Auto) [place] # Seg Neuts % (Manual) 75.0 H Lymphocytes % (Manual) Monocytes % (Manual) Seg Neutrophils # Man 15.2 H Monocytes # (Manual) 1.2 H Eosinophils # (Manual) APTT 23.8 L POC ABG pH POC ABG pCO2 POC ABG pO2 Sodium Potassium 5.2 H Chloride 93.8 L Carbon Dioxide BUN 37 H Creatinine 1.6 H Glucose 230 H POC Glucose Calcium Total Creatine Kinase CK-MB (CK-2) CK-MB (CK-2) Rel Index Troponin T NT-Pro-B Natriuret Pep Albumin 3.4 L Ksxyi-7-Shpwxnits Vfkvu-6-Heoljfnxc PEP Interpretation Urine WBC (Auto) Urine Creatinine Urine Total Protein 11/21/18 11/21/18 11/22/18 06:00 11:19 05:04 WBC RBC Hgb Hct MCV MCHC RDW [place] % (Auto) [place] # Seg Neuts % (Manual) Lymphocytes % (Manual) Monocytes % (Manual) Seg Neutrophils # Man Monocytes # (Manual) Eosinophils # (Manual) APTT POC ABG pH POC ABG pCO2 48.4 H POC ABG pO2 52 L Sodium Potassium 5.1 H Chloride 96.4 L 96.5 L Carbon Dioxide 32 H 32 H BUN 35 H 42 H Creatinine 1.8 H Glucose POC Glucose Calcium Total Creatine Kinase CK-MB (CK-2) CK-MB (CK-2) Rel Index Troponin T NT-Pro-B Natriuret Pep Albumin Jdkid-9-Vdveeglnl Bxvtk-0-Ssnosouxr PEP Interpretation Urine WBC (Auto) Urine Creatinine Urine Total Protein 11/22/18 11/23/18 11/23/18 09:01 05:18 05:18 WBC 22.8 H 20.9 H RBC 5.07 H Hgb Hct 47.6 H MCV MCHC RDW 15.7 H 15.7 H [place] % (Auto) [place] # Seg Neuts % (Manual) 80.0 H Lymphocytes % (Manual) 8.0 L Monocytes % (Manual) 8.0 H 11.0 H Seg Neutrophils # Man 18.2 H 14.2 H Monocytes # (Manual) 1.8 H 2.3 H Eosinophils # (Manual) 0.6 H APTT POC ABG pH POC ABG pCO2 POC ABG pO2 Sodium Potassium Chloride Carbon Dioxide 31 H BUN 34 H Creatinine 1.7 H Glucose 101 H POC Glucose Calcium Total Creatine Kinase CK-MB (CK-2) CK-MB (CK-2) Rel Index Troponin T NT-Pro-B Natriuret Pep Albumin Vicfo-7-Faffngxui Mtiax-1-Llrbqypmm PEP Interpretation Urine WBC (Auto) Urine Creatinine Urine Total Protein 11/23/18 07:48 WBC RBC Hgb Hct MCV MCHC RDW [place] % (Auto) [place] # Seg Neuts % (Manual) Lymphocytes % (Manual) Monocytes % (Manual) Seg Neutrophils # Man Monocytes # (Manual) Eosinophils # (Manual) APTT POC ABG pH POC ABG pCO2 POC ABG pO2 Sodium Potassium Chloride Carbon Dioxide BUN Creatinine Glucose POC Glucose 69 L Calcium Total Creatine Kinase CK-MB (CK-2) CK-MB (CK-2) Rel Index Troponin T NT-Pro-B Natriuret Pep Albumin Nmxxe-6-Ijnitwzdi Aindp-3-Puxjjgxbr PEP Interpretation Urine WBC (Auto) Urine Creatinine Urine Total Protein Allied health notes reviewed: nursing
--- NOTE | 2018-11-23 15:31 | Progress Note ---
Assessment and Plan - Patient Problems (1) Hematuria Current Visit: Yes Status: Acute Qualifiers: Hematuria type: gross Qualified Code(s): R31.0 - Gross hematuria Plan to address problem: Sec to Renal stone Had ESWL on 11/21/18 Hematuria resolved (2) Acute respiratory failure with hypoxia Current Visit: Yes Status: Acute Plan to address problem: Patient improved Says he is not ready to go home today (3) Acute exacerbation of CHF (congestive heart failure) Current Visit: Yes Status: Acute Qualifiers: Heart failure type: combined systolic and diastolic Qualified Code(s): I50.43 - Acute on chronic combined systolic (congestive) and diastolic (congestive) heart failure Plan to address problem: IV Lasix q12h Cardilology consult appreciated ECHO was Done--EF 40 to 45 percent Improving (4) HTN (hypertension) Current Visit: Yes Status: Chronic Qualifiers: Hypertension type: essential hypertension Qualified Code(s): I10 - Essential (primary) hypertension Plan to address problem: Cont antihypertensives (5) Sarcoidosis Current Visit: No Status: Chronic Plan to address problem: Cont Prednisone (6) COPD (chronic obstructive pulmonary disease) Current Visit: Yes Status: Chronic Qualifiers: COPD type: unspecified COPD Qualified Code(s): J44.9 - Chronic obstructive pulmonary disease, unspecified Plan to address problem: COnt Duoneb tx and IV solumedrol which to be tapered off (7) DVT prophylaxis Current Visit: No Status: Acute Plan to address problem: On Heparin and GI prophylaxis (8) Discharge planning issues Current Visit: Yes Status: Acute Plan to address problem: Planning to discharge Patient has someone to recieve him on Sunday If not plaxcement ordered Subjective Date of service: 11/23/18 Principal diagnosis: Ac on Ch Hypoxemic Resp failure; Sarcoidosis with exacerbation;Chest Pain Interval history: S/p Lithotripsy Some SOB present Says he wants to go on Sunday Objective - Constitutional Vitals: Vital Signs - 12hr 11/23/18 11/23/18 11/23/18 05:08 08:52 08:57 Temperature 98.4 F Pulse Rate 64 Pulse Rate [ 90 Anterior Bilateral Upper Lobe] Respiratory 18 Rate Respiratory 18 Rate [Anterior Bilateral Upper Lobe] Blood Pressure 112/74 O2 Sat by Pulse 95 95 Oximetry 11/23/18 11/23/18 11/23/18 08:59 10:13 13:50 Temperature Pulse Rate 86 Pulse Rate [ 88 92 H Anterior Bilateral Upper Lobe] Respiratory Rate Respiratory 16 18 Rate [Anterior Bilateral Upper Lobe] Blood Pressure 105/77 O2 Sat by Pulse Oximetry 11/23/18 13:59 Temperature 97.4 F L Pulse Rate 101 H Pulse Rate [ 90 Anterior Bilateral Upper Lobe] Respiratory 20 Rate Respiratory 16 Rate [Anterior Bilateral Upper Lobe] Blood Pressure 137/90 O2 Sat by Pulse 94 Oximetry General appearance: Present: no acute distress, well-nourished - EENT Eyes: PERRL, EOM intact ENT: hearing intact, clear oral mucosa Ears: bilateral: normal - Neck Neck: supple, normal ROM - Respiratory Respiratory effort: normal Respiratory: bilateral: CTA - Breasts Breasts: normal - Cardiovascular Heart rate: 78 Rhythm: regular Heart Sounds: Present: S1 & S2. Absent: gallop, rub Extremities: no ischemia, pulses intact, No edema, normal color, Full ROM - Gastrointestinal General gastrointestinal: Present: soft, non-tender, non-distended, normal bowel sounds - Genitourinary Male genitourinary: normal - Integumentary Integumentary: clear, warm, dry - Musculoskeletal Musculoskeletal: 1, strength equal bilaterally - Neurologic Neurologic: moves all extremities - Psychiatric Psychiatric: memory intact, appropriate mood/affect, intact judgment & insight - Labs CBC & Chem 7: 11/23/18 05:18 11/23/18 05:18 Labs: Abnormal lab results 11/23/18 11/23/18 11/23/18 Range/Units 05:18 05:18 07:48 WBC 20.9 H (4.5-11.0) K/mm3 RDW 15.7 H (13.2-15.2) % Monocytes % (Manual) 11.0 H (0.0-7.3) % Seg Neutrophils # Man 14.2 H (1.8-7.7) K/mm3 Monocytes # (Manual) 2.3 H (0.0-0.8) K/mm3 Eosinophils # (Manual) 0.6 H (0.0-0.4) K/mm3 Carbon Dioxide 31 H (22-30) mmol/L BUN 34 H (9-20) mg/dL Creatinine 1.7 H (0.8-1.5) mg/dL Glucose 101 H (75-100) mg/dL POC Glucose 69 L (70-105)
[2018-11-24] MEDS: ANCEF/NS 1 GM/50 ML 1 GM/50 ML BAG IV SCH ×4 (00:07→18:08)
[2018-11-24] MEDS: SODIUM CHLORIDE FLUSH SYRINGE 10 ML IV SCH ×3 (00:08→21:31)
[2018-11-24 06:20] LABS: Calcium 9.2 mg/dL (8.4-10.2)
[2018-11-24] MEDS: DUONEB *Not for PRN Use IH SCH ×3 (07:38→20:44)
[2018-11-24] MEDS: PEPCID PO SCH (10:30)
[2018-11-24] MEDS: HEPARIN SUB-Q SCH ×2 (10:30→21:31)
[2018-11-24] MEDS: BABY ASPIRIN PO SCH (10:30)
[2018-11-24] MEDS: LASIX PO SCH (10:30)
[2018-11-24] MEDS: PERCOCET 5/325 PO PRN ×3 (10:30→22:52)
[2018-11-24] MEDS: DELTASONE PO SCH (10:30)
[2018-11-24] MEDS: LOPRESSOR PO SCH ×2 (10:31→21:31)
--- NOTE | 2018-11-24 12:22 | Progress Note ---
Assessment and Plan Acute on Chronic Hypoxemic Respiratory failure Sarcoidosis with acute exacerbation Restrictive lung disease JESI NOY (on CPAP at night) Recent pneumonia CAD/CHF (stable) HTN (BP stable) Morbid Obesity Immunocompromised state (Chronic steroid therapy) - continue BIPAP scheduled qhs - continue Bronchodilator therapy with pulmonary hygiene per RT - continue supplemental oxygen and wean to keep O2 sat's > 89% - continue systemic steroids but tapering to 30mg qd (Patient is on chronic steroids and is at risk for hypotension related to adrenal insufficiency) - continue VTE prophylaxis & Stress ulcer prophylaxis - De-escalate antibiotic therapy per ID recommendations - PT/OT as tolerated - Aspiration precautions - continue Accuchecks with glycemic control. Target glucose 140-180 mg/dL - Heart failure measures +/- cardiology consultations - Mobility program for pressure ulcer prevention - continue other care per attending / other consultants - discharge planning ongoing concurrently .... re-evaluate in am & prn FULL CODE Subjective Date of service: 11/24/18 Principal diagnosis: Ac on Ch Hypoxemic Resp failure; Sarcoidosis with exacerbation;Chest Pain Interval history: Patient is seen today for: Acute on Chronic Hypoxemic Respiratory failure; Restrictive lung disease with acute exacerbation; Sarcoidosis (on home O2); Acute dyspnea; Chest pain Seen and examined at bedside; 24hour events reviewed; nursing and respiratory care staff consulted; no adverse overnight events reported to me; resting peacefully in bed; Objective Vital Signs - 12hr 11/24/18 11/24/18 11/24/18 00:28 05:19 07:28 Temperature 98.6 F 98.6 F Pulse Rate 76 64 Pulse Rate [ 80 Anterior Bilateral Throughout] Respiratory 16 18 Rate Respiratory 18 Rate [Anterior Bilateral Throughout] Blood Pressure 124/84 130/60 O2 Sat by Pulse 92 94 Oximetry 11/24/18 11/24/18 11/24/18 07:30 07:38 12:09 Temperature 98.3 F Pulse Rate 89 Pulse Rate [ 83 Anterior Bilateral Throughout] Respiratory 18 Rate Respiratory 16 Rate [Anterior Bilateral Throughout] Blood Pressure 131/81 O2 Sat by Pulse 96 91 Oximetry Constitutional: no acute distress, alert, other (Middle aged obeses AAM, normocephalic and atraumati) Eyes: non-icteric ENT: oropharynx moist, other (extubated) Neck: supple, no lymphadenopathy, no JVD, other (large neck circumference) Effort: mildly labored Ascultation: Bilateral: diminished breath sounds, rales (inspiratory in bases), rhonchi Percussion: Bilateral: not dull Cardiovascular: regular rate and rhythm, other (No R/M) Gastrointestinal: normoactive bowel sounds, soft, non-tender, non-distended, other (No HSM) Integumentary: normal Extremities: no cyanosis, pulses normal, no ischemia or petechiae Neurologic: normal mental status, non-focal exam, pupils equal and round, motor strength normal and Psychiatric: mood appropriate, affect normal CBC and BMP: 11/23/18 05:18 11/24/18 05:16 ABG, PT/INR, D-dimer: ABG POC ABG pH 7.447 (7.35-7.45) 11/21/18 11:19 POC ABG pCO2 48.4 (35-45) H 11/21/18 11:19 POC ABG pO2 52 (80-105) L 11/21/18 11:19 POC ABG HCO3 33.4 11/21/18 11:19 POC ABG Total CO2 35 11/21/18 11:19 POC ABG O2 Sat 87 11/21/18 11:19 PT/INR, D-dimer PT 13.6 Sec. (12.2-14.9) 11/20/18 21:53 INR 1.00 (0.87-1.13) 11/20/18 21:53 D-Dimer < 135.00 ng/mlDDU (0-234) 11/10/18 02:24 Abnormal lab findings: Abnormal Labs 11/09/18 11/09/18 11/10/18 23:58 23:58 02:24 WBC RBC 5.14 H Hgb 15.8 H Hct 48.6 H MCV 95 H MCHC RDW 16.6 H [place] % (Auto) 10.6 H [place] # 1.0 H Seg Neuts % (Manual) Lymphocytes % (Manual) Monocytes % (Manual) Seg Neutrophils # Man Monocytes # (Manual) Eosinophils # (Manual) APTT POC ABG pH POC ABG pCO2 POC ABG pO2 Sodium Potassium Chloride Carbon Dioxide BUN Creatinine 1.6 H Glucose 103 H POC Glucose Calcium Total Creatine Kinase CK-MB (CK-2) CK-MB (CK-2) Rel Index Troponin T 0.031 H NT-Pro-B Natriuret Pep 5420 H Albumin Mcvkv-8-Hqrqxuasr Kytxc-9-Nqirrsduk PEP Interpretation Urine WBC (Auto) Urine Creatinine Urine Total Protein 11/10/18 11/10/18 11/10/18 05:43 06:37 09:24 WBC RBC Hgb Hct MCV MCHC RDW [place] % (Auto) [place] # Seg Neuts % (Manual) Lymphocytes % (Manual) Monocytes % (Manual) Seg Neutrophils # Man Monocytes # (Manual) Eosinophils # (Manual) APTT POC ABG pH 7.168 L 7.318 L POC ABG pCO2 87.7 H 57.7 H POC ABG pO2 193 H 152 H Sodium Potassium Chloride Carbon Dioxide BUN Creatinine Glucose POC Glucose Calcium Total Creatine Kinase 8 L CK-MB (CK-2) 7.8 H CK-MB (CK-2) Rel Index 97.5 H Troponin T NT-Pro-B Natriuret Pep Albumin Pqlwl-7-Usywiimlo Ogvvx-8-Fvsazqlwm PEP Interpretation Urine WBC (Auto) Urine Creatinine Urine Total Protein 11/10/18 11/10/18 11/11/18 12:15 23:34 04:23 WBC RBC Hgb Hct MCV MCHC RDW [place] % (Auto) [place] # Seg Neuts % (Manual) Lymphocytes % (Manual) Monocytes % (Manual) Seg Neutrophils # Man Monocytes # (Manual) Eosinophils # (Manual) APTT POC ABG pH 7.518 H POC ABG pCO2 POC ABG pO2 122 H Sodium Potassium Chloride Carbon Dioxide BUN Creatinine Glucose POC Glucose 130 H Calcium Total Creatine Kinase 269 H CK-MB (CK-2) 6.4 H CK-MB (CK-2) Rel Index Troponin T NT-Pro-B Natriuret Pep Albumin Iwqjs-1-Dokkpikpc Hyyfc-9-Ryvwhobrq PEP Interpretation Urine WBC (Auto) Urine Creatinine Urine Total Protein 11/11/18 11/11/18 11/12/18 05:18 16:21 00:22 WBC RBC Hgb Hct MCV MCHC RDW [place] % (Auto) [place] # Seg Neuts % (Manual) Lymphocytes % (Manual) Monocytes % (Manual) Seg Neutrophils # Man Monocytes # (Manual) Eosinophils # (Manual) APTT POC ABG pH POC ABG pCO2 49.5 H POC ABG pO2 60 L Sodium Potassium Chloride Carbon Dioxide BUN Creatinine Glucose POC Glucose 129 H 122 H Calcium Total Creatine Kinase CK-MB (CK-2) CK-MB (CK-2) Rel Index Troponin T NT-Pro-B Natriuret Pep Albumin Qkgzt-0-Yzxvxoyzd Tpmqp-0-Pvcowztvu PEP Interpretation Urine WBC (Auto) Urine Creatinine Urine Total Protein 11/12/18 11/12/18 11/12/18 05:43 10:13 11:42 WBC RBC Hgb Hct MCV MCHC RDW [place] % (Auto) [place] # Seg Neuts % (Manual) Lymphocytes % (Manual) Monocytes % (Manual) Seg Neutrophils # Man Monocytes # (Manual) Eosinophils # (Manual) APTT POC ABG pH POC ABG pCO2 53.8 H POC ABG pO2 72 L Sodium 153 H D Potassium Chloride Carbon Dioxide 34 H BUN 36 H Creatinine 2.2 H Glucose 142 H POC Glucose 130 H Calcium Total Creatine Kinase CK-MB (CK-2) CK-MB (CK-2) Rel Index Troponin T NT-Pro-B Natriuret Pep Albumin Capga-0-Kuzdhkpli Maugl-9-Jnjyqeufn PEP Interpretation Urine WBC (Auto) Urine Creatinine Urine Total Protein 11/12/18 11/12/18 11/12/18 12:33 17:29 23:53 WBC RBC Hgb Hct MCV MCHC RDW [place] % (Auto) [place] # Seg Neuts % (Manual) Lymphocytes % (Manual) Monocytes % (Manual) Seg Neutrophils # Man Monocytes # (Manual) Eosinophils # (Manual) APTT POC ABG pH POC ABG pCO2 POC ABG pO2 Sodium Potassium Chloride Carbon Dioxide BUN Creatinine Glucose POC Glucose 121 H 150 H 138 H Calcium Total Creatine Kinase CK-MB (CK-2) CK-MB (CK-2) Rel Index Troponin T NT-Pro-B Natriuret Pep Albumin Qfsku-3-Vqdamzbnk Ubhcg-8-Glfxgwovo PEP Interpretation Urine WBC (Auto) Urine Creatinine Urine Total Protein 11/13/18 11/13/18 11/13/18 05:16 10:08 12:20 WBC RBC Hgb Hct MCV MCHC RDW [place] % (Auto) [place] # Seg Neuts % (Manual) Lymphocytes % (Manual) Monocytes % (Manual) Seg Neutrophils # Man Monocytes # (Manual) Eosinophils # (Manual) APTT POC ABG pH POC ABG pCO2 POC ABG pO2 Sodium Potassium Chloride Carbon Dioxide 33 H BUN 40 H Creatinine 2.1 H Glucose 209 H POC Glucose 134 H Calcium Total Creatine Kinase CK-MB (CK-2) CK-MB (CK-2) Rel Index Troponin T NT-Pro-B Natriuret Pep Albumin Qgfmr-6-Ragfbyawt Cpzqu-7-Fmugxcbym PEP Interpretation Urine WBC (Auto) Urine Creatinine 121.2 H Urine Total Protein 16 H 11/13/18 11/14/18 11/15/18 13:39 04:58 05:10 WBC RBC Hgb Hct MCV MCHC RDW [place] % (Auto) [place] # Seg Neuts % (Manual) Lymphocytes % (Manual) Monocytes % (Manual) Seg Neutrophils # Man Monocytes # (Manual) Eosinophils # (Manual) APTT POC ABG pH POC ABG pCO2 POC ABG pO2 Sodium Potassium Chloride Carbon Dioxide 34 H 35 H BUN 40 H 32 H Creatinine 1.8 H 1.7 H Glucose 113 H 73 L POC Glucose Calcium 8.0 L 8.1 L Total Creatine Kinase CK-MB (CK-2) CK-MB (CK-2) Rel Index Troponin T NT-Pro-B Natriuret Pep Albumin 3.5 L Sqmrw-8-Rxgylkijx 0.4 H Zwblt-5-Ragnizssk 1.1 H PEP Interpretation see below H Urine WBC (Auto) Urine Creatinine Urine Total Protein 11/15/18 11/15/18 11/15/18 05:10 13:59 17:06 WBC 12.5 H RBC Hgb Hct 46.9 H MCV 95 H MCHC 31 L RDW 16.0 H [place] % (Auto) [place] # Seg Neuts % (Manual) Lymphocytes % (Manual) Monocytes % (Manual) Seg Neutrophils # Man Monocytes # (Manual) Eosinophils # (Manual) APTT POC ABG pH POC ABG pCO2 POC ABG pO2 Sodium Potassium Chloride Carbon Dioxide BUN Creatinine Glucose POC Glucose 128 H 156 H Calcium Total Creatine Kinase CK-MB (CK-2) CK-MB (CK-2) Rel Index Troponin T NT-Pro-B Natriuret Pep Albumin Coekz-1-Avbehyifq Ivnid-8-Yxcmpnecb PEP Interpretation Urine WBC (Auto) Urine Creatinine Urine Total Protein 11/16/18 11/16/18 11/16/18 11:55 11:55 13:20 WBC 21.6 H RBC 5.14 H Hgb 15.4 H Hct 48.0 H MCV MCHC RDW 16.0 H [place] % (Auto) [place] # Seg Neuts % (Manual) Lymphocytes % (Manual) Monocytes % (Manual) Seg Neutrophils # Man Monocytes # (Manual) Eosinophils # (Manual) APTT POC ABG pH POC ABG pCO2 POC ABG pO2 Sodium Potassium Chloride Carbon Dioxide 33 H BUN 32 H Creatinine 2.0 H Glucose 110 H POC Glucose Calcium Total Creatine Kinase CK-MB (CK-2) CK-MB (CK-2) Rel Index Troponin T NT-Pro-B Natriuret Pep Albumin Cnpcy-2-Buignaosy Uzbfc-8-Qalhpatkv PEP Interpretation Urine WBC (Auto) > 182.0 H Urine Creatinine Urine Total Protein 11/16/18 11/16/18 11/17/18 16:34 20:47 11:17 WBC RBC Hgb Hct MCV MCHC RDW [place] % (Auto) [place] # Seg Neuts % (Manual) Lymphocytes % (Manual) Monocytes % (Manual) Seg Neutrophils # Man Monocytes # (Manual) Eosinophils # (Manual) APTT POC ABG pH POC ABG pCO2 POC ABG pO2 Sodium Potassium Chloride Carbon Dioxide BUN Creatinine Glucose POC Glucose 236 H 171 H 114 H Calcium Total Creatine Kinase CK-MB (CK-2) CK-MB (CK-2) Rel Index Troponin T NT-Pro-B Natriuret Pep Albumin Eklpq-3-Sdqtgvede Fzovq-5-Usngamafn PEP Interpretation Urine WBC (Auto) Urine Creatinine Urine Total Protein 11/17/18 11/17/18 11/18/18 16:17 21:27 05:45 WBC RBC Hgb Hct MCV MCHC RDW [place] % (Auto) [place] # Seg Neuts % (Manual) Lymphocytes % (Manual) Monocytes % (Manual) Seg Neutrophils # Man Monocytes # (Manual) Eosinophils # (Manual) APTT POC ABG pH POC ABG pCO2 POC ABG pO2 Sodium Potassium Chloride 97.9 L Carbon Dioxide BUN 35 H Creatinine 2.0 H Glucose POC Glucose 175 H 159 H Calcium Total Creatine Kinase CK-MB (CK-2) CK-MB (CK-2) Rel Index Troponin T NT-Pro-B Natriuret Pep Albumin Iebyg-1-Qsprecziu Zpavb-1-Uqlqxelsa PEP Interpretation Urine WBC (Auto) Urine Creatinine Urine Total Protein 11/18/18 11/18/18 11/19/18 16:30 21:08 07:06 WBC RBC Hgb Hct MCV MCHC RDW [place] % (Auto) [place] # Seg Neuts % (Manual) Lymphocytes % (Manual) Monocytes % (Manual) Seg Neutrophils # Man Monocytes # (Manual) Eosinophils # (Manual) APTT POC ABG pH POC ABG pCO2 POC ABG pO2 Sodium Potassium Chloride Carbon Dioxide BUN 35 H Creatinine 1.9 H Glucose POC Glucose 190 H 286 H Calcium Total Creatine Kinase CK-MB (CK-2) CK-MB (CK-2) Rel Index Troponin T NT-Pro-B Natriuret Pep Albumin Iinqu-9-Zvhaaikoy Elgjd-3-Tbrguhyfo PEP Interpretation Urine WBC (Auto) Urine Creatinine Urine Total Protein 11/19/18 11/19/18 11/19/18 08:16 09:00 16:57 WBC 16.1 H RBC 5.15 H Hgb Hct 47.5 H MCV MCHC RDW 15.7 H [place] % (Auto) [place] # Seg Neuts % (Manual) 91.0 H Lymphocytes % (Manual) 8.0 L Monocytes % (Manual) Seg Neutrophils # Man 14.7 H Monocytes # (Manual) Eosinophils # (Manual) APTT POC ABG pH POC ABG pCO2 POC ABG pO2 Sodium Potassium Chloride Carbon Dioxide BUN Creatinine Glucose POC Glucose 192 H 165 H Calcium Total Creatine Kinase CK-MB (CK-2) CK-MB (CK-2) Rel Index Troponin T NT-Pro-B Natriuret Pep Albumin Gxmjl-4-Bpldzfowj Ymudq-7-Xhbqmxblk PEP Interpretation Urine WBC (Auto) Urine Creatinine Urine Total Protein 11/19/18 11/20/18 11/20/18 22:42 04:38 08:07 WBC RBC Hgb Hct MCV MCHC RDW [place] % (Auto) [place] # Seg Neuts % (Manual) Lymphocytes % (Manual) Monocytes % (Manual) Seg Neutrophils # Man Monocytes # (Manual) Eosinophils # (Manual) APTT POC ABG pH POC ABG pCO2 POC ABG pO2 Sodium Potassium Chloride 97.6 L Carbon Dioxide 31 H BUN 34 H Creatinine Glucose POC Glucose 175 H 67 L Calcium Total Creatine Kinase CK-MB (CK-2) CK-MB (CK-2) Rel Index Troponin T NT-Pro-B Natriuret Pep Albumin Rvvtq-3-Oilvlglvf Ulyvt-4-Fzzyujfwe PEP Interpretation Urine WBC (Auto) Urine Creatinine Urine Total Protein 11/20/18 11/20/18 11/20/18 11:54 16:46 21:25 WBC RBC Hgb Hct MCV MCHC RDW [place] % (Auto) [place] # Seg Neuts % (Manual) Lymphocytes % (Manual) Monocytes % (Manual) Seg Neutrophils # Man Monocytes # (Manual) Eosinophils # (Manual) APTT POC ABG pH POC ABG pCO2 POC ABG pO2 Sodium Potassium Chloride Carbon Dioxide BUN Creatinine Glucose POC Glucose 114 H 180 H 220 H Calcium Total Creatine Kinase CK-MB (CK-2) CK-MB (CK-2) Rel Index Troponin T NT-Pro-B Natriuret Pep Albumin Oidxs-7-Cbugfyjcn Jjtrd-3-Sbsjhmypz PEP Interpretation Urine WBC (Auto) Urine Creatinine Urine Total Protein 11/20/18 11/20/18 11/21/18 21:53 21:53 05:57 WBC 20.3 H RBC Hgb Hct 46.8 H MCV MCHC RDW 15.7 H [place] % (Auto) [place] # Seg Neuts % (Manual) 75.0 H Lymphocytes % (Manual) Monocytes % (Manual) Seg Neutrophils # Man 15.2 H Monocytes # (Manual) 1.2 H Eosinophils # (Manual) APTT 23.8 L POC ABG pH POC ABG pCO2 POC ABG pO2 Sodium Potassium 5.2 H Chloride 93.8 L Carbon Dioxide BUN 37 H Creatinine 1.6 H Glucose 230 H POC Glucose Calcium Total Creatine Kinase CK-MB (CK-2) CK-MB (CK-2) Rel Index Troponin T NT-Pro-B Natriuret Pep Albumin 3.4 L Pzmww-9-Vntoceoyo Trwts-3-Bsfvwqdra PEP Interpretation Urine WBC (Auto) Urine Creatinine Urine Total Protein 11/21/18 11/21/18 11/22/18 06:00 11:19 05:04 WBC RBC Hgb Hct MCV MCHC RDW [place] % (Auto) [place] # Seg Neuts % (Manual) Lymphocytes % (Manual) Monocytes % (Manual) Seg Neutrophils # Man Monocytes # (Manual) Eosinophils # (Manual) APTT POC ABG pH POC ABG pCO2 48.4 H POC ABG pO2 52 L Sodium Potassium 5.1 H Chloride 96.4 L 96.5 L Carbon Dioxide 32 H 32 H BUN 35 H 42 H Creatinine 1.8 H Glucose POC Glucose Calcium Total Creatine Kinase CK-MB (CK-2) CK-MB (CK-2) Rel Index Troponin T NT-Pro-B Natriuret Pep Albumin Ebxph-3-Hjfqfneyj Vaejy-0-Utkrdjemq PEP Interpretation Urine WBC (Auto) Urine Creatinine Urine Total Protein 11/22/18 11/23/18 11/23/18 09:01 05:18 05:18 WBC 22.8 H 20.9 H RBC 5.07 H Hgb Hct 47.6 H MCV MCHC RDW 15.7 H 15.7 H [place] % (Auto) [place] # Seg Neuts % (Manual) 80.0 H Lymphocytes % (Manual) 8.0 L Monocytes % (Manual) 8.0 H 11.0 H Seg Neutrophils # Man 18.2 H 14.2 H Monocytes # (Manual) 1.8 H 2.3 H Eosinophils # (Manual) 0.6 H APTT POC ABG pH POC ABG pCO2 POC ABG pO2 Sodium Potassium Chloride Carbon Dioxide 31 H BUN 34 H Creatinine 1.7 H Glucose 101 H POC Glucose Calcium Total Creatine Kinase CK-MB (CK-2) CK-MB (CK-2) Rel Index Troponin T NT-Pro-B Natriuret Pep Albumin Jwfjc-5-Pehdxvdzs Sqohd-1-Txyshnyjd PEP Interpretation Urine WBC (Auto) Urine Creatinine Urine Total Protein 11/23/18 11/24/18 07:48 05:16 WBC RBC Hgb Hct MCV MCHC RDW [place] % (Auto) [place] # Seg Neuts % (Manual) Lymphocytes % (Manual) Monocytes % (Manual) Seg Neutrophils # Man Monocytes # (Manual) Eosinophils # (Manual) APTT POC ABG pH POC ABG pCO2 POC ABG pO2 Sodium 136 L D Potassium Chloride 95.2 L Carbon Dioxide 32 H BUN 38 H Creatinine 1.7 H Glucose 106 H POC Glucose 69 L Calcium Total Creatine Kinase CK-MB (CK-2) CK-MB (CK-2) Rel Index Troponin T NT-Pro-B Natriuret Pep Albumin Dtmlr-0-Azlvdcdwy Uqows-3-Ioqeykxtz PEP Interpretation Urine WBC (Auto) Urine Creatinine Urine Total Protein Allied health notes reviewed: nursing
--- NOTE | 2018-11-24 13:51 | Progress Note ---
Assessment and Plan /Nephrolithiasis, right hydronephrosis and hematuria: - developed hematuria on 11/16/18 - CT abd/pelvis showed b/l hydronephrosis and 1.7cm right kidney stone. s/p ESWL on 11/21/18 /Sepsis: Improved, leukocytosis trending down , initial etio. likely +/-PNA - then developed complicated UTI , bacteremia /E. Coli Bacteremia:, Cx positive from 11/16/18 - source likely complicated UTI with known bilateral stones causing hydronephrosis. /Complicated UTI - +gross hematuria and back pain developed on 11/16/18. UA 11/16 c/u UTI. Renal US 11/14 showed right obstructive hydronephrosis and bilateral stones- s/p ESWL procedure 11/21/18. - cont abx, ID following /Acute on Chronic hypoxic respiratory failure, POA, resolved - reason for admission - likely from underlying sarcoidosis and CHF - s/p Intubation on admission and extubated 11/12/18 - cont nebs, n/C o2 as needed, pulmonary following /Presumed RUL pneumonia: HAP, POA - recent pneumonia treated at [facility]. HIV neg. Repeat CXR 11/16 showed possible RUL pneumonia, doubt pneumonia clinically per ID. Chest xray 11/20/18 shows improvement in airspace opacities. treated with abx /Acute on Chronic exacerbation of systolic heart failure: compensated now - on oral lasix, Cardiology is following, ECHO reviewed - Ef 40-45% /COPD with exacerbation: continue Duoneb tx and IV solumedrol weaned to oral steroids. /ARF, vasomotor nephrology +ATN, he did develop hypotension post intubation, - monitor BMP, Nephrology signed off /HTN (hypertension) with episode of hypotension: - monitor bp closely, advance bp medications as tolerated /Sarcoidosis: on steroids /Obesity BMI 41.5, counselled Brief History: Patient is a 53 y/o BM with a history of Sarcoidosis, kidney stones, chronic hypoxic respiratory failure on 2 liters of O2 at home, CHF, HTN and recent pneumonia with Intubation at [facility] who presented to [facility] with cough, SOB and chest pains. He was found to have pulse ox of only 64%. He was placed on bipap, which he failed requiring intubation. He was extubated on 11/12/18. He was planned to d/c home 11/15/18 but he appealed his discharge at the last minute. He eventually spiked fever and developed hematuria. Blood cx grew E.coli, Ux positive for E. coli. CT abd/pelvis showed b/l hydronephrosis and 1.7cm right kidney stone. s/p ESWL on 11/21/18. Getting treated for gm negative bacteremia and UTI. Hospitalist Physical Gen: NAD, Awake, Alert, Orientated HEENT: NCAT, EOMI, PERRL, OP clear Neck: supple, no adenopathy, no thyromegaly, no JVD CVS/Heart: RRR, normal S1S2, pulses present bilaterally Chest/Lungs: diminished bs bilateral, Symmetrical chest expansion, good air entry bilaterally GI/Abdomen: soft, NTND, good bowel sounds, no guarding or rebound /Bladder: no suprapubic tenderness, Extermity/Skin: no c/c/e, no obvious rash MSK: FROM x 4 Neuro: CN 2-12 grossly intact, no new focal deficits Psych: calm Subjective Date of service: 11/24/18 Principal diagnosis: Ac on Ch Hypoxemic Resp failure; Sarcoidosis with exacerbation;Chest Pain Interval history: pt seen and examined states he is feeling better Objective - Constitutional Vitals: Vital Signs - 12hr 11/24/18 11/24/18 11/24/18 05:19 07:28 07:30 Temperature 98.6 F Pulse Rate 64 Pulse Rate [ 80 Anterior Bilateral Throughout] Pulse Rate [ Anterior Bilateral Upper Lobe] Respiratory 18 Rate Respiratory 18 Rate [Anterior Bilateral Throughout] Respiratory Rate [Anterior Bilateral Upper Lobe] Blood Pressure 130/60 O2 Sat by Pulse 94 96 Oximetry 11/24/18 11/24/18 11/24/18 07:38 12:09 13:30 Temperature 98.3 F Pulse Rate 89 Pulse Rate [ 83 Anterior Bilateral Throughout] Pulse Rate [ 86 Anterior Bilateral Upper Lobe] Respiratory 18 Rate Respiratory 16 Rate [Anterior Bilateral Throughout] Respiratory 18 Rate [Anterior Bilateral Upper Lobe] Blood Pressure 131/81 O2 Sat by Pulse 91 Oximetry 11/24/18 13:40 Temperature Pulse Rate Pulse Rate [ Anterior Bilateral Throughout] Pulse Rate [ 80 Anterior Bilateral Upper Lobe] Respiratory Rate Respiratory Rate [Anterior Bilateral Throughout] Respiratory 18 Rate [Anterior Bilateral Upper Lobe] Blood Pressure O2 Sat by Pulse Oximetry - Labs CBC & Chem 7: 11/26/18 00:43 11/25/18 02:29 Labs: Abnormal lab results 11/24/18 Range/Units 05:16 Sodium 136 L D (137-145) mmol/L Chloride 95.2 L (98-107) mmol/L Carbon Dioxide 32 H (22-30) mmol/L BUN 38 H (9-20) mg/dL Creatinine 1.7 H (0.8-1.5) mg/dL Glucose 106 H (75-100) mg/dL
[2018-11-25] MEDS: ANCEF/NS 1 GM/50 ML 1 GM/50 ML BAG IV SCH ×4 (00:10→21:18)
[2018-11-25 03:53] LABS: Calcium 9.2 mg/dL (8.4-10.2)
[2018-11-25] MEDS: PERCOCET 5/325 PO PRN ×3 (06:25→21:25)
[2018-11-25] MEDS: DUONEB *Not for PRN Use IH SCH ×3 (07:31→19:01)
--- NOTE | 2018-11-25 08:08 | Progress Note ---
Assessment and Plan Cultures: 11/10/2018 tracheal culture no growth to date 11/12/2018 tracheal culture upper resp gabo 11/16/2018 blood culture: E. coli 11/17/2018 blood culture: No growth to date 11/16/2018 urine: E. coli A/P: 53 y/o male with history of Sarcoidosis home O2 dependant, CHF, HTN, bilateral stones, recent pneumonia treated at [facility], admitted on 11/09/2018 due to 3 day history of dry cough, progressive SOB and sharp chest pain: 1) Sepsis: Improved, leukocytosis continuing. etio. likely complicated UTI +/- pneumonia 2) Gram negative bacteremia, source likely complicated UTI with known bilateral stones causing hydronephrosis. +gross hematuria and back pain. UA 11/16 c/u UTI. Renal US 11/14 showed right obstructive hydronephrosis and bilateral stones- s/p ESWL procedure 11/21/18. -Renal ultrasound 11/25/18 -Renal sonography suggests grossly normal renal cortical echogenicity. Pyramids though now appear echogenic. Grossly preserved renal contours. No worsening hydronephrosis. Image hepatic coarsening not excluded. 3) Presumed RUL pneumonia: HAP, recent pneumonia treated at [facility]. HIV neg. Repeat CXR 11/16 showed possible RUL pneumonia, doubt pneumonia clinically. SOB continuing, BIPAP at night. Repeat chest xray 11/20/18 shows improvement in airspace opacities- Pulmonary following 4) Recent Respiratory failure: better - likely from CHF exacerbation 5) JESI: antibiotics renally dosed. Creatinine trending up - recommend Nephrology consult Plan: Continue Cefazolin at 1gm q 6 CBC ordered for tomorrow Nephrology consult for worsening creatinine Urology consult Chest xray ordered for continued leukocytosis d/w Dr. Neo Moore, [facility] M: [id number] O:[phone] Subjective Date of service: 11/25/18 Principal diagnosis: Ac on Ch Hypoxemic Resp failure; Sarcoidosis with exacerbation;Chest Pain Interval history: Patient seen and examined. Stated that he was feeling better today. Continue intermittent SOB, continues to be on 02 at 3L/NC. No Hematuria. Nurses notes, labs and reports reviewed, discussed with patient. Objective - Exam Narrative Exam: Constitutional: Alert, cooperative. no acute distress Head, Ears, Nose: Normocephalic, atraumatic. External ears, nose normal Eyes: Conjunctivae/corneas clear. No icterus. No ptosis. Neck: Supple, no meningeal signs Oral: no ulcers, no thrush Cardiovascular: S1, S2 normal. Respiratory: b/l basal crackles GI: Soft, non-tender; bowel sounds normal. No peritoneal signs. bilateral CVA tenderness. : urine clear, -hematuria Musculoskeletal: No pedal edema, no cyanosis. Skin: No rash or abscess Hem/Lymphatic: No palpable cervical or supraclavicular nodes. No lymphangitis Psych: Mood ok. Affect normal Neurological: Awake, alert, oriented. No gross abnormality - Constitutional Vitals: Vital Signs Temp Pulse Resp BP Pulse Ox 98.0 F 72 18 119/73 96 11/25/18 06:18 11/25/18 07:31 11/25/18 07:31 11/25/18 06:18 11/25/18 07:30 Temperature -Last 24 Hours Temperature 98.0 F Temperature 98.2 F Temperature 98.2 F Temperature 98.6 F Temperature 98.3 F - Labs CBC & Chem 7: 11/23/18 05:18 11/25/18 02:29 Labs: Abnormal lab results 11/25/18 Range/Units 02:29 Potassium 5.1 H (3.6-5.0) mmol/L Chloride 96.1 L (98-107) mmol/L Carbon Dioxide 33 H (22-30) mmol/L BUN 39 H (9-20) mg/dL Creatinine 2.4 H (0.8-1.5) mg/dL Glucose 127 H (75-100) mg/dL
[2018-11-25] MEDS: DELTASONE PO SCH (09:50)
[2018-11-25] MEDS: HEPARIN SUB-Q SCH ×2 (09:51→21:19)
[2018-11-25] MEDS: PEPCID PO SCH (09:51)
[2018-11-25] MEDS: LASIX PO SCH (09:51)
[2018-11-25] MEDS: BABY ASPIRIN PO SCH (09:52)
[2018-11-25] MEDS: LOPRESSOR PO SCH ×2 (09:54→21:18)
[2018-11-25] MEDS: SODIUM CHLORIDE FLUSH SYRINGE 10 ML IV SCH ×2 (09:59→21:19)
--- NOTE | 2018-11-25 13:39 | Ultrasound Report ---
ULTRASOUND RENAL BILATERAL INDICATION: Worsening creatinine. Evaluate for hydronephrosis. COMPARISON: CT and ultrasound from approximately 12 days ago. FINDINGS: Renal sonography suggests grossly normal renal cortical echogenicity. Pyramids though now appear echogenic. Grossly preserved renal contours. No worsening hydronephrosis. Image hepatic coarsening not excluded. RIGHT KIDNEY estimated at 11.3 x 5.9 x 6.6 cm with cortical thickness of 1.4 cm. Multiple renal cortical cystic areas previously have much improved/resolved with some possibly measuring up to 1.3 cm remaining superiorly as on image 2. A 1.5 cm right upper renal pole echogenic calcification with shadowing also again seen with few other smaller ones evident on CT not well visualized sonographically. LEFT KIDNEY is 9.8 x 3.7 x 5 cm with cortical thickness of 1.4 cm. Few aggregated left lower renal pole calculi seen on prior CT not as well evident sonographically, though may be approximately 1 cm as on image 16 with slight shadowing. URINARY BLADDER suboptimally distended and assessed. CONCLUSION: 1. Renal pyramids appear echogenic bilaterally and may be correlated for possible medullary nephrocalcinosis or medullary sponge kidney, amongst others in an appropriate setting in this patient with known bilateral nephrolithiasis. Please correlate. 2. Multiple right renal cortical cysts and/or superior pole calyceal dilatation identified previously is now less prominent/apparent. Thank you for the opportunity to participate in this patient's care.
--- NOTE | 2018-11-25 14:32 | Progress Note ---
Assessment and Plan Patient alert, awake. Patient breathing better. On 3 litres O2.O2 saturation 94%. Patient not keeping his nasal O2 all the time. Stressed the importance of keeping O2 all the time.Patient goes on BIPAP during night time and PRN for shortness of breath during day time. Patient undergone lithotrpsy for right sided kidney stones.. - Patient Problems (1) Acute respiratory failure with hypoxia Current Visit: Yes Status: Acute Plan to address problem: O2 3 litres via nasal canula BIPAP during night time and Prn for shortness of breath during day time. Albuterol/atrovent aerosol treatments q 6 hours. Continue PO prednisone. Continue S/C Heparin Continue famotidine. Patient is on cefazolin. (2) Acute exacerbation of CHF (congestive heart failure) Current Visit: Yes Status: Acute Qualifiers: Heart failure type: combined systolic and diastolic Qualified Code(s): I50.43 - Acute on chronic combined systolic (congestive) and diastolic (congestive) heart failure Plan to address problem: Management as per primary care and cardiology. (3) CKD (chronic kidney disease) Current Visit: Yes Status: Chronic Qualifiers: Chronic kidney disease stage: unspecified stage Qualified Code(s): N18.9 - Chronic kidney disease, unspecified Plan to address problem: Management as per primary care and nephrology. (4) COPD (chronic obstructive pulmonary disease) Current Visit: Yes Status: Chronic Qualifiers: COPD type: unspecified COPD Qualified Code(s): J44.9 - Chronic obstructive pulmonary disease, unspecified Plan to address problem: O2 2 litres via nasal canula BIPAP during night time and Prn for shortness of breath during day time. Albuterol/atrovent aerosol treatments q 6 hours. Continue PO prednisone. Continue S/C Heparin Continue famotidine. Patient is on cefazolin. (5) HTN (hypertension) Current Visit: Yes Status: Chronic Qualifiers: Hypertension type: essential hypertension Qualified Code(s): I10 - Essential (primary) hypertension Plan to address problem: Management as per primary care. (6) Sarcoidosis Current Visit: No Status: Chronic Plan to address problem: MERCEDES level. Subjective Date of service: 11/25/18 Principal diagnosis: Ac on Ch Hypoxemic Resp failure; Sarcoidosis with exacerbation;Chest Pain Interval history: Patient alert, awake. Patient breathing better. On 3 litres O2.O2 saturation 94% . Patient not keeping his nasal O2 all the time. Stressed the importance of keeping O2 all the time.Patient goes on BIPAP during night time and PRN for shortness of breath during day time. Patient undergone lithotrpsy for right sided kidney stones. Objective Vital Signs - 12hr 11/25/18 11/25/18 11/25/18 06:18 07:20 07:30 Temperature 98.0 F Pulse Rate 64 Pulse Rate [ Anterior Bilateral Throughout] Pulse Rate [ 71 Anterior Bilateral Upper Lobe] Respiratory 18 Rate Respiratory Rate [Anterior Bilateral Throughout] Respiratory 16 Rate [Anterior Bilateral Upper Lobe] Blood Pressure 119/73 O2 Sat by Pulse 95 96 Oximetry 11/25/18 11/25/18 11/25/18 07:31 09:52 09:54 Temperature Pulse Rate 87 Pulse Rate [ Anterior Bilateral Throughout] Pulse Rate [ 72 Anterior Bilateral Upper Lobe] Respiratory 20 Rate Respiratory Rate [Anterior Bilateral Throughout] Respiratory 18 Rate [Anterior Bilateral Upper Lobe] Blood Pressure 134/85 134/85 O2 Sat by Pulse 94 Oximetry 11/25/18 11/25/18 11/25/18 11:31 13:34 13:44 Temperature 98.2 F Pulse Rate 78 Pulse Rate [ 85 95 H Anterior Bilateral Throughout] Pulse Rate [ Anterior Bilateral Upper Lobe] Respiratory 22 Rate Respiratory 22 20 Rate [Anterior Bilateral Throughout] Respiratory Rate [Anterior Bilateral Upper Lobe] Blood Pressure 143/91 O2 Sat by Pulse 89 Oximetry Constitutional: no acute distress, alert, other (Middle aged obeses AAM, normocephalic and atraumati) Eyes: non-icteric ENT: oropharynx moist, other (extubated) Neck: supple, no lymphadenopathy, no JVD, other (large neck circumference) Effort: mildly labored Ascultation: Bilateral: diminished breath sounds, rales (inspiratory in bases), rhonchi Percussion: Bilateral: not dull Cardiovascular: regular rate and rhythm, other (No R/M) Gastrointestinal: normoactive bowel sounds, soft, non-tender, non-distended, other (No HSM) Integumentary: normal Extremities: no cyanosis, pulses normal, no ischemia or petechiae Neurologic: normal mental status, non-focal exam, pupils equal and round, motor strength normal and Psychiatric: mood appropriate, affect normal CBC and BMP: 11/23/18 05:18 11/25/18 02:29 ABG, PT/INR, D-dimer: ABG POC ABG pH 7.447 (7.35-7.45) 11/21/18 11:19 POC ABG pCO2 48.4 (35-45) H 11/21/18 11:19 POC ABG pO2 52 (80-105) L 11/21/18 11:19 POC ABG HCO3 33.4 11/21/18 11:19 POC ABG Total CO2 35 11/21/18 11:19 POC ABG O2 Sat 87 11/21/18 11:19 PT/INR, D-dimer PT 13.6 Sec. (12.2-14.9) 11/20/18 21:53 INR 1.00 (0.87-1.13) 11/20/18 21:53 D-Dimer < 135.00 ng/mlDDU (0-234) 11/10/18 02:24 Abnormal lab findings: Abnormal Labs 11/09/18 11/09/18 11/10/18 23:58 23:58 02:24 WBC RBC 5.14 H Hgb 15.8 H Hct 48.6 H MCV 95 H MCHC RDW 16.6 H [place] % (Auto) 10.6 H [place] # 1.0 H Seg Neuts % (Manual) Lymphocytes % (Manual) Monocytes % (Manual) Seg Neutrophils # Man Monocytes # (Manual) Eosinophils # (Manual) APTT POC ABG pH POC ABG pCO2 POC ABG pO2 Sodium Potassium Chloride Carbon Dioxide BUN Creatinine 1.6 H Glucose 103 H POC Glucose Calcium Total Creatine Kinase CK-MB (CK-2) CK-MB (CK-2) Rel Index Troponin T 0.031 H NT-Pro-B Natriuret Pep 5420 H Albumin Aeaol-1-Biubbuwqj Byipn-4-Skenenuib PEP Interpretation Urine WBC (Auto) Urine Creatinine Urine Total Protein 11/10/18 11/10/18 11/10/18 05:43 06:37 09:24 WBC RBC Hgb Hct MCV MCHC RDW [place] % (Auto) [place] # Seg Neuts % (Manual) Lymphocytes % (Manual) Monocytes % (Manual) Seg Neutrophils # Man Monocytes # (Manual) Eosinophils # (Manual) APTT POC ABG pH 7.168 L 7.318 L POC ABG pCO2 87.7 H 57.7 H POC ABG pO2 193 H 152 H Sodium Potassium Chloride Carbon Dioxide BUN Creatinine Glucose POC Glucose Calcium Total Creatine Kinase 8 L CK-MB (CK-2) 7.8 H CK-MB (CK-2) Rel Index 97.5 H Troponin T NT-Pro-B Natriuret Pep Albumin Afjyc-0-Vqzhejuag Prnmp-3-Lrbkcaikc PEP Interpretation Urine WBC (Auto) Urine Creatinine Urine Total Protein 11/10/18 11/10/18 11/11/18 12:15 23:34 04:23 WBC RBC Hgb Hct MCV MCHC RDW [place] % (Auto) [place] # Seg Neuts % (Manual) Lymphocytes % (Manual) Monocytes % (Manual) Seg Neutrophils # Man Monocytes # (Manual) Eosinophils # (Manual) APTT POC ABG pH 7.518 H POC ABG pCO2 POC ABG pO2 122 H Sodium Potassium Chloride Carbon Dioxide BUN Creatinine Glucose POC Glucose 130 H Calcium Total Creatine Kinase 269 H CK-MB (CK-2) 6.4 H CK-MB (CK-2) Rel Index Troponin T NT-Pro-B Natriuret Pep Albumin Khorh-9-Euwgxntmq Gdhrt-1-Nlgarudhv PEP Interpretation Urine WBC (Auto) Urine Creatinine Urine Total Protein 11/11/18 11/11/18 11/12/18 05:18 16:21 00:22 WBC RBC Hgb Hct MCV MCHC RDW [place] % (Auto) [place] # Seg Neuts % (Manual) Lymphocytes % (Manual) Monocytes % (Manual) Seg Neutrophils # Man Monocytes # (Manual) Eosinophils # (Manual) APTT POC ABG pH POC ABG pCO2 49.5 H POC ABG pO2 60 L Sodium Potassium Chloride Carbon Dioxide BUN Creatinine Glucose POC Glucose 129 H 122 H Calcium Total Creatine Kinase CK-MB (CK-2) CK-MB (CK-2) Rel Index Troponin T NT-Pro-B Natriuret Pep Albumin Uhkze-6-Plpkmslkv Hqvtw-1-Zhsmbadws PEP Interpretation Urine WBC (Auto) Urine Creatinine Urine Total Protein 11/12/18 11/12/18 11/12/18 05:43 10:13 11:42 WBC RBC Hgb Hct MCV MCHC RDW [place] % (Auto) [place] # Seg Neuts % (Manual) Lymphocytes % (Manual) Monocytes % (Manual) Seg Neutrophils # Man Monocytes # (Manual) Eosinophils # (Manual) APTT POC ABG pH POC ABG pCO2 53.8 H POC ABG pO2 72 L Sodium 153 H D Potassium Chloride Carbon Dioxide 34 H BUN 36 H Creatinine 2.2 H Glucose 142 H POC Glucose 130 H Calcium Total Creatine Kinase CK-MB (CK-2) CK-MB (CK-2) Rel Index Troponin T NT-Pro-B Natriuret Pep Albumin Rjbjs-8-Jfutdsqhk Hgyus-2-Uurwdzksx PEP Interpretation Urine WBC (Auto) Urine Creatinine Urine Total Protein 11/12/18 11/12/18 11/12/18 12:33 17:29 23:53 WBC RBC Hgb Hct MCV MCHC RDW [place] % (Auto) [place] # Seg Neuts % (Manual) Lymphocytes % (Manual) Monocytes % (Manual) Seg Neutrophils # Man Monocytes # (Manual) Eosinophils # (Manual) APTT POC ABG pH POC ABG pCO2 POC ABG pO2 Sodium Potassium Chloride Carbon Dioxide BUN Creatinine Glucose POC Glucose 121 H 150 H 138 H Calcium Total Creatine Kinase CK-MB (CK-2) CK-MB (CK-2) Rel Index Troponin T NT-Pro-B Natriuret Pep Albumin Wcxbh-9-Vbsmvdlil Tsubg-1-Zjjaewfbg PEP Interpretation Urine WBC (Auto) Urine Creatinine Urine Total Protein 11/13/18 11/13/18 11/13/18 05:16 10:08 12:20 WBC RBC Hgb Hct MCV MCHC RDW [place] % (Auto) [place] # Seg Neuts % (Manual) Lymphocytes % (Manual) Monocytes % (Manual) Seg Neutrophils # Man Monocytes # (Manual) Eosinophils # (Manual) APTT POC ABG pH POC ABG pCO2 POC ABG pO2 Sodium Potassium Chloride Carbon Dioxide 33 H BUN 40 H Creatinine 2.1 H Glucose 209 H POC Glucose 134 H Calcium Total Creatine Kinase CK-MB (CK-2) CK-MB (CK-2) Rel Index Troponin T NT-Pro-B Natriuret Pep Albumin Aeilm-2-Rmyaevpla Vamxr-8-Gczcolwvc PEP Interpretation Urine WBC (Auto) Urine Creatinine 121.2 H Urine Total Protein 16 H 11/13/18 11/14/18 11/15/18 13:39 04:58 05:10 WBC RBC Hgb Hct MCV MCHC RDW [place] % (Auto) [place] # Seg Neuts % (Manual) Lymphocytes % (Manual) Monocytes % (Manual) Seg Neutrophils # Man Monocytes # (Manual) Eosinophils # (Manual) APTT POC ABG pH POC ABG pCO2 POC ABG pO2 Sodium Potassium Chloride Carbon Dioxide 34 H 35 H BUN 40 H 32 H Creatinine 1.8 H 1.7 H Glucose 113 H 73 L POC Glucose Calcium 8.0 L 8.1 L Total Creatine Kinase CK-MB (CK-2) CK-MB (CK-2) Rel Index Troponin T NT-Pro-B Natriuret Pep Albumin 3.5 L Tlzxt-6-Ufdqbbykd 0.4 H Tpjas-4-Tflgrykmy 1.1 H PEP Interpretation see below H Urine WBC (Auto) Urine Creatinine Urine Total Protein 11/15/18 11/15/18 11/15/18 05:10 13:59 17:06 WBC 12.5 H RBC Hgb Hct 46.9 H MCV 95 H MCHC 31 L RDW 16.0 H [place] % (Auto) [place] # Seg Neuts % (Manual) Lymphocytes % (Manual) Monocytes % (Manual) Seg Neutrophils # Man Monocytes # (Manual) Eosinophils # (Manual) APTT POC ABG pH POC ABG pCO2 POC ABG pO2 Sodium Potassium Chloride Carbon Dioxide BUN Creatinine Glucose POC Glucose 128 H 156 H Calcium Total Creatine Kinase CK-MB (CK-2) CK-MB (CK-2) Rel Index Troponin T NT-Pro-B Natriuret Pep Albumin Muhgc-2-Gcyveetjj Yyiqi-2-Pwxgiwria PEP Interpretation Urine WBC (Auto) Urine Creatinine Urine Total Protein 11/16/18 11/16/18 11/16/18 11:55 11:55 13:20 WBC 21.6 H RBC 5.14 H Hgb 15.4 H Hct 48.0 H MCV MCHC RDW 16.0 H [place] % (Auto) [place] # Seg Neuts % (Manual) Lymphocytes % (Manual) Monocytes % (Manual) Seg Neutrophils # Man Monocytes # (Manual) Eosinophils # (Manual) APTT POC ABG pH POC ABG pCO2 POC ABG pO2 Sodium Potassium Chloride Carbon Dioxide 33 H BUN 32 H Creatinine 2.0 H Glucose 110 H POC Glucose Calcium Total Creatine Kinase CK-MB (CK-2) CK-MB (CK-2) Rel Index Troponin T NT-Pro-B Natriuret Pep Albumin Ogknv-6-Nvqzblqra Oursl-7-Ozndiesco PEP Interpretation Urine WBC (Auto) > 182.0 H Urine Creatinine Urine Total Protein 11/16/18 11/16/18 11/17/18 16:34 20:47 11:17 WBC RBC Hgb Hct MCV MCHC RDW [place] % (Auto) [place] # Seg Neuts % (Manual) Lymphocytes % (Manual) Monocytes % (Manual) Seg Neutrophils # Man Monocytes # (Manual) Eosinophils # (Manual) APTT POC ABG pH POC ABG pCO2 POC ABG pO2 Sodium Potassium Chloride Carbon Dioxide BUN Creatinine Glucose POC Glucose 236 H 171 H 114 H Calcium Total Creatine Kinase CK-MB (CK-2) CK-MB (CK-2) Rel Index Troponin T NT-Pro-B Natriuret Pep Albumin Jadhk-6-Wtlxhfwsz Odris-7-Npkoxynfx PEP Interpretation Urine WBC (Auto) Urine Creatinine Urine Total Protein 11/17/18 11/17/18 11/18/18 16:17 21:27 05:45 WBC RBC Hgb Hct MCV MCHC RDW [place] % (Auto) [place] # Seg Neuts % (Manual) Lymphocytes % (Manual) Monocytes % (Manual) Seg Neutrophils # Man Monocytes # (Manual) Eosinophils # (Manual) APTT POC ABG pH POC ABG pCO2 POC ABG pO2 Sodium Potassium Chloride 97.9 L Carbon Dioxide BUN 35 H Creatinine 2.0 H Glucose POC Glucose 175 H 159 H Calcium Total Creatine Kinase CK-MB (CK-2) CK-MB (CK-2) Rel Index Troponin T NT-Pro-B Natriuret Pep Albumin Dgtaw-0-Lbapoqyes Sijzp-6-Whezmcpqs PEP Interpretation Urine WBC (Auto) Urine Creatinine Urine Total Protein 11/18/18 11/18/18 11/19/18 16:30 21:08 07:06 WBC RBC Hgb Hct MCV MCHC RDW [place] % (Auto) [place] # Seg Neuts % (Manual) Lymphocytes % (Manual) Monocytes % (Manual) Seg Neutrophils # Man Monocytes # (Manual) Eosinophils # (Manual) APTT POC ABG pH POC ABG pCO2 POC ABG pO2 Sodium Potassium Chloride Carbon Dioxide BUN 35 H Creatinine 1.9 H Glucose POC Glucose 190 H 286 H Calcium Total Creatine Kinase CK-MB (CK-2) CK-MB (CK-2) Rel Index Troponin T NT-Pro-B Natriuret Pep Albumin Lbikn-4-Axgyspomk Essap-5-Vpugrbzry PEP Interpretation Urine WBC (Auto) Urine Creatinine Urine Total Protein 11/19/18 11/19/18 11/19/18 08:16 09:00 16:57 WBC 16.1 H RBC 5.15 H Hgb Hct 47.5 H MCV MCHC RDW 15.7 H [place] % (Auto) [place] # Seg Neuts % (Manual) 91.0 H Lymphocytes % (Manual) 8.0 L Monocytes % (Manual) Seg Neutrophils # Man 14.7 H Monocytes # (Manual) Eosinophils # (Manual) APTT POC ABG pH POC ABG pCO2 POC ABG pO2 Sodium Potassium Chloride Carbon Dioxide BUN Creatinine Glucose POC Glucose 192 H 165 H Calcium Total Creatine Kinase CK-MB (CK-2) CK-MB (CK-2) Rel Index Troponin T NT-Pro-B Natriuret Pep Albumin Smzyy-4-Xknsuvklc Tsaun-5-Dcigsczpg PEP Interpretation Urine WBC (Auto) Urine Creatinine Urine Total Protein 11/19/18 11/20/18 11/20/18 22:42 04:38 08:07 WBC RBC Hgb Hct MCV MCHC RDW [place] % (Auto) [place] # Seg Neuts % (Manual) Lymphocytes % (Manual) Monocytes % (Manual) Seg Neutrophils # Man Monocytes # (Manual) Eosinophils # (Manual) APTT POC ABG pH POC ABG pCO2 POC ABG pO2 Sodium Potassium Chloride 97.6 L Carbon Dioxide 31 H BUN 34 H Creatinine Glucose POC Glucose 175 H 67 L Calcium Total Creatine Kinase CK-MB (CK-2) CK-MB (CK-2) Rel Index Troponin T NT-Pro-B Natriuret Pep Albumin Heyqx-9-Mftvkdbmb Kania-9-Oeisuwkec PEP Interpretation Urine WBC (Auto) Urine Creatinine Urine Total Protein 11/20/18 11/20/18 11/20/18 11:54 16:46 21:25 WBC RBC Hgb Hct MCV MCHC RDW [place] % (Auto) [place] # Seg Neuts % (Manual) Lymphocytes % (Manual) Monocytes % (Manual) Seg Neutrophils # Man Monocytes # (Manual) Eosinophils # (Manual) APTT POC ABG pH POC ABG pCO2 POC ABG pO2 Sodium Potassium Chloride Carbon Dioxide BUN Creatinine Glucose POC Glucose 114 H 180 H 220 H Calcium Total Creatine Kinase CK-MB (CK-2) CK-MB (CK-2) Rel Index Troponin T NT-Pro-B Natriuret Pep Albumin Oecfj-3-Khusibifm Tkxzu-9-Ljjajfmyp PEP Interpretation Urine WBC (Auto) Urine Creatinine Urine Total Protein 11/20/18 11/20/18 11/21/18 21:53 21:53 05:57 WBC 20.3 H RBC Hgb Hct 46.8 H MCV MCHC RDW 15.7 H [place] % (Auto) [place] # Seg Neuts % (Manual) 75.0 H Lymphocytes % (Manual) Monocytes % (Manual) Seg Neutrophils # Man 15.2 H Monocytes # (Manual) 1.2 H Eosinophils # (Manual) APTT 23.8 L POC ABG pH POC ABG pCO2 POC ABG pO2 Sodium Potassium 5.2 H Chloride 93.8 L Carbon Dioxide BUN 37 H Creatinine 1.6 H Glucose 230 H POC Glucose Calcium Total Creatine Kinase CK-MB (CK-2) CK-MB (CK-2) Rel Index Troponin T NT-Pro-B Natriuret Pep Albumin 3.4 L Dktmv-5-Wpexxotft Vtcbh-0-Iubonutsp PEP Interpretation Urine WBC (Auto) Urine Creatinine Urine Total Protein 11/21/18 11/21/18 11/22/18 06:00 11:19 05:04 WBC RBC Hgb Hct MCV MCHC RDW [place] % (Auto) [place] # Seg Neuts % (Manual) Lymphocytes % (Manual) Monocytes % (Manual) Seg Neutrophils # Man Monocytes # (Manual) Eosinophils # (Manual) APTT POC ABG pH POC ABG pCO2 48.4 H POC ABG pO2 52 L Sodium Potassium 5.1 H Chloride 96.4 L 96.5 L Carbon Dioxide 32 H 32 H BUN 35 H 42 H Creatinine 1.8 H Glucose POC Glucose Calcium Total Creatine Kinase CK-MB (CK-2) CK-MB (CK-2) Rel Index Troponin T NT-Pro-B Natriuret Pep Albumin Njvie-3-Pyztdlufw Yccjm-1-Ismuljojg PEP Interpretation Urine WBC (Auto) Urine Creatinine Urine Total Protein 11/22/18 11/23/18 11/23/18 09:01 05:18 05:18 WBC 22.8 H 20.9 H RBC 5.07 H Hgb Hct 47.6 H MCV MCHC RDW 15.7 H 15.7 H [place] % (Auto) [place] # Seg Neuts % (Manual) 80.0 H Lymphocytes % (Manual) 8.0 L Monocytes % (Manual) 8.0 H 11.0 H Seg Neutrophils # Man 18.2 H 14.2 H Monocytes # (Manual) 1.8 H 2.3 H Eosinophils # (Manual) 0.6 H APTT POC ABG pH POC ABG pCO2 POC ABG pO2 Sodium Potassium Chloride Carbon Dioxide 31 H BUN 34 H Creatinine 1.7 H Glucose 101 H POC Glucose Calcium Total Creatine Kinase CK-MB (CK-2) CK-MB (CK-2) Rel Index Troponin T NT-Pro-B Natriuret Pep Albumin Dbqii-3-Zwfxfgbyd Glpxl-3-Kcovxeugo PEP Interpretation Urine WBC (Auto) Urine Creatinine Urine Total Protein 11/23/18 11/24/18 11/25/18 07:48 05:16 02:29 WBC RBC Hgb Hct MCV MCHC RDW [place] % (Auto) [place] # Seg Neuts % (Manual) Lymphocytes % (Manual) Monocytes % (Manual) Seg Neutrophils # Man Monocytes # (Manual) Eosinophils # (Manual) APTT POC ABG pH POC ABG pCO2 POC ABG pO2 Sodium 136 L D Potassium 5.1 H Chloride 95.2 L 96.1 L Carbon Dioxide 32 H 33 H BUN 38 H 39 H Creatinine 1.7 H 2.4 H Glucose 106 H 127 H POC Glucose 69 L Calcium Total Creatine Kinase CK-MB (CK-2) CK-MB (CK-2) Rel Index Troponin T NT-Pro-B Natriuret Pep Albumin Mpuut-3-Gvthobcej Ksiaw-1-Cnhrvalru PEP Interpretation Urine WBC (Auto) Urine Creatinine Urine Total Protein Chest x-ray: report reviewed (Mild improvement in right lung Opacities.), image reviewed Allied health notes reviewed: nursing
--- NOTE | 2018-11-25 16:27 | Progress Note ---
Assessment and Plan /ARF, vasomotor nephrology +ATN, - monitor BMP, Cr trending up, will follow repeat renal US - may need to hold his lasix /Nephrolithiasis, right hydronephrosis and hematuria: - developed hematuria on 11/16/18 - CT abd/pelvis showed b/l hydronephrosis and 1.7cm right kidney stone. s/p ESWL on 11/21/18 /Sepsis: Improved, leukocytosis trending down , initial etio. likely +/-PNA - then developed complicated UTI , bacteremia /E. Coli Bacteremia:, Cx positive from 11/16/18 - source likely complicated UTI with known bilateral stones causing hydronephrosis. /Complicated UTI - +gross hematuria and back pain developed on 11/16/18. UA 11/16 c/u UTI. Renal US 11/14 showed right obstructive hydronephrosis and bilateral stones- s/p ESWL procedure 11/21/18. - cont abx, ID following /Acute on Chronic hypoxic respiratory failure, POA, resolved - reason for admission - likely from underlying sarcoidosis and CHF - s/p Intubation on admission and extubated 11/12/18 - cont nebs, n/C o2 as needed, pulmonary following /Presumed RUL pneumonia: HAP, POA - recent pneumonia treated at [facility]. HIV neg. Repeat CXR 11/16 showed possible RUL pneumonia, doubt pneumonia clinically per ID. Chest xray 11/20/18 shows improvement in airspace opacities. treated with abx /Acute on Chronic exacerbation of systolic heart failure: compensated now - on oral lasix, Cardiology is following, ECHO reviewed - Ef 40-45% /COPD with exacerbation: continue Duoneb tx and IV solumedrol weaned to oral steroids. /HTN (hypertension) with episode of hypotension: - monitor bp closely, advance bp medications as tolerated /Sarcoidosis: on steroids /Obesity BMI 41.5, counselled Brief History: Patient is a 53 y/o BM with a history of Sarcoidosis, kidney stones, chronic hypoxic respiratory failure on 2 liters of O2 at home, CHF, HTN and recent pneumonia with Intubation at [facility] who presented to [facility] with cough, SOB and chest pains. He was found to have pulse ox of only 64%. He was placed on bipap, which he failed requiring intubation. He was extubated on 11/12/18. He was planned to d/c home 11/15/18 but he appealed his discharge at the last minute. He eventually spiked fever and developed hematuria. Blood cx grew E.coli, Ux positive for E. coli. CT abd/pelvis showed b/l hydronephrosis and 1.7cm right kidney stone. s/p ESWL on 11/21/18. Getting treated for gm negative bacteremia and UTI. Hospitalist Physical Gen: NAD, Awake, Alert, Orientated HEENT: NCAT, EOMI, PERRL, OP clear Neck: supple, no adenopathy, no thyromegaly, no JVD CVS/Heart: RRR, normal S1S2, pulses present bilaterally Chest/Lungs: diminished bs bilateral, Symmetrical chest expansion, good air entry bilaterally GI/Abdomen: soft, NTND, good bowel sounds, no guarding or rebound /Bladder: no suprapubic tenderness, Extermity/Skin: no c/c/e, no obvious rash MSK: FROM x 4 Neuro: CN 2-12 grossly intact, no new focal deficits Psych: calm Subjective Date of service: 11/25/18 Principal diagnosis: Ac on Ch Hypoxemic Resp failure; Sarcoidosis with exacerbation;Chest Pain Interval history: Patient seen and examined States he is having abdominal pain Objective - Constitutional Vitals: Vital Signs - 12hr 11/25/18 11/25/18 11/25/18 06:18 07:20 07:30 Temperature 98.0 F Pulse Rate 64 Pulse Rate [ Anterior Bilateral Throughout] Pulse Rate [ 71 Anterior Bilateral Upper Lobe] Respiratory 18 Rate Respiratory Rate [Anterior Bilateral Throughout] Respiratory 16 Rate [Anterior Bilateral Upper Lobe] Blood Pressure 119/73 O2 Sat by Pulse 95 96 Oximetry 11/25/18 11/25/18 11/25/18 07:31 09:52 09:54 Temperature Pulse Rate 87 Pulse Rate [ Anterior Bilateral Throughout] Pulse Rate [ 72 Anterior Bilateral Upper Lobe] Respiratory 20 Rate Respiratory Rate [Anterior Bilateral Throughout] Respiratory 18 Rate [Anterior Bilateral Upper Lobe] Blood Pressure 134/85 134/85 O2 Sat by Pulse 94 Oximetry 11/25/18 11/25/18 11/25/18 11:31 13:34 13:44 Temperature 98.2 F Pulse Rate 78 Pulse Rate [ 85 95 H Anterior Bilateral Throughout] Pulse Rate [ Anterior Bilateral Upper Lobe] Respiratory 22 Rate Respiratory 22 20 Rate [Anterior Bilateral Throughout] Respiratory Rate [Anterior Bilateral Upper Lobe] Blood Pressure 143/91 O2 Sat by Pulse 89 Oximetry - Labs CBC & Chem 7: 11/26/18 00:43 11/25/18 02:29 Labs: Abnormal lab results 11/25/18 Range/Units 02:29 Potassium 5.1 H (3.6-5.0) mmol/L Chloride 96.1 L (98-107) mmol/L Carbon Dioxide 33 H (22-30) mmol/L BUN 39 H (9-20) mg/dL Creatinine 2.4 H (0.8-1.5) mg/dL Glucose 127 H (75-100) mg/dL
--- NOTE | 2018-11-25 16:45 | XRay Report ---
FINAL REPORT EXAM: XR CHEST 1V AP HISTORY: continued leukocytosis COMPARISON: Chest radiograph performed on 11/16/2017 TECHNIQUE: Single frontal view of the chest FINDINGS: The cardiomediastinal silhouette is normal in appearance. The lungs are clear without focal consolidation. There is no pleural effusion or pneumothorax. There is no acute soft tissue or osseous abnormality. IMPRESSION: No acute cardiopulmonary disease.
[2018-11-25] MEDS: BENADRYL PO PRN (21:18)
[2018-11-26 01:21] LABS: Hematocrit 45.4 % (35.5-45.6); Hemoglobin 14.3 gm/dl (11.8-15.2); Mean Corpuscular HGB Conc 32 % (32-34); Mean Corpuscular Volume 93 fl (84-94); Platelet Count 233 K/mm3 (140-440); Red Blood Count 4.91 M/mm3 (3.65-5.03); Red Cell Distribution Width 15.4 % (13.2-15.2)
[2018-11-26 03:25] LABS: Band Neutrophils # (Manual) 0.4 K/mm3; Basophils % (Manual) 0 % (0.0-1.8); Eosinophils % (Manual) 0 % (0.0-4.3); Total Cells Counted 100
[2018-11-26 03:26] LABS: Hypochromasia Few
[2018-11-26] MEDS: ANCEF/NS 1 GM/50 ML 1 GM/50 ML BAG IV SCH ×3 (05:56→21:17)
[2018-11-26] MEDS: DUONEB *Not for PRN Use IH SCH ×3 (08:12→21:51)
--- NOTE | 2018-11-26 08:27 | Progress Note ---
Assessment and Plan Cultures: 11/10/2018 tracheal culture no growth to date 11/12/2018 tracheal culture upper resp gabo 11/16/2018 blood culture: E. coli 11/17/2018 blood culture: No growth to date 11/16/2018 urine: E. coli A/P: 53 y/o male with history of Sarcoidosis home O2 dependant, CHF, HTN, bilateral stones, recent pneumonia treated at [place], admitted on 11/09/2018 due to 3 day history of dry cough, progressive SOB and sharp chest pain: 1) Sepsis: Improved, leukocytosis trending down etio. likely complicated UTI +/- pneumonia 2) E. Coli Bacteremia:, source likely complicated UTI with known bilateral stones causing hydronephrosis. +gross hematuria and back pain. UA 11/16 c/u UTI. Renal US 11/14 showed right obstructive hydronephrosis and bilateral stones- s/p ESWL procedure 11/21/18. -Renal ultrasound 11/25/18 -Renal sonography suggests grossly normal renal cortical echogenicity. Pyramids though now appear echogenic. Grossly preserved renal contours. No worsening hydronephrosis. Image hepatic coarsening not excluded. 3) Presumed RUL pneumonia: HAP, recent pneumonia treated at [place]. HIV neg. Repeat CXR 11/16 showed possible RUL pneumonia, doubt pneumonia clinically. SOB continuing, BIPAP at night. Chest xray 11/20/18 shows improvement in airspace opacities. Repeat chest xray 11/25/18 shows no consolidation. 4) Recent Respiratory failure: better - likely from CHF exacerbation 5) JESI: antibiotics renally dosed. Creatinine trending up - recommend Nephrology consult Plan: Completed 10 day of antibiotics,monitor off antibiotics Nephrology consult for worsening creatinine continue to monitor leukocytosis Dodie Moore NP [facility] M: [phone] O:[phone] Subjective Date of service: 11/26/18 Principal diagnosis: Ac on Ch Hypoxemic Resp failure; Sarcoidosis with exacerbation;Chest Pain Interval history: Patient seen and examined. Stated that he was feeling better today. Continue intermittent SOB, continues to be on 02 at 3L/NC. No Hematuria. Nurses notes, labs and reports reviewed, discussed with patient. Objective - Exam Narrative Exam: Constitutional: Alert, cooperative. no acute distress Head, Ears, Nose: Normocephalic, atraumatic. External ears, nose normal Eyes: Conjunctivae/corneas clear. No icterus. No ptosis. Neck: Supple, no meningeal signs Oral: no ulcers, no thrush Cardiovascular: S1, S2 normal. Respiratory:Clear on auscultation bilaterally GI: Soft, non-tender; bowel sounds normal. No peritoneal signs. bilateral CVA tenderness. : urine clear, -hematuria Musculoskeletal: No pedal edema, no cyanosis. Skin: No rash or abscess Hem/Lymphatic: No palpable cervical or supraclavicular nodes. No lymphangitis Psych: Mood ok. Affect normal Neurological: Awake, alert, oriented. No gross abnormality - Constitutional Vitals: Vital Signs Temp Pulse Resp BP Pulse Ox 97.5 F L 90 16 150/102 96 11/26/18 05:22 11/26/18 08:13 11/26/18 08:13 11/26/18 05:22 11/26/18 08:14 Temperature -Last 24 Hours Temperature 97.5 F Temperature 97.9 F Temperature 97.8 F Temperature 98.2 F Temperature 98.8 F Temperature 98.2 F - Labs CBC & Chem 7: 11/26/18 00:43 11/26/18 13:23 Labs: Abnormal lab results 11/26/18 Range/Units 00:43 WBC 17.5 H (4.5-11.0) K/mm3 RDW 15.4 H (13.2-15.2) % Seg Neuts % (Manual) 91.0 H (40.0-70.0) % Lymphocytes % (Manual) 4.0 L (13.4-35.0) % Seg Neutrophils # Man 15.9 H (1.8-7.7) K/mm3 Lymphocytes # (Manual) 0.7 L (1.2-5.4) K/mm3
[2018-11-26] MEDS: BABY ASPIRIN PO SCH (10:37)
[2018-11-26] MEDS: LASIX PO SCH (10:38)
[2018-11-26] MEDS: DELTASONE PO SCH (10:38)
[2018-11-26] MEDS: PEPCID PO SCH (10:38)
[2018-11-26] MEDS: HEPARIN SUB-Q SCH ×2 (10:38→21:17)
[2018-11-26] MEDS: SODIUM CHLORIDE FLUSH SYRINGE 10 ML IV SCH ×2 (10:39→21:18)
[2018-11-26] MEDS: LOPRESSOR PO SCH ×2 (10:39→22:54)
[2018-11-26] MEDS: PERCOCET 5/325 PO PRN ×3 (10:51→22:54)
[2018-11-26 13:53] LABS: Calcium 9.4 mg/dL (8.4-10.2)
--- NOTE | 2018-11-26 14:01 | Progress Note ---
Assessment and Plan /ARF, vasomotor nephrology +ATN, - monitor BMP, Cr trending up again, no change in repeat renal US - will hold his lasix, follow BMP, reconsult renal /Nephrolithiasis, right hydronephrosis and hematuria: - developed hematuria on 11/16/18 - CT abd/pelvis showed b/l hydronephrosis and 1.7cm right kidney stone. s/p ESWL on 11/21/18 /Sepsis: Improved, leukocytosis trending down , initial etio. likely +/-PNA - then developed complicated UTI , bacteremia /E. Coli Bacteremia:, Cx positive from 11/16/18 - source likely complicated UTI with known bilateral stones causing hydronephrosis. /Complicated UTI - +gross hematuria and back pain developed on 11/16/18. UA 11/16 c/u UTI. Renal US 11/14 showed right obstructive hydronephrosis and bilateral stones- s/p ESWL procedure 11/21/18. - cont abx, ID following /Acute on Chronic hypoxic respiratory failure, POA, resolved - reason for admission - likely from underlying sarcoidosis and CHF - s/p Intubation on admission and extubated 11/12/18 - cont nebs, n/C o2 as needed, pulmonary following /Presumed RUL pneumonia: HAP, POA - recent pneumonia treated at [place]. HIV neg. Repeat CXR 11/16 showed possible RUL pneumonia, doubt pneumonia clinically per ID. Chest xray 11/20/18 shows imp rovement in airspace opacities. treated with abx /Acute on Chronic exacerbation of systolic heart failure: compensated now - hold oral lasix now, Cardiology is following, ECHO reviewed - Ef 40-45% /COPD with exacerbation: continue Duoneb tx and IV solumedrol weaned to oral steroids. /HTN (hypertension) with episode of hypotension: - monitor bp closely, advance bp medications as tolerated /Sarcoidosis: on steroids /Obesity BMI 41.5, counselled Brief History: Patient is a 53 y/o BM with a history of Sarcoidosis, kidney stones, chronic hypoxic respiratory failure on 2 liters of O2 at home, CHF, HTN and recent pneumonia with Intubation at [facility] who presented to [facility] ED with cough, SOB and chest pains. He was found to have pulse ox of only 64%. He was placed on bipap, which he failed requiring intubation. He was extubated on 1/15/19. He was planned to d/c home 11/15/18 but he appealed his discharge at the last minute. He eventually spiked fever and developed hematuria. Blood cx grew E.coli, Ux positive for E. coli. CT abd/pelvis showed b/l hydronephrosis and 1.7cm right kidney stone. s/p ESWL on 11/21/18. Getting treated for gm negative bacteremia and UTI. Hospitalist Physical Gen: NAD, Awake, Alert, Orientated HEENT: NCAT, EOMI, PERRL, OP clear Neck: supple, no adenopathy, no thyromegaly, no JVD CVS/Heart: RRR, normal S1S2, pulses present bilaterally Chest/Lungs: diminished bs bilateral, Symmetrical chest expansion, good air entry bilaterally GI/Abdomen: soft, NTND, good bowel sounds, no guarding or rebound /Bladder: no suprapubic tenderness, Extermity/Skin: no c/c/e, no obvious rash MSK: FROM x 4 Neuro: CN 2-12 grossly intact, no new focal deficits Psych: calm Subjective Date of service: 11/26/18 Principal diagnosis: Ac on Ch Hypoxemic Resp failure; Sarcoidosis with exacerbation;Chest Pain Interval history: Patient seen and examined no acute event o/n tolerating diet, afebrile Objective - Constitutional Vitals: Vital Signs - 12hr 11/26/18 11/26/18 11/26/18 05:22 08:13 08:14 Temperature 97.5 F L Pulse Rate 70 Pulse Rate [ 90 Anterior Bilateral Throughout] Pulse Rate [ 88 Anterior Bilateral Upper Lobe] Respiratory 24 Rate Respiratory 16 Rate [Anterior Bilateral Throughout] Respiratory 16 Rate [Anterior Bilateral Upper Lobe] Blood Pressure 150/102 O2 Sat by Pulse 96 96 Oximetry 11/26/18 11/26/18 11/26/18 10:39 10:41 11:33 Temperature 98.3 F Pulse Rate 87 69 Pulse Rate [ Anterior Bilateral Throughout] Pulse Rate [ Anterior Bilateral Upper Lobe] Respiratory 20 22 Rate Respiratory Rate [Anterior Bilateral Throughout] Respiratory Rate [Anterior Bilateral Upper Lobe] Blood Pressure 118/81 118/81 130/87 O2 Sat by Pulse 94 92 Oximetry 11/26/18 13:18 Temperature Pulse Rate Pulse Rate [ 84 Anterior Bilateral Throughout] Pulse Rate [ 86 Anterior Bilateral Upper Lobe] Respiratory Rate Respiratory 16 Rate [Anterior Bilateral Throughout] Respiratory 16 Rate [Anterior Bilateral Upper Lobe] Blood Pressure O2 Sat by Pulse Oximetry - Labs CBC & Chem 7: 11/26/18 00:43 11/27/18 09:33 Labs: Abnormal lab results 11/26/18 11/26/18 Range/Units 00:43 13:23 WBC 17.5 H (4.5-11.0) K/mm3 RDW 15.4 H (13.2-15.2) % Seg Neuts % (Manual) 91.0 H (40.0-70.0) % Lymphocytes % (Manual) 4.0 L (13.4-35.0) % Seg Neutrophils # Man 15.9 H (1.8-7.7) K/mm3 Lymphocytes # (Manual) 0.7 L (1.2-5.4) K/mm3 Chloride 94.3 L (98-107) mmol/L BUN 39 H (9-20) mg/dL Creatinine 2.0 H (0.8-1.5) mg/dL Glucose 160 H (75-100) mg/dL
--- NOTE | 2018-11-26 14:34 | Progress Note ---
Assessment and Plan Patient alert, awake. Patient breathing better. On 3 litres O2.O2 saturation 92%. Patient not keeping his nasal O2 all the time. Stressed the importance of keeping O2 all the time.Patient goes on BIPAP during night time and PRN for shortness of breath during day time. Patient undergone lithotrpsy for right sided kidney stones.. - Patient Problems (1) Acute respiratory failure with hypoxia Current Visit: Yes Status: Acute Plan to address problem: O2 3 litres via nasal canula BIPAP during night time and Prn for shortness of breath during day time. Albuterol/atrovent aerosol treatments q 6 hours. Continue PO prednisone. Continue S/C Heparin Continue famotidine. Patient is on cefazolin. (2) Acute exacerbation of CHF (congestive heart failure) Current Visit: Yes Status: Acute Qualifiers: Heart failure type: combined systolic and diastolic Qualified Code(s): I50.43 - Acute on chronic combined systolic (congestive) and diastolic (congestive) heart failure Plan to address problem: Management as per primary care and cardiology. (3) CKD (chronic kidney disease) Current Visit: Yes Status: Chronic Qualifiers: Chronic kidney disease stage: unspecified stage Qualified Code(s): N18.9 - Chronic kidney disease, unspecified Plan to address problem: Management as per primary care and nephrology. (4) COPD (chronic obstructive pulmonary disease) Current Visit: Yes Status: Chronic Qualifiers: COPD type: unspecified COPD Qualified Code(s): J44.9 - Chronic obstructive pulmonary disease, unspecified Plan to address problem: O2 2 litres via nasal canula BIPAP during night time and Prn for shortness of breath during day time. Albuterol/atrovent aerosol treatments q 6 hours. Continue PO prednisone. Continue S/C Heparin Continue famotidine. Patient is on cefazolin. (5) HTN (hypertension) Current Visit: Yes Status: Chronic Qualifiers: Hypertension type: essential hypertension Qualified Code(s): I10 - Essential (primary) hypertension Plan to address problem: Management as per primary care. (6) Sarcoidosis Current Visit: No Status: Chronic Plan to address problem: MERCEDES level. Subjective Date of service: 11/26/18 Principal diagnosis: Ac on Ch Hypoxemic Resp failure; Sarcoidosis with exacerbation;Chest Pain Interval history: Patient alert, awake. Patient breathing better. On 3 litres O2.O2 saturation 92% . Patient not keeping his nasal O2 all the time. Stressed the importance of keeping O2 all the time.Patient goes on BIPAP during night time and PRN for shortness of breath during day time. Patient undergone lithotrpsy for right sided kidney stones. Objective Vital Signs - 12hr 11/26/18 11/26/18 11/26/18 05:22 08:13 08:14 Temperature 97.5 F L Pulse Rate 70 Pulse Rate [ 90 Anterior Bilateral Throughout] Pulse Rate [ 88 Anterior Bilateral Upper Lobe] Respiratory 24 Rate Respiratory 16 Rate [Anterior Bilateral Throughout] Respiratory 16 Rate [Anterior Bilateral Upper Lobe] Blood Pressure 150/102 O2 Sat by Pulse 96 96 Oximetry 11/26/18 11/26/18 11/26/18 10:39 10:41 11:33 Temperature 98.3 F Pulse Rate 87 69 Pulse Rate [ Anterior Bilateral Throughout] Pulse Rate [ Anterior Bilateral Upper Lobe] Respiratory 20 22 Rate Respiratory Rate [Anterior Bilateral Throughout] Respiratory Rate [Anterior Bilateral Upper Lobe] Blood Pressure 118/81 118/81 130/87 O2 Sat by Pulse 94 92 Oximetry 11/26/18 13:18 Temperature Pulse Rate Pulse Rate [ 84 Anterior Bilateral Throughout] Pulse Rate [ 86 Anterior Bilateral Upper Lobe] Respiratory Rate Respiratory 16 Rate [Anterior Bilateral Throughout] Respiratory 16 Rate [Anterior Bilateral Upper Lobe] Blood Pressure O2 Sat by Pulse Oximetry Constitutional: no acute distress, alert, other (Middle aged obeses AAM, normocephalic and atraumati) Eyes: non-icteric ENT: oropharynx moist, other (extubated) Neck: supple, no lymphadenopathy, no JVD, other (large neck circumference) Effort: mildly labored Ascultation: Bilateral: diminished breath sounds, rales (inspiratory in bases), rhonchi Percussion: Bilateral: not dull Cardiovascular: regular rate and rhythm, other (No R/M) Gastrointestinal: normoactive bowel sounds, soft, non-tender, non-distended, other (No HSM) Integumentary: normal Extremities: no cyanosis, pulses normal, no ischemia or petechiae Neurologic: normal mental status, non-focal exam, pupils equal and round, motor strength normal and Psychiatric: mood appropriate, affect normal CBC and BMP: 11/26/18 00:43 11/26/18 13:23 ABG, PT/INR, D-dimer: ABG POC ABG pH 7.447 (7.35-7.45) 11/21/18 11:19 POC ABG pCO2 48.4 (35-45) H 11/21/18 11:19 POC ABG pO2 52 (80-105) L 11/21/18 11:19 POC ABG HCO3 33.4 11/21/18 11:19 POC ABG Total CO2 35 11/21/18 11:19 POC ABG O2 Sat 87 11/21/18 11:19 PT/INR, D-dimer PT 13.6 Sec. (12.2-14.9) 11/20/18 21:53 INR 1.00 (0.87-1.13) 11/20/18 21:53 D-Dimer < 135.00 ng/mlDDU (0-234) 11/10/18 02:24 Abnormal lab findings: Abnormal Labs 11/09/18 11/09/18 11/10/18 23:58 23:58 02:24 WBC RBC 5.14 H Hgb 15.8 H Hct 48.6 H MCV 95 H MCHC RDW 16.6 H [place] % (Auto) 10.6 H [place] # 1.0 H Seg Neuts % (Manual) Lymphocytes % (Manual) Monocytes % (Manual) Seg Neutrophils # Man Lymphocytes # (Manual) Monocytes # (Manual) Eosinophils # (Manual) APTT POC ABG pH POC ABG pCO2 POC ABG pO2 Sodium Potassium Chloride Carbon Dioxide BUN Creatinine 1.6 H Glucose 103 H POC Glucose Calcium Total Creatine Kinase CK-MB (CK-2) CK-MB (CK-2) Rel Index Troponin T 0.031 H NT-Pro-B Natriuret Pep 5420 H Albumin Lreex-0-Qeykjumwg Dxkov-0-Bduzvkuzr PEP Interpretation Urine WBC (Auto) Urine Creatinine Urine Total Protein 11/10/18 11/10/18 11/10/18 05:43 06:37 09:24 WBC RBC Hgb Hct MCV MCHC RDW [place] % (Auto) [place] # Seg Neuts % (Manual) Lymphocytes % (Manual) Monocytes % (Manual) Seg Neutrophils # Man Lymphocytes # (Manual) Monocytes # (Manual) Eosinophils # (Manual) APTT POC ABG pH 7.168 L 7.318 L POC ABG pCO2 87.7 H 57.7 H POC ABG pO2 193 H 152 H Sodium Potassium Chloride Carbon Dioxide BUN Creatinine Glucose POC Glucose Calcium Total Creatine Kinase 8 L CK-MB (CK-2) 7.8 H CK-MB (CK-2) Rel Index 97.5 H Troponin T NT-Pro-B Natriuret Pep Albumin Yyufv-0-Haydxvuga Uxsxv-4-Mrqehhjad PEP Interpretation Urine WBC (Auto) Urine Creatinine Urine Total Protein 11/10/18 11/10/18 11/11/18 12:15 23:34 04:23 WBC RBC Hgb Hct MCV MCHC RDW [place] % (Auto) [place] # Seg Neuts % (Manual) Lymphocytes % (Manual) Monocytes % (Manual) Seg Neutrophils # Man Lymphocytes # (Manual) Monocytes # (Manual) Eosinophils # (Manual) APTT POC ABG pH 7.518 H POC ABG pCO2 POC ABG pO2 122 H Sodium Potassium Chloride Carbon Dioxide BUN Creatinine Glucose POC Glucose 130 H Calcium Total Creatine Kinase 269 H CK-MB (CK-2) 6.4 H CK-MB (CK-2) Rel Index Troponin T NT-Pro-B Natriuret Pep Albumin Invnm-2-Mgdnlpott [place]-9-Lnodbkjwz PEP Interpretation Urine WBC (Auto) Urine Creatinine Urine Total Protein 11/11/18 11/11/18 11/12/18 05:18 16:21 00:22 WBC RBC Hgb Hct MCV MCHC RDW [place] % (Auto) [place] # Seg Neuts % (Manual) Lymphocytes % (Manual) Monocytes % (Manual) Seg Neutrophils # Man Lymphocytes # (Manual) Monocytes # (Manual) Eosinophils # (Manual) APTT POC ABG pH POC ABG pCO2 49.5 H POC ABG pO2 60 L Sodium Potassium Chloride Carbon Dioxide BUN Creatinine Glucose POC Glucose 129 H 122 H Calcium Total Creatine Kinase CK-MB (CK-2) CK-MB (CK-2) Rel Index Troponin T NT-Pro-B Natriuret Pep Albumin Ytnxd-0-Bgyzmytan Cghbk-3-Gzwbyrffr PEP Interpretation Urine WBC (Auto) Urine Creatinine Urine Total Protein 11/12/18 11/12/18 11/12/18 05:43 10:13 11:42 WBC RBC Hgb Hct MCV MCHC RDW [place] % (Auto) [place] # Seg Neuts % (Manual) Lymphocytes % (Manual) Monocytes % (Manual) Seg Neutrophils # Man Lymphocytes # (Manual) Monocytes # (Manual) Eosinophils # (Manual) APTT POC ABG pH POC ABG pCO2 53.8 H POC ABG pO2 72 L Sodium 153 H D Potassium Chloride Carbon Dioxide 34 H BUN 36 H Creatinine 2.2 H Glucose 142 H POC Glucose 130 H Calcium Total Creatine Kinase CK-MB (CK-2) CK-MB (CK-2) Rel Index Troponin T NT-Pro-B Natriuret Pep Albumin Jrgcv-0-Voboszqsm Pbdow-2-Zlxdnqltz PEP Interpretation Urine WBC (Auto) Urine Creatinine Urine Total Protein 11/12/18 11/12/18 11/12/18 12:33 17:29 23:53 WBC RBC Hgb Hct MCV MCHC RDW [place] % (Auto) [place] # Seg Neuts % (Manual) Lymphocytes % (Manual) Monocytes % (Manual) Seg Neutrophils # Man Lymphocytes # (Manual) Monocytes # (Manual) Eosinophils # (Manual) APTT POC ABG pH POC ABG pCO2 POC ABG pO2 Sodium Potassium Chloride Carbon Dioxide BUN Creatinine Glucose POC Glucose 121 H 150 H 138 H Calcium Total Creatine Kinase CK-MB (CK-2) CK-MB (CK-2) Rel Index Troponin T NT-Pro-B Natriuret Pep Albumin Migix-3-Gpmguokzl Xfall-8-Tlizcidsh PEP Interpretation Urine WBC (Auto) Urine Creatinine Urine Total Protein 11/13/18 11/13/18 11/13/18 05:16 10:08 12:20 WBC RBC Hgb Hct MCV MCHC RDW [place] % (Auto) [place] # Seg Neuts % (Manual) Lymphocytes % (Manual) Monocytes % (Manual) Seg Neutrophils # Man Lymphocytes # (Manual) Monocytes # (Manual) Eosinophils # (Manual) APTT POC ABG pH POC ABG pCO2 POC ABG pO2 Sodium Potassium Chloride Carbon Dioxide 33 H BUN 40 H Creatinine 2.1 H Glucose 209 H POC Glucose 134 H Calcium Total Creatine Kinase CK-MB (CK-2) CK-MB (CK-2) Rel Index Troponin T NT-Pro-B Natriuret Pep Albumin Bxpls-1-Oxebjxaln Hzbrr-6-Efiqqiawn PEP Interpretation Urine WBC (Auto) Urine Creatinine 121.2 H Urine Total Protein 16 H 11/13/18 11/14/18 11/15/18 13:39 04:58 05:10 WBC RBC Hgb Hct MCV MCHC RDW [place] % (Auto) [place] # Seg Neuts % (Manual) Lymphocytes % (Manual) Monocytes % (Manual) Seg Neutrophils # Man Lymphocytes # (Manual) Monocytes # (Manual) Eosinophils # (Manual) APTT POC ABG pH POC ABG pCO2 POC ABG pO2 Sodium Potassium Chloride Carbon Dioxide 34 H 35 H BUN 40 H 32 H Creatinine 1.8 H 1.7 H Glucose 113 H 73 L POC Glucose Calcium 8.0 L 8.1 L Total Creatine Kinase CK-MB (CK-2) CK-MB (CK-2) Rel Index Troponin T NT-Pro-B Natriuret Pep Albumin 3.5 L Euhuj-9-Oiaofshyb 0.4 H Zxomy-5-Galiksghk 1.1 H PEP Interpretation see below H Urine WBC (Auto) Urine Creatinine Urine Total Protein 11/15/18 11/15/18 11/15/18 05:10 13:59 17:06 WBC 12.5 H RBC Hgb Hct 46.9 H MCV 95 H MCHC 31 L RDW 16.0 H [place] % (Auto) [place] # Seg Neuts % (Manual) Lymphocytes % (Manual) Monocytes % (Manual) Seg Neutrophils # Man Lymphocytes # (Manual) Monocytes # (Manual) Eosinophils # (Manual) APTT POC ABG pH POC ABG pCO2 POC ABG pO2 Sodium Potassium Chloride Carbon Dioxide BUN Creatinine Glucose POC Glucose 128 H 156 H Calcium Total Creatine Kinase CK-MB (CK-2) CK-MB (CK-2) Rel Index Troponin T NT-Pro-B Natriuret Pep Albumin [place]-9-Igsoqrcds Imace-8-Zfwpyizjb PEP Interpretation Urine WBC (Auto) Urine Creatinine Urine Total Protein 11/16/18 11/16/18 11/16/18 11:55 11:55 13:20 WBC 21.6 H RBC 5.14 H Hgb 15.4 H Hct 48.0 H MCV MCHC RDW 16.0 H [place] % (Auto) [place] # Seg Neuts % (Manual) Lymphocytes % (Manual) Monocytes % (Manual) Seg Neutrophils # Man Lymphocytes # (Manual) Monocytes # (Manual) Eosinophils # (Manual) APTT POC ABG pH POC ABG pCO2 POC ABG pO2 Sodium Potassium Chloride Carbon Dioxide 33 H BUN 32 H Creatinine 2.0 H Glucose 110 H POC Glucose Calcium Total Creatine Kinase CK-MB (CK-2) CK-MB (CK-2) Rel Index Troponin T NT-Pro-B Natriuret Pep Albumin Dkvyp-3-Qqoybdouu Smkoq-8-Ntaqcirro PEP Interpretation Urine WBC (Auto) > 182.0 H Urine Creatinine Urine Total Protein 11/16/18 11/16/18 11/17/18 16:34 20:47 11:17 WBC RBC Hgb Hct MCV MCHC RDW [place] % (Auto) [place] # Seg Neuts % (Manual) Lymphocytes % (Manual) Monocytes % (Manual) Seg Neutrophils # Man Lymphocytes # (Manual) Monocytes # (Manual) Eosinophils # (Manual) APTT POC ABG pH POC ABG pCO2 POC ABG pO2 Sodium Potassium Chloride Carbon Dioxide BUN Creatinine Glucose POC Glucose 236 H 171 H 114 H Calcium Total Creatine Kinase CK-MB (CK-2) CK-MB (CK-2) Rel Index Troponin T NT-Pro-B Natriuret Pep Albumin Iionx-9-Coviowyqo Lzvri-0-Prsnofguw PEP Interpretation Urine WBC (Auto) Urine Creatinine Urine Total Protein 11/17/18 11/17/18 11/18/18 16:17 21:27 05:45 WBC RBC Hgb Hct MCV MCHC RDW [place] % (Auto) [place] # Seg Neuts % (Manual) Lymphocytes % (Manual) Monocytes % (Manual) Seg Neutrophils # Man Lymphocytes # (Manual) Monocytes # (Manual) Eosinophils # (Manual) APTT POC ABG pH POC ABG pCO2 POC ABG pO2 Sodium Potassium Chloride 97.9 L Carbon Dioxide BUN 35 H Creatinine 2.0 H Glucose POC Glucose 175 H 159 H Calcium Total Creatine Kinase CK-MB (CK-2) CK-MB (CK-2) Rel Index Troponin T NT-Pro-B Natriuret Pep Albumin Mpkth-1-Sudjeidmb Fdpsj-0-Owaclphvv PEP Interpretation Urine WBC (Auto) Urine Creatinine Urine Total Protein 11/18/18 11/18/18 11/19/18 16:30 21:08 07:06 WBC RBC Hgb Hct MCV MCHC RDW [place] % (Auto) [place] # Seg Neuts % (Manual) Lymphocytes % (Manual) Monocytes % (Manual) Seg Neutrophils # Man Lymphocytes # (Manual) Monocytes # (Manual) Eosinophils # (Manual) APTT POC ABG pH POC ABG pCO2 POC ABG pO2 Sodium Potassium Chloride Carbon Dioxide BUN 35 H Creatinine 1.9 H Glucose POC Glucose 190 H 286 H Calcium Total Creatine Kinase CK-MB (CK-2) CK-MB (CK-2) Rel Index Troponin T NT-Pro-B Natriuret Pep Albumin Dkhod-8-Zodjwwbpr Rmpng-0-Jierekvmd PEP Interpretation Urine WBC (Auto) Urine Creatinine Urine Total Protein 11/19/18 11/19/18 11/19/18 08:16 09:00 16:57 WBC 16.1 H RBC 5.15 H Hgb Hct 47.5 H MCV MCHC RDW 15.7 H [place] % (Auto) [place] # Seg Neuts % (Manual) 91.0 H Lymphocytes % (Manual) 8.0 L Monocytes % (Manual) Seg Neutrophils # Man 14.7 H Lymphocytes # (Manual) Monocytes # (Manual) Eosinophils # (Manual) APTT POC ABG pH POC ABG pCO2 POC ABG pO2 Sodium Potassium Chloride Carbon Dioxide BUN Creatinine Glucose POC Glucose 192 H 165 H Calcium Total Creatine Kinase CK-MB (CK-2) CK-MB (CK-2) Rel Index Troponin T NT-Pro-B Natriuret Pep Albumin Uzten-5-Azkxjjlhq Ifmql-8-Wlzvszzdp PEP Interpretation Urine WBC (Auto) Urine Creatinine Urine Total Protein 11/19/18 11/20/18 11/20/18 22:42 04:38 08:07 WBC RBC Hgb Hct MCV MCHC RDW [place] % (Auto) [place] # Seg Neuts % (Manual) Lymphocytes % (Manual) Monocytes % (Manual) Seg Neutrophils # Man Lymphocytes # (Manual) Monocytes # (Manual) Eosinophils # (Manual) APTT POC ABG pH POC ABG pCO2 POC ABG pO2 Sodium Potassium Chloride 97.6 L Carbon Dioxide 31 H BUN 34 H Creatinine Glucose POC Glucose 175 H 67 L Calcium Total Creatine Kinase CK-MB (CK-2) CK-MB (CK-2) Rel Index Troponin T NT-Pro-B Natriuret Pep Albumin Euxsm-4-Zwdatorbe Vpfzc-9-Yyzjvwson PEP Interpretation Urine WBC (Auto) Urine Creatinine Urine Total Protein 11/20/18 11/20/18 11/20/18 11:54 16:46 21:25 WBC RBC Hgb Hct MCV MCHC RDW [place] % (Auto) [place] # Seg Neuts % (Manual) Lymphocytes % (Manual) Monocytes % (Manual) Seg Neutrophils # Man Lymphocytes # (Manual) Monocytes # (Manual) Eosinophils # (Manual) APTT POC ABG pH POC ABG pCO2 POC ABG pO2 Sodium Potassium Chloride Carbon Dioxide BUN Creatinine Glucose POC Glucose 114 H 180 H 220 H Calcium Total Creatine Kinase CK-MB (CK-2) CK-MB (CK-2) Rel Index Troponin T NT-Pro-B Natriuret Pep Albumin Wbadl-1-Fnkxshqji Ejmdw-7-Ucsrptyej PEP Interpretation Urine WBC (Auto) Urine Creatinine Urine Total Protein 11/20/18 11/20/18 11/21/18 21:53 21:53 05:57 WBC 20.3 H RBC Hgb Hct 46.8 H MCV MCHC RDW 15.7 H [place] % (Auto) [place] # Seg Neuts % (Manual) 75.0 H Lymphocytes % (Manual) Monocytes % (Manual) Seg Neutrophils # Man 15.2 H Lymphocytes # (Manual) Monocytes # (Manual) 1.2 H Eosinophils # (Manual) APTT 23.8 L POC ABG pH POC ABG pCO2 POC ABG pO2 Sodium Potassium 5.2 H Chloride 93.8 L Carbon Dioxide BUN 37 H Creatinine 1.6 H Glucose 230 H POC Glucose Calcium Total Creatine Kinase CK-MB (CK-2) CK-MB (CK-2) Rel Index Troponin T NT-Pro-B Natriuret Pep Albumin 3.4 L Havwe-7-Gxwlszlco Lchej-0-Zcbnpscjp PEP Interpretation Urine WBC (Auto) Urine Creatinine Urine Total Protein 11/21/18 11/21/18 11/22/18 06:00 11:19 05:04 WBC RBC Hgb Hct MCV MCHC RDW [place] % (Auto) [place] # Seg Neuts % (Manual) Lymphocytes % (Manual) Monocytes % (Manual) Seg Neutrophils # Man Lymphocytes # (Manual) Monocytes # (Manual) Eosinophils # (Manual) APTT POC ABG pH POC ABG pCO2 48.4 H POC ABG pO2 52 L Sodium Potassium 5.1 H Chloride 96.4 L 96.5 L Carbon Dioxide 32 H 32 H BUN 35 H 42 H Creatinine 1.8 H Glucose POC Glucose Calcium Total Creatine Kinase CK-MB (CK-2) CK-MB (CK-2) Rel Index Troponin T NT-Pro-B Natriuret Pep Albumin Rgfnb-7-Gxidtygjn Hzojn-7-Egridhoxk PEP Interpretation Urine WBC (Auto) Urine Creatinine Urine Total Protein 11/22/18 11/23/18 11/23/18 09:01 05:18 05:18 WBC 22.8 H 20.9 H RBC 5.07 H Hgb Hct 47.6 H MCV MCHC RDW 15.7 H 15.7 H [place] % (Auto) [place] # Seg Neuts % (Manual) 80.0 H Lymphocytes % (Manual) 8.0 L Monocytes % (Manual) 8.0 H 11.0 H Seg Neutrophils # Man 18.2 H 14.2 H Lymphocytes # (Manual) Monocytes # (Manual) 1.8 H 2.3 H Eosinophils # (Manual) 0.6 H APTT POC ABG pH POC ABG pCO2 POC ABG pO2 Sodium Potassium Chloride Carbon Dioxide 31 H BUN 34 H Creatinine 1.7 H Glucose 101 H POC Glucose Calcium Total Creatine Kinase CK-MB (CK-2) CK-MB (CK-2) Rel Index Troponin T NT-Pro-B Natriuret Pep Albumin Isdlj-7-Lngfxxwty Pldwi-2-Dtprblfka PEP Interpretation Urine WBC (Auto) Urine Creatinine Urine Total Protein 11/23/18 11/24/18 11/25/18 07:48 05:16 02:29 WBC RBC Hgb Hct MCV MCHC RDW [place] % (Auto) [place] # Seg Neuts % (Manual) Lymphocytes % (Manual) Monocytes % (Manual) Seg Neutrophils # Man Lymphocytes # (Manual) Monocytes # (Manual) Eosinophils # (Manual) APTT POC ABG pH POC ABG pCO2 POC ABG pO2 Sodium 136 L D Potassium 5.1 H Chloride 95.2 L 96.1 L Carbon Dioxide 32 H 33 H BUN 38 H 39 H Creatinine 1.7 H 2.4 H Glucose 106 H 127 H POC Glucose 69 L Calcium Total Creatine Kinase CK-MB (CK-2) CK-MB (CK-2) Rel Index Troponin T NT-Pro-B Natriuret Pep Albumin Brqni-2-Ferfcqbgr Rvnpp-6-Ydhypjcol PEP Interpretation Urine WBC (Auto) Urine Creatinine Urine Total Protein 11/26/18 11/26/18 00:43 13:23 WBC 17.5 H RBC Hgb Hct MCV MCHC RDW 15.4 H [place] % (Auto) [place] # Seg Neuts % (Manual) 91.0 H Lymphocytes % (Manual) 4.0 L Monocytes % (Manual) Seg Neutrophils # Man 15.9 H Lymphocytes # (Manual) 0.7 L Monocytes # (Manual) Eosinophils # (Manual) APTT POC ABG pH POC ABG pCO2 POC ABG pO2 Sodium Potassium Chloride 94.3 L Carbon Dioxide BUN 39 H Creatinine 2.0 H Glucose 160 H POC Glucose Calcium Total Creatine Kinase CK-MB (CK-2) CK-MB (CK-2) Rel Index Troponin T NT-Pro-B Natriuret Pep Albumin Fygtt-8-Grionesps Oatku-0-Buqbvyefw PEP Interpretation Urine WBC (Auto) Urine Creatinine Urine Total Protein Allied health notes reviewed: nursing
[2018-11-26] MEDS: BENADRYL PO PRN (21:17)
[2018-11-27] MEDS: ANCEF/NS 1 GM/50 ML 1 GM/50 ML BAG IV SCH (05:04)
[2018-11-27] MEDS: DUONEB *Not for PRN Use IH SCH ×3 (08:13→20:18)
--- NOTE | 2018-11-27 09:08 | Progress Note ---
Assessment and Plan Cultures: 11/10/2018 tracheal culture no growth to date 11/12/2018 tracheal culture upper resp gabo 11/16/2018 blood culture: E. coli 11/17/2018 blood culture: No growth to date 11/16/2018 urine: E. coli A/P: 53 y/o male with history of Sarcoidosis home O2 dependant, CHF, HTN, bilateral stones, recent pneumonia treated at [facility], admitted on 11/09/2018 due to 3 day history of dry cough, progressive SOB and sharp chest pain: 1) Sepsis: Improved, leukocytosis trending down etio. likely complicated UTI +/- pneumonia 2) E. Coli Bacteremia:, source likely complicated UTI with known bilateral stones causing hydronephrosis. +gross hematuria and back pain. UA 11/16 c/u UTI. Renal US 11/14 showed right obstructive hydronephrosis and bilateral stones- s/p ESWL procedure 11/21/18. -Renal ultrasound 11/25/18 -Renal sonography suggests grossly normal renal cortical echogenicity. Pyramids though now appear echogenic. Grossly preserved renal contours. No worsening hydronephrosis. Image hepatic coarsening not excluded. 3) Presumed RUL pneumonia: HAP, recent pneumonia treated at [facility]. HIV neg. Repeat CXR 11/16 showed possible RUL pneumonia, doubt pneumonia clinically. SOB continuing, BIPAP at night. Chest xray 11/20/18 shows improvement in airspace opacities. Repeat chest xray 11/25/18 shows no consolidation. 4) Recent Respiratory failure: better - likely from CHF exacerbation 5) JESI: antibiotics renally dosed. Creatinine trending down Plan: Monitor off antibiotics continue to monitor leukocytosis CBC ordered for tomorrow [facility] M: [id number] O:[phone] Subjective Date of service: 11/27/18 Principal diagnosis: Ac on Ch Hypoxemic Resp failure; Sarcoidosis with exacerbation;Chest Pain Interval history: Patient seen and examined. Stated that he was feeling better today. Continued intermittent SOB, continues to be on 02 at 3L/NC. No Hematuria. Nurses notes, labs and reports reviewed, discussed with patient. Objective - Exam Narrative Exam: Constitutional: Alert, cooperative. no acute distress Head, Ears, Nose: Normocephalic, atraumatic. External ears, nose normal Eyes: Conjunctivae/corneas clear. No icterus. No ptosis. Neck: Supple, no meningeal signs Oral: no ulcers, no thrush Cardiovascular: S1, S2 normal. Respiratory:Clear on auscultation bilaterally , 02 @ 3L/NC GI: Soft, non-tender; bowel sounds normal. No peritoneal signs. bilateral CVA tenderness. : urine clear, -hematuria Musculoskeletal: No pedal edema, no cyanosis. Skin: No rash or abscess Hem/Lymphatic: No palpable cervical or supraclavicular nodes. No lymphangitis Psych: Mood ok. Affect normal Neurological: Awake, alert, oriented. No gross abnormality - Constitutional Vitals: Vital Signs Temp Pulse Resp BP Pulse Ox 97.0 F L 60 16 128/79 96 11/27/18 05:05 11/27/18 08:14 11/27/18 08:14 11/27/18 05:05 11/27/18 08:15 Temperature -Last 24 Hours Temperature 97.0 F Temperature 98.7 F Temperature 98.3 F Temperature 98.3 F - Labs CBC & Chem 7: 11/26/18 00:43 11/27/18 09:33 Labs: Abnormal lab results 11/26/18 Range/Units 13:23 Chloride 94.3 L (98-107) mmol/L BUN 39 H (9-20) mg/dL Creatinine 2.0 H (0.8-1.5) mg/dL Glucose 160 H (75-100) mg/dL
[2018-11-27 10:14] LABS: Calcium 9.6 mg/dL (8.4-10.2)
[2018-11-27] MEDS: PERCOCET 5/325 PO PRN ×3 (10:18→22:10)
[2018-11-27] MEDS: SODIUM CHLORIDE FLUSH SYRINGE 10 ML IV SCH ×2 (10:19→22:03)
[2018-11-27] MEDS: BABY ASPIRIN PO SCH (10:19)
[2018-11-27] MEDS: DELTASONE PO SCH (10:19)
[2018-11-27] MEDS: PEPCID PO SCH (10:19)
[2018-11-27] MEDS: LOPRESSOR PO SCH ×2 (10:22→22:02)
[2018-11-27] MEDS: HEPARIN SUB-Q SCH ×3 (10:23→22:03)
[2018-11-27] MEDS ORDERED: DELTASONE PO SCH (11:11)
[2018-11-27] MEDS ORDERED: SODIUM BICARBONATE IV ONE (13:39)
[2018-11-27] MEDS ORDERED: SODIUM BICARBONATE 50 MEQ in NACL 0.9% 1000 ML 1,000 ML IV SCH (14:00)
[2018-11-27] MEDS ORDERED: KIONEX PO ONE (14:00)
[2018-11-27 14:37] LABS: Mean Corpuscular HGB Conc 31 % (32-34); Mean Corpuscular Volume 94 fl (84-94); Platelet Count 231 K/mm3 (140-440); Red Blood Count 5.39 M/mm3 (3.65-5.03)
[2018-11-27 14:40] LABS: Hematocrit 50.8 % (35.5-45.6); Hemoglobin 15.9 gm/dl (11.8-15.2)
--- NOTE | 2018-11-27 15:10 | Progress Note ---
Assessment and Plan Acute renal Failure on likely Chronic Kidney Disease, stage 3: -Renal function reviewed. Serum creatinine 1.9 today, yesterday's serum creatinine was 2.0, renal function in baseline range, non-oliguric -Prior labs in June 2015 showed serum creatinine 1.7-2.0 -Repeat renal ultrasound on 11/25/18showed- No worsening Hydronephrosis. Known bilateral nephrolithiasis and multiple right renal cortical cysts-S/P ESWL on 11/21/18 by Urology- Dr. Lo -Lasix 40 mg po daily discontinued by IMS due to renal function -Avoid Nephrotoxic agents -Monitor I/O's -Obtain daily weights Hyperkalemia: -Getting Kayexalate and bicarb now -Recheck BMP at 2200 -Monitor BMP daily Leukocytosis: -Urine and blood cultures on 11/16/18 revealed E.Coli -S/P IV Ancef -ID onboard, monitoring off antibiotics Acute on Chronic hypoxic respiratory failure Sarcoidosis: COPD: -Extubated on 11/12/18 -On Nebulizers and Prednisone -Pulmonary onboard Acute on Chronic exacerbation of systolic heart failure: -Echo:EF 40-45% -On Lopressor -Lasix 40 mg po daily discontinued by IMS due to renal function -Cardiology signed off Hypertension: -Monitor blood pressures Subjective Date of service: 11/27/18 Principal diagnosis: Ac on Ch Hypoxemic Resp failure; Sarcoidosis with exacerbation;Chest Pain Interval history: Patient seen sitting up in bed. Receiving Kayexalate. No family at bedside. Objective - Vital Signs Vital signs: Vital Signs - 12hr 11/27/18 11/27/18 11/27/18 05:05 08:14 08:15 Temperature 97.0 F L Pulse Rate 66 Pulse Rate [ 60 Anterior Bilateral Throughout] Pulse Rate [ 58 L Anterior Bilateral Upper Lobe] Respiratory 24 Rate Respiratory 16 Rate [Anterior Bilateral Throughout] Respiratory 16 Rate [Anterior Bilateral Upper Lobe] Blood Pressure 128/79 O2 Sat by Pulse 97 96 Oximetry 11/27/18 11/27/18 11/27/18 10:22 11:10 13:07 Temperature 98.6 F Pulse Rate 78 77 Pulse Rate [ 64 Anterior Bilateral Throughout] Pulse Rate [ 62 Anterior Bilateral Upper Lobe] Respiratory 20 Rate Respiratory 16 Rate [Anterior Bilateral Throughout] Respiratory 16 Rate [Anterior Bilateral Upper Lobe] Blood Pressure 107/73 105/74 O2 Sat by Pulse 94 Oximetry - General Appearance General appearance: well-developed, appears stated age, fatigue EENT: ATNC, PERRL, hearing intact Neck: no JVD, supple Respiratory: Present: Decreased Breath Sounds Cardiology: S1S2 Gastrointestinal: normoactive bowel sounds Integumentary: warm and dry Neurologic: alert and oriented x3 Musculoskeletal: other (No edema) - Lab 11/27/18 13:10 11/27/18 09:33 Most recent lab results Calcium 9.6 mg/dL (8.4-10.2) 11/27/18 09:33 Urine Creatinine 121.2 mg/dL (0.1-20.0) H 11/13/18 12:20 Urine Sodium 33 mmol/L 11/13/18 12:20 Urine Total Protein 16 mg/dL (5-11.8) H 11/13/18 12:20 Medications & Allergies - Medications Allergies/Adverse Reactions: Allergies No Known Allergies Allergy (Unverified 07/05/15 10:00) Home Medications: Home Medications Medication Instructions Recorded Confirmed Last Taken Type ALBUTEROL NEB's [Proventil 0.083% 2.5 mg IH Q3HRT PRN #15 nebu 11/15/18 Unknown Rx NEBS] Acetaminophen [Acetaminophen TAB] 650 mg PO Q4H PRN #15 tablet 11/15/18 Unknown Rx Aspirin [Aspirin BABY CHEW TAB] 81 mg PO QDAY #30 tab.chew 11/15/18 Unknown Rx Furosemide [Lasix TAB] 40 mg PO QDAY #30 tablet 11/15/18 Unknown Rx Ipratropium/Albuterol Sulfate 1 ampul IH TIDRT #30 ampul.neb 11/15/18 Unknown Rx [DUONEB *Not for PRN Use*] oxyCODONE /ACETAMINOPHEN [Percocet 1 tab PO Q6H PRN #15 tablet 11/15/18 Unknown Rx 5/325 mg] predniSONE [Deltasone] 20 mg PO QDAY #50 tab 11/15/18 Unknown Rx Active Medications: Generic Name Dose Route Start Last Admin Trade Name Freq PRN Reason Stop Dose Admin Acetaminophen 650 mg 11/10/18 04:17 11/15/18 16:48 Tylenol PO 650 mg Q4H PRN Administration Pain MILD(1-3)/Fever >100.5/BURNS Albuterol 2.5 mg 11/10/18 04:17 Proventil IH Q3HRT PRN Shortness Of Breath Albuterol/Ipratropium 1 ampul 11/15/18 08:00 11/27/18 13:06 Duoneb *Not For Prn Use* IH 1 ampul TIDRT ABDIAS Administration Aspirin 81 mg 11/10/18 10:00 11/27/18 10:19 Baby Aspirin PO 81 mg QDAY ABDIAS Administration Diphenhydramine HCl 25 mg 11/22/18 23:30 11/26/18 21:17 Benadryl PO 25 mg QHS PRN Administration Sleep Famotidine 20 mg 11/13/18 10:00 11/27/18 10:19 Pepcid PO 20 mg DAILY ABDIAS Administration Heparin Sodium (Porcine) 5,000 unit 11/13/18 22:00 11/27/18 10:23 Heparin SUB-Q 5,000 unit Q12HR ABDIAS Administration Metoprolol Tartrate 25 mg 11/12/18 12:00 11/27/18 10:22 Lopressor PO Not Given BID ABDIAS Multi-Ingred Cream/Lotion/Oil/Oint 1 applic 11/10/18 05:52 Artificial Tears Ophth Oint OU Q4HR PRN Dry Eye(s) Ondansetron HCl 4 mg 11/10/18 04:17 Zofran IV Q8H PRN Nausea And Vomiting Oxycodone/Acetaminophen 1 tab 11/24/18 09:01 11/27/18 10:18 Percocet 5/325 PO 1 tab Q6H PRN Administration Pain, Moderate (4-6) Prednisone 20 mg 11/28/18 10:00 Deltasone PO QDAY ABDIAS Sodium Chloride 10 ml 11/10/18 10:00 11/27/18 10:19 Sodium Chloride Flush Syringe 10 Ml IV 10 ml BID ABDIAS Administration Sodium Chloride 10 ml 11/10/18 04:17 11/25/18 06:25 Sodium Chloride Flush Syringe 10 Ml IV 10 ml PRN PRN Administration LINE FLUSH
[2018-11-27 16:54] LABS: Anisocytosis 1+; Basophils % (Manual) 0 % (0.0-1.8); Platelet Estimate Consistent w Auto; Total Cells Counted 100
--- NOTE | 2018-11-27 17:58 | Progress Note ---
Assessment and Plan /Hyperkalemia -likely due to worsening renal function - ordered kayexalate and HCO3 /ARF, vasomotor nephrology +ATN, - monitor BMP, Cr slightly trended up but now at baseline, no change in repeat renal US - will hold his lasix, follow BMP, reconsulted renal /Nephrolithiasis, right hydronephrosis and hematuria: - developed hematuria on 11/16/18 - CT abd/pelvis showed b/l hydronephrosis and 1.7cm right kidney stone. s/p ESWL on 11/21/18 /Sepsis: Improved, leukocytosis trending down , initial etio. likely +/-PNA - then developed complicated UTI , bacteremia , completed treatment yesterday /E. Coli Bacteremia:, Cx positive from 11/16/18 - source likely complicated UTI with known bilateral stones causing hydronephrosis. - completed treatment /Complicated UTI - +gross hematuria and back pain developed on 11/16/18. UA 11/16 c/u UTI. Renal US 11/14 showed right obstructive hydronephrosis and bilateral stones- s/p ESWL procedure 11/21/18. - treated with abx, ID following /Acute on Chronic hypoxic respiratory failure, POA, resolved - reason for admission - likely from underlying sarcoidosis and CHF - s/p Intubation on admission and extubated 11/12/18 - cont nebs, n/C o2 as needed, pulmonary following /Presumed RUL pneumonia: HAP, POA - recent pneumonia treated at [facility]. HIV neg. Repeat CXR 11/16 showed possible RUL pneumonia, doubt pneumonia clinically per ID. Chest xray 11/20/18 shows improvement in airspace opacities. treated with abx /Acute on Chronic exacerbation of systolic heart failure: compensated now - hold oral lasix now, Cardiology is following, ECHO reviewed - Ef 40-45% /COPD with exacerbation: continue Duoneb tx and IV solumedrol weaned to oral steroids. /HTN (hypertension) with episode of hypotension: - monitor bp closely, advance bp medications as tolerated /Sarcoidosis: on steroids /Obesity BMI 41.5, counselled Brief History: Patient is a 53 y/o BM with a history of Sarcoidosis, kidney stones, chronic hypoxic respiratory failure on 2 liters of O2 at home, CHF, HTN and recent pneumonia with Intubation at [facility] who presented to [facility] ED with cough, SOB and chest pains. He was found to have pulse ox of only 64%. He was placed on bipap, which he failed requiring intubation. He was extubated on 11/12/18. He was planned to d/c home 11/15/18 but he appealed his discharge at the last minute. He eventually spiked fever and developed hematuria. Blood cx grew E.coli, Ux positive for E. coli. CT abd/pelvis showed b/l hydronephrosis and 1.7cm right kidney stone. s/p ESWL on 11/21/18. Completed Rx for gm negative bacteremia and UTI on 11/26/18. Hospitalist Physical Gen: NAD, Awake, Alert, Orientated HEENT: NCAT, EOMI, PERRL, OP clear Neck: supple, no adenopathy, no thyromegaly, no JVD CVS/Heart: RRR, normal S1S2, pulses present bilaterally Chest/Lungs: diminished bs bilateral, Symmetrical chest expansion, good air entry bilaterally GI/Abdomen: soft, NTND, good bowel sounds, no guarding or rebound /Bladder: no suprapubic tenderness, Extermity/Skin: no c/c/e, no obvious rash MSK: FROM x 4 Neuro: CN 2-12 grossly intact, no new focal deficits Psych: calm Subjective Date of service: 11/27/18 Principal diagnosis: Ac on Ch Hypoxemic Resp failure; Sarcoidosis with exacerbation;Chest Pain Interval history: Patient seen and examined no acute event o/n tolerating diet, afebrile Objective - Constitutional Vitals: Vital Signs - 12hr 11/27/18 11/27/18 11/27/18 08:14 08:15 10:22 Temperature Pulse Rate 78 Pulse Rate [ 60 Anterior Bilateral Throughout] Pulse Rate [ 58 L Anterior Bilateral Upper Lobe] Respiratory Rate Respiratory 16 Rate [Anterior Bilateral Throughout] Respiratory 16 Rate [Anterior Bilateral Upper Lobe] Blood Pressure 107/73 O2 Sat by Pulse 96 Oximetry 11/27/18 11/27/18 11/27/18 11:10 13:07 16:18 Temperature 98.6 F 98.4 F Pulse Rate 77 109 H Pulse Rate [ 64 Anterior Bilateral Throughout] Pulse Rate [ 62 Anterior Bilateral Upper Lobe] Respiratory 20 22 Rate Respiratory 16 Rate [Anterior Bilateral Throughout] Respiratory 16 Rate [Anterior Bilateral Upper Lobe] Blood Pressure 105/74 131/87 O2 Sat by Pulse 94 91 Oximetry - Labs CBC & Chem 7: 11/28/18 05:25 11/28/18 05:25 Labs: Abnormal lab results 11/27/18 11/27/18 Range/Units 09:33 13:10 WBC 18.0 H (4.5-11.0) K/mm3 RBC 5.39 H (3.65-5.03) M/mm3 Hgb 15.9 H (11.8-15.2) gm/dl Hct 50.8 H (35.5-45.6) % MCHC 31 L (32-34) % RDW 16.0 H (13.2-15.2) % Seg Neuts % (Manual) 81.0 H (40.0-70.0) % Seg Neutrophils # Man 14.6 H (1.8-7.7) K/mm3 Potassium 5.8 H (3.6-5.0) mmol/L Chloride 94.1 L (98-107) mmol/L Carbon Dioxide 31 H (22-30) mmol/L BUN 39 H (9-20) mg/dL Creatinine 1.9 H (0.8-1.5) mg/dL Glucose 110 H (75-100) mg/dL
--- NOTE | 2018-11-27 19:34 | Progress Note ---
Assessment and Plan Patient alert, awake. Patient breathing better. On 3 litres O2.O2 saturation 92%. Patient not keeping his nasal O2 all the time. Stressed the importance of keeping O2 all the time.Patient goes on BIPAP during night time and PRN for shortness of breath during day time. Patient undergone lithotrpsy for right sided kidney stones. Patient says shortness of breath is better. Denies cough or chest pain. - Patient Problems (1) Acute respiratory failure with hypoxia Current Visit: Yes Status: Acute Plan to address problem: O2 3 litres via nasal canula BIPAP during night time and Prn for shortness of breath during day time. Albuterol/atrovent aerosol treatments q 6 hours. Continue PO prednisone. Continue S/C Heparin Continue famotidine. (2) Acute exacerbation of CHF (congestive heart failure) Current Visit: Yes Status: Acute Qualifiers: Heart failure type: combined systolic and diastolic Qualified Code(s): I50.43 - Acute on chronic combined systolic (congestive) and diastolic (congestive) heart failure Plan to address problem: Management as per primary care and cardiology. (3) CKD (chronic kidney disease) Current Visit: Yes Status: Chronic Qualifiers: Chronic kidney disease stage: unspecified stage Qualified Code(s): N18.9 - Chronic kidney disease, unspecified Plan to address problem: Management as per primary care and nephrology. (4) COPD (chronic obstructive pulmonary disease) Current Visit: Yes Status: Chronic Qualifiers: COPD type: unspecified COPD Qualified Code(s): J44.9 - Chronic obstructive pulmonary disease, unspecified Plan to address problem: O2 2 litres via nasal canula BIPAP during night time and Prn for shortness of breath during day time. Albuterol/atrovent aerosol treatments q 6 hours. Continue PO prednisone. Continue S/C Heparin Continue famotidine. (5) HTN (hypertension) Current Visit: Yes Status: Chronic Qualifiers: Hypertension type: essential hypertension Qualified Code(s): I10 - E ssential (primary) hypertension Plan to address problem: Management as per primary care. (6) Sarcoidosis Current Visit: No Status: Chronic Plan to address problem: MERCEDES level. Results still pending. Subjective Date of service: 11/27/18 Principal diagnosis: Ac on Ch Hypoxemic Resp failure; Sarcoidosis with ex acerbation;Chest Pain Interval history: Patient alert, awake. Patient breathing better. On 3 litres O2.O2 saturation 92%. Patient not keeping his nasal O2 all the time. Stressed the importance of keeping O2 all the time.Patient goes on BIPAP during night time and PRN for shortness of breath during day time. Patient undergone lithotrpsy for right sided kidney stones. Patient says shortness of breath is better. Denies cough or chest pain. Objective Vital Signs - 12hr 11/27/18 11/27/18 11/27/18 08:14 08:15 10:22 Temperature Pulse Rate 78 Pulse Rate [ 60 Anterior Bilateral Throughout] Pulse Rate [ 58 L Anterior Bilateral Upper Lobe] Respiratory Rate Respiratory 16 Rate [Anterior Bilateral Throughout] Respiratory 16 Rate [Anterior Bilateral Upper Lobe] Blood Pressure 107/73 O2 Sat by Pulse 96 Oximetry 11/27/18 11/27/18 11/27/18 11:10 13:07 16:18 Temperature 98.6 F 98.4 F Pulse Rate 77 109 H Pulse Rate [ 64 Anterior Bilateral Throughout] Pulse Rate [ 62 Anterior Bilateral Upper Lobe] Respiratory 20 22 Rate Respiratory 16 Rate [Anterior Bilateral Throughout] Respiratory 16 Rate [Anterior Bilateral Upper Lobe] Blood Pressure 105/74 131/87 O2 Sat by Pulse 94 91 Oximetry Constitutional: no acute distress, alert, other (Middle aged obeses AAM, normocephalic and atraumati) Eyes: non-icteric ENT: oropharynx moist, other (extubated) Neck: supple, no lymphadenopathy, no JVD, other (large neck circumference) Effort: mildly labored Ascultation: Bilateral: diminished breath sounds, rales (inspiratory in bases), rhonchi Percussion: Bilateral: not dull Cardiovascular: regular rate and rhythm, other (No R/M) Gastrointestinal: normoactive bowel sounds, soft, non-tender, non-distended, other (No HSM) Integumentary: normal Extremities: no cyanosis, pulses normal, no ischemia or petechiae Neurologic: normal mental status, non-focal exam, pupils equal and round, motor strength normal and Psychiatric: mood appropriate, affect normal CBC and BMP: 11/27/18 13:10 11/27/18 09:33 ABG, PT/INR, D-dimer: ABG POC ABG pH 7.447 (7.35-7.45) 11/21/18 11:19 POC ABG pCO2 48.4 (35-45) H 11/21/18 11:19 POC ABG pO2 52 (80-105) L 11/21/18 11:19 POC ABG HCO3 33.4 11/21/18 11:19 POC ABG Total CO2 35 11/21/18 11:19 POC ABG O2 Sat 87 11/21/18 11:19 PT/INR, D-dimer PT 13.6 Sec. (12.2-14.9) 11/20/18 21:53 INR 1.00 (0.87-1.13) 11/20/18 21:53 D-Dimer < 135.00 ng/mlDDU (0-234) 11/10/18 02:24 Abnormal lab findings: Abnormal Labs 11/09/18 11/09/18 11/10/18 23:58 23:58 02:24 WBC RBC 5.14 H Hgb 15.8 H Hct 48.6 H MCV 95 H MCHC RDW 16.6 H [place] % (Auto) 10.6 H [place] # 1.0 H Seg Neuts % (Manual) Lymphocytes % (Manual) Monocytes % (Manual) Seg Neutrophils # Man Lymphocytes # (Manual) Monocytes # (Manual) Eosinophils # (Manual) APTT POC ABG pH POC ABG pCO2 POC ABG pO2 Sodium Potassium Chloride Carbon Dioxide BUN Creatinine 1.6 H Glucose 103 H POC Glucose Calcium Total Creatine Kinase CK-MB (CK-2) CK-MB (CK-2) Rel Index Troponin T 0.031 H NT-Pro-B Natriuret Pep 5420 H Albumin Ujekh-6-Jhuwdbwth Murbn-3-Zprswlich PEP Interpretation Urine WBC (Auto) Urine Creatinine Urine Total Protein 11/10/18 11/10/18 11/10/18 05:43 06:37 09:24 WBC RBC Hgb Hct MCV MCHC RDW [place] % (Auto) [place] # Seg Neuts % (Manual) Lymphocytes % (Manual) Monocytes % (Manual) Seg Neutrophils # Man Lymphocytes # (Manual) Monocytes # (Manual) Eosinophils # (Manual) APTT POC ABG pH 7.168 L 7.318 L POC ABG pCO2 87.7 H 57.7 H POC ABG pO2 193 H 152 H Sodium Potassium Chloride Carbon Dioxide BUN Creatinine Glucose POC Glucose Calcium Total Creatine Kinase 8 L CK-MB (CK-2) 7.8 H CK-MB (CK-2) Rel Index 97.5 H Troponin T NT-Pro-B Natriuret Pep Albumin Fakei-6-Xvugiottc Nmdki-7-Ajpuqfvqx PEP Interpretation Urine WBC (Auto) Urine Creatinine Urine Total Protein 11/10/18 11/10/18 11/11/18 12:15 23:34 04:23 WBC RBC Hgb Hct MCV MCHC RDW [place] % (Auto) [place] # Seg Neuts % (Manual) Lymphocytes % (Manual) Monocytes % (Manual) Seg Neutrophils # Man Lymphocytes # (Manual) Monocytes # (Manual) Eosinophils # (Manual) APTT POC ABG pH 7.518 H POC ABG pCO2 POC ABG pO2 122 H Sodium Potassium Chloride Carbon Dioxide BUN Creatinine Glucose POC Glucose 130 H Calcium Total Creatine Kinase 269 H CK-MB (CK-2) 6.4 H CK-MB (CK-2) Rel Index Troponin T NT-Pro-B Natriuret Pep Albumin Jzylk-8-Icrxawlgb Wtlqi-5-Dkazefvrn PEP Interpretation Urine WBC (Auto) Urine Creatinine Urine Total Protein 11/11/18 11/11/18 11/12/18 05:18 16:21 00:22 WBC RBC Hgb Hct MCV MCHC RDW [place] % (Auto) [place] # Seg Neuts % (Manual) Lymphocytes % (Manual) Monocytes % (Manual) Seg Neutrophils # Man Lymphocytes # (Manual) Monocytes # (Manual) Eosinophils # (Manual) APTT POC ABG pH POC ABG pCO2 49.5 H POC ABG pO2 60 L Sodium Potassium Chloride Carbon Dioxide BUN Creatinine Glucose POC Glucose 129 H 122 H Calcium Total Creatine Kinase CK-MB (CK-2) CK-MB (CK-2) Rel Index Troponin T NT-Pro-B Natriuret Pep Albumin Wcedc-7-Fzcutgdin Kklys-1-Kkjmzwfoa PEP Interpretation Urine WBC (Auto) Urine Creatinine Urine Total Protein 11/12/18 11/12/18 11/12/18 05:43 10:13 11:42 WBC RBC Hgb Hct MCV MCHC RDW [place] % (Auto) [place] # Seg Neuts % (Manual) Lymphocytes % (Manual) Monocytes % (Manual) Seg Neutrophils # Man Lymphocytes # (Manual) Monocytes # (Manual) Eosinophils # (Manual) APTT POC ABG pH POC ABG pCO2 53.8 H POC ABG pO2 72 L Sodium 153 H D Potassium Chloride Carbon Dioxide 34 H BUN 36 H Creatinine 2.2 H Glucose 142 H POC Glucose 130 H Calcium Total Creatine Kinase CK-MB (CK-2) CK-MB (CK-2) Rel Index Troponin T NT-Pro-B Natriuret Pep Albumin Rtumf-3-Siekrtthp Qblzg-3-Luzybpvdo PEP Interpretation Urine WBC (Auto) Urine Creatinine Urine Total Protein 11/12/18 11/12/18 11/12/18 12:33 17:29 23:53 WBC RBC Hgb Hct MCV MCHC RDW [place] % (Auto) [place] # Seg Neuts % (Manual) Lymphocytes % (Manual) Monocytes % (Manual) Seg Neutrophils # Man Lymphocytes # (Manual) Monocytes # (Manual) Eosinophils # (Manual) APTT POC ABG pH POC ABG pCO2 POC ABG pO2 Sodium Potassium Chloride Carbon Dioxide BUN Creatinine Glucose POC Glucose 121 H 150 H 138 H Calcium Total Creatine Kinase CK-MB (CK-2) CK-MB (CK-2) Rel Index Troponin T NT-Pro-B Natriuret Pep Albumin Rlnyq-5-Rfwsakinf Ezyxe-7-Xdeouoejt PEP Interpretation Urine WBC (Auto) Urine Creatinine Urine Total Protein 11/13/18 11/13/18 11/13/18 05:16 10:08 12:20 WBC RBC Hgb Hct MCV MCHC RDW [place] % (Auto) [place] # Seg Neuts % (Manual) Lymphocytes % (Manual) Monocytes % (Manual) Seg Neutrophils # Man Lymphocytes # (Manual) Monocytes # (Manual) Eosinophils # (Manual) APTT POC ABG pH POC ABG pCO2 POC ABG pO2 Sodium Potassium Chloride Carbon Dioxide 33 H BUN 40 H Creatinine 2.1 H Glucose 209 H POC Glucose 134 H Calcium Total Creatine Kinase CK-MB (CK-2) CK-MB (CK-2) Rel Index Troponin T NT-Pro-B Natriuret Pep Albumin Bgcvc-0-Qlwoyszlc Ttpbh-4-Togvmbwcu PEP Interpretation Urine WBC (Auto) Urine Creatinine 121.2 H Urine Total Protein 16 H 11/13/18 11/14/18 11/15/18 13:39 04:58 05:10 WBC RBC Hgb Hct MCV MCHC RDW [place] % (Auto) [place] # Seg Neuts % (Manual) Lymphocytes % (Manual) Monocytes % (Manual) Seg Neutrophils # Man Lymphocytes # (Manual) Monocytes # (Manual) Eosinophils # (Manual) APTT POC ABG pH POC ABG pCO2 POC ABG pO2 Sodium Potassium Chloride Carbon Dioxide 34 H 35 H BUN 40 H 32 H Creatinine 1.8 H 1.7 H Glucose 113 H 73 L POC Glucose Calcium 8.0 L 8.1 L Total Creatine Kinase CK-MB (CK-2) CK-MB (CK-2) Rel Index Troponin T NT-Pro-B Natriuret Pep Albumin 3.5 L Rlzvi-8-Kuqnakhmu 0.4 H Xooin-5-Vgpqhkvpi 1.1 H PEP Interpretation see below H Urine WBC (Auto) Urine Creatinine Urine Total Protein 11/15/18 11/15/18 11/15/18 05:10 13:59 17:06 WBC 12.5 H RBC Hgb Hct 46.9 H MCV 95 H MCHC 31 L RDW 16.0 H [place] % (Auto) [place] # Seg Neuts % (Manual) Lymphocytes % (Manual) Monocytes % (Manual) Seg Neutrophils # Man Lymphocytes # (Manual) Monocytes # (Manual) Eosinophils # (Manual) APTT POC ABG pH POC ABG pCO2 POC ABG pO2 Sodium Potassium Chloride Carbon Dioxide BUN Creatinine Glucose POC Glucose 128 H 156 H Calcium Total Creatine Kinase CK-MB (CK-2) CK-MB (CK-2) Rel Index Troponin T NT-Pro-B Natriuret Pep Albumin Xzbfa-8-Oyncqixga Qjlkj-0-Qygaewfqm PEP Interpretation Urine WBC (Auto) Urine Creatinine Urine Total Protein 11/16/18 11/16/18 11/16/18 11:55 11:55 13:20 WBC 21.6 H RBC 5.14 H Hgb 15.4 H Hct 48.0 H MCV MCHC RDW 16.0 H [place] % (Auto) [place] # Seg Neuts % (Manual) Lymphocytes % (Manual) Monocytes % (Manual) Seg Neutrophils # Man Lymphocytes # (Manual) Monocytes # (Manual) Eosinophils # (Manual) APTT POC ABG pH POC ABG pCO2 POC ABG pO2 Sodium Potassium Chloride Carbon Dioxide 33 H BUN 32 H Creatinine 2.0 H Glucose 110 H POC Glucose Calcium Total Creatine Kinase CK-MB (CK-2) CK-MB (CK-2) Rel Index Troponin T NT-Pro-B Natriuret Pep Albumin Kvsla-7-Cmbhaitze Ivvgh-6-Gdcbeycmu PEP Interpretation Urine WBC (Auto) > 182.0 H Urine Creatinine Urine Total Protein 11/16/18 11/16/1811/17/19 16:34 20:47 11:17 WBC RBC Hgb Hct MCV MCHC RDW [place] % (Auto) [place] # Seg Neuts % (Manual) Lymphocytes % (Manual) Monocytes % (Manual) Seg Neutrophils # Man Lymphocytes # (Manual) Monocytes # (Manual) Eosinophils # (Manual) APTT POC ABG pH POC ABG pCO2 POC ABG pO2 Sodium Potassium Chloride Carbon Dioxide BUN Creatinine Glucose POC Glucose 236 H 171 H 114 H Calcium Total Creatine Kinase CK-MB (CK-2) CK-MB (CK-2) Rel Index Troponin T NT-Pro-B Natriuret Pep Albumin Waryt-4-Ehwisckzq Ejgif-8-Whhahjvck PEP Interpretation Urine WBC (Auto) Urine Creatinine Urine Total Protein 11/17/18 11/17/18 11/18/18 16:17 21:27 05:45 WBC RBC Hgb Hct MCV MCHC RDW [place] % (Auto) [place] # Seg Neuts % (Manual) Lymphocytes % (Manual) Monocytes % (Manual) Seg Neutrophils # Man Lymphocytes # (Manual) Monocytes # (Manual) Eosinophils # (Manual) APTT POC ABG pH POC ABG pCO2 POC ABG pO2 Sodium Potassium Chloride 97.9 L Carbon Dioxide BUN 35 H Creatinine 2.0 H Glucose POC Glucose 175 H 159 H Calcium Total Creatine Kinase CK-MB (CK-2) CK-MB (CK-2) Rel Index Troponin T NT-Pro-B Natriuret Pep Albumin Gpzvz-0-Cswhvqhlq Sfmth-6-Cbpfpxskc PEP Interpretation Urine WBC (Auto) Urine Creatinine Urine Total Protein 11/18/18 11/18/18 11/19/18 16:30 21:08 07:06 WBC RBC Hgb Hct MCV MCHC RDW [place] % (Auto) [place] # Seg Neuts % (Manual) Lymphocytes % (Manual) Monocytes % (Manual) Seg Neutrophils # Man Lymphocytes # (Manual) Monocytes # (Manual) Eosinophils # (Manual) APTT POC ABG pH POC ABG pCO2 POC ABG pO2 Sodium Potassium Chloride Carbon Dioxide BUN 35 H Creatinine 1.9 H Glucose POC Glucose 190 H 286 H Calcium Total Creatine Kinase CK-MB (CK-2) CK-MB (CK-2) Rel Index Troponin T NT-Pro-B Natriuret Pep Albumin Awbea-8-Bynfqaiuz Atzxv-3-Jxjyjbarr PEP Interpretation Urine WBC (Auto) Urine Creatinine Urine Total Protein 11/19/18 11/19/18 11/19/18 08:16 09:00 16:57 WBC 16.1 H RBC 5.15 H Hgb Hct 47.5 H MCV MCHC RDW 15.7 H [place] % (Auto) [place] # Seg Neuts % (Manual) 91.0 H Lymphocytes % (Manual) 8.0 L Monocytes % (Manual) Seg Neutrophils # Man 14.7 H Lymphocytes # (Manual) Monocytes # (Manual) Eosinophils # (Manual) APTT POC ABG pH POC ABG pCO2 POC ABG pO2 Sodium Potassium Chloride Carbon Dioxide BUN Creatinine Glucose POC Glucose 192 H 165 H Calcium Total Creatine Kinase CK-MB (CK-2) CK-MB (CK-2) Rel Index Troponin T NT-Pro-B Natriuret Pep Albumin Uiubd-3-Cxxepsfip Xobew-6-Ixwbwdmsc PEP Interpretation Urine WBC (Auto) Urine Creatinine Urine Total Protein 11/19/18 11/20/18 11/20/18 22:42 04:38 08:07 WBC RBC Hgb Hct MCV MCHC RDW [place] % (Auto) [place] # Seg Neuts % (Manual) Lymphocytes % (Manual) Monocytes % (Manual) Seg Neutrophils # Man Lymphocytes # (Manual) Monocytes # (Manual) Eosinophils # (Manual) APTT POC ABG pH POC ABG pCO2 POC ABG pO2 Sodium Potassium Chloride 97.6 L Carbon Dioxide 31 H BUN 34 H Creatinine Glucose POC Glucose 175 H 67 L Calcium Total Creatine Kinase CK-MB (CK-2) CK-MB (CK-2) Rel Index Troponin T NT-Pro-B Natriuret Pep Albumin Ofarx-8-Fhxchmkfq Uwcdt-5-Xahfyazxz PEP Interpretation Urine WBC (Auto) Urine Creatinine Urine Total Protein 11/20/18 11/20/18 11/20/18 11:54 16:46 21:25 WBC RBC Hgb Hct MCV MCHC RDW [place] % (Auto) [place] # Seg Neuts % (Manual) Lymphocytes % (Manual) Monocytes % (Manual) Seg Neutrophils # Man Lymphocytes # (Manual) Monocytes # (Manual) Eosinophils # (Manual) APTT POC ABG pH POC ABG pCO2 POC ABG pO2 Sodium Potassium Chloride Carbon Dioxide BUN Creatinine Glucose POC Glucose 114 H 180 H 220 H Calcium Total Creatine Kinase CK-MB (CK-2) CK-MB (CK-2) Rel Index Troponin T NT-Pro-B Natriuret Pep Albumin Oarcc-6-Ijaiwlmeg Ltgys-3-Nxjbqrdsq PEP Interpretation Urine WBC (Auto) Urine Creatinine Urine Total Protein 11/20/18 11/20/18 11/21/18 21:53 21:53 05:57 WBC 20.3 H RBC Hgb Hct 46.8 H MCV MCHC RDW 15.7 H [place] % (Auto) [place] # Seg Neuts % (Manual) 75.0 H Lymphocytes % (Manual) Monocytes % (Manual) Seg Neutrophils # Man 15.2 H Lymphocytes # (Manual) Monocytes # (Manual) 1.2 H Eosinophils # (Manual) APTT 23.8 L POC ABG pH POC ABG pCO2 POC ABG pO2 Sodium Potassium 5.2 H Chloride 93.8 L Carbon Dioxide BUN 37 H Creatinine 1.6 H Glucose 230 H POC Glucose Calcium Total Creatine Kinase CK-MB (CK-2) CK-MB (CK-2) Rel Index Troponin T NT-Pro-B Natriuret Pep Albumin 3.4 L Kwdio-5-Hdvifjxiq Wsfql-9-Fjacxwiro PEP Interpretation Urine WBC (Auto) Urine Creatinine Urine Total Protein 11/21/18 11/21/18 11/22/18 06:00 11:19 05:04 WBC RBC Hgb Hct MCV MCHC RDW [place] % (Auto) [place] # Seg Neuts % (Manual) Lymphocytes % (Manual) Monocytes % (Manual) Seg Neutrophils # Man Lymphocytes # (Manual) Monocytes # (Manual) Eosinophils # (Manual) APTT POC ABG pH POC ABG pCO2 48.4 H POC ABG pO2 52 L Sodium Potassium 5.1 H Chloride 96.4 L 96.5 L Carbon Dioxide 32 H 32 H BUN 35 H 42 H Creatinine 1.8 H Glucose POC Glucose Calcium Total Creatine Kinase CK-MB (CK-2) CK-MB (CK-2) Rel Index Troponin T NT-Pro-B Natriuret Pep Albumin Ugeot-2-Gcnxlfdnw Trcyx-6-Qpinimlns PEP Interpretation Urine WBC (Auto) Urine Creatinine Urine Total Protein 11/22/18 11/23/18 11/23/18 09:01 05:18 05:18 WBC 22.8 H 20.9 H RBC 5.07 H Hgb Hct 47.6 H MCV MCHC RDW 15.7 H 15.7 H [place] % (Auto) [place] # Seg Neuts % (Manual) 80.0 H Lymphocytes % (Manual) 8.0 L Monocytes % (Manual) 8.0 H 11.0 H Seg Neutrophils # Man 18.2 H 14.2 H Lymphocytes # (Manual) Monocytes # (Manual) 1.8 H 2.3 H Eosinophils # (Manual) 0.6 H APTT POC ABG pH POC ABG pCO2 POC ABG pO2 Sodium Potassium Chloride Carbon Dioxide 31 H BUN 34 H Creatinine 1.7 H Glucose 101 H POC Glucose Calcium Total Creatine Kinase CK-MB (CK-2) CK-MB (CK-2) Rel Index Troponin T NT-Pro-B Natriuret Pep Albumin Jpgre-5-Jlxglkiku [place]jai-2-Ymdcjlmsx PEP Interpretation Urine WBC (Auto) Urine Creatinine Urine Total Protein 11/23/18 11/24/18 11/25/18 07:48 05:16 02:29 WBC RBC Hgb Hct MCV MCHC RDW [place] % (Auto) [place] # Seg Neuts % (Manual) Lymphocytes % (Manual) Monocytes % (Manual) Seg Neutrophils # Man Lymphocytes # (Manual) Monocytes # (Manual) Eosinophils # (Manual) APTT POC ABG pH POC ABG pCO2 POC ABG pO2 Sodium 136 L D Potassium 5.1 H Chloride 95.2 L 96.1 L Carbon Dioxide 32 H 33 H BUN 38 H 39 H Creatinine 1.7 H 2.4 H Glucose 106 H 127 H POC Glucose 69 L Calcium Total Creatine Kinase CK-MB (CK-2) CK-MB (CK-2) Rel Index Troponin T NT-Pro-B Natriuret Pep Albumin Zrzge-0-Iinhizvnk Nzdyt-3-Qbbtlzmkl PEP Interpretation Urine WBC (Auto) Urine Creatinine Urine Total Protein 11/26/18 11/26/18 11/27/18 00:43 13:23 09:33 WBC 17.5 H RBC Hgb Hct MCV MCHC RDW 15.4 H [place] % (Auto) [place] # Seg Neuts % (Manual) 91.0 H Lymphocytes % (Manual) 4.0 L Monocytes % (Manual) Seg Neutrophils # Man 15.9 H Lymphocytes # (Manual) 0.7 L Monocytes # (Manual) Eosinophils # (Manual) APTT POC ABG pH POC ABG pCO2 POC ABG pO2 Sodium Potassium 5.8 H Chloride 94.3 L 94.1 L Carbon Dioxide 31 H BUN 39 H 39 H Creatinine 2.0 H 1.9 H Glucose 160 H 110 H POC Glucose Calcium Total Creatine Kinase CK-MB (CK-2) CK-MB (CK-2) Rel Index Troponin T NT-Pro-B Natriuret Pep Albumin Cqoga-6-Hqavcgjns Sleaa-2-Hppwhqvny PEP Interpretation Urine WBC (Auto) Urine Creatinine Urine Total Protein 11/27/18 13:10 WBC 18.0 H RBC 5.39 H Hgb 15.9 H Hct 50.8 H MCV MCHC 31 L RDW 16.0 H [place] % (Auto) [place] # Seg Neuts % (Manual) 81.0 H Lymphocytes % (Manual) Monocytes % (Manual) Seg Neutrophils # Man 14.6 H Lymphocytes # (Manual) Monocytes # (Manual) Eosinophils # (Manual) APTT POC ABG pH POC ABG pCO2 POC ABG pO2 Sodium Potassium Chloride Carbon Dioxide BUN Creatinine Glucose POC Glucose Calcium Total Creatine Kinase CK-MB (CK-2) CK-MB (CK-2) Rel Index Troponin T NT-Pro-B Natriuret Pep Albumin Seihj-1-Zreqefpqe Ysfzz-0-Oubzzeync PEP Interpretation Urine WBC (Auto) Urine Creatinine Urine Total Protein Allied health notes reviewed: nursing
[2018-11-27] MEDS: BENADRYL PO PRN (22:10)
[2018-11-27 23:15] LABS: Calcium 8.9 mg/dL (8.4-10.2)
[2018-11-28 06:19] LABS: Mean Corpuscular HGB Conc 31 % (32-34); Mean Corpuscular Volume 94 fl (84-94); Platelet Count 223 K/mm3 (140-440); Red Blood Count 4.82 M/mm3 (3.65-5.03); Red Cell Distribution Width 15.8 % (13.2-15.2)
[2018-11-28 06:22] LABS: Hematocrit 45.1 % (35.5-45.6); Hemoglobin 13.9 gm/dl (11.8-15.2)
[2018-11-28 06:40] LABS: Calcium 8.9 mg/dL (8.4-10.2)
[2018-11-28 07:35] LABS: Band Neutrophils # (Manual) 0.2 K/mm3; Basophils % (Manual) 0 % (0.0-1.8); Eosinophils % (Manual) 0 % (0.0-4.3); Total Cells Counted 100
[2018-11-28 07:36] LABS: Anisocytosis 1+
[2018-11-28] MEDS: DUONEB *Not for PRN Use IH SCH ×2 (08:15→14:31)
--- NOTE | 2018-11-28 08:44 | Progress Note ---
Assessment and Plan Cultures: 11/10/2018 tracheal culture no growth to date 11/12/2018 tracheal culture upper resp gabo 11/16/2018 blood culture: E. coli 11/17/2018 blood culture: No growth to date 11/16/2018 urine: E. coli A/P: 53 y/o male with history of Sarcoidosis home O2 dependant, CHF, HTN, bilateral stones, recent pneumonia treated at [facility], admitted on 11/09/2018 due to 3 day history of dry cough, progressive SOB and sharp chest pain: 1) Sepsis: Improved, leukocytosis trending down etio. likely complicated UTI +/- pneumonia 2) E. Coli Bacteremia:, source likely complicated UTI with known bilateral stones causing hydronephrosis. +gross hematuria and back pain. UA 11/16 c/u UTI. Renal US 11/14 showed right obstructive hydronephrosis and bilateral stones- s/p ESWL procedure 11/21/18. -Renal ultrasound 11/25/18 -Renal sonography suggests grossly normal renal cortical echogenicity. Pyramids though now appear echogenic. Grossly preserved renal contours. No worsening hydronephrosis. Image hepatic coarsening not excluded. 3) Presumed RUL pneumonia: HAP, recent pneumonia treated at [facility]. HIV neg. Repeat CXR 11/16 showed possible RUL pneumonia, doubt pneumonia clinically. SOB continuing, BIPAP at night. Chest xray 11/20/18 shows improvement in airspace opacities. Repeat chest xray 11/25/18 shows no consolidation. 4) Recent Respiratory failure: better - likely from CHF exacerbation 5) JESI: antibiotics renally dosed. Creatinine trending down Plan: Monitor off antibiotics continue to monitor leukocytosis [facility] M: [id number] O:[phone] Subjective Date of service: 11/28/18 Principal diagnosis: Ac on Ch Hypoxemic Resp failure; Sarcoidosis with exacerbation;Chest Pain Interval history: Patient seen and examined. Stated that he was feeling better today. Continued intermittent SOB, continues to be on 02 at 3L/NC. No Hematuria. Nurses notes, labs and reports reviewed, discussed with patient. Objective - Exam Narrative Exam: Constitutional: Alert, cooperative. no acute distress Head, Ears, Nose: Normocephalic, atraumatic. External ears, nose normal Eyes: Conjunctivae/corneas clear. No icterus. No ptosis. Neck: Supple, no meningeal signs Oral: no ulcers, no thrush Cardiovascular: S1, S2 normal. Respiratory:Clear on auscultation bilaterally , 02 @ 3L/NC GI: Soft, non-tender; bowel sounds normal. No peritoneal signs. bilateral CVA t enderness. : urine clear, -hematuria Musculoskeletal: No pedal edema, no cyanosis. Skin: No rash or abscess Hem/Lymphatic: No palpable cervical or supraclavicular nodes. No lymphangitis Psych: Mood ok. Affect normal Neurological: Awake, alert, oriented. No gross abnormality - Constitutional Vitals: Vital Signs Temp Pulse Resp BP Pulse Ox 98.5 F 75 20 143/76 95 11/28/18 04:47 11/28/18 08:20 11/28/18 08:20 11/28/18 04:47 11/28/18 08:19 Temperature -Last 24 Hours Temperature 98.5 F Temperature 98.2 F Temperature 98.4 F Temperature 98.6 F - Labs CBC & Chem 7: 11/28/18 05:25 11/28/18 05:25 Labs: Abnormal lab results 11/27/18 11/27/18 11/27/18 Range/Units 09:33 13:10 22:31 WBC 18.0 H (4.5-11.0) K/mm3 RBC 5.39 H (3.65-5.03) M/mm3 Hgb 15.9 H (11.8-15.2) gm/dl Hct 50.8 H (35.5-45.6) % MCHC 31 L (32-34) % RDW 16.0 H (13.2-15.2) % Seg Neuts % (Manual) 81.0 H (40.0-70.0) % Lymphocytes % (Manual) (13.4-35.0) % Seg Neutrophils # Man 14.6 H (1.8-7.7) K/mm3 Potassium 5.8 H (3.6-5.0) mmol/L Chloride 94.1 L (98-107) mmol/L Carbon Dioxide 31 H (22-30) mmol/L BUN 39 H 38 H (9-20) mg/dL Creatinine 1.9 H 1.9 H (0.8-1.5) mg/dL Glucose 110 H 169 H (75-100) mg/dL Phosphorus (2.5-4.5) mg/dL 11/28/18 11/28/18 Range/Units 05:25 05:25 WBC 16.8 H (4.5-11.0) K/mm3 RBC (3.65-5.03) M/mm3 Hgb (11.8-15.2) gm/dl Hct (35.5-45.6) % MCHC 31 L (32-34) % RDW 15.8 H (13.2-15.2) % Seg Neuts % (Manual) 84.0 H (40.0-70.0) % Lymphocytes % (Manual) 13.0 L (13.4-35.0) % Seg Neutrophils # Man 14.1 H (1.8-7.7) K/mm3 Potassium (3.6-5.0) mmol/L Chloride (98-107) mmol/L Carbon Dioxide 31 H (22-30) mmol/L BUN 36 H (9-20) mg/dL Creatinine 1.7 H (0.8-1.5) mg/dL Glucose 150 H (75-100) mg/dL Phosphorus 5.00 H (2.5-4.5) mg/dL
--- NOTE | 2018-11-28 09:11 | Progress Note ---
Assessment and Plan Acute on chronic hypoxemic respiratory failure s/p MVS Sarcoidosis with acute exacerbation Acute CHF exacerbation HFrEF (BNP 5420, EF 40-45%) JESI NOY (on CPAP at night) Recent pneumonia, admitted at [place] CAD/CHF (stable) Morbid Obesity Chronic steroid therapy Right obstructive hydronephrosis and bilateral stones s/p stent. Pyrexia secondary to complicated UTI( s/p anntibiotics) -Bronchodilators therapy -Supplemental oxygen to keep o2 sats >90% -Continue with steroids and slow taper -PT/OT -Nocturnal NIPPV and prn during the day -Accuchecks with glycemic control. 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 On supplemental oxygen, states he is ambulating and is feeling better Objective Vital Signs - 12hr 11/27/18 11/27/18 11/27/18 22:00 22:02 22:10 Temperature Pulse Rate 87 Pulse Rate [ Anterior Bilateral Throughout] Pulse Rate [ Anterior Bilateral Upper Lobe] Respiratory 19 19 Rate Respiratory Rate [Anterior Bilateral Throughout] Respiratory Rate [Anterior Bilateral Upper Lobe] Respiratory 19 Rate [Knee Joint] Blood Pressure 125/73 O2 Sat by Pulse Oximetry 11/27/18 11/27/18 11/28/18 23:10 23:19 04:47 Temperature 98.2 F 98.5 F Pulse Rate 86 74 Pulse Rate [ Anterior Bilateral Throughout] Pulse Rate [ Anterior Bilateral Upper Lobe] Respiratory 18 18 18 Rate Respiratory Rate [Anterior Bilateral Throughout] Respiratory Rate [Anterior Bilateral Upper Lobe] Respiratory Rate [Knee Joint] Blood Pressure 133/70 143/76 O2 Sat by Pulse 94 96 Oximetry 11/28/18 11/28/18 11/28/18 08:15 08:19 08:20 Temperature Pulse Rate Pulse Rate [ 75 75 Anterior Bilateral Throughout] Pulse Rate [ 75 75 Anterior Bilateral Upper Lobe] Respiratory Rate Respiratory 20 20 Rate [Anterior Bilateral Throughout] Respiratory 20 20 Rate [Anterior Bilateral Upper Lobe] Respiratory Rate [Knee Joint] Blood Pressure O2 Sat by Pulse 95 Oximetry Constitutional: no acute distress, alert, other (Middle aged obeses AAM, normocephalic and atraumati) Eyes: non-icteric ENT: oropharynx moist Neck: supple, no lymphadenopathy, no JVD, other (large neck circumference) Effort: mildly labored Ascultation: Bilateral: diminished breath sounds, rales (inspiratory in bases), rhonchi Percussion: Bilateral: not dull Cardiovascular: regular rate and rhythm, other (No R/M) Gastrointestinal: normoactive bowel sounds, soft, non-tender, non-distended, o ther (No HSM) Integumentary: normal Extremities: no cyanosis, pulses normal, no ischemia or petechiae Neurologic: normal mental status, non-focal exam, pupils equal and round, motor strength normal and Psychiatric: mood appropriate, affect normal CBC and BMP: 11/28/18 05:25 11/28/18 05:25 ABG, PT/INR, D-dimer: ABG POC ABG pH 7.447 (7.35-7.45) 11/21/18 11:19 POC ABG pCO2 48.4 (35-45) H 11/21/18 11:19 POC ABG pO2 52 (80-105) L 11/21/18 11:19 POC ABG HCO3 33.4 11/21/18 11:19 POC ABG Total CO2 35 11/21/18 11:19 POC ABG O2 Sat 87 11/21/18 11:19 PT/INR, D-dimer PT 13.6 Sec. (12.2-14.9) 11/20/18 21:53 INR 1.00 (0.87-1.13) 11/20/18 21:53 D-Dimer < 135.00 ng/mlDDU (0-234) 11/10/18 02:24 Abnormal lab findings: Abnormal Labs 11/09/18 11/09/18 11/10/18 23:58 23:58 02:24 WBC RBC 5.14 H Hgb 15.8 H Hct 48.6 H MCV 95 H MCHC RDW 16.6 H Gilliam % (Auto) 10.6 H Gilliam # 1.0 H Seg Neuts % (Manual) Lymphocytes % (Manual) Monocytes % (Manual) Seg Neutrophils # Man Lymphocytes # (Manual) Monocytes # (Manual) Eosinophils # (Manual) APTT POC ABG pH POC ABG pCO2 POC ABG pO2 Sodium Potassium Chloride Carbon Dioxide BUN Creatinine 1.6 H Glucose 103 H POC Glucose Calcium Phosphorus Total Creatine Kinase CK-MB (CK-2) CK-MB (CK-2) Rel Index Troponin T 0.031 H NT-Pro-B Natriuret Pep 5420 H Albumin Doarp-5-Juczqrlzn Xcxgd-9-Fpfukbvsv PEP Interpretation Urine WBC (Auto) Urine Creatinine Urine Total Protein 11/10/18 11/10/18 11/10/18 05:43 06:37 09:24 WBC RBC Hgb Hct MCV MCHC RDW Gilliam % (Auto) Gilliam # Seg Neuts % (Manual) Lymphocytes % (Manual) Monocytes % (Manual) Seg Neutrophils # Man Lymphocytes # (Manual) Monocytes # (Manual) Eosinophils # (Manual) APTT POC ABG pH 7.168 L 7.318 L POC ABG pCO2 87.7 H 57.7 H POC ABG pO2 193 H 152 H Sodium Potassium Chloride Carbon Dioxide BUN Creatinine Glucose POC Glucose Calcium Phosphorus Total Creatine Kinase 8 L CK-MB (CK-2) 7.8 H CK-MB (CK-2) Rel Index 97.5 H Troponin T NT-Pro-B Natriuret Pep Albumin Oetkh-4-Ijwepbxai Frkwl-4-Fauhpiifn PEP Interpretation Urine WBC (Auto) Urine Creatinine Urine Total Protein 11/10/18 11/10/18 11/11/18 12:15 23:34 04:23 WBC RBC Hgb Hct MCV MCHC RDW Gilliam % (Auto) Gilliam # Seg Neuts % (Manual) Lymphocytes % (Manual) Monocytes % (Manual) Seg Neutrophils # Man Lymphocytes # (Manual) Monocytes # (Manual) Eosinophils # (Manual) APTT POC ABG pH 7.518 H POC ABG pCO2 POC ABG pO2 122 H Sodium Potassium Chloride Carbon Dioxide BUN Creatinine Glucose POC Glucose 130 H Calcium Phosphorus Total Creatine Kinase 269 H CK-MB (CK-2) 6.4 H CK-MB (CK-2) Rel Index Troponin T NT-Pro-B Natriuret Pep Albumin Vogpe-4-Mxwzokiqo Tjdfp-1-Zzdprzpzd PEP Interpretation Urine WBC (Auto) Urine Creatinine Urine Total Protein 11/11/18 11/11/18 11/12/18 05:18 16:21 00:22 WBC RBC Hgb Hct MCV MCHC RDW Gilliam % (Auto) Gilliam # Seg Neuts % (Manual) Lymphocytes % (Manual) Monocytes % (Manual) Seg Neutrophils # Man Lymphocytes # (Manual) Monocytes # (Manual) Eosinophils # (Manual) APTT POC ABG pH POC ABG pCO2 49.5 H POC ABG pO2 60 L Sodium Potassium Chloride Carbon Dioxide BUN Creatinine Glucose POC Glucose 129 H 122 H Calcium Phosphorus Total Creatine Kinase CK-MB (CK-2) CK-MB (CK-2) Rel Index Troponin T NT-Pro-B Natriuret Pep Albumin [place]-8-Gibwrvavs Vieiv-0-Yyaalnrke PEP Interpretation Urine WBC (Auto) Urine Creatinine Urine Total Protein 11/12/18 11/12/18 11/12/18 05:43 10:13 11:42 WBC RBC Hgb Hct MCV MCHC RDW Gilliam % (Auto) Gilliam # Seg Neuts % (Manual) Lymphocytes % (Manual) Monocytes % (Manual) Seg Neutrophils # Man Lymphocytes # (Manual) Monocytes # (Manual) Eosinophils # (Manual) APTT POC ABG pH POC ABG pCO2 53.8 H POC ABG pO2 72 L Sodium 153 H D Potassium Chloride Carbon Dioxide 34 H BUN 36 H Creatinine 2.2 H Glucose 142 H POC Glucose 130 H Calcium Phosphorus Total Creatine Kinase CK-MB (CK-2) CK-MB (CK-2) Rel Index Troponin T NT-Pro-B Natriuret Pep Albumin Cofcc-2-Qtnmlaaol Mdukw-0-Axiqcybvj PEP Interpretation Urine WBC (Auto) Urine Creatinine Urine Total Protein 11/12/18 11/12/18 11/12/18 12:33 17:29 23:53 WBC RBC Hgb Hct MCV MCHC RDW Gilliam % (Auto) Gilliam # Seg Neuts % (Manual) Lymphocytes % (Manual) Monocytes % (Manual) Seg Neutrophils # Man Lymphocytes # (Manual) Monocytes # (Manual) Eosinophils # (Manual) APTT POC ABG pH POC ABG pCO2 POC ABG pO2 Sodium Potassium Chloride Carbon Dioxide BUN Creatinine Glucose POC Glucose 121 H 150 H 138 H Calcium Phosphorus Total Creatine Kinase CK-MB (CK-2) CK-MB (CK-2) Rel Index Troponin T NT-Pro-B Natriuret Pep Albumin Bwmhz-3-Eeondsnqv Buncc-0-Fhohpcqou PEP Interpretation Urine WBC (Auto) Urine Creatinine Urine Total Protein 11/13/18 11/13/18 11/13/18 05:16 10:08 12:20 WBC RBC Hgb Hct MCV MCHC RDW Gilliam % (Auto) Gilliam # Seg Neuts % (Manual) Lymphocytes % (Manual) Monocytes % (Manual) Seg Neutrophils # Man Lymphocytes # (Manual) Monocytes # (Manual) Eosinophils # (Manual) APTT POC ABG pH POC ABG pCO2 POC ABG pO2 Sodium Potassium Chloride Carbon Dioxide 33 H BUN 40 H Creatinine 2.1 H Glucose 209 H POC Glucose 134 H Calcium Phosphorus Total Creatine Kinase CK-MB (CK-2) CK-MB (CK-2) Rel Index Troponin T NT-Pro-B Natriuret Pep Albumin Zefru-6-Akgcjpkiy Dcade-3-Peegmgdja PEP Interpretation Urine WBC (Auto) Urine Creatinine 121.2 H Urine Total Protein 16 H 11/13/18 11/14/18 11/15/18 13:39 04:58 05:10 WBC RBC Hgb Hct MCV MCHC RDW Gilliam % (Auto) Gilliam # Seg Neuts % (Manual) Lymphocytes % (Manual) Monocytes % (Manual) Seg Neutrophils # Man Lymphocytes # (Manual) Monocytes # (Manual) Eosinophils # (Manual) APTT POC ABG pH POC ABG pCO2 POC ABG pO2 Sodium Potassium Chloride Carbon Dioxide 34 H 35 H BUN 40 H 32 H Creatinine 1.8 H 1.7 H Glucose 113 H 73 L POC Glucose Calcium 8.0 L 8.1 L Phosphorus Total Creatine Kinase CK-MB (CK-2) CK-MB (CK-2) Rel Index Troponin T NT-Pro-B Natriuret Pep Albumin 3.5 L Yrclw-9-Omeompudy 0.4 H Zcava-5-Vdcjujknl 1.1 H PEP Interpretation see below H Urine WBC (Auto) Urine Creatinine Urine Total Protein 11/15/18 11/15/18 11/15/18 05:10 13:59 17:06 WBC 12.5 H RBC Hgb Hct 46.9 H MCV 95 H MCHC 31 L RDW 16.0 H Gilliam % (Auto) Gilliam # Seg Neuts % (Manual) Lymphocytes % (Manual) Monocytes % (Manual) Seg Neutrophils # Man Lymphocytes # (Manual) Monocytes # (Manual) Eosinophils # (Manual) APTT POC ABG pH POC ABG pCO2 POC ABG pO2 Sodium Potassium Chloride Carbon Dioxide BUN Creatinine Glucose POC Glucose 128 H 156 H Calcium Phosphorus Total Creatine Kinase CK-MB (CK-2) CK-MB (CK-2) Rel Index Troponin T NT-Pro-B Natriuret Pep Albumin Uvlqw-7-Rxbcmjpwr Yoldj-5-Xtgolkuwh PEP Interpretation Urine WBC (Auto) Urine Creatinine Urine Total Protein 11/16/18 11/16/18 11/16/18 11:55 11:55 13:20 WBC 21.6 H RBC 5.14 H Hgb 15.4 H Hct 48.0 H MCV MCHC RDW 16.0 H Gilliam % (Auto) Gilliam # Seg Neuts % (Manual) Lymphocytes % (Manual) Monocytes % (Manual) Seg Neutrophils # Man Lymphocytes # (Manual) Monocytes # (Manual) Eosinophils # (Manual) APTT POC ABG pH POC ABG pCO2 POC ABG pO2 Sodium Potassium Chloride Carbon Dioxide 33 H BUN 32 H Creatinine 2.0 H Glucose 110 H POC Glucose Calcium Phosphorus Total Creatine Kinase CK-MB (CK-2) CK-MB (CK-2) Rel Index Troponin T NT-Pro-B Natriuret Pep Albumin Htghu-5-Wvxbgwoym Eqefc-3-Twgizyasi PEP Interpretation Urine WBC (Auto) > 182.0 H Urine Creatinine Urine Total Protein 11/16/18 11/16/18 11/17/18 16:34 20:47 11:17 WBC RBC Hgb Hct MCV MCHC RDW Gilliam % (Auto) Gilliam # Seg Neuts % (Manual) Lymphocytes % (Manual) Monocytes % (Manual) Seg Neutrophils # Man Lymphocytes # (Manual) Monocytes # (Manual) Eosinophils # (Manual) APTT POC ABG pH POC ABG pCO2 POC ABG pO2 Sodium Potassium Chloride Carbon Dioxide BUN Creatinine Glucose POC Glucose 236 H 171 H 114 H Calcium Phosphorus Total Creatine Kinase CK-MB (CK-2) CK-MB (CK-2) Rel Index Troponin T NT-Pro-B Natriuret Pep Albumin Nwqhf-2-Ghhigkjlr Pjkkf-9-Ujfbcwzgo PEP Interpretation Urine WBC (Auto) Urine Creatinine Urine Total Protein 11/17/18 11/17/18 11/18/18 16:17 21:27 05:45 WBC RBC Hgb Hct MCV MCHC RDW Gilliam % (Auto) Gilliam # Seg Neuts % (Manual) Lymphocytes % (Manual) Monocytes % (Manual) Seg Neutrophils # Man Lymphocytes # (Manual) Monocytes # (Manual) Eosinophils # (Manual) APTT POC ABG pH POC ABG pCO2 POC ABG pO2 Sodium Potassium Chloride 97.9 L Carbon Dioxide BUN 35 H Creatinine 2.0 H Glucose POC Glucose 175 H 159 H Calcium Phosphorus Total Creatine Kinase CK-MB (CK-2) CK-MB (CK-2) Rel Index Troponin T NT-Pro-B Natriuret Pep Albumin Edaqi-9-Pduhrkcmq Nlexo-3-Zezxsgbor PEP Interpretation Urine WBC (Auto) Urine Creatinine Urine Total Protein 11/18/18 11/18/18 11/19/18 16:30 21:08 07:06 WBC RBC Hgb Hct MCV MCHC RDW Gilliam % (Auto) Gilliam # Seg Neuts % (Manual) Lymphocytes % (Manual) Monocytes % (Manual) Seg Neutrophils # Man Lymphocytes # (Manual) Monocytes # (Manual) Eosinophils # (Manual) APTT POC ABG pH POC ABG pCO2 POC ABG pO2 Sodium Potassium Chloride Carbon Dioxide BUN 35 H Creatinine 1.9 H Glucose POC Glucose 190 H 286 H Calcium Phosphorus Total Creatine Kinase CK-MB (CK-2) CK-MB (CK-2) Rel Index Troponin T NT-Pro-B Natriuret Pep Albumin Ebiqd-8-Xwxmbyjqv Ufyqf-8-Shopcbpku PEP Interpretation Urine WBC (Auto) Urine Creatinine Urine Total Protein 11/19/18 11/19/18 11/19/18 08:16 09:00 16:57 WBC 16.1 H RBC 5.15 H Hgb Hct 47.5 H MCV MCHC RDW 15.7 H Gilliam % (Auto) Gilliam # Seg Neuts % (Manual) 91.0 H Lymphocytes % (Manual) 8.0 L Monocytes % (Manual) Seg Neutrophils # Man 14.7 H Lymphocytes # (Manual) Monocytes # (Manual) Eosinophils # (Manual) APTT POC ABG pH POC ABG pCO2 POC ABG pO2 Sodium Potassium Chloride Carbon Dioxide BUN Creatinine Glucose POC Glucose 192 H 165 H Calcium Phosphorus Total Creatine Kinase CK-MB (CK-2) CK-MB (CK-2) Rel Index Troponin T NT-Pro-B Natriuret Pep Albumin Dpzdp-0-Etwtlhioc Ssqtf-1-Yhoredpgw PEP Interpretation Urine WBC (Auto) Urine Creatinine Urine Total Protein 0111/20/18 11/20/18 22:42 04:38 08:07 WBC RBC Hgb Hct MCV MCHC RDW Gilliam % (Auto) Gilliam # Seg Neuts % (Manual) Lymphocytes % (Manual) Monocytes % (Manual) Seg Neutrophils # Man Lymphocytes # (Manual) Monocytes # (Manual) Eosinophils # (Manual) APTT POC ABG pH POC ABG pCO2 POC ABG pO2 Sodium Potassium Chloride 97.6 L Carbon Dioxide 31 H BUN 34 H Creatinine Glucose POC Glucose 175 H 67 L Calcium Phosphorus Total Creatine Kinase CK-MB (CK-2) CK-MB (CK-2) Rel Index Troponin T NT-Pro-B Natriuret Pep Albumin Dzadj-0-Dbdfyzfhi Yvltb-0-Codhdmtey PEP Interpretation Urine WBC (Auto) Urine Creatinine Urine Total Protein 11/20/18 11/20/18 11/20/18 11:54 16:46 21:25 WBC RBC Hgb Hct MCV MCHC RDW Gilliam % (Auto) Gilliam # Seg Neuts % (Manual) Lymphocytes % (Manual) Monocytes % (Manual) Seg Neutrophils # Man Lymphocytes # (Manual) Monocytes # (Manual) Eosinophils # (Manual) APTT POC ABG pH POC ABG pCO2 POC ABG pO2 Sodium Potassium Chloride Carbon Dioxide BUN Creatinine Glucose POC Glucose 114 H 180 H 220 H Calcium Phosphorus Total Creatine Kinase CK-MB (CK-2) CK-MB (CK-2) Rel Index Troponin T NT-Pro-B Natriuret Pep Albumin Jkvfc-1-Hinbdnpza Xheco-4-Ydmrzmlnn PEP Interpretation Urine WBC (Auto) Urine Creatinine Urine Total Protein 11/20/18 11/20/18 11/21/18 21:53 21:53 05:57 WBC 20.3 H RBC Hgb Hct 46.8 H MCV MCHC RDW 15.7 H Gilliam % (Auto) Gilliam # Seg Neuts % (Manual) 75.0 H Lymphocytes % (Manual) Monocytes % (Manual) Seg Neutrophils # Man 15.2 H Lymphocytes # (Manual) Monocytes # (Manual) 1.2 H Eosinophils # (Manual) APTT 23.8 L POC ABG pH POC ABG pCO2 POC ABG pO2 Sodium Potassium 5.2 H Chloride 93.8 L Carbon Dioxide BUN 37 H Creatinine 1.6 H Glucose 230 H POC Glucose Calcium Phosphorus Total Creatine Kinase CK-MB (CK-2) CK-MB (CK-2) Rel Index Troponin T NT-Pro-B Natriuret Pep Albumin 3.4 L Zwqdc-4-Cwqioyken Eqgph-6-Hvvtufshy PEP Interpretation Urine WBC (Auto) Urine Creatinine Urine Total Protein 11/21/18 11/21/18 11/22/18 06:00 11:19 05:04 WBC RBC Hgb Hct MCV MCHC RDW Gilliam % (Auto) Gilliam # Seg Neuts % (Manual) Lymphocytes % (Manual) Monocytes % (Manual) Seg Neutrophils # Man Lymphocytes # (Manual) Monocytes # (Manual) Eosinophils # (Manual) APTT POC ABG pH POC ABG pCO2 48.4 H POC ABG pO2 52 L Sodium Potassium 5.1 H Chloride 96.4 L 96.5 L Carbon Dioxide 32 H 32 H BUN 35 H 42 H Creatinine 1.8 H Glucose POC Glucose Calcium Phosphorus Total Creatine Kinase CK-MB (CK-2) CK-MB (CK-2) Rel Index Troponin T NT-Pro-B Natriuret Pep Albumin Dffif-4-Kxctgfdqi Wtuug-4-Zlxmeqjnv PEP Interpretation Urine WBC (Auto) Urine Creatinine Urine Total Protein 11/22/18 11/23/18 11/23/18 09:01 05:18 05:18 WBC 22.8 H 20.9 H RBC 5.07 H Hgb Hct 47.6 H MCV MCHC RDW 15.7 H 15.7 H Gilliam % (Auto) Gilliam # Seg Neuts % (Manual) 80.0 H Lymphocytes % (Manual) 8.0 L Monocytes % (Manual) 8.0 H 11.0 H Seg Neutrophils # Man 18.2 H 14.2 H Lymphocytes # (Manual) Monocytes # (Manual) 1.8 H 2.3 H Eosinophils # (Manual) 0.6 H APTT POC ABG pH POC ABG pCO2 POC ABG pO2 Sodium Potassium Chloride Carbon Dioxide 31 H BUN 34 H Creatinine 1.7 H Glucose 101 H POC Glucose Calcium Phosphorus Total Creatine Kinase CK-MB (CK-2) CK-MB (CK-2) Rel Index Troponin T NT-Pro-B Natriuret Pep Albumin Ejirw-1-Vfzdnsbku Etrbs-5-Rafwjpqwu PEP Interpretation Urine WBC (Auto) Urine Creatinine Urine Total Protein 11/23/18 11/24/18 11/25/18 07:48 05:16 02:29 WBC RBC Hgb Hct MCV MCHC RDW Gilliam % (Auto) Gilliam # Seg Neuts % (Manual) Lymphocytes % (Manual) Monocytes % (Manual) Seg Neutrophils # Man Lymphocytes # (Manual) Monocytes # (Manual) Eosinophils # (Manual) APTT POC ABG pH POC ABG pCO2 POC ABG pO2 Sodium 136 L D Potassium 5.1 H Chloride 95.2 L 96.1 L Carbon Dioxide 32 H 33 H BUN 38 H 39 H Creatinine 1.7 H 2.4 H Glucose 106 H 127 H POC Glucose 69 L Calcium Phosphorus Total Creatine Kinase CK-MB (CK-2) CK-MB (CK-2) Rel Index Troponin T NT-Pro-B Natriuret Pep Albumin Ruinp-5-Posnlytgg Ofmir-8-Wfeuhsjny PEP Interpretation Urine WBC (Auto) Urine Creatinine Urine Total Protein 11/26/18 11/26/18 11/27/18 00:43 13:23 09:33 WBC 17.5 H RBC Hgb Hct MCV MCHC RDW 15.4 H Gilliam % (Auto) Gilliam # Seg Neuts % (Manual) 91.0 H Lymphocytes % (Manual) 4.0 L Monocytes % (Manual) Seg Neutrophils # Man 15.9 H Lymphocytes # (Manual) 0.7 L Monocytes # (Manual) Eosinophils # (Manual) APTT POC ABG pH POC ABG pCO2 POC ABG pO2 Sodium Potassium 5.8 H Chloride 94.3 L 94.1 L Carbon Dioxide 31 H BUN 39 H 39 H Creatinine 2.0 H 1.9 H Glucose 160 H 110 H POC Glucose Calcium Phosphorus Total Creatine Kinase CK-MB (CK-2) CK-MB (CK-2) Rel Index Troponin T NT-Pro-B Natriuret Pep Albumin Duqjj-7-Ubgxprmvq Ajzxx-5-Uztrqmxlp PEP Interpretation Urine WBC (Auto) Urine Creatinine Urine Total Protein 11/27/18 11/27/18 11/28/18 13:10 22:31 05:25 WBC 18.0 H 16.8 H RBC 5.39 H Hgb 15.9 H Hct 50.8 H MCV MCHC 31 L 31 L RDW 16.0 H 15.8 H Gilliam % (Auto) Gilliam # Seg Neuts % (Manual) 81.0 H 84.0 H Lymphocytes % (Manual) 13.0 L Monocytes % (Manual) Seg Neutrophils # Man 14.6 H 14.1 H Lymphocytes # (Manual) Monocytes # (Manual) Eosinophils # (Manual) APTT POC ABG pH POC ABG pCO2 POC ABG pO2 Sodium Potassium Chloride Carbon Dioxide BUN 38 H Creatinine 1.9 H Glucose 169 H POC Glucose Calcium Phosphorus Total Creatine Kinase CK-MB (CK-2) CK-MB (CK-2) Rel Index Troponin T NT-Pro-B Natriuret Pep Albumin Aremb-3-Elppvcpwn Afyii-4-Osdbozagu PEP Interpretation Urine WBC (Auto) Urine Creatinine Urine Total Protein 11/28/18 05:25 WBC RBC Hgb Hct MCV MCHC RDW Gilliam % (Auto) Gilliam # Seg Neuts % (Manual) Lymphocytes % (Manual) Monocytes % (Manual) Seg Neutrophils # Man Lymphocytes # (Manual) Monocytes # (Manual) Eosinophils # (Manual) APTT POC ABG pH POC ABG pCO2 POC ABG pO2 Sodium Potassium Chloride Carbon Dioxide 31 H BUN 36 H Creatinine 1.7 H Glucose 150 H POC Glucose Calcium Phosphorus 5.00 H Total Creatine Kinase CK-MB (CK-2) CK-MB (CK-2) Rel Index Troponin T NT-Pro-B Natriuret Pep Albumin Jbksl-7-Sevuohxuc Xnrqu-4-Ifnxjbqxj PEP Interpretation Urine WBC (Auto) Urine Creatinine Urine Total Protein Chest x-ray: image reviewed (11/25/18- chronic changes) Allied health notes reviewed: nursing
[2018-11-28] MEDS ORDERED: DELTASONE PO SCH (10:00)
[2018-11-28] MEDS: PERCOCET 5/325 PO PRN (10:53)
[2018-11-28] MEDS: BABY ASPIRIN PO SCH (10:55)
[2018-11-28] MEDS: PEPCID PO SCH (10:55)
[2018-11-28] MEDS: LOPRESSOR PO SCH (10:55)
[2018-11-28] MEDS: SODIUM CHLORIDE FLUSH SYRINGE 10 ML IV SCH (10:56)
[2018-11-28] MEDS: HEPARIN SUB-Q SCH (10:56)
--- NOTE | 2018-11-28 12:21 | Progress Note ---
Assessment and Plan Acute renal Failure on likely Chronic Kidney Disease, stage 3: -Renal function reviewed. Serum creatinine 1.7 today, yesterday's serum creatinine was 1.9, renal function remains in baseline range, non-oliguric -Prior labs in June 2015 showed serum creatinine 1.7-2.0 -Repeat renal ultrasound on 11/25/18showed- No worsening Hydronephrosis. Known bilateral nephrolithiasis and multiple right renal cortical cysts-S/P ESWL on 11/21/18 by Urology- Dr. Lo -Avoid Nephrotoxic agents -Monitor I/O's -Obtain daily weights Hyperkalemia: -Resolved, potassium 4.3 today -Monitor BMP daily Leukocytosis: -Urine and blood cultures on 11/16/18 revealed E.Coli -S/P IV Ancef -ID onboard, monitoring off antibiotics Acute on Chronic hypoxic respiratory failure Sarcoidosis: COPD: -Extubated on 11/12/18 -On Nebulizers and Prednisone -Pulmonary onboard Acute on Chronic exacerbation of systolic heart failure: -Echo:EF 40-45% -On Lopressor -Lasix 40 mg po daily discontinued by IMS due to renal function -Can resume Lasix as renal function is in baseline range -Cardiology signed off Hypertension: -Monitor blood pressures Subjective Date of service: 11/28/18 Principal diagnosis: Ac on Ch Hypoxemic Resp failure; Sarcoidosis with exacerbation;Chest Pain Interval history: Patient seen sitting up in bed talking on phone. Reviewed renal plan of care. No family at bedside. Objective - Vital Signs Vital signs: Vital Signs - 12hr 11/28/18 11/28/18 11/28/18 04:47 08:15 08:19 Temperature 98.5 F Pulse Rate 74 Pulse Rate [ 75 Anterior Bilateral Throughout] Pulse Rate [ 75 Anterior Bilateral Upper Lobe] Respiratory 18 Rate Respiratory 20 Rate [Anterior Bilateral Throughout] Respiratory 20 Rate [Anterior Bilateral Upper Lobe] Blood Pressure 143/76 O2 Sat by Pulse 96 95 Oximetry 11/28/18 11/28/18 08:20 10:55 Temperature Pulse Rate 75 Pulse Rate [ 75 Anterior Bilateral Throughout] Pulse Rate [ 75 Anterior Bilateral Upper Lobe] Respiratory Rate Respiratory 20 Rate [Anterior Bilateral Throughout] Respiratory 20 Rate [Anterior Bilateral Upper Lobe] Blood Pressure 143/76 O2 Sat by Pulse Oximetry - General Appearance General appearance: well-developed, appears stated age EENT: ATNC, PERRL, hearing intact, vision intact Neck: no JVD, supple Respiratory: Present: Decreased Breath Sounds Cardiology: regular, S1S2 Gastrointestinal: normoactive bowel sounds Integumentary: warm and dry Neurologic: alert and oriented x3 Musculoskeletal: other (mild edema to BLE) Psychiatric: cooperative - Lab 11/28/18 05:25 11/28/18 05:25 Most recent lab results Calcium 8.9 mg/dL (8.4-10.2) 11/28/18 05:25 Phosphorus 5.00 mg/dL (2.5-4.5) H 11/28/18 05:25 Urine Creatinine 121.2 mg/dL (0.1-20.0) H 11/13/18 12:20 Urine Sodium 33 mmol/L 11/13/18 12:20 Urine Total Protein 16 mg/dL (5-11.8) H 11/13/18 12:20 Medications & Allergies - Medications Allergies/Adverse Reactions: Allergies No Known Allergies Allergy (Unverified 07/05/15 10:00) Home Medications: Home Medications Medication Instructions Recorded Confirmed Last Taken Type ALBUTEROL NEB's [Proventil 0.083% 2.5 mg IH Q3HRT PRN #15 nebu 11/15/18 Unknown Rx NEBS] Acetaminophen [Acetaminophen TAB] 650 mg PO Q4H PRN #15 tablet 11/15/18 Unknown Rx Aspirin [Aspirin BABY CHEW TAB] 81 mg PO QDAY #30 tab.chew 11/15/18 Unknown Rx Furosemide [Lasix TAB] 40 mg PO QDAY #30 tablet 11/15/18 Unknown Rx Ipratropium/Albuterol Sulfate 1 ampul IH TIDRT #30 ampul.neb 11/15/18 Unknown Rx [DUONEB *Not for PRN Use*] oxyCODONE /ACETAMINOPHEN [Percocet 1 tab PO Q6H PRN #15 tablet 11/15/18 Unknown Rx 5/325 mg] predniSONE [Deltasone] 20 mg PO QDAY #50 tab 11/15/18 Unknown Rx Active Medications: Generic Name Dose Route Start Last Admin Trade Name Freq PRN Reason Stop Dose Admin Acetaminophen 650 mg 11/10/18 04:17 11/15/18 16:48 Tylenol PO 650 mg Q4H PRN Administration Pain MILD(1-3)/Fever >100.5/BURNS Albuterol 2.5 mg 11/10/18 04:17 Proventil IH Q3HRT PRN Shortness Of Breath Albuterol/Ipratropium 1 ampul 11/15/18 08:00 11/28/18 08:15 Duoneb *Not For Prn Use* IH 1 ampul TIDRT ABDIAS Administration Aspirin 81 mg 11/10/18 10:00 11/28/18 10:55 Baby Aspirin PO 81 mg QDAY ABDIAS Administration Diphenhydramine HCl 25 mg 11/22/18 23:30 11/27/18 22:10 Benadryl PO 25 mg QHS PRN Administration Sleep Famotidine 20 mg 11/13/18 10:00 11/28/18 10:55 Pepcid PO 20 mg DAILY ABDIAS Administration Heparin Sodium (Porcine) 5,000 unit 11/13/18 22:00 11/28/18 10:56 Heparin SUB-Q 5,000 unit Q12HR ABDIAS Administration Metoprolol Tartrate 25 mg 11/12/18 12:00 11/28/18 10:55 Lopressor PO 25 mg BID ABDIAS Administration Multi-Ingred Cream/Lotion/Oil/Oint 1 applic 11/10/18 05:52 Artificial Tears Ophth Oint OU Q4HR PRN Dry Eye(s) Ondansetron HCl 4 mg 11/10/18 04:17 Zofran IV Q8H PRN Nausea And Vomiting Oxycodone/Acetaminophen 1 tab 11/24/18 09:01 11/28/18 10:53 Percocet 5/325 PO 1 tab Q6H PRN Administration Pain, Moderate (4-6) Prednisone 20 mg 11/28/18 10:00 11/28/18 10:54 Deltasone PO 20 mg QDAY ABDIAS Administration Sodium Chloride 10 ml 11/10/18 10:00 11/28/18 10:56 Sodium Chloride Flush Syringe 10 Ml IV 10 ml BID ABDIAS Administration Sodium Chloride 10 ml 11/10/18 04:17 11/25/18 06:25 Sodium Chloride Flush Syringe 10 Ml IV 10 ml PRN PRN Administration LINE FLUSH
--- NOTE | 2018-11-28 12:38 | Discharge Summary ---
Providers - Providers Date of Admission: 11/10/18 04:17 Date of discharge: 11/28/18 Attending physician: KYM ROBERTS 11/10/18 05:52 Consult to Dietitian/Nutrition [CONS] Routine Physician Instructions: Reason For Exam: Reason for Consult: Evaluate nutritional intake 11/10/18 06:04 Consult to Physician [CONS] Routine Comment: aware at 0710 Consulting Provider: PENELOPE CARMEN Physician Instructions: Reason For Exam: cc 11/11/18 11:34 Occupational Therapy Evaluate and Treat [CONS] Routine Comment: Reason For Exam: help with ADLS Physical Therapy Evaluation and Treat [CONS] Routine Comment: Reason For Exam: deconditioning 11/12/18 19:11 Consult to Physician [CONS] Routine Comment: Consulting Provider: VIVEK FERMIN Physician Instructions: consult Reason For Exam: JESI 11/14/18 09:00 Consult to Physician [CONS] Routine Comment: Consulting Provider: COLLIN EDMONDS Physician Instructions: I notified Reason For Exam: right hydronephrosis 11/16/18 09:59 Consult to Physician [CONS] Routine Comment: Consulting Provider: ZACKERY JEFFRIES Physician Instructions: I notified Reason For Exam: Evaluate new onset fever 11/26/18 14:01 Consult to Physician [CONS] Routine Comment: Consulting Provider: VIVEK FERMIN Physician Instructions: Reason For Exam: jesi 11/28/18 12:21 Consult to Physician [CONS] Routine Comment: Consulting Provider: AJITH ZAMORA Physician Instructions: Reason For Exam: CKD 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 He was found to have pulse ox of only 64%. He was placed on bipap, which he failed requiring intubation. He was extubated on 11/12/18. He was planned to d/c home 11/15/18 but he appealed his discharge at the last minute. He eventually spiked fever and developed hematuria. Blood cx grew E.coli, Ux positive for E. coli. CT abd/pelvis showed b/l hydronephrosis and 1.7cm right kidney stone. s/p ESWL on 11/21/18. Completed Rx for gm negative bacteremia and UTI on 11/26/18. Patient was then discharge home in stable condition. Discharge diagnosis and management: /Acute on Chronic hypoxic respiratory failure, POA, resolved - reason for admission - likely from underlying sarcoidosis and CHF - s/p Intubation on admission and extubated 11/12/18 - cont nebs, n/C o2 as needed, pulmonary following /Presumed RUL pneumonia: HAP, POA - recent pneumonia treated at [facility]. HIV neg. Repeat CXR 11/16 showed possible RUL pneumonia, doubt pneumonia clinically per ID. Chest xray 11/20/18 shows improvement in airspace opacities. treated with abx /ARF, vasomotor nephrology +ATN, - monitored BMP, Cr slightly trended up but now at baseline, no change in repeat renal US - held his lasix, followed BMP, reconsulted renal - patient will cont outpt follow up /Nephrolithiasis, right hydronephrosis and hematuria: - developed hematuria on 11/16/18 - CT abd/pelvis showed b/l hydronephrosis and 1.7cm right kidney stone. s/p ESWL on 11/21/18 /Sepsis: Improved, leukocytosis trending down , initial etio. likely +/-PNA - then developed complicated UTI , bacteremia , completed treatment /E. Coli Bacteremia:, Cx positive from 11/16/18 - source likely complicated UTI with known bilateral stones causing hydronephrosis. - completed treatment /Complicated UTI - +gross hematuria and back pain developed on 11/16/18. UA 11/16 c/u UTI. Renal US 11/14 showed right obstructive hydronephrosis and bilateral stones- s/p ESWL procedure 11/21/18. - treated with abx, ID following /Acute on Chronic exacerbation of systolic heart failure: compensated now - held oral lasix, Cardiology is following, ECHO reviewed - Ef 40-45% /COPD with exacerbation: given Duoneb tx and IV solumedrol weaned to oral steroids. /HTN (hypertension) with episode of hypotension: - monitored bp closely, advanced bp medications as tolerated /Hyperkalemia, resolved -likely due to worsening renal function - s/p kayexalate and HCO3 /Sarcoidosis: on steroids /Obesity BMI 41.5, counselled Hospitalist Physical Gen: NAD, Awake, Alert, Orientated HEENT: NCAT, EOMI, PERRL, OP clear Neck: supple, no adenopathy, no thyromegaly, no JVD CVS/Heart: RRR, normal S1S2, pulses present bilaterally Chest/Lungs: diminished bs bilateral, Symmetrical chest expansion, good air entry bilaterally GI/Abdomen: soft, NTND, good bowel sounds, no guarding or rebound /Bladder: no suprapubic tenderness, Extermity/Skin: no c/c/e, no obvious rash MSK: FROM x 4 Neuro: CN 2-12 grossly intact, no new focal deficits Psych: calm Disposition: - TO HOME OR SELFCARE Time spent for discharge: 34 minutes Core Measure Documentation - Palliative Care Palliative Care/ Comfort Measures: Not Applicable - Core Measures Any of the following diagnoses?: none Exam - Constitutional Vitals: Temp Pulse Resp BP Pulse Ox 98.5 F 75 20 143/76 95 11/28/18 04:47 11/28/18 10:55 11/28/18 08:20 11/28/18 10:55 11/28/18 08:19 Plan Activity: advance as tolerated Weight Bearing Status: Weight Bear as Tolerated Diet: low fat, low salt Follow up with: PENELPOE CARMEN MD [Staff Physician] - 7 Days VENITA JIN MD [Staff Physician] - 7 Days VIVEK FERMIN MD [Staff Physician] - 7 Days DONALDO GREENWOOD MD [Staff Physician] - 7 Days PRIMARY MD RICCO [Primary Care Provider] - 3-5 Days Prescriptions: oxyCODONE /ACETAMINOPHEN [Percocet 5/325 mg] 1 tab PO Q6H PRN #15 tablet PRN Reason: Pain, Moderate (4-6) predniSONE [Deltasone] 20 mg PO QDAY #30 tab Ipratropium/Albuterol Sulfate [DUONEB *Not for PRN Use*] 1 ampul IH TIDRT #30 ampul.neb
[2018-11-28 13:46] LABS: Bilirubin,Urine NEG (Negative); Blood,Urine MOD (Negative); Color,Urine Yellow (Yellow); Mucus,Urine FEW /HPF; Protein,Urine <15 mg/dL mg/dL (Negative); Urobilinogen,Urine < 2.0 mg/dL (<2.0)
[2018-11-28 13:56] LABS: Creatinine,Urine 114.9 mg/dL (0.1-20.0)
[2018-11-28 18:06] VITALS: BP 142/80
== END 2018-11-28 18:55 | disposition home or self-care (01) | DRG 871 ==
LOC: ED 23:18 → 4A 11-10 04:17 → CC1 11-10 06:30 → 4A 11-13 22:44 → 3A 11-18 15:01 → UNDODISIN 11-26 14:15
PROVIDERS: ADMIT Internal Medicine; ATTEND Internal Medicine
PROC: 5A1945Z Respiratory Ventilation, 24-96 Consecutive Hours (ICD-10-PCS; principal; 2018-11-10)
PROC: 0BH17EZ Insertion of Endotracheal Airway into Trachea, Via Natural or Artificial Opening (ICD-10-PCS; 2018-11-10)
PROC: 4A033R1 Measurement of Arterial Saturation, Peripheral, Percutaneous Approach (ICD-10-PCS; 2018-11-10)
PROC: 5A09357 Assistance with Respiratory Ventilation, Less than 24 Consecutive Hours, Continuous Positive Airway Pressure (ICD-10-PCS; 2018-11-10)
PROC: 06HM33Z Insertion of Infusion Device into Right Femoral Vein, Percutaneous Approach (ICD-10-PCS; 2018-11-10)
PROC: B54BZZA Ultrasonography of Right Lower Extremity Veins, Guidance (ICD-10-PCS; 2018-11-10)
PROC: 5A09357 Assistance with Respiratory Ventilation, Less than 24 Consecutive Hours, Continuous Positive Airway Pressure (ICD-10-PCS; 2018-11-17)
PROC: 0TF3XZZ Fragmentation in Right Kidney Pelvis, External Approach (ICD-10-PCS; 2018-11-21)
PROC: 5A09357 Assistance with Respiratory Ventilation, Less than 24 Consecutive Hours, Continuous Positive Airway Pressure (ICD-10-PCS; 2018-11-26)
DX: A41.9 Sepsis, unspecified organism (principal); J69.0 Pneumonitis due to inhalation of food and vomit; N17.0 Acute kidney failure with tubular necrosis; I50.43 Acute on chronic combined systolic (congestive) and diastolic (congestive) heart failure; J96.21 Acute and chronic respiratory failure with hypoxia; I13.0 Hypertensive heart and chronic kidney disease with heart failure and stage 1 through stage 4 chronic kidney disease, or unspecified chronic kidney disease; J45.901 Unspecified asthma with (acute) exacerbation; Z68.45 Body mass index [BMI] 70 or greater, adult; I42.0 Dilated cardiomyopathy; J44.1 Chronic obstructive pulmonary disease with (acute) exacerbation; J44.0 Chronic obstructive pulmonary disease with (acute) lower respiratory infection; N39.0 Urinary tract infection, site not specified; N13.2 Hydronephrosis with renal and ureteral calculous obstruction; D86.9 Sarcoidosis, unspecified; G47.33 Obstructive sleep apnea (adult) (pediatric); I25.10 Atherosclerotic heart disease of native coronary artery without angina pectoris; D89.9 Disorder involving the immune mechanism, unspecified; E66.01 Morbid (severe) obesity due to excess calories; I45.10 Unspecified right bundle-branch block; R31.0 Gross hematuria; N18.3 Chronic kidney disease, stage 3 (moderate); E87.5 Hyperkalemia; B96.20 Unspecified Escherichia coli [E. coli] as the cause of diseases classified elsewhere
CPT/HCPCS: 36415; 36600; 71045; 71046; 74018; 74176; 76770; 78707; 80048; 80053; 80061; 81001; 82164; 82550; 82553; 82570; 82803; 82962; 83520; 83880; 84100; 84156; 84165; 84300; 84484; 85007; 85025; 85027; 85379; 85610; 85730; 86021; 86038; 86160; 86706; 86803; 87040; 87070; 87076; 87086; 87186; 87205; 87806; 90686; 93005; 93010; 93306; 94002; 94003; 94010; 94640; 94644; 94660; 94760; G0378; A9562; J0330; J0690; J0692; J0696; J1100; J1644; J1720; J1940; J2060; J2250; J2270; J2405; J2704; J2930; J3010; J7030; J7512

== ENCOUNTER 2021-05-14 12:57 | Emergency (ER) | payer MEDICARE ==
[2021-05-14] MEDS ORDERED: LIDOCAINE (1%) 10 MG/1 ML VIAL 20 ML MDV INFILTRATI ONE (13:59)
--- NOTE | 2021-05-14 14:03 | Emergency Department Report ---
- General Chief Complaint: Head Injury Stated Complaint: CUT ON RIGHT HAND BY POWER TOOL / ALSO CUT ON FACE Time Seen by Provider: 05/14/21 13:58 Source: patient, family Mode of arrival: Wheelchair Limitations: Physical Limitation - History of Present Illness Initial Comments: 56-year-old -Japanese male presents to the emergency room for right wrist laceration and a laceration to his right baptist. Patient reports that he was working with a power tool when it exploded and cut him. Patient reports he has a history of sarcoidosis and is on home oxygen at 2 L/min but did not bring his oxygen with him. Triage placed him on oxygen per nasal cannula. Patient also reported that he had Covid and was treated with antibodies in November 2019. Patient reports the pain in his wrist is about a 6 out of 10 and head 9 out of 10. Patient denies any loss of consciousness. Patient denies any known drug allergies. -: This afternoon Location: face (Right temporal) Extremity Location: Right: Wrist Place: home Patient Tetanus UTD: No Context: accidental, sharp object use, power tool use - Related Data Previous Rx's Medication Instructions Recorded Last Taken Type ALBUTEROL NEB's [Proventil 0.083% 2.5 mg IH Q3HRT PRN #15 nebu 11/15/18 Unknown Rx NEBS] Acetaminophen [Acetaminophen TAB] 650 mg PO Q4H PRN #15 tablet 11/15/18 Unknown Rx Aspirin [Aspirin BABY CHEW TAB] 81 mg PO QDAY #30 tab.chew 11/15/18 Unknown Rx Ipratropium/Albuterol Sulfate 1 ampul IH TIDRT #30 ampul.neb 11/15/18 Unknown Rx [DUONEB *Not for PRN Use*] oxyCODONE /ACETAMINOPHEN [Percocet 1 tab PO Q6H PRN #15 tablet 11/15/18 Unknown Rx 5/325 mg] predniSONE [Deltasone] 20 mg PO QDAY #30 tab 11/28/18 Unknown Rx cephALEXin [Keflex] 500 mg PO Q12HR 7 Days #14 cap 05/14/21 Unknown Rx traMADoL [Ultram 50 MG tab] 50 mg PO Q6HR PRN #12 tablet 05/14/21 Unknown Rx Allergies Allergy/AdvReac Type Severity Reaction Status Date / Time No Known Allergies Allergy Unverified 09/07/15 10:00 ED Review of Systems ROS: Stated complaint: CUT ON RIGHT HAND BY POWER TOOL / ALSO CUT ON FACE Other details as noted in HPI Comment: All other systems reviewed and negative ED Past Medical Hx - Past Medical History Previous Medical History?: Yes Hx Hypertension: Yes Hx Congestive Heart Failure: Yes Hx Diabetes: No Hx Renal Disease: Yes (no dialysis) Hx Asthma: Yes Hx COPD: No Additional medical history: sarcoidosis, kidney stones - Surgical History Past Surgical History?: No - Social History Smoking Status: Never Smoker Substance Use Type: Alcohol - Medications Home Medications: Home Medications Medication Instructions Recorded Confirmed Last Taken Type ALBUTEROL NEB's [Proventil 0.083% 2.5 mg IH Q3HRT PRN #15 nebu 11/15/18 Unknown Rx NEBS] Acetaminophen [Acetaminophen TAB] 650 mg PO Q4H PRN #15 tablet 11/15/18 Unknown Rx Aspirin [Aspirin BABY CHEW TAB] 81 mg PO QDAY #30 tab.chew 11/15/18 Unknown Rx Ipratropium/Albuterol Sulfate 1 ampul IH TIDRT #30 ampul.neb 11/15/18 Unknown Rx [DUONEB *Not for PRN Use*] oxyCODONE /ACETAMINOPHEN [Percocet 1 tab PO Q6H PRN #15 tablet 11/15/18 Unknown Rx 5/325 mg] predniSONE [Deltasone] 20 mg PO QDAY #30 tab 11/28/18 Unknown Rx cephALEXin [Keflex] 500 mg PO Q12HR 7 Days #14 cap 05/14/21 Unknown Rx traMADoL [Ultram 50 MG tab] 50 mg PO Q6HR PRN #12 tablet 05/14/21 Unknown Rx ED Physical Exam - General Limitations: Physical Limitation General appearance: alert, in no apparent distress - Head Head exam: Present: normocephalic - Eye Eye exam: Present: normal appearance - ENT ENT exam: Present: mucous membranes moist - Neck Neck exam: Present: normal inspection, full ROM - Respiratory Respiratory exam: Absent: accessory muscle use - Cardiovascular Cardiovascular Exam: Present: regular rate - Expanded Upper Extremity Exam Right Elbow exam: Present: normal inspection, full ROM Forearm Wrist exam: Present: normal inspection, full ROM Hand Wrist exam: Present: tenderness, laceration, ecchymosis (4 cm), other ED Course Vital Signs 05/14/21 05/14/21 05/14/21 13:11 13:29 14:22 Temperature 98.9 F 98.6 F Pulse Rate 70 89 Respiratory 22 18 18 Rate Blood Pressure 108/65 Blood Pressure 164/79 [Left] O2 Sat by Pulse 91 98 Oximetry - Laceration /Wound Repair Right Head Wound Location: head (Temporal) Wound Length (cm): 2 Wound's Depth, Shape: superficial Wound Explored: no foreign body removed Irrigated w/ Saline (ccs): 30 Betadine Prep?: Yes Wound Repaired With: Steri-strips, Dermabond Sterile Dressing Applied?: No Progress: Tolerated well Right Wrist Wound Location: upper extremity (Right palmar wrist) Wound Length (cm): 4 Wound's Depth, Shape: into muscle Wound Explored: no foreign body removed Irrigated w/ Saline (ccs): 250 Betadine Prep?: Yes Anesthesia: 1% Lidocaine Volume Anesthetic (ccs): 4 Wound Debrided: minimal Wound Repaired With: sutures Suture Size/Type: 4:0 Number of Sutures: 5 Sterile Dressing Applied?: Yes Progress: Patient tolerated well ED Medical Decision Making - Medical Decision Making 56-year-old -Japanese male presents to the emergency room for right wrist laceration and a laceration to his right bapt[employer]. Patient reports that he was working with a power tool when it exploded and cut him. Patient reports he has a history of sarcoidosis and is on home oxygen at 2 L/min but did not bring his oxygen with him. Triage placed him on oxygen per nasal cannula. Patient also reported that he had Covid and was treated with antibodies in November 2019. Patient reports the pain in his wrist is about a 6 out of 10 and head 9 out of 10. Patient denies any loss of consciousness. Patient denies any known drug allergies. Patient's been placed on oxygen while in room 34. Laceration kit lidocaine a hemostat has been ordered. Critical care attestation.: If time is entered above; I have spent that time in minutes in the direct care of this critically ill patient, excluding procedure time. ED Disposition Clinical Impression: Laceration of wrist with complication Disposition: -01 TO HOME OR SELFCARE Is pt being admited?: No Does the pt Need Aspirin: No Condition: Stable Instructions: Laceration Care, Adult, [id number], Sutures, Jarad, or Adhesive Wound Closure, [id number] Additional Instructions: Complete antibiotics as prescribed. Take pain medication as needed. Keep bandage clean and dry. Return back in 10 to 14 days to have sutures removed. Return back sooner if there is any signs of infection such as increased swelling , redness or purulent discharge. Prescriptions: cephALEXin [Keflex] 500 mg PO Q12HR 7 Days #14 cap traMADoL [Ultram 50 MG tab] 50 mg PO Q6HR PRN #12 tablet PRN Reason: Pain Referrals: PRIMARY CARE,MD [Primary Care Provider] - 3-5 Days
[2021-05-14] MEDS ORDERED: HYDROcodone/ACETAMINOPHEN 7.5-325MG TAB PO ONE (14:10)
[2021-05-14] MEDS ORDERED: SODIUM CHLORIDE 0.9% IRR 500 ML BOTTLE IR ONE (14:50)
[2021-05-14 16:01] VITALS: BP 139/62
== END 2021-05-14 16:29 | disposition home or self-care (01) ==
LOC: ED 12:57
DX: S01.81XA Laceration without foreign body of other part of head, initial encounter (principal); S61.511A Laceration without foreign body of right wrist, initial encounter; I11.0 Hypertensive heart disease with heart failure; I50.9 Heart failure, unspecified; J45.909 Unspecified asthma, uncomplicated; Z79.899 Other long term (current) drug therapy; W26.9XXA Contact with unspecified sharp object(s), initial encounter; Y93.89 Activity, other specified; Y92.89 Other specified places as the place of occurrence of the external cause; Y99.8 Other external cause status